=== PATIENT | female | born 1965 ===

== ENCOUNTER 2020-05-15 08:03 | Outpatient (REF) | payer MEDICAID, SELFPAY ==
[2020-05-15 08:40] LABS: Mean Corpuscular Volume 72.4 fL (80-98)
[2020-05-15 08:42] LABS: Hematocrit 25.2 % (37-47); Mean Corpuscular HGB Conc 25.8 g/dl (31.0-35.0); Mean Corpuscular Hemoglobin 18.7 pg (27.0-33.0); Platelet Count 101 X10*3/uL (160-400); Red Blood Count 3.48 X10*6/uL (4.20-5.50); Red Cell Distribution Width 18.2 % (11.0-16.0); White Blood Count 3.5 X10*3/uL (4.8-10.8)
[2020-05-15 09:08] LABS: PLT ABN DIST 1
[2020-05-15 09:27] LABS: Hemoglobin 6.5 g/dl (12.0-16.0)
== END 2020-05-15 08:04 | disposition home or self-care (01) ==
LOC: HO.MDS 08:03
PROVIDERS: Visit Provider Internal Medicine
DX: D50.9 Iron deficiency anemia, unspecified (principal)
CPT/HCPCS: 36415; 85027; 96365; 96366; J1200; J1750; Q0163

== ENCOUNTER 2020-05-22 07:56 | Outpatient (REF) | payer MEDICAID, SELFPAY | END 2020-05-22 07:57 | disposition home or self-care (01) | LOC: HO.LAB 07:56 | PROVIDERS: PCP Nurse Practitioner Family; Visit Provider Internal Medicine | DX: Z20.828 Contact with and (suspected) exposure to other viral communicable diseases (principal) | CPT/HCPCS: U0003 ==

== ENCOUNTER 2020-07-02 10:46 | Emergency (ER) | payer MEDICAID, SELFPAY ==
[2020-07-02 11:25] VITALS: BP 137/68; PULSE 80; RESP 18; TEMP 36.6; O2SAT 98; BMI 41.0
--- NOTE | 2020-07-02 12:04 | ED_ITS ---
HPI - Female Genitourinary General Chief complaint: Vaginal Bleeding Stated complaint: belly pain Time Seen by Provider: 07/02/20 11:10 Source: patient Mode of arrival: ambulatory Limitations: no limitations History of Present Illness HPI Narrative: 55yoF c PMHx of panocytopenia, iron deficiency anemia secondary to menorrhagia last H&H on 05/15/2020 was 6.5/25.2, hepatitis-C genotype type 2, cirrhosis, splenomegaly, DM Type II, HTN, hypothyroidism, GERD and constipation c a PSHx of tubal ligation and a normal colonoscopy presenting to the ED with complaints of 3 days of vaginal bleeding with clots where she saturated her entire bed with bright red blood with associated generalized weakness, fatigue and dizziness. Patient denies any fevers, nausea/vomiting, chest pain or shortness of breath or abdominal pain or any other symptoms complaints or concerns at this time. Related Data Home Medications Medication Instructions Recorded Confirmed cyclobenzaprine [Flexeril] 10 mg PO BEDTIME PRN 05/12/20 05/12/20 lactulose g PO 05/12/20 levothyroxine 100 mcg PO DAILY 05/12/20 05/12/20 loratadine 10 mg PO DAILY 05/12/20 05/12/20 metformin 500 mg PO DAILY 05/12/20 05/12/20 omeprazole 20 mg PO DAILY 05/12/20 05/12/20 sertraline 50 mg PO DAILY 05/12/20 05/12/20 tramadol 50 mg PO BID PRN 05/12/20 05/12/20 trazodone 50 mg PO BEDTIME PRN 05/12/20 05/12/20 Previous Rx's Medication Instructions Recorded gabapentin 300 mg capsule 300 mg PO TID #90 cap 05/17/20 medroxyprogesterone [Provera] 10 mg PO DAILY #7 tab 07/02/20 Allergies Allergy/AdvReac Type Severity Reaction Status Date / Time SEASONAL ALLERGIES Allergy Mild SNEEZING Uncoded 04/06/20 15:40 Review of Systems Review of Systems: Constitutional : No Fever, No Chills ENT/Mouth : No sore throat, No Rhinorrhea Eyes: No Eye Pain, No Redness Cardiovascular : No Chest Pain, No SOB Respiratory : No Cough, No Sputum, No Wheezing Gastrointestinal : No Nausea, No Vomiting, No Diarrhea, positive abdominal pain, Genitourinary : + irregular bleeding, No Dysuria, No Urinary Frequency, No pelvic pain, No vaginal discharge Musculoskeletal : No Myalgias Skin : No rash Neuro : + Gen Weakness, + Fatigue, + Dizziness, No Headache Psych : No Anxiety/Panic, No Depression Heme/Lymph: No bruising, No Lymphadenopathy Endocrine : No Polyuria, No Polydipsia Yes all other systems are reviewed and are negative [facility] Past Medical History Attestation statement: The following information was validated with the patient. Medical History Constipation GERD (gastroesophageal reflux disease) Hepatitis C HTN (hypertension) Hypothyroidism Iron deficiency anemia Menorrhagia Normal colonoscopy Obesity Rhinitis Splenomegaly Type 2 diabetes mellitus Surgical History Hx of tubal ligation Social History Social History (Reviewed 07/02/20 @ 12: by RISSA Thomas) Smoking Status: Current some day smoker Use of substances other than those prescribed or required for medical reasons: No Advance Directives: No Advance Directives Information Provided: No Physical Exam Vital Signs: Vital Signs: Last Vital Signs Temp 97.9 F 07/02/20 11:25 Pulse 78 07/02/20 14:55 Resp 16 07/02/20 14:55 BP 148/78 H 07/02/20 14:55 Pulse Ox 98 07/02/20 14:55 Body Mass Index 41.0 vital signs have been reviewed as normal and appeared to be correct. Blood pressure normal. Heart rate normal. Respiration rate normal. Temperature normal. Oxygen saturation normal. Appearance: Alert. Oriented X3. No acute distress. Head: Normal external exam. Normocephalic. Atraumatic. Eyes: PERRLA. EOMI. Conjunctiva and sclera normal. Eyelids normal. ENT: Pharynx normal. Uvula midline. Moist mucous membranes. Neck: Normal inspection. Neck supple. FROM. No adenopathy. No meningeal signs. CVS: Normal heart rate and rhythm. Heart sound normal. No murmurs noted. Pulses normal throughout. Respiratory: No respiratory distress. Painless inspiration. Breath sounds normal. No wheezes/rales/rhonchi noted. Chest nontender. No accessory muscle usage noted or decreased air movement noted. Abdomen: Soft and nontender. Bowel sounds normal in all 4 quadrants. No distention noted. No organomegaly noted. No visible injury noted. : Supervised by DONNY Shea- Normal external appearance of urethra. No lesions/lacerations or purulent discharge or tenderness noted. Speculum exam normal appearance/palpation of vagina. Pt noted to have bright red active vaginal bleeding no clots noted. No hemorrhaging noted at this time. Cervical os appears closed. Otherwise no vaginal erythema. No foreign bodies noted. No vaginal laceration/lesions noted. No tissue present in vagina. No vaginal mass noted. No vaginal swelling noted. No vaginal tenderness noted. Normal appearance of cervix. Normal palpation of cervix. Cervical os is closed. No abnormal cervical discharge noted. No cervical lesion/mass. No Bartholin cyst noted. No cervical motion tenderness noted. Negative chandelier sign. Normal bimanual exam. Uterine size normal. Bladder normal to palpation. Uterine consistency normal. Normal cervical palpation. Uterine mobility normal. Uterine shape normal. Normal adnexa. Normal rectovaginal exam. Back: No CVA tenderness. Full range of motion noted. Skin: Skin warm and dry. Normal skin color. Normal skin turgor. No rashes/lesions/lacerations noted. Extremities: Extremities exhibit normal range of motion. Extremities nontender. Neuro: Oriented X 3. No motor deficit. No sensory deficit. Reflexes normal. Course Course Course Narrative: 55yoF c PMHx of panocytopenia, iron deficiency anemia secondary to menorrhagia last H&H on 05/15/2020 was 6.5/25.2, hepatitis-C genotype type 2, cirrhosis, splenomegaly, DM Type II, HTN, hypothyroidism, GERD and constipation c a PSHx of tubal ligation and a normal colonoscopy presenting to the ED with complaints of 3 days of vaginal bleeding with clots where she saturated her entire bed with bright red blood with associated generalized weakness, fatigue and dizziness. - On exam patient is not in any acute distress vital signs are stable patient is not tachycardic and hypotensive at this time. although is having active bleeding not hemorrhaging no clots noted. Cervical os is closed. No purulent discharge noted on speculum exam. - Plan: Labs, Blood type and screen, UA, UHCG. Consult c OBGYN Dr. Rodríguez who will come and evaluate the patient and she instructed me to give the patient 1000 mg of IV Tranexamic acid. Patient also received 1 L of IV fluids. Will re-evaluate. Reevaluation(s) Reevaluation #1: - patient's repeat a H&H actually improved now at 10.6/33.3 therefore not requiring a blood transfusion at this time. All other labs are within normal limits. UA within normal limits no evidence of UTI. CG ne gative for . COVID negative. Transvaginal/pelvic ultrasound revealed multiple fibroids otherwise normal appearance of the bilateral ovaries. - patient was evaluated by OBGYN Dr. Rodríguez and obtain a endometrial biopsy which she will send the samples that she was able to obtain. She reports that when she did the vaginal exam the patient's bleeding had already resolved after the 1000 mg of IV Tranexamic acid. She reported that she will be sending the patient home with oral contraceptives. Therefore at this time will DC home with instructions return if any new or worsening symptoms to follow-up with OBGYN. Patient understands agrees with this plan. Time: 15:07 [facility] - Female Genitourinary Medical Records Attestation: I reviewed the patient's medical records. Lab Data Attestation: I reviewed the patient's lab results. Result diagrams: 07/02/20 12:07/02/20 12: Labs: Lab Results 07/02/20 07/02/20 07/02/20 Range/Units 12:01 12:01 12:01 WBC 6.6 (4.8-10.8) X10*3/uL RBC 3.87 L (4.20-5.50) X10*6/uL Hgb 10.6 L D (12.0-16.0) g/dl Hct 33.3 L D (37-47) % MCV 86.0 (80-98) fL MCH 27.4 (27.0-33.0) pg MCHC 31.8 (31.0-35.0) g/dl RDW 18.1 H (11.0-16.0) % Plt Count 167 D (160-400) X10*3/uL MPV 11.4 (9.4-12.3) fL Immature Gran % (Auto) 0.3 (0.0-0.4) % Neut % (Auto) 74.3 H (45-73) % Lymph % (Auto) 16.3 L (20-40) % Sharkey % (Auto) 6.5 (2-11) % Eos % (Auto) 2.3 (0-4) % Baso % (Auto) 0.3 (0-2) % Lymph # (Auto) 1.1 L (1.2-4.9) X10*3/uL Sharkey # (Auto) 0.4 (0.1-1.2) X10*3/uL Eos # (Auto) 0.2 (0.0-0.4) X10*3/uL Baso # (Auto) 0.0 (0.0-0.2) X10*3/uL Abs Immat Gran (auto) 0.02 (0.00-0.03) X10*3/uL Absolute Neuts (auto) 4.9 (2.0-8.3) X10*3/uL Absolute Nucleated RBC 0.000 (0.0-0.012) X10*3/uL Nucleated RBC % (auto) 0.0 (0.0-0.2) /100WBC PT 12.7 (10.8-13.0) SEC INR 1.1 (0.9-1.1) APTT 32.2 (24.1-38.0) SEC Sodium 137 (135-145) mmol/L Potassium 4.0 (3.3-5.1) mmol/l Chloride 101 (96-108) mmol/L Carbon Dioxide 25 (22-29) mmol/L Anion Gap 15 (12-20) BUN 15 (9-16) mg/dL Creatinine 0.86 (0.5-1.4) mg/dL Estim Creat Clear Calc 100.9 Estimated GFR > 60 Random Glucose 95 (60-115) mg/dL Calcium 8.6 (8.4-10.2) mg/dL Magnesium 1.7 (1.6-2.6) mg/dL Total Bilirubin 0.3 (0.0-1.0) mg/dL Direct Bilirubin < 0.2 (0.0-0.5) mg/dL AST 21 (5-31) U/L ALT 13 (0-31) U/L Alkaline Phosphatase 66 (39-117) U/L Total Protein 7.6 (6.5-8.0) g/dL Albumin 4.3 (3.5-5.0) g/dL Urine Color Urine Appearance Urine pH (5.0-8.0) Ur Specific [place] (1.005-1.025) Urine Protein (NEG-TRACE) MG/DL Urine Glucose (UA) (NEG) MG/DL Urine Ketones (NEG) MG/DL Urine Blood (NEG) Urine Nitrite (NEG) Ur Leukocyte Esterase (NEG) Urine RBC (0) /HPF Urine WBC (0-4) /HPF Ur Squamous Epith Cells /LPF Urine Bacteria /LPF Urine Test (NEGATIVE) COVID-19 ([facility]) (Negative) COVID-19 Clin Com Blood Type Antibody Screen 07/02/20 07/02/20 07/02/20 Range/Units 12:01 12:15 12:28 WBC (4.8-10.8) X10*3/uL RBC (4.20-5.50) X10*6/uL Hgb (12.0-16.0) g/dl Hct (37-47) % MCV (80-98) fL MCH (27.0-33.0) pg MCHC (31.0-35.0) g/dl RDW (11.0-16.0) % Plt Count (160-400) X10*3/uL MPV (9.4-12.3) fL Immature Gran % (Auto) (0.0-0.4) % Neut % (Auto) (45-73) % Lymph % (Auto) (20-40) % Sharkey % (Auto) (2-11) % Eos % (Auto) (0-4) % Baso % (Auto) (0-2) % Lymph # (Auto) (1.2-4.9) X10*3/uL Sharkey # (Auto) (0.1-1.2) X10*3/uL Eos # (Auto) (0.0-0.4) X10*3/uL Baso # (Auto) (0.0-0.2) X10*3/uL Abs Immat Gran (auto) (0.00-0.03) X10*3/uL Absolute Neuts (auto) (2.0-8.3) X10*3/uL Absolute Nucleated RBC (0.0-0.012) X10*3/uL Nucleated RBC % (auto) (0.0-0.2) /100WBC PT (10.8-13.0) SEC INR (0.9-1.1) APTT (24.1-38.0) SEC Sodium (135-145) mmol/L Potassium (3.3-5.1) mmol/l Chloride (96-108) mmol/L Carbon Dioxide (22-29) mmol/L Anion Gap (12-20) BUN (9-16) mg/dL Creatinine (0.5-1.4) mg/dL Estim Creat Clear Calc Estimated GFR Random Glucose (60-115) mg/dL Calcium (8.4-10.2) mg/dL Magnesium (1.6-2.6) mg/dL Total Bilirubin (0.0-1.0) mg/dL Direct Bilirubin (0.0-0.5) mg/dL AST (5-31) U/L ALT (0-31) U/L Alkaline Phosphatase (39-117) U/L Total Protein (6.5-8.0) g/dL Albumin (3.5-5.0) g/dL Urine Color PINK Urine Appearance CLOUDY Urine pH 6.0 (5.0-8.0) Ur Specific [place] 1.010 (1.005-1.025) Urine Protein 1+ H (NEG-TRACE) MG/DL Urine Glucose (UA) NEG (NEG) MG/DL Urine Ketones NEG (NEG) MG/DL Urine Blood 3+ H (NEG) Urine Nitrite NEG (NEG) Ur Leukocyte Esterase NEG (NEG) Urine RBC TNTC H (0) /HPF Urine WBC 0 (0-4) /HPF Ur Squamous Epith Cells NONE /LPF Urine Bacteria NONE /LPF Urine Test NEGATIVE (NEGATIVE) COVID-19 ([facility]) Negative (Negative) COVID-19 Clin Com See Note Blood Type O Positive Antibody Screen NEGATIVE Imaging Data Ovarian/pelvic/transvaginal ultrasound: Attestation: I personally reviewed and interpreted this imaging study as follows: Radiologist's impression: IMPRESSION: Multiple fibroids as above. The endometrium is obscured by the presence of fibroids. Normal appearance of the bilateral ovaries. Critical Care Time Critical Care Time Critical Care Time: Yes Total Critical Care Time: 60 Attestation: I personally attest to this time spent taking care of the patient Discharge Plan Discharge Clinical Impression: Menometrorrhagia, Anemia, Fibroids Patient Disposition: Home, Self-Care Instructions: Menorrhagia (ED) Prescriptions: New medroxyprogesterone [Provera] 10 mg tablet 10 mg PO DAILY Qty: 7 RF: 0 No Action gabapentin 300 mg capsule 300 mg PO TID Qty: 90 RF: 5 metformin 500 mg Tablet 500 mg PO DAILY RF: 0 trazodone 50 mg Tablet 50 mg PO BEDTIME PRN (Reason: Insomnia) RF: 0 levothyroxine 100 mcg Tablet 100 mcg PO DAILY RF: 0 sertraline 50 mg Tablet 50 mg PO DAILY RF: 0 loratadine 10 mg Tablet 10 mg PO DAILY RF: 0 omeprazole 20 mg Tablet,Delayed Release (Dr/Ec) 20 mg PO DAILY RF: 0 cyclobenzaprine [Flexeril] 10 mg Tablet 10 mg PO BEDTIME PRN (Reason: Pain) RF: 0 lactulose 10 gram/15 mL Syrup PO RF: 0 tramadol 50 mg Tablet 50 mg PO BID PRN (Reason: Pain) RF: 0 Referrals: Shanell Heredia NP [Primary Care Provider] - 2 days Marzena Rodríguez MD [Physician] - 2 days Print Language: Hebrew
[2020-07-02 12:09] LABS: Basophils Percent Auto 0.3 % (0-2); Eosinophils Absolute Auto 0.2 X10*3/uL (0.0-0.4); Eosinophils Percent Auto 2.3 % (0-4); Hematocrit 33.3 % (37-47); Hemoglobin 10.6 g/dl (12.0-16.0); Imm Gran Abs Auto 0.02 X10*3/uL (0.00-0.03); Imm Gran Pct Auto 0.3 % (0.0-0.4); Lymphocytes Absolute Auto 1.1 X10*3/uL (1.2-4.9); Lymphocytes Percent Auto 16.3 % (20-40); MANUAL DIFF FLAG NO; Mean Corpuscular HGB Conc 31.8 g/dl (31.0-35.0); Mean Corpuscular Hemoglobin 27.4 pg (27.0-33.0); Mean Platelet Volume 11.4 fL (9.4-12.3); Monocytes Absolute Auto 0.4 X10*3/uL (0.1-1.2); Monocytes Percent Auto 6.5 % (2-11); Neutrophils Absolute Auto 4.9 X10*3/uL (2.0-8.3); Neutrophils Percent Auto 74.3 % (45-73); Platelet Count 167 X10*3/uL (160-400); Red Blood Count 3.87 X10*6/uL (4.20-5.50); Red Cell Distribution Width 18.1 % (11.0-16.0); White Blood Count 6.6 X10*3/uL (4.8-10.8)
[2020-07-02 12:15] LABS: Glucose Urine UA NEG (NEG); INTERNATIONAL NORM RATIO 1.1 (0.9-1.1); Leukocyte Esterase Urine NEG (NEG); Nitrite Urine NEG (NEG); Prothrombin Time 12.7 SEC (10.8-13.0); Urine Blood 3+ (NEG); Urine Ketones NEG (NEG); Urine Protein 1+ MG/DL (NEG-TRACE)
[2020-07-02 12:16] LABS: Appearance Urine CLOUDY; Color Urine PINK
[2020-07-02 12:17] LABS: UPreg QC Valid YES; Urine Pregnancy NEGATIVE (NEGATIVE)
[2020-07-02 12:18] LABS: Partial Thromboplastin Time 32.2 SEC (24.1-38.0)
[2020-07-02] MEDS: Tranexamic Acid 1,000 MG in 0.9 % Sodium Chloride 50 ML 360 MG IV (12:18)
[2020-07-02 12:27] LABS: RBC Urine TNTC /HPF (0); WBC Urine 0 /HPF (0-4)
[2020-07-02 13:03] LABS: Alanine Aminotransferase 13 U/L (0-31); Albumin Level 4.3 g/dL (3.5-5.0); Alkaline Phosphatase 66 U/L (39-117); Anion Gap 15 (12-20); Aspartate Amino Transferase 21 U/L (5-31); Bilirubin Direct < 0.2 mg/dL (0.0-0.5); Bilirubin Total 0.3 mg/dL (0.0-1.0); Blood Urea Nitrogen 15 mg/dL (9-16); Calcium 8.6 mg/dL (8.4-10.2); Carbon Dioxide 25 mmol/L (22-29); Chloride 101 mmol/L (96-108); Creatinine Clr Calc Pharmacy 100.9; Estimated Glomerular Filt Rate > 60; Glucose Random 95 mg/dL (60-115); Magnesium 1.7 mg/dL (1.6-2.6); Sodium 137 mmol/L (135-145); Total Protein 7.6 g/dL (6.5-8.0)
[2020-07-02 13:04] LABS: COVID-19 Test Negative (Negative)
--- NOTE | 2020-07-02 13:04 | US_ITS ---
EXAMINATION: ULTRASOUND PELVIC, COMPLETE CLINICAL INFORMATION: Vaginal bleeding COMPARISON: None. TECHNIQUE: Transabdominal and transvaginal imaging was performed. Transvaginal imaging was performed for further evaluation of the endometrium and adnexa. FINDINGS: The uterus is enlarged measuring 12.3 x 10.5 x 9.5 cm. There are at least 4 fibroids. The largest is in the anterior upper uterus and measures 6.6 x 7.4 x 6.8 cm. There is a fibroid in the posterior upper uterus that measures up to 4.7 cm, a 4cm fibroid in the mid posterior uterus and a 4.6 cm fibroid in the lower posterior uterus. The endometrium is obscured by the fibroids. There are nabothian cysts within the cervix. Both ovaries are of normal size and echogenicity. The right ovary measures 2.2 x 2 x 1.9 cm for a volume of 4.4 mL. The left ovary measures 2.3 x 3.1 x 3.1 cm for a volume of 11.6 mL. There is no pelvic free fluid. US/US pelvic complete IMPRESSION: Multiple fibroids as above. The endometrium is obscured by the presence of fibroids. Normal appearance of the bilateral ovaries.
--- NOTE | 2020-07-02 13:04 | US_ITS ---
EXAMINATION: ULTRASOUND PELVIC, COMPLETE CLINICAL INFORMATION: Vaginal bleeding COMPARISON: None. TECHNIQUE: Transabdominal and transvaginal imaging was performed. Transvaginal imaging was performed for further evaluation of the endometrium and adnexa. FINDINGS: The uterus is enlarged measuring 12.3 x 10.5 x 9.5 cm. There are at least 4 fibroids. The largest is in the anterior upper uterus and measures 6.6 x 7.4 x 6.8 cm. There is a fibroid in the posterior upper uterus that measures up to 4.7 cm, a 4cm fibroid in the mid posterior uterus and a 4.6 cm fibroid in the lower posterior uterus. The endometrium is obscured by the fibroids. There are nabothian cysts within the cervix. Both ovaries are of normal size and echogenicity. The right ovary measures 2.2 x 2 x 1.9 cm for a volume of 4.4 mL. The left ovary measures 2.3 x 3.1 x 3.1 cm for a volume of 11.6 mL. There is no pelvic free fluid. US/US transvaginal IMPRESSION: Multiple fibroids as above. The endometrium is obscured by the presence of fibroids. Normal appearance of the bilateral ovaries.
--- NOTE | 2020-07-02 14:40 | PC.NURSE ---
this rn at bedside with pt/per diem interpreter/dr. damon. dr. damon perfomed a endometerial biopsy which pt carlos well.
[2020-07-02 14:55] VITALS: BP 148/78; PULSE 78; RESP 16; O2SAT 98
--- NOTE | 2020-07-02 15:06 | P.CONOB_ITS ---
LETTER OF CREDIT DOCUMENT EXAMINER - CN: HPI Data of Consult Consult date: 07/02/20 Primary Care Provider: Shanell Heredia NP Consult Narrative Narrative: Camila Dumont is a 55 year old female who presents with three days of heavy vaginal bleeding. Menses are regular, monthly, and typically last 5 days with two days of heavy bleeding which then gets senior director marketing. She typically changes her pads ( Pampers ) 4-5 times daily during the first two days. This time, she is changing her pads 9x/day. Bleeding is senior director marketing today than when it first started. She reports it has been much heavier than normal, flowing out when she is in the shower and coming heavier when she coughs or sneezes. She sometimes feels dizzy; she reports this is normal for her as she has a history of anemia and was transfused blood a few months ago because her hemoglobin dropped to 5. She is followed by heme/onc for chronic pancytopenia. She denies chest pain or SOB. 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 - Review of Systems Review of Systems ROS Unobtainable: All systems reviewed & are unremarkable except as noted in HPI and below OB PMFSH Past Medical History Medical History Abnormal uterine bleeding Constipation GERD (gastroesophageal reflux disease) Hepatitis C HTN (hypertension) Hypothyroidism Iron deficiency anemia Menorrhagia Normal colonoscopy Obesity Rhinitis Splenomegaly Type 2 diabetes mellitus Surgical History Surgical History Hx of tubal ligation Social History Social History Smoking Status: Current some day smoker Use of substances other than those prescribed or required for medical reasons: No Advance Directives: No Advance Directives Information Provided: No Meds Allergies Allergy/AdvReac Type Severity Reaction Status Date / Time SEASONAL ALLERGIES Allergy Mild SNEEZING Uncoded 04/06/20 15:40 Home Medications Medication Instructions Recorded Confirmed Type cyclobenzaprine [Flexeril] 10 mg PO BEDTIME PRN 05/12/20 05/12/20 History lactulose g PO 05/12/20 History levothyroxine 100 mcg PO DAILY 05/12/20 05/12/20 History loratadine 10 mg PO DAILY 05/12/20 05/12/20 History metformin 500 mg PO DAILY 05/12/20 05/12/20 History omeprazole 20 mg PO DAILY 05/12/20 05/12/20 History sertraline 50 mg PO DAILY 05/12/20 05/12/20 History tramadol 50 mg PO BID PRN 05/12/20 05/12/20 History trazodone 50 mg PO BEDTIME PRN 05/12/20 05/12/20 History LETTER OF CREDIT DOCUMENT EXAMINER Physical Exam Vitals Vital signs: Temp Pulse Resp BP Pulse Ox 97.9 F 78 16 148/78 H 98 07/02/20 11:25 07/02/20 14:55 07/02/20 14:55 07/02/20 14:55 07/02/20 14:55 Body Mass Index 41.0 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6 Liver Function 07/02/20 Range/Units 12:01 Total Bilirubin 0.3 (0.0-1.0) mg/dL Direct Bilirubin < 0.2 (0.0-0.5) mg/dL AST 21 (5-31) U/L ALT 13 (0-31) U/L Alkaline Phosphatase 66 (39-117) U/L Albumin 4.3 (3.5-5.0) g/dL Urine 07/02/20 Range/Units 12:01 Urine Color PINK Urine Appearance CLOUDY Urine pH 6.0 (5.0-8.0) Ur Specific [place] 1.010 (1.005-1.025) Urine Protein 1+ H (NEG-TRACE) MG/DL Urine Glucose (UA) NEG (NEG) MG/DL Urine Test NEGATIVE (NEGATIVE) Antibody Screen Antibody Screen NEGATIVE 07/02/20 12:15 Assessment and Plan (1) Abnormal uterine bleeding: Status: Acute Offered endometrial biopsy in the ER today vs in the office when she follows up. She consented to EMB today. Will follow up in the office in about one week to review the results and likely plan hysteroscopy D&C with possible endometrial ablation. Bleeding was minimal at the time of exam after one IV dose of TXA in the ER. Will D/C home with one week of Provera 10mg PO QD to ensure continued light bleeding given her history of pancytopenia. LETTER OF CREDIT DOCUMENT EXAMINER Procedures Abscess I/D Comments: Risks and benefits of the procedure were reviewed, including risk of pain, bleeding, infection, and uterine perforation, and consent was signed. All questions were answered. A time out was performed to confirm correct patient and correct procedure. The patient was placed in the dorsal lithotomy position with her legs supported in stirrups. A bivalve speculum was placed in the vagina and the cervix visualized. Topical anesthetic spray was sprayed on the cervix and the anterior lip was grasped with the tenaculum. The EMB pipelle was []then passed through the cervical os. The uterus sounded to 5cm. The plunger was retracted and the pipelle rotated while slowly removed from the uterus. The contents were transferred to the specimen container. The tenaculum was removed from the anterior lip of the cervix and good hemostasis was noted. The speculum was ekta cailin from the vagina. The patient tolerated the procedure well.
[2020-07-02 15:15] VITALS: BP 128/74; PULSE 79; RESP 20; TEMP 36.6; O2SAT 99
== END 2020-07-02 15:46 | disposition home or self-care (01) ==
PROVIDERS: Physician Assistant Medical; Emergency Provider Emergency Medicine; PCP Nurse Practitioner Family
DX: N92.1 Excessive and frequent menstruation with irregular cycle (principal); D64.9 Anemia, unspecified; D25.9 Leiomyoma of uterus, unspecified; F17.200 Nicotine dependence, unspecified, uncomplicated; Z20.828 Contact with and (suspected) exposure to other viral communicable diseases; Z71.6 Tobacco abuse counseling; Z79.899 Other long term (current) drug therapy
CPT/HCPCS: 36415; 76830; 76856; 80048; 80076; 81001; 81025; 83735; 85025; 85610; 85730; 86850; 86900; 86901; 87635; 88305; 96374; 96375; 99284; 99291

== ENCOUNTER → 2020-07-10 11:10 | Outpatient (BNVA) | payer MEDICAID, SELFPAY | PROVIDERS: PCP Nurse Practitioner Family; Visit Provider Obstetrics & Gynecology | DX: Z76.89 Persons encountering health services in other specified circumstances (principal) ==

== ENCOUNTER 2020-07-19 07:44 | Outpatient (REF) | payer MEDICAID, SELFPAY | END 2020-07-19 07:45 | disposition home or self-care (01) | LOC: HO.MDS 07:44 | PROVIDERS: PCP Nurse Practitioner Family; Visit Provider Internal Medicine | DX: D50.9 Iron deficiency anemia, unspecified (principal) | CPT/HCPCS: 96365; 96366; J1200; J1750; Q0163 ==

== ENCOUNTER → 2020-07-26 14:44 | Outpatient (BNVA) | payer MEDICAID, SELFPAY | PROVIDERS: PCP Nurse Practitioner Family; Visit Provider Student in an Organized Health Care Education/Training Program | DX: M17.11 Unilateral primary osteoarthritis, right knee (principal) | CPT/HCPCS: 20610; 99211 ==

== ENCOUNTER → 2020-08-11 09:49 | Outpatient (BNVA) | payer MEDICAID, SELFPAY | PROVIDERS: PCP Nurse Practitioner Family; Referring Provider Nurse Practitioner Family; Visit Provider Nurse Practitioner ==

== ENCOUNTER 2020-09-06 10:18 | Emergency (ER) | payer MEDICAID, SELFPAY | END 2020-09-06 14:23 | disposition left against medical advice (07) | PROVIDERS: Emergency Provider Emergency Medicine; PCP Nurse Practitioner Family | DX: N93.9 Abnormal uterine and vaginal bleeding, unspecified (principal) ==

== ENCOUNTER → 2020-09-08 11:25 | Outpatient (BNVA) | payer MEDICAID, SELFPAY | PROVIDERS: PCP Nurse Practitioner Family; Visit Provider Obstetrics & Gynecology ==

== ENCOUNTER → 2020-10-24 08:32 | Outpatient (BNVA) | payer MEDICAID, SELFPAY | PROVIDERS: PCP Nurse Practitioner Family; Visit Provider Obstetrics & Gynecology | DX: N93.9 Abnormal uterine and vaginal bleeding, unspecified (principal) | CPT/HCPCS: 99212 ==

== ENCOUNTER → 2020-11-22 07:50 | Outpatient (BNVA) | payer MEDICAID, SELFPAY | PROVIDERS: PCP Nurse Practitioner Family; Visit Provider Student in an Organized Health Care Education/Training Program | DX: M17.11 Unilateral primary osteoarthritis, right knee (principal) | CPT/HCPCS: 20610; 99212 ==

== ENCOUNTER 2020-12-26 08:27 | Outpatient (REF) | payer MEDICAID, SELFPAY ==
--- NOTE | ~2020-12-26 | MM_ITS ---
EXAMINATION: MM SCREENING DIGITAL BREAST TOMOSYNTHESIS, BILATERAL CLINICAL INFORMATION: Screening. Asymptomatic. The lifetime risk of breast cancer based on the Tyrer-Cuzick Model is 8%. COMPARISON: Mammography: 09/23/2018, 09/15/2018, 09/09/2017 TECHNIQUE: Digital breast tomosynthesis is performed in both the craniocaudal and mediolateral oblique views along with computer-aided detection (CAD). Synthesized 2D images are generated from the tomosynthesis. FINDINGS: There are scattered areas of fibroglandular density (ACR BI-RADS breast composition Category b). There are no significant masses, abnormal calcifications, or other abnormalities. There is a fine fibronodular parenchymal pattern is similar to prior exams. No developing density. The axilla and skin contours are unremarkable. MM/MM tomosynthesis screening BI IMPRESSION: No mammographic evidence of malignancy. ASSESSMENT: BI-RADS 1: Negative RECOMMENDATION: Routine annual mammography screening. This patient's information was entered into a reminder system with a target due date for their next mammogram.
== END 2020-12-26 08:28 | disposition home or self-care (01) ==
LOC: HO.MAMMO 08:27
PROVIDERS: PCP Nurse Practitioner Family; Visit Provider Nurse Practitioner Family
DX: N93.9 Abnormal uterine and vaginal bleeding, unspecified (principal); Z12.31 Encounter for screening mammogram for malignant neoplasm of breast
CPT/HCPCS: 77063; 77067; 99212

== ENCOUNTER → 2021-02-12 10:03 | Outpatient (BNVA) | payer MEDICAID, SELFPAY | PROVIDERS: PCP Nurse Practitioner Family; Visit Provider Nurse Practitioner ==

== ENCOUNTER → 2021-04-16 08:55 | Outpatient (BNVA) | payer MEDICAID, SELFPAY | PROVIDERS: Visit Provider Nurse Practitioner ==

== ENCOUNTER → 2021-05-29 12:01 | Outpatient (BNVA) | payer MEDICAID, SELFPAY | PROVIDERS: PCP Nurse Practitioner Family; Visit Provider Nurse Practitioner ==

== ENCOUNTER 2021-05-30 09:51 | Outpatient (REF) | payer MEDICAID, SELFPAY ==
[2021-05-30 16:38] LABS: CT PCR NOT DETECTED (Not Detect.); NG PCR NOT DETECTED (Not Detect.)
[2021-05-31 10:55] LABS: BV Int Neg Control Negative (Negative); BV Int Pos Control Positive (Positive)
[2021-06-05 15:01] LABS: HPV mRNA E6/E7 rflx Not Detected (Not Detected)
== END 2021-05-30 09:52 | disposition home or self-care (01) ==
LOC: HO.LAB 09:51
PROVIDERS: PCP Nurse Practitioner Family; Visit Provider Advanced Practice Midwife
DX: Z01.419 Encounter for gynecological examination (general) (routine) without abnormal findings (principal); Z11.3 Encounter for screening for infections with a predominantly sexual mode of transmission; Z11.51 Encounter for screening for human papillomavirus (HPV); N92.0 Excessive and frequent menstruation with regular cycle; N88.9 Noninflammatory disorder of cervix uteri, unspecified; D25.9 Leiomyoma of uterus, unspecified; Z78.0 Asymptomatic menopausal state; Z20.2 Contact with and (suspected) exposure to infections with a predominantly sexual mode of transmission
CPT/HCPCS: 87480; 87491; 87510; 87591; 87624; 87660; 88142

== ENCOUNTER 2021-06-21 10:50 | Outpatient (REF) | payer MEDICAID, SELFPAY ==
--- NOTE | ~2021-06-21 | US_ITS ---
EXAMINATION: US PELVIS CLINICAL INFORMATION: Leiomyoma of the uterus. COMPARISON: Ultrasound 07/02/2020 TECHNIQUE: Ultrasound of the pelvis is performed using transabdominal transducers along with Doppler. Transvaginal imaging was refused by the patient. FINDINGS: Uterus: The uterus is anteverted, retroflexed and measures 15.7 cm in length, 8.0 cm in AP, and 12.0 cm in transverse dimension. The double wall endometrial thickness is 2.3 cm. The uterus is is heterogeneous and enlarged with multiple hypoechoic lesions. 1. Lesion in the endometrial canal likely submucosal and pedunculated measuring 1.6 x 1.6 x 1.6 cm. 2. Lesion described previously measuring 8.5 cm is not seen at this time. 3. Largest lesion in the left lower body of the uterus measures 6.6 x 7.4 x 6.8 cm. Previously it measured 4.6 x 3.7 x 3.8 cm. 4. Lesion in the right lower uterine body measures 4.6 x 3.7 x 3.8 cm. Previously it measured 4.0 x 3.6 x 4.0 cm. 5. Lesion in the right upper body of the uterus measures 5.1 x 5.3 x 6.2 cm. Previously it measured 4.7 x 3.7 x 3.5 cm. 6. Lesion in the mid right body of the uterus measures 2.1 x 2.2 x 2.0 cm. Previously it was not seen. 7. Lesion in the left lower cervix measures 4.5 x 4.1 x 4.0 cm. Previously it measured 4.6 x 2.8 x 3.8 cm. There are small nabothian cysts in the cervix. Adnexa: Right ovary is not visualized. Previously right ovary measured 2.2 x 2.0 x 1.9 cm. Left ovary measures 4.4 x 2.5 x 4.5 cm and volume 25.9 mL. There is an anechoic cyst measuring 2.3 x 2.1 x 5.5 cm. Previously the left ovary measured 2.3 x 3.1 x 3.1 cm. US/US pelvic complete IMPRESSION: Heterogeneous enlarged uterus with multiple fibroids, as described above. Small nabothian cysts in the cervix. Small anechoic cyst in the left ovary.
== END 2021-06-21 10:51 | disposition home or self-care (01) ==
LOC: HO.US 10:50
PROVIDERS: PCP Nurse Practitioner Family; Visit Provider Advanced Practice Midwife
DX: D25.9 Leiomyoma of uterus, unspecified (principal)
CPT/HCPCS: 76856

== ENCOUNTER → 2021-07-05 11:39 | Outpatient (BNVA) | payer MEDICAID, SELFPAY | PROVIDERS: PCP Nurse Practitioner Family; Visit Provider Advanced Practice Midwife ==

== ENCOUNTER 2021-08-29 07:49 | Outpatient (REF) | payer MEDICAID, SELFPAY ==
--- NOTE | ~2021-08-29 | XR_ITS ---
EXAMINATION: XR LUMBOSACRAL SPINE CLINICAL INFORMATION: Low back pain COMPARISON: Previous x-ray November 2016 TECHNIQUE: Three views of the lumbosacral spine. FINDINGS: There is curvature of the lumbar spine to the right. There is mild 3 mm anterior subluxation of L4 with respect L5. Bone alignment is otherwise normal. No fracture or dislocation is seen. There is degenerative disc disease at L5-S1. There is lower lumbar spine facet arthritis. XR/XR lumbar spine 2-3V IMPRESSION: Degenerative changes.
[2021-08-29 10:27] LABS: Alanine Aminotransferase 13 U/L (0-31); Albumin Level 4.2 g/dL (3.5-5.0); Alkaline Phosphatase 61 U/L (39-117); Anion Gap 11 (12-20); Aspartate Amino Transferase 18 U/L (5-31); Bilirubin Total 0.7 mg/dL (0.0-1.0); Blood Urea Nitrogen 14 mg/dL (9-16); Calcium 9.2 mg/dL (8.4-10.2); Carbon Dioxide 30 mmol/L (22-29); Chloride 103 mmol/L (96-108); Estimated Glomerular Filt Rate > 60; Glucose Random 98 mg/dL (60-115); Sodium 140 mmol/L (135-145); Total Protein 7.4 g/dL (6.5-8.0)
== END 2021-08-29 07:50 | disposition home or self-care (01) ==
LOC: HO.LAB 07:49
PROVIDERS: PCP Nurse Practitioner Family; Visit Provider Nurse Practitioner Family
DX: M17.11 Unilateral primary osteoarthritis, right knee (principal); M17.12 Unilateral primary osteoarthritis, left knee; M54.50 Low back pain, unspecified; F17.210 Nicotine dependence, cigarettes, uncomplicated; Z79.899 Other long term (current) drug therapy
CPT/HCPCS: 36415; 72100; 80053; 99212

== ENCOUNTER 2021-08-30 08:50 | Outpatient (REF) | payer MEDICAID, SELFPAY ==
--- NOTE | ~2021-08-30 | US_ITS ---
EXAMINATION: US ABDOMEN COMPLETE CLINICAL INFORMATION: Unspecified cirrhosis of liver. COMPARISON: Ultrasound abdomen complete 05/29/2017 and 07/31/2016. TECHNIQUE: Real-time imaging of the abdominal viscera. FINDINGS: PANCREAS: The pancreas is slightly heterogeneous but normal size. A small lymph node is seen adjacent to the pancreatic measuring 2.5 x 0.8 x 2.2 cm. ABDOMINAL AORTA: The proximal, mid, and distal segments are normal in caliber. INFERIOR VENA CAVA: Visualized portions are normal. LIVER: The liver is enlarged measuring 19.1 cm in length. The liver contour is normal. There is increased liver echogenicity. No focal hepatic lesion. There is no intrahepatic biliary duct dilatation seen. The portal the middle portal vein is prominent measuring 1.6 cm GALLBLADDER: The gallbladder is physiologically distended. Multiple mobile gallstones are present. No evidence of gallbladder wall thickening or pericholecystic fluid. COMMON BILE DUCT: Normal in caliber measuring 0.9 cm in diameter. RIGHT KIDNEY: No hydronephrosis or renal calculi. The kidney measures 12.1 cm in maximum dimension. There multiple anechoic cysts suspicious for polycystic kidney disease.. The largest cyst in upper pole measuring 7.0 x 5.8 x 6.1 cm. Findings LEFT KIDNEY: There are multiple anechoic cysts. The largest cyst midpole left kidney measures 5.5 x 3.8 x 4.0 cm. The appearance is suggestive of polycystic kidney disease. No hydronephrosis or renal calculi. The kidney measures 14.8 cm in maximum dimension. SPLEEN: 21.1 The spleen measures 21.1 cm in maximum dimension. FREE FLUID: None. US/US abdomen complete IMPRESSION: Bilateral multiple renal cyst suggestive of polycystic kidney disease. No echogenic stones or hydronephrosis. Mild hepatomegaly with hepatic steatosis. No focal lesion. Prominent middle portal vein
== END 2021-08-30 08:51 | disposition home or self-care (01) ==
LOC: HO.US 08:50
PROVIDERS: PCP Nurse Practitioner; Visit Provider Nurse Practitioner
DX: K74.60 Unspecified cirrhosis of liver (principal)
CPT/HCPCS: 76700

== ENCOUNTER 2021-11-06 05:10 | Emergency (ER) | payer MEDICAID, SELFPAY ==
--- NOTE | ~2021-11-06 | CT_ITS ---
EXAMINATION: CT ABDOMEN AND PELVIS WITHOUT CONTRAST CLINICAL INFORMATION: Lower abdominal pain COMPARISON: Previous abdominal ultrasound August 2021 and pelvic ultrasound June 2021 TECHNIQUE: Multidetector volumetric imaging was performed from the superior aspect of the liver through the pubic symphysis. Sagittal and coronal reformatted images were obtained on the technologist's workstation. This CT examination was performed using dose optimization techniques as appropriate, variously including the following: *Automated exposure control *Adjustment of mA and/or kV according to patient size (this includes techniques or standardized protocols for targeted exams where dose is matched to indication/reason for exam; i.e. extremities or head) *Use of iterative reconstruction technique DLP: 1169 mGy-cm FINDINGS: LUNG BASES: There is a small right pleural effusion. LIVER, GALLBLADDER, AND BILIARY TREE: The liver appears cirrhotic. No focal liver lesion is seen. The gallbladder is normal. PANCREAS: Unremarkable. SPLEEN: The spleen is enlarged and measures 15.7 cm in length. ADRENAL GLANDS: Unremarkable. KIDNEYS AND URETERS: The kidneys are slightly enlarged. The right kidney measures 13.2 and the left 13.5 cm in length. There are multiple bilateral renal cysts. Appearance is questionable for polycystic kidney disease. Largest cysts measure 7 cm in the upper pole of the right kidney and 4 cm in the upper pole of the left kidney. No renal stone, mass or hydronephrosis is seen. BLADDER: Not optimally distended. GASTROINTESTINAL TRACT: There is diverticulosis of the colon. No evidence of diverticulitis or colitis is seen. The small and large bowel are otherwise unremarkable. The appendix is unremarkable. ABDOMINAL WALL: No significant hernia is appreciated. LYMPH NODES: There is shotty bilateral inguinal lymphadenopathy. There is shotty retroperitoneal lymphadenopathy. No enlarged lymph nodes are seen. There is no ascites. VASCULAR: Unremarkable. PELVIC VISCERA: The uterus is enlarged and measures 15 x 11 x 13 cm in dimension. The uterus is lobulated in contour and has areas of low attenuation probably representing fibroids. There is central low attenuation in the uterus and it is uncertain whether this represents endometrial fluid or thickening or fibroid. There is also increased soft tissue in the left adnexa measuring 5 cm. It is uncertain whether this represents a subserosal or pedunculated uterine fibroid or could represent a left adnexal lesion. There is also abnormal contour to the cervix questionable for a fibroid. OSSEOUS STRUCTURES: There are degenerative changes of the spine and hip joints. There is mild curvature of the lumbar spine to the right. CT/CT abdomen pelvis wo con IMPRESSION: Diverticulosis of the colon. No evidence of colitis or diverticulitis. Normal-appearing appendix. Cirrhotic appearing liver and splenomegaly. Enlarged kidneys and multiple bilateral renal cysts. Polycystic kidney disease should be considered. Enlarged abnormal appearing uterus. Fleischner guidelines were followed.
[2021-11-06 05:25] VITALS: BP 125/59; PULSE 74; RESP 18; TEMP 36.6; O2SAT 98; BMI 38.8
[2021-11-06 05:34] LABS: Appearance Urine CLEAR; Color Urine YELLOW; Glucose Urine UA NEG (NEG); Leukocyte Esterase Urine NEG (NEG); Nitrite Urine NEG (NEG); PH 6.5 (5.0-8.0); Urine Blood NEG (NEG); Urine Ketones NEG (NEG); Urine Protein NEG (NEG-TRACE)
--- NOTE | 2021-11-06 07:05 | ED_ITS ---
HPI - Back Pain/Injury General Chief Complaint: Back Pain/Injury Stated Complaint: lower back pain Time Seen by Provider: 11/06/21 07:03 Source: patient and [employer] Mode of arrival: ambulatory Limitations: no limitations History of Present Illness HPI Narrative: Walked into the emergency department for evaluation of low back pain/abdominal pain. 56-year-old female only Maltese speaker came in for evaluation of lower abdominal pain and low back pain radiates sometimes to left lower extremities, pain has been constant for the past 2 days, described as severe 10/10, no nausea, vomiting, diarrhea, fever, or chills. Movement makes the pain worse, nothing relieves the pain. Patient is complaining of burning and frequent urination. No recent trauma. Patient has a chronic back pain but never had that back pain radiating down to her lower abdomen. Related Data Home Medications Medication Instructions Recorded Confirmed lactulose 10 gram/15 mL oral syrup 10 g PO DAILY 05/12/20 10/09/21 levothyroxine 100 mcg tablet 100 mcg PO DAILY 05/12/20 10/09/21 loratadine 10 mg tablet 10 mg PO DAILY 05/12/20 10/09/21 metformin 500 mg tablet 500 mg PO DAILY 05/12/20 10/09/21 sertraline 50 mg tablet 50 mg PO DAILY 05/12/20 10/09/21 trazodone 50 mg tablet 50 mg PO BEDTIME PRN 05/12/20 10/09/21 dulaglutide 0.75 mg/0.5 mL 0.75 mg SUBCUT QWEEK 04/11/21 10/09/21 subcutaneous pen injector (Trulicity) Previous Rx's Medication Instructions Recorded medroxyprogesterone 5 mg tablet 5 mg PO DAILY 90 Days #90 tab 07/10/20 linaclotide 145 mcg capsule 145 mcg PO QAM #30 cap 02/20/21 (Linzess) linaclotide 290 mcg capsule 290 mcg PO QAM 30 Days #30 cap 08/07/21 (Linzess) omeprazole 20 mg tablet,delayed 20 mg PO BID 30 Days #60 tab 08/07/21 release gabapentin 300 mg capsule 300 mg PO TID #90 cap 09/27/21 tramadol 50 mg tablet 50 mg PO Q6H PRN #120 tab 10/17/21 Allergies Allergy/AdvReac Type Severity Reaction Status Date / Time lisinopril Allergy Swelling Verified 08/29/21 08:03 SEASONAL ALLERGIES Allergy Mild SNEEZING Uncoded 08/29/21 08:03 Review of Systems Review of Systems: All other systems are reviewed and are negative Constitutional: Reports as per HPI and Reports no additional constitutional complaints Eyes: Reports as per HPI and Reports no additional eye complaints Reports system reviewed and no additional complaints, except as documented Cardiovascular: Reports as per HPI and Reports no additional cardiovascular complaints Respiratory: Reports as per HPI and Reports no additional respiratory complaints Gastrointestinal: Reports as per HPI and Reports no additional gastrointestinal complaints Genitourinary: Reports no additional female genitourinary complaints Musculoskeletal: Reports no additional musculoskeletal complaints Skin/Breast: Reports system reviewed and no additional complaints, except as docu Psychiatric: Reports no additional psychiatric complaints Endocrine: Reports no additional endocrine complaints Hematologic/Lymphatic: Reports no additional hematologic/lymphatic complaints Allergic/Immunologic: Reports no additional allergic/immunologic complaints Reports system reviewed and no additional complaints, except as documented and Reports Abnormal speech present FOR[facility]LY [facility] Past Medical History Medical History Abnormal uterine bleeding Constipation GERD (gastroesophageal reflux disease) Hepatitis C HTN (hypertension) Hypothyroidism Iron deficiency anemia Menorrhagia Normal colonoscopy Obesity Primary osteoarthritis of right knee Rhinitis Splenomegaly Type 2 diabetes mellitus Uterine fibroid Surgical History Hx of colonoscopy Hx of tubal ligation Family History Family History Mother Diabetes High blood pressure Father Alzheimer disease Social History Social History Alcohol intake: current Alcohol intake frequency: holidays/special occasions only Alcohol type: beer and wine Patient Tobacco Use Status: Current someday Tobacco user Cigarettes Per Day: 3 Advance Directives: No Advance Directives Information Provided: Yes Physical Exam Vital Signs: Vital Signs: Last Vital Signs Temp 97.8 F 11/06/21 05:25 Pulse 74 11/06/21 05:25 Resp 18 11/06/21 05:25 BP 125/59 L 11/06/21 05:25 Pulse Ox 98 11/06/21 05:25 BMI result Body Mass Index 38.8 Vital signs have been reviewed as appeared to be correct. Blood pressure normal. Heart rate normal. Respiration rate normal. Temperature normal. Oxygen saturation normal. Appearance: Alert. Oriented X3. No acute distress. Head: Normal external exam. Normocephalic. Atraumatic. No Caal signs noted. No raccoon eyes noted Eyes: PERRLA. EOMI. Conjunctiva and sclera normal. Eyelids normal. ENT: TM's Normal. Pharynx normal. Uvula midline. Moist mucous membranes. No trismus noted. No drooling noted. No muffled voice noted. Neck: Normal inspection. Neck supple. FROM. No adenopathy. Thyroid Normal. No meningeal signs. No neck mass noted. CVS: Normal heart rate and rhythm. Heart sound normal. No murmurs noted. Pulses normal throughout. Respiratory: No respiratory distress. Painless inspiration. Breath sounds normal. No wheezes/rales/rhonchi noted. Chest nontender. No accessory muscle usage noted or decreased air movement noted. Abdomen: Soft and nontender. Bowel sounds normal in all 4 quadrants. No distention noted. No organomegaly noted. No visible injury noted. Back: No CVA tenderness. Full range of motion noted. Skin: Skin warm and dry. Normal skin color. Normal skin turgor. No rashes/lesions/lacerations noted. Extremities: No lower extremity edema. Extremities exhibit normal range of motion. Extremities nontender. Neuro: Oriented X 3. Cranial nerve exam: II-XII are grossly intact No motor deficit. No sensory deficit. Reflexes normal. Course Course Course Narrative: Assessment and plan. 56 years old female came in for evaluation of lower abdominal pain and back pain for 2 days, urinary frequency and dysuria but UA is revealing no UTI, unrem arkable labs except for chronic thrombocytopenia. Patient now feels better claiming that she is ready to go, good appetite, no nausea or vomiting, will discharge and follow up with PCP. MDM - Back Pain/Injury Lab Data Attestation: I reviewed the patient's lab results. Result diagrams: 11/06/21 07:22 11/06/21 07:22 Labs: Lab Results 11/06/21 11/06/21 11/06/21 Range/Units 05:28 07:22 07:22 WBC 5.0 (4.8-10.8) X10*3/uL RBC 4.54 (4.20-5.50) X10*6/uL Hgb 12.9 (12.0-16.0) g/dl Hct 39.9 (37.0-47.0) % MCV 87.9 (80.0-98.0) fL MCH 28.4 (27.0-33.0) pg MCHC 32.3 (31.0-35.0) g/dl RDW 12.7 (11.0-16.0) % Plt Count 97 L (160-400) X10*3/uL MPV 12.7 H (9.4-12.3) fL Immature Gran % (Auto) 0.4 (0.0-0.4) % Neut % (Auto) 73.9 H (45-73) % Lymph % (Auto) 17.3 L (20-40) % [place] % (Auto) 6.2 (2-11) % Eos % (Auto) 1.8 (0-4) % Baso % (Auto) 0.4 (0-2) % Lymph # (Auto) 0.9 L (1.2-4.9) X10*3/uL [place] # (Auto) 0.3 (0.1-1.2) X10*3/uL Eos # (Auto) 0.1 (0.0-0.4) X10*3/uL Baso # (Auto) 0.0 (0.0-0.2) X10*3/uL Abs Immat Gran (auto) 0.02 (0.00-0.03) X10*3/uL Absolute Neuts (auto) 3.7 (2.0-8.3) x10*3/uL Absolute Nucleated RBC 0.000 (0.0-0.012) X10*3/uL Nucleated RBC % (auto) 0.0 (0.0-0.2) /100WBC Sodium 139 (135-145) mmol/L Potassium 4.2 (3.3-5.1) mmol/L Chloride 103 (96-108) mmol/L Carbon Dioxide 31 H (22-29) mmol/L Anion Gap 9 L (12-20) BUN 17 H (9-16) mg/dL Creatinine 0.83 (0.5-1.4) mg/dL Estim Creat Clear Calc 100.2 Estimated GFR > 60 Random Glucose 94 (60-115) mg/dL Calcium 9.5 (8.4-10.2) mg/dL Total Bilirubin 0.5 (0.0-1.0) mg/dL Direct Bilirubin 0.2 (0.0-0.5) mg/dL AST 21 (5-31) U/L ALT 17 (0-31) U/L Alkaline Phosphatase 68 (39-117) U/L Total Protein 7.4 (6.5-8.0) g/dL Albumin 4.1 (3.5-5.0) g/dL Lipase 30 (8-78) U/L Urine Color YELLOW Urine Appearance CLEAR Urine pH 6.5 (5.0-8.0) Ur Specific [place] 1.020 (1.005-1.025) Urine Protein NEG (NEG-TRACE) MG/DL Urine Glucose (UA) NEG (NEG) MG/DL Urine Ketones NEG (NEG) MG/DL Urine Blood NEG (NEG) Urine Nitrite NEG (NEG) Ur Leukocyte Esterase NEG (NEG) Imaging Data CT abdomen pelvis: Attestation: I personally reviewed and interpreted this imaging study as follows: Radiologist's impression: Diverticulosis of the colon. No evidence of colitis or diverticulitis. Normal-appearing appendix. Cirrhotic appearing liver and splenomegaly. Enlarged kidneys and multiple bilateral renal cysts. Polycystic kidney disease should be considered. Enlarged abnormal appearing uterus. Discharge Plan Discharge Clinical Impression: Low back pain, Abdominal pain Patient Disposition: Home, Self-Care Instructions: Abdominal Pain (ED) Prescriptions: No Action Linzess 145 mcg capsule 145 mcg PO QAM Qty: 30 6RF Hold Instructions: trying higher dose omeprazole 20 mg tablet,delayed release (DR/EC) 20 mg PO BID 30 Days Qty: 60 6RF Linzess 290 mcg capsule 290 mcg PO QAM 30 Days Qty: 30 6RF gabapentin 300 mg capsule 300 mg PO TID Qty: 90 2RF tramadol 50 mg tablet 50 mg PO Q6H PRN (Reason: Pain) Qty: 120 3RF metformin 500 mg Tablet 500 mg PO DAILY 0RF trazodone 50 mg Tablet 50 mg PO BEDTIME PRN (Reason: Insomnia) 0RF levothyroxine 100 mcg Tablet 100 mcg PO DAILY 0RF sertraline 50 mg Tablet 50 mg PO DAILY 0RF loratadine 10 mg Tablet 10 mg PO DAILY 0RF lactulose 10 gram/15 mL Syrup 10 g PO DAILY 0RF Trulicity 0.75 mg/0.5 mL Pen Injector 0.75 mg SUBCUT QWEEK 0RF medroxyprogesterone 5 mg tablet 5 mg PO DAILY 90 Days Qty: 90 3RF Referrals: [place],[facility] [Primary Care Provider] -
[2021-11-06 07:26] LABS: MANUAL DIFF FLAG NO
[2021-11-06] MEDS: Morphine Sulfate 2 MG/ML CARTRIDGE 1 MG IVPUSH (07:30)
[2021-11-06] MEDS: Ketorolac Tromethamine 30 MG/ML VIAL IVPUSH (07:30)
[2021-11-06] MEDS: 0.9 % Sodium Chloride 1,000 ML 999 ML IV (07:30)
[2021-11-06 07:38] LABS: Basophils Percent Auto 0.4 % (0-2); Eosinophils Absolute Auto 0.1 X10*3/uL (0.0-0.4); Eosinophils Percent Auto 1.8 % (0-4); Hematocrit 39.9 % (37.0-47.0); Hemoglobin 12.9 g/dl (12.0-16.0); Imm Gran Abs Auto 0.02 X10*3/uL (0.00-0.03); Imm Gran Pct Auto 0.4 % (0.0-0.4); Lymphocytes Absolute Auto 0.9 X10*3/uL (1.2-4.9); Lymphocytes Percent Auto 17.3 % (20-40); Mean Corpuscular HGB Conc 32.3 g/dl (31.0-35.0); Mean Corpuscular Hemoglobin 28.4 pg (27.0-33.0); Mean Corpuscular Volume 87.9 fL (80.0-98.0); Mean Platelet Volume 12.7 fL (9.4-12.3); Monocytes Absolute Auto 0.3 X10*3/uL (0.1-1.2); Monocytes Percent Auto 6.2 % (2-11); Neutrophils Absolute Auto 3.7 x10*3/uL (2.0-8.3); Neutrophils Percent Auto 73.9 % (45-73); Red Blood Count 4.54 X10*6/uL (4.20-5.50); Red Cell Distribution Width 12.7 % (11.0-16.0)
[2021-11-06 07:54] LABS: Alanine Aminotransferase 17 U/L (0-31); Albumin Level 4.1 g/dL (3.5-5.0); Alkaline Phosphatase 68 U/L (39-117); Anion Gap 9 (12-20); Aspartate Amino Transferase 21 U/L (5-31); Bilirubin Direct 0.2 mg/dL (0.0-0.5); Bilirubin Total 0.5 mg/dL (0.0-1.0); Blood Urea Nitrogen 17 mg/dL (9-16); Calcium 9.5 mg/dL (8.4-10.2); Carbon Dioxide 31 mmol/L (22-29); Chloride 103 mmol/L (96-108); Creatinine Clr Calc Pharmacy 100.2; Estimated Glomerular Filt Rate > 60; Glucose Random 94 mg/dL (60-115); Lipase 30 U/L (8-78); Potassium 4.2 mmol/L (3.3-5.1); Sodium 139 mmol/L (135-145); Total Protein 7.4 g/dL (6.5-8.0)
[2021-11-06 08:55] LABS: Platelet Count 97 X10*3/uL (160-400)
[2021-11-06 09:39] VITALS: BP 142/78; PULSE 64; RESP 18; TEMP 36.9; O2SAT 98
--- NOTE | 2021-11-06 09:49 | PC.NURSE ---
PT STATED SHE FELT BETTER AFTER FLUIDS AND MEDICATION. PLAN IS FOR DISCHARGE HOME. EDUCATED ON INCREASED PO FLUIDS
== END 2021-11-06 09:51 | disposition home or self-care (01) ==
PROVIDERS: Emergency Provider Emergency Medicine
DX: R10.30 Lower abdominal pain, unspecified (principal); M54.50 Low back pain, unspecified; R30.0 Dysuria; F17.210 Nicotine dependence, cigarettes, uncomplicated; Z71.6 Tobacco abuse counseling; Z79.899 Other long term (current) drug therapy
CPT/HCPCS: 36415; 74176; 80048; 80076; 81003; 83690; 85025; 96361; 96374; 96375; 99284; J1885; J2270

== ENCOUNTER 2021-11-30 19:23 | Emergency (ER) | payer MEDICAID, SELFPAY ==
--- NOTE | 2021-11-30 21:29 | PC.NURSE ---
Called for pt twice in waiting room no response. LWBS
== END 2021-11-30 21:45 | disposition left against medical advice (07) ==
LOC: HO.ED 21:38
PROVIDERS: Emergency Provider Emergency Medicine; PCP Nurse Practitioner
DX: N93.9 Abnormal uterine and vaginal bleeding, unspecified (principal)

== ENCOUNTER → 2021-12-03 12:50 | Outpatient (BNVA) | payer MEDICAID, SELFPAY | PROVIDERS: PCP Nurse Practitioner; Visit Provider Advanced Practice Midwife | DX: N93.9 Abnormal uterine and vaginal bleeding, unspecified (principal); D25.9 Leiomyoma of uterus, unspecified | CPT/HCPCS: 99212 ==

== ENCOUNTER 2022-01-01 13:34 | Emergency (ER) | payer MEDICAID, SELFPAY ==
[2022-01-01 14:09] VITALS: BP 129/59; PULSE 82; RESP 18; TEMP 36.9; O2SAT 99; BMI 39.1
[2022-01-01 14:26] LABS: MANUAL DIFF FLAG NO
[2022-01-01 14:34] LABS: Basophils Percent Auto 0.3 % (0-2); Eosinophils Absolute Auto 0.1 X10*3/uL (0.0-0.4); Eosinophils Percent Auto 2.2 % (0-4); Hematocrit 35.2 % (37.0-47.0); Hemoglobin 11.3 g/dl (12.0-16.0); Imm Gran Abs Auto 0.02 X10*3/uL (0.00-0.03); Imm Gran Pct Auto 0.3 % (0.0-0.4); Lymphocytes Absolute Auto 1.1 X10*3/uL (1.2-4.9); Lymphocytes Percent Auto 19.3 % (20-40); Mean Corpuscular HGB Conc 32.1 g/dl (31.0-35.0); Mean Corpuscular Hemoglobin 28.3 pg (27.0-33.0); Mean Platelet Volume 12.4 fL (9.4-12.3); Monocytes Absolute Auto 0.4 X10*3/uL (0.1-1.2); Monocytes Percent Auto 7.1 % (2-11); Neutrophils Absolute Auto 4.2 x10*3/uL (2.0-8.3); Neutrophils Percent Auto 70.8 % (45-73); Platelet Count 122 X10*3/uL (160-400); White Blood Count 5.9 X10*3/uL (4.8-10.8)
[2022-01-01 14:54] LABS: Anion Gap 11 (12-20); Blood Urea Nitrogen 18 mg/dL (9-16); Calcium 8.6 mg/dL (8.4-10.2); Carbon Dioxide 26 mmol/L (22-29); Chloride 106 mmol/L (96-108); Creatinine Clr Calc Pharmacy 97.2; Estimated Glomerular Filt Rate > 60; Glucose Random 100 mg/dL (60-115); Potassium 3.8 mmol/L (3.3-5.1); Sodium 139 mmol/L (135-145)
--- NOTE | 2022-01-01 16:46 | PC.NURSE ---
States she's using up to three pads in one hour at times. Has been on medication for vag bleeding from [facility] and was recently increased d/t increased bleeding. Was sent by [facility] for vag bleeding. Hasn't had to change pad in last 3 hrs.
--- NOTE | 2022-01-01 17:10 | PC.NURSE ---
pt slatted for [facility] after rechecking patient and speaking with provider in [facility].
== END 2022-01-01 19:40 | disposition left against medical advice (07) ==
LOC: HO.ED 19:37
PROVIDERS: Emergency Provider Emergency Medicine; PCP Nurse Practitioner
DX: N93.9 Abnormal uterine and vaginal bleeding, unspecified (principal); I10 Essential (primary) hypertension; E11.9 Type 2 diabetes mellitus without complications; Z98.51 Tubal ligation status
CPT/HCPCS: 36415; 80048; 85025; 99281; 99283

== ENCOUNTER 2022-01-08 07:56 | Outpatient (REF) | payer MEDICAID, SELFPAY ==
--- NOTE | ~2022-01-08 | MM_ITS ---
EXAMINATION: MM SCREENING DIGITAL BREAST TOMOSYNTHESIS, BILATERAL CLINICAL INFORMATION: Screening. Asymptomatic. The lifetime risk of breast cancer based on the Tyrer-Cuzick Model is 6%. COMPARISON: Mammography: 12/26/2020, 09/23/2018, 09/15/2018 TECHNIQUE: Digital breast tomosynthesis is performed in both the craniocaudal and mediolateral oblique views along with computer-aided detection (CAD). Synthesized 2D images are generated from the tomosynthesis. FINDINGS: There are scattered areas of fibroglandular density (ACR BI-RADS breast composition Category b). Fine fibronodular parenchymal pattern is similar to prior studies. No significant mass, abnormal calcifications, developing density or architectural abnormality. No abnormal calcifications. Skin contours are smooth. MM/MM tomosynthesis screening BI IMPRESSION: No mammographic evidence of malignancy. ASSESSMENT: BI-RADS 2: Benign RECOMMENDATION: Routine annual mammography screening. This patient's information was entered into a reminder system with a target due date for their next mammogram.
== END 2022-01-08 07:57 | disposition home or self-care (01) ==
LOC: HO.MAMMO 07:56
PROVIDERS: Visit Provider Nurse Practitioner
DX: Z12.31 Encounter for screening mammogram for malignant neoplasm of breast (principal)
CPT/HCPCS: 77063; 77067

== ENCOUNTER 2022-03-05 07:36 | Outpatient (REF) | payer MEDICAID, SELFPAY ==
--- NOTE | ~2022-03-05 | XR_ITS ---
EXAMINATION: XR KNEE, BILATERAL CLINICAL INFORMATION: Pain in knee. COMPARISON: Bilateral knee 10/08/2019. TECHNIQUE: 3 views each knee weightbearing. FINDINGS: Left Knee: There is mild loss of medial and patellofemoral compartment joint space with superior and anterosuperior patellar enthesophyte. There is superior subluxation of the patella. No joint effusion or loose body seen. The soft tissues are normal. Right Knee: There is moderate loss of medial and mild loss of patellofemoral compartment joint space with mild superior patellar subluxation. There are anterosuperior and posterosuperior patellar enthesophytes. No abnormal joint effusion seen. XR/XR knee RT 3V IMPRESSION: Mild superior patellar subluxation with superior patellar enthesophyte. No joint effusion, acute fracture or loose bodies. Severe loss of medial compartment joint space right knee. Mild loss of bilateral patellofemoral and medial compartments left knee.
--- NOTE | ~2022-03-05 | XR_ITS ---
EXAMINATION: XR KNEE, BILATERAL CLINICAL INFORMATION: Pain in knee. COMPARISON: Bilateral knee 10/08/2019. TECHNIQUE: 3 views each knee weightbearing. FINDINGS: Left Knee: There is mild loss of medial and patellofemoral compartment joint space with superior and anterosuperior patellar enthesophyte. There is superior subluxation of the patella. No joint effusion or loose body seen. The soft tissues are normal. Right Knee: There is moderate loss of medial and mild loss of patellofemoral compartment joint space with mild superior patellar subluxation. There are anterosuperior and posterosuperior patellar enthesophytes. No abnormal joint effusion seen. XR/XR knee LT 3V IMPRESSION: Mild superior patellar subluxation with superior patellar enthesophyte. No joint effusion, acute fracture or loose bodies. Severe loss of medial compartment joint space right knee. Mild loss of bilateral patellofemoral and medial compartments left knee.
== END 2022-03-05 07:37 | disposition home or self-care (01) ==
LOC: HO.XRAY 07:36
PROVIDERS: PCP Nurse Practitioner; Visit Provider Nurse Practitioner Family
DX: M17.11 Unilateral primary osteoarthritis, right knee (principal); M25.562 Pain in left knee; M54.50 Low back pain, unspecified
CPT/HCPCS: 73562; 99212

== ENCOUNTER 2022-03-20 09:14 | Outpatient (REF) | payer MEDICAID, SELFPAY ==
[2022-03-21 06:26] LABS: CT PCR NOT DETECTED (Not Detect.); NG PCR NOT DETECTED (Not Detect.)
[2022-03-21 09:20] LABS: BV Int Neg Control Negative (Negative); BV Int Pos Control Positive (Positive)
== END 2022-03-20 09:15 | disposition home or self-care (01) ==
LOC: HO.LAB 09:14
PROVIDERS: PCP Nurse Practitioner; Visit Provider Advanced Practice Midwife
DX: Z32.02 Encounter for pregnancy test, result negative (principal); N93.9 Abnormal uterine and vaginal bleeding, unspecified; N92.0 Excessive and frequent menstruation with regular cycle; D25.9 Leiomyoma of uterus, unspecified
CPT/HCPCS: 58100; 81025; 87480; 87491; 87510; 87591; 87660; 88305

== ENCOUNTER → 2022-04-23 11:18 | Outpatient (BNVA) | payer MEDICAID, SELFPAY | PROVIDERS: PCP Nurse Practitioner; Visit Provider Nurse Practitioner | DX: K21.9 Gastro-esophageal reflux disease without esophagitis (principal); K59.00 Constipation, unspecified; Z79.899 Other long term (current) drug therapy | CPT/HCPCS: 99212 ==

== ENCOUNTER → 2022-05-21 10:04 | Outpatient (BNVA) | payer MEDICAID, SELFPAY | PROVIDERS: PCP Nurse Practitioner; Visit Provider Obstetrics & Gynecology | DX: D25.9 Leiomyoma of uterus, unspecified (principal); N91.2 Amenorrhea, unspecified | CPT/HCPCS: 99212 ==

== ENCOUNTER 2022-05-29 12:12 | Outpatient (REF) | payer MEDICAID, SELFPAY ==
[2022-05-29 12:37] LABS: Hemoglobin 12.6 g/dl (12.0-16.0); Mean Corpuscular HGB Conc 32.3 g/dl (31.0-35.0); Mean Corpuscular Hemoglobin 27.5 pg (27.0-33.0); Mean Corpuscular Volume 85.2 fL (80.0-98.0); Mean Platelet Volume 11.9 fL (9.4-12.3); Platelet Count 142 X10*3/uL (160-400); Red Blood Count 4.58 X10*6/uL (4.20-5.50); Red Cell Distribution Width 13.2 % (11.0-16.0); White Blood Count 5.8 X10*3/uL (4.8-10.8)
[2022-05-29 13:32] LABS: HCG Quantitative < 2 mIU/mL; TSH reflex Free T4 2.48 uIU/mL (0.32-4.0)
[2022-05-31 06:26] LABS: Follicle Stimulating Hormone 11.6 mIU/mL; Lutenizing Hormone 6.7 mIU/mL
== END 2022-05-29 12:13 | disposition home or self-care (01) ==
LOC: HO.LAB 12:12
PROVIDERS: PCP Nurse Practitioner; Visit Provider Obstetrics & Gynecology
DX: N93.9 Abnormal uterine and vaginal bleeding, unspecified (principal)
CPT/HCPCS: 36415; 83001; 83002; 84443; 84702; 85027

== ENCOUNTER 2022-06-04 04:11 | Emergency (ER) | payer MEDICAID, SELFPAY ==
[2022-06-04 04:20] VITALS: BP 129/69; PULSE 70; RESP 19; TEMP 37.1; O2SAT 97; BMI 39.1
[2022-06-04 04:33] VITALS: BP 128/66; PULSE 97; RESP 18; TEMP 36.9; O2SAT 93
[2022-06-04 04:59] LABS: MANUAL DIFF FLAG NO
[2022-06-04 05:00] LABS: Basophils Percent Auto 0.6 % (0-2); Eosinophils Absolute Auto 0.1 X10*3/uL (0.0-0.4); Eosinophils Percent Auto 2.4 % (0-4); Hematocrit 37.1 % (37.0-47.0); Hemoglobin 12.2 g/dl (12.0-16.0); Imm Gran Abs Auto 0.02 X10*3/uL (0.00-0.03); Imm Gran Pct Auto 0.4 % (0.0-0.4); Lymphocytes Absolute Auto 1.2 X10*3/uL (1.2-4.9); Lymphocytes Percent Auto 21.6 % (20-40); Mean Corpuscular HGB Conc 32.9 g/dl (31.0-35.0); Mean Corpuscular Hemoglobin 28.2 pg (27.0-33.0); Mean Corpuscular Volume 85.9 fL (80.0-98.0); Mean Platelet Volume 12.7 fL (9.4-12.3); Monocytes Absolute Auto 0.3 X10*3/uL (0.1-1.2); Monocytes Percent Auto 6.4 % (2-11); Neutrophils Absolute Auto 3.7 x10*3/uL (2.0-8.3); Neutrophils Percent Auto 68.6 % (45-73); Platelet Count 135 X10*3/uL (160-400); Red Blood Count 4.32 X10*6/uL (4.20-5.50); Red Cell Distribution Width 13.2 % (11.0-16.0); White Blood Count 5.3 X10*3/uL (4.8-10.8)
[2022-06-04 05:26] LABS: Appearance Urine Clear; Color Urine Yellow; Glucose Urine UA Negative (Negative); Leukocyte Esterase Urine Negative (Negative); Nitrite Urine Negative (Negative); Urine Blood Negative (Negative); Urine Ketones Negative (Negative); Urine Protein Negative (Neg-Trace)
[2022-06-04 05:52] LABS: Anion Gap 12 (12-20); Blood Urea Nitrogen 13 mg/dL (9-16); Calcium 8.7 mg/dL (8.4-10.2); Carbon Dioxide 26 mmol/L (22-29); Chloride 106 mmol/L (96-108); Creatinine Clr Calc Pharmacy 92.7; Estimated Glomerular Filt Rate > 60; Glucose Random 98 mg/dL (60-115); Potassium 4.5 mmol/L (3.3-5.1); Sodium 139 mmol/L (135-145)
[2022-06-04 06:37] VITALS: BP 128/73; PULSE 69; RESP 18; TEMP 36.1; O2SAT 96
--- NOTE | 2022-06-04 07:35 | ED.GENADULT ---
HPI - General Adult General Chief complaint: Back Pain/Injury Stated complaint: back pain Time Seen by Provider: 06/04/22 06:31 History of Present Illness HPI narrative: Patient is a 57-year-old female presents today with having right flank pain radiating down to the right lower quadrant. The pain is sharp in nature. Comes and go ongoing for the last 3 days. Patient denies any change in bowel movement. No change in urination. No back pain. No diaphoresis. No nausea no vomiting. The pain is sharp in nature. Did not notice any blood in the urine. Patient from home. No history of similar symptoms in the past. Related Data Home Medications Medication Instructions Recorded Confirmed levothyroxine 100 mcg tablet 100 mcg PO DAILY 05/12/20 03/20/22 loratadine 10 mg tablet 10 mg PO DAILY 05/12/20 03/20/22 metformin 500 mg tablet 500 mg PO DAILY 05/12/20 03/20/22 sertraline 50 mg tablet 50 mg PO DAILY 05/12/20 03/20/22 trazodone 50 mg tablet 50 mg PO BEDTIME PRN Insomnia 05/12/20 03/20/22 dulaglutide 0.75 mg/0.5 mL 0.75 mg subcut QWEEK 04/11/21 03/20/22 subcutaneous pen injector (Trulicity) buspirone 10 mg tablet 10 mg PO TID 12/03/21 03/20/22 gabapentin 600 mg tablet 600 mg PO TID 12/03/21 03/20/22 hydrochlorothiazide 25 mg tablet 25 mg PO QAM 12/03/21 03/20/22 rosuvastatin 10 mg tablet 10 mg PO BEDTIME 12/03/21 03/20/22 irbesartan 75 mg tablet 75 mg PO QAM 04/23/22 lancets 33 gauge (TRUEplus Lancets) #100 ea 04/23/22 nicotine (polacrilex) 2 mg gum 2 mg PO Q2H PRN 04/23/22 simethicone 125 mg chewable tablet 125 mg PO QID PRN gas 04/23/22 Previous Rx's Medication Instructions Recorded medroxyprogesterone 10 mg tablet 10 mg PO DAILY #90 tabs 12/03/21 (Provera) tramadol 50 mg tablet 50 mg PO Q6H PRN Pain #120 tabs 02/14/22 linaclotide 290 mcg capsule 290 mcg PO QAM #30 caps 04/23/22 (Linzess) omeprazole 20 mg tablet,delayed 20 mg PO BID 30 days #60 tabs 04/23/22 release Allergies Allergy/AdvReac Type Severity Reaction Status Date / Time lisinopril Allergy Swelling Verified 05/21/22 10:22 SEASONAL ALLERGIES Allergy Mild SNEEZING Uncoded 04/18/22 11:12 Review of Systems Review of Systems: Positive right flank pain Yes all other systems are reviewed and are negative [facility] Past Medical History Attestation statement: The following information was validated with the patient. Medical History Abnormal uterine bleeding Constipation GERD (gastroesophageal reflux disease) Hepatitis C HTN (hypertension) Hypothyroidism Iron deficiency anemia Menorrhagia Normal colonoscopy Obesity Primary osteoarthritis of right knee Rhinitis Splenomegaly Type 2 diabetes mellitus Uterine fibroid Surgical History Hx of colonoscopy Hx of tubal ligation Family History Family History Mother Diabetes High blood pressure Father Alzheimer disease Social History Social History Household Members: Spouse Housing: House Alcohol intake: never Patient Tobacco Use Status: Current someday Tobacco user Cigarettes Per Day: 3 Smoked in Last 30 Days: Yes Use of substances other than those prescribed or required for medical reasons: No Advance Directives: No Advance Directives Information Provided: Yes service: No Current occupational status: disabled Sexual orientation: Straight/Heterosexual Gender identity: Female Physical Exam ED Vital Signs: Vital Signs - 24 hr 06/04/22 04:20 06/04/22 04:33 06/04/22 06:37 Temperature 98.7 F 98.5 F 97.0 F Pulse Rate 70 97 69 Respiratory Rate 19 18 18 Blood Pressure 129/69 128/66 128/73 Pulse Oximetry 97 93 96 Oxygen Delivery Method Room Air Room Air Room Air BMI result Body Mass Index 39.1 Appearance: Alert. Oriented X3. No acute distress. Eyes: Pupils equal, round and reactive to light. ENT: Pharynx normal. Neck: Normal inspection. Neck supple. No lymph nodes noted. No crepitus CVS: Normal heart rate and rhythm. Pulses normal. Normal S1 and S2 Respiratory: No respiratory distress. Breath sounds normal. No Wheezing. No rales Abdomen: Soft and nontender. No rigidity. No distention. good BS x4 Skin: Skin warm and dry. Normal skin color. Normal skin turgor. Extremities: No lower extremity edema. Neurovascular intact to all extremities. No Lacerations. No Rash Neuro: Oriented X 3. No motor deficit. No sensory deficit. Moving all extermities. No slurred speech Medical Decision Making MDM Narrative Medical decision making narrative: Patient well-appearing not acute distress. Positive blood in the urine. No gross signs of infection. White count is normal. Creatinine is normal. Pain goes from the back radiating to the front question kidney stone. Will get a CT scan of the abdomen pelvis. Currently in stable condition. Will give a dose of Toradol for pain as patient has normal kidney functions. IV fluids. Labs CT was ordered. Patient eloped from the emergency department. Lab Data Result diagrams: 06/04/22 04:53 06/04/22 05:15 Labs: Lab Results 06/04/22 06/04/22 06/04/22 Range/Units 04:53 05:14 05:15 WBC 5.3 (4.8-10.8) X10*3/uL RBC 4.32 (4.20-5.50) X10*6/uL Hgb 12.2 (12.0-16.0) g/dl Hct 37.1 (37.0-47.0) % MCV 85.9 (80.0-98.0) fL MCH 28.2 (27.0-33.0) pg MCHC 32.9 (31.0-35.0) g/dl RDW 13.2 (11.0-16.0) % Plt Count 135 L (160-400) X10*3/uL MPV 12.7 H (9.4-12.3) fL Immature Gran % (Auto) 0.4 (0.0-0.4) % Neut % (Auto) 68.6 (45-73) % Lymph % (Auto) 21.6 (20-40) % [place] % (Auto) 6.4 (2-11) % Eos % (Auto) 2.4 (0-4) % Baso % (Auto) 0.6 (0-2) % Lymph # (Auto) 1.2 (1.2-4.9) X10*3/uL [place] # (Auto) 0.3 (0.1-1.2) X10*3/uL Eos # (Auto) 0.1 (0.0-0.4) X10*3/uL Baso # (Auto) 0.0 (0.0-0.2) X10*3/uL Abs Immat Gran (auto) 0.02 (0.00-0.03) X10*3/uL Absolute Neuts (auto) 3.7 (2.0-8.3) x10*3/uL Absolute Nucleated RBC 0.000 (0.0-0.012) X10*3/uL Nucleated RBC % (auto) 0.0 (0.0-0.2) /100WBC Sodium 139 (135-145) mmol/L Potassium 4.5 (3.3-5.1) mmol/L Chloride 106 (96-108) mmol/L Carbon Dioxide 26 (22-29) mmol/L Anion Gap 12 (12-20) BUN 13 (9-16) mg/dL Creatinine 0.89 (0.5-1.4) mg/dL Estim Creat Clear Calc 92.7 Estimated GFR > 60 Random Glucose 98 (60-115) mg/dL Calcium 8.7 (8.4-10.2) mg/dL Urine Color Yellow Urine Appearance Clear Urine pH 6.0 (5.0-9.0) Ur Specific [place] 1.020 (1.005-1.025) Urine Protein Negative (Neg-Trace) mg/dL Urine Glucose (UA) Negative (Negative) mg/dL Urine Ketones Negative (Negative) mg/dL Urine Blood Negative (Negative) Urine Nitrite Negative (Negative) Ur Leukocyte Esterase Negative (Negative) Discharge Plan Discharge Clinical Impression: Abdominal pain Patient Disposition: Elopement Prescriptions: No Action tramadol 50 mg tablet 50 mg PO Q6H PRN (Reason: Pain) Qty: 120 3RF metformin 500 mg Tablet 500 mg PO DAILY trazodone 50 mg Tablet 50 mg PO BEDTIME PRN (Reason: Insomnia) levothyroxine 100 mcg Tablet 100 mcg PO DAILY sertraline 50 mg Tablet 50 mg PO DAILY loratadine 10 mg Tablet 10 mg PO DAILY Trulicmelany 0.75 mg/0.5 mL Pen Injector 0.75 mg SUBCUT QWEEK rosuvastatin 10 mg tablet 10 mg PO BEDTIME hydrochlorothiazide 25 mg tablet 25 mg PO QAM buspirone 10 mg tablet 10 mg PO TID gabapentin 600 mg tablet 600 mg PO TID medroxyprogesterone [Provera] 10 mg tablet 10 mg PO DAILY Qty: 90 3RF (DME) lancets [TRUEplus Lancets] 33 gauge misc See Rx Instructions .ROUTE DAILY Qty: 100 Rx Instructions: As directed irbesartan 75 mg tablet 75 mg PO QAM nicotine (polacrilex) 2 mg gum 2 mg PO Q2H PRN simethicone 125 mg tablet,chewable 125 mg PO QID PRN (Reason: gas) Linzess 290 mcg capsule 290 mcg PO QAM Qty: 30 6RF omeprazole 20 mg tablet,delayed release (DR/EC) 20 mg PO BID 30 Days Qty: 60 6RF Interventions: ED Discharge Assessment Last Done: 06/04/22 08:39 Discharge Date/Time: 06/04/22 08:43
== END 2022-06-04 08:43 | disposition left against medical advice (07) ==
PROVIDERS: Emergency Provider Emergency Medicine Emergency Medical Services
DX: M54.50 Low back pain, unspecified (principal); R10.9 Unspecified abdominal pain; Z79.899 Other long term (current) drug therapy
CPT/HCPCS: 36415; 80048; 81003; 85025; 99283; 99284

== ENCOUNTER 2022-06-25 10:35 | Outpatient (REF) | payer MEDICAID, SELFPAY ==
--- NOTE | ~2022-06-25 | US_ITS ---
EXAMINATION: US PELVIS CLINICAL INFORMATION: Leiomyoma of uterus COMPARISON: None TECHNIQUE: Ultrasound of the pelvis is performed with transabdominal transducers along with Doppler. Transvaginal imaging is not performed as patient refused. FINDINGS: UTERUS: The uterus is anteverted, anteflexed and measures 21.2 cm in length, 9.7 cm in AP and 14.4 cm in transverse dimension. The double wall endometrium is not visualized.. The uterus is smooth in contour and has normal myometrial echogenicity. There are multiple uterine fibroids. 1. A 2.1 x 1.8 x 1.8 cm lesion suboptimally visualized. Previously it measured 1.6 x 1.6 x 1.6 cm and was pedunculated and submucosal. 2. Lesion seen previously measuring 4.5 x 4.2 x 6.2 cm is not seen at the present time. 3. A moderate size isoechoic lesion in the mid left uterus measures 8.7 x 8.4 x 7.9 cm. Previously measured 8.5 x 7.7 x 7.9 cm. 4. Small lesion in the right lower uterus measures 4.1 x 3.5 x 3.5 cm previously measured 4.6 x 3.7 x 3.8 cm. 5. Lesion in the right body of uterus measures 5.4 x 4.8 x 5.8 cm previously measured 5.1 x 5.3 x 6.2 cm 6. Lesion in the right body of uterus measures 4.2 x 3.1 x 3.3 cm. Previously measured 2.1 x 2.2 x 2.0 cm. 7. Lesion in the lower uterus/cervix measures 4.3 x 4.1 x 4.4 cm. Previously measured 4.5 x 4.1 x 4.0 seen. ADNEXA: The right ovary is not visualized. The left ovary measures 3.0 x 2.5 x 2.9 cm and volume 11.4 mL. Previously it measured 4.4 x 2.5 x 4.5 cm. US/US pelvic complete IMPRESSION: 1. Multiple uterine fibroids as described above. 2. The right ovary is not seen. 3. The left ovary is unremarkable.
== END 2022-06-25 10:36 | disposition home or self-care (01) ==
LOC: HO.US 10:35
PROVIDERS: Visit Provider Obstetrics & Gynecology
DX: D25.9 Leiomyoma of uterus, unspecified (principal)
CPT/HCPCS: 76856

== ENCOUNTER → 2022-07-09 09:27 | Outpatient (BNVA) | payer MEDICAID, SELFPAY | PROVIDERS: Visit Provider Obstetrics & Gynecology | DX: D25.9 Leiomyoma of uterus, unspecified (principal); N93.9 Abnormal uterine and vaginal bleeding, unspecified | CPT/HCPCS: 99212 ==

== ENCOUNTER 2022-07-19 09:13 | Outpatient (REF) | payer MEDICAID, SELFPAY ==
[2022-07-21 08:13] LABS: Follicle Stimulating Hormone 26.9 mIU/mL
== END 2022-07-19 09:14 | disposition home or self-care (01) ==
LOC: HO.LAB 09:13
PROVIDERS: Visit Provider Obstetrics & Gynecology
DX: N93.9 Abnormal uterine and vaginal bleeding, unspecified (principal)
CPT/HCPCS: 36415; 83001; 83002

== ENCOUNTER 2022-08-08 08:26 | Outpatient (REF) | payer MEDICAID, SELFPAY ==
--- NOTE | ~2022-08-08 | US_ITS ---
EXAMINATION: US ABDOMEN COMPLETE CLINICAL INFORMATION: Unspecified cirrhosis of liver. COMPARISON: CT abdomen and pelvis without contrast 11/06/2021. Ultrasound abdomen complete 08/30/2021 and 05/29/2017. TECHNIQUE: Real-time imaging of the abdominal viscera. FINDINGS: PANCREAS: Limited. The visualized pancreatic head and body are normal in appearance. The remainder of the pancreas is obscured from visualization by the overlying bowel gas. ABDOMINAL AORTA: The proximal and mid segments are normal in caliber. The distal segment is largely obscured by overlapping bowel gas. INFERIOR VENA CAVA: Visualized portions are normal. LIVER: There is hepatomegaly, with a longitudinal span of 21.0 cm. The hepatic contour is lobulated. There is diffuse increased liver parenchymal echogenicity. No focal hepatic lesion. There is no intrahepatic biliary duct dilatation seen. GALLBLADDER: Multiple shadowing, mobile gallstones are present. No evidence of gallbladder wall thickening or pericholecystic fluid. COMMON BILE DUCT: Top normal in caliber, measuring 0.8 cm in diameter. RIGHT KIDNEY: Multiple simple cysts are seen, the largest at the upper pole, measuring 7.6 cm in maximal diameter. No hydronephrosis or renal calculi. The kidney measures 15.9 cm in maximum dimension. LEFT KIDNEY: Multiple cysts are seen, the largest at the interpolar aspect. Measuring 6.0 x 4.506 20 cm, with a fine septation. This shows no mural nodularity or associated color Doppler flow. At the lower pole, a 5 mm nonobstructing calculus is seen, with twinkle artifact. No hydronephrosis. The kidney measures 15.0 cm in maximum dimension. SPLEEN: No focal finding. The spleen measures 20.1 cm in maximum dimension. FREE FLUID: None. US/US abdomen complete IMPRESSION: 1. There is increase in hepatic echotexture and surface nodularity, consistent with the provided history of cirrhosis. 2. There is hepatosplenomegaly. 3. Findings are again consistent with polycystic kidney disease. A dominant, 6.8 cm in maximal diameter mildly complex cyst at the interpolar left kidney shows a mildly complex appearance, with fine septation.
== END 2022-08-08 08:27 | disposition home or self-care (01) ==
LOC: HO.US 08:26
PROVIDERS: Visit Provider General Practice
DX: K74.60 Unspecified cirrhosis of liver (principal)
CPT/HCPCS: 76700

== ENCOUNTER 2022-08-13 09:49 | Outpatient (REF) | payer MEDICAID, SELFPAY | END 2022-08-13 09:50 | disposition home or self-care (01) | LOC: HO.LNP 09:49 | PROVIDERS: Visit Provider Obstetrics & Gynecology | DX: N93.9 Abnormal uterine and vaginal bleeding, unspecified (principal) | CPT/HCPCS: 58100; 88305 ==

== ENCOUNTER → 2022-09-05 07:28 | Outpatient (BNVA) | payer MEDICAID, SELFPAY | PROVIDERS: PCP Internal Medicine; Visit Provider Nurse Practitioner Family | DX: N93.9 Abnormal uterine and vaginal bleeding, unspecified (principal); D25.9 Leiomyoma of uterus, unspecified; M17.0 Bilateral primary osteoarthritis of knee; M54.50 Low back pain, unspecified; Z79.891 Long term (current) use of opiate analgesic | CPT/HCPCS: 99212 ==

== ENCOUNTER 2022-09-13 07:58 | Outpatient (REF) | payer MEDICAID, SELFPAY ==
[2022-09-13 08:36] LABS: Appearance Urine Clear; Color Urine Yellow; Glucose Urine UA Negative (Negative); Leukocyte Esterase Urine Negative (Negative); Nitrite Urine Negative (Negative); Specific Gravity - Urine 1.025 (1.005-1.025); Urine Blood Negative (Negative); Urine Ketones Negative (Negative); Urine Protein Negative (Neg-Trace)
[2022-09-13 08:41] LABS: Bacteria Urine None Seen (None Seen); Hyaline Casts Urine 0-2 /LPF (0-2); RBC Urine 0-2 /HPF (0-2); WBC Urine 0-5 /HPF (0-5)
[2022-09-13 09:04] LABS: Anion Gap 12 (12-20); Blood Urea Nitrogen 17 mg/dL (9-16); Calcium 9.1 mg/dL (8.4-10.2); Carbon Dioxide 27 mmol/L (22-29); Chloride 104 mmol/L (96-108); Estimated Glomerular Filt Rate > 60; Potassium 4.4 mmol/L (3.3-5.1); Sodium 139 mmol/L (135-145)
[2022-09-13 09:04] LABS: Creatinine Urine 183.82 mg/dL; Microalbum/Creatinine Ratio Ur 9.7 ug/mg cr; Protein/Creatinine Ratio, Ur 0.07 (<0.2); Total Protein Urine Random 12 mg/dL (<12)
== END 2022-09-13 07:59 | disposition home or self-care (01) ==
LOC: HO.LAB 07:58
PROVIDERS: Visit Provider Internal Medicine Nephrology
DX: Q61.9 Cystic kidney disease, unspecified (principal)
CPT/HCPCS: 36415; 80051; 81001; 82043; 82310; 82565; 84156; 84520

== ENCOUNTER 2022-09-19 01:02 | Emergency (ER) | payer MEDICAID, SELFPAY ==
[2022-09-19 01:17] VITALS: BP 132/69; PULSE 96; RESP 18; TEMP 36; O2SAT 99; BMI 40.3
[2022-09-19 02:42] VITALS: BP 95/49; PULSE 74; RESP 16; TEMP 36.6; O2SAT 100
--- NOTE | 2022-09-19 02:43 | MHC.EDTECH ---
PT WAS CALL BACK TO TRIAGE TO GET VITALS SIGN AND DRAW LABS .
[2022-09-19 02:44] LABS: MANUAL DIFF FLAG NO
[2022-09-19 02:45] LABS: Basophils Percent Auto 0.5 % (0-2); Eosinophils Absolute Auto 0.2 X10*3/uL (0.0-0.4); Hematocrit 36.3 % (37.0-47.0); Hemoglobin 11.8 g/dl (12.0-16.0); Imm Gran Abs Auto 0.04 X10*3/uL (0.00-0.03); Imm Gran Pct Auto 0.5 % (0.0-0.4); Lymphocytes Absolute Auto 1.9 X10*3/uL (1.2-4.9); Lymphocytes Percent Auto 20.9 % (20-40); Mean Corpuscular HGB Conc 32.5 g/dl (31.0-35.0); Mean Corpuscular Hemoglobin 27.8 pg (27.0-33.0); Mean Corpuscular Volume 85.6 fL (80.0-98.0); Mean Platelet Volume 11.2 fL (9.4-12.3); Monocytes Absolute Auto 0.7 X10*3/uL (0.1-1.2); Monocytes Percent Auto 7.3 % (2-11); Neutrophils Absolute Auto 6.1 x10*3/uL (2.0-8.3); Neutrophils Percent Auto 68.8 % (45-73); Platelet Count 168 X10*3/uL (160-400); Red Blood Count 4.24 X10*6/uL (4.20-5.50); Red Cell Distribution Width 13.2 % (11.0-16.0); White Blood Count 8.9 X10*3/uL (4.8-10.8)
--- NOTE | 2022-09-19 02:46 | MHC.EDTECH ---
PATIENT SAID SHE IS UNABLE TO VOID AT THIS TIME .
[2022-09-19 03:07] LABS: Alanine Aminotransferase 11 U/L (0-31); Albumin Level 4.2 g/dL (3.5-5.0); Alkaline Phosphatase 66 U/L (39-117); Anion Gap 17 (12-20); Aspartate Amino Transferase 17 U/L (5-31); Bilirubin Total 0.4 mg/dL (0.0-1.0); Blood Urea Nitrogen 20 mg/dL (9-16); Calcium 8.9 mg/dL (8.4-10.2); Carbon Dioxide 23 mmol/L (22-29); Chloride 104 mmol/L (96-108); Creatinine Clr Calc Pharmacy 85.4; Estimated Glomerular Filt Rate > 60; Glucose Random 157 mg/dL (60-115); Potassium 3.9 mmol/L (3.3-5.1); Sodium 140 mmol/L (135-145); Total Protein 7.4 g/dL (6.5-8.0)
== END 2022-09-19 06:58 | disposition left against medical advice (07) ==
PROVIDERS: Emergency Provider Emergency Medicine
DX: N93.9 Abnormal uterine and vaginal bleeding, unspecified (principal); Z79.899 Other long term (current) drug therapy
CPT/HCPCS: 36415; 80053; 85025; 99212; 99282; 99283

== ENCOUNTER 2022-09-19 12:32 | Outpatient (REF) | payer MEDICAID, SELFPAY ==
[2022-09-19 12:53] LABS: Hematocrit 32.2 % (37.0-47.0); Hemoglobin 10.6 g/dl (12.0-16.0); Mean Corpuscular HGB Conc 32.9 g/dl (31.0-35.0); Mean Corpuscular Hemoglobin 28.7 pg (27.0-33.0); Mean Corpuscular Volume 87.3 fL (80.0-98.0); Mean Platelet Volume 12.3 fL (9.4-12.3); Platelet Count 149 X10*3/uL (160-400); Red Blood Count 3.69 X10*6/uL (4.20-5.50); Red Cell Distribution Width 13.2 % (11.0-16.0); White Blood Count 7.8 X10*3/uL (4.8-10.8)
[2022-09-19 14:21] LABS: HCG Quantitative < 2 mIU/mL; TSH reflex Free T4 1.85 uIU/mL (0.32-4.0)
== END 2022-09-19 12:33 | disposition home or self-care (01) ==
LOC: HO.LAB 12:32
PROVIDERS: Visit Provider Obstetrics & Gynecology
DX: N93.9 Abnormal uterine and vaginal bleeding, unspecified (principal)
CPT/HCPCS: 36415; 84443; 84702; 85027

== ENCOUNTER → 2022-10-22 09:17 | Outpatient (BNVA) | payer MEDICAID, SELFPAY | PROVIDERS: PCP General Practice; Visit Provider Nurse Practitioner | DX: K59.00 Constipation, unspecified (principal); K21.9 Gastro-esophageal reflux disease without esophagitis | CPT/HCPCS: 99212 ==

== ENCOUNTER 2022-10-31 07:54 | Outpatient (REF) | payer MEDICAID, SELFPAY ==
[2022-10-31 10:50] LABS: Amphetamine Screen Urine Not Detected (Not Detect); Barbiturates, Urine Not Detected (Not Detect); Benzodiazepines Screen Urine Not Detected (Not Detect); Cannabinoid Screen Urine Not Detected (Not Detect); Cocaine Screen Urine Not Detected (Not Detect); Fentanyl, urine Not Detected (Not Detect); Opiate Screen Urine Not Detected (Not Detect); Phencyclidine Screen Urine Not Detected (Not Detect)
== END 2022-10-31 07:55 | disposition home or self-care (01) ==
LOC: HO.LAB 07:54
PROVIDERS: Visit Provider Nurse Practitioner Family
DX: Z51.81 Encounter for therapeutic drug level monitoring (principal); Z79.891 Long term (current) use of opiate analgesic
CPT/HCPCS: 80307; 80373

== ENCOUNTER → 2023-01-07 10:48 | Outpatient (BNVA) | payer MEDICAID, SELFPAY | PROVIDERS: PCP General Practice; Visit Provider Nurse Practitioner | DX: K59.00 Constipation, unspecified (principal); K21.9 Gastro-esophageal reflux disease without esophagitis | CPT/HCPCS: 99212 ==

== ENCOUNTER 2023-01-14 07:50 | Outpatient (REF) | payer MEDICAID, SELFPAY ==
--- NOTE | ~2023-01-14 | MM_ITS ---
EXAMINATION: MM SCREENING DIGITAL BREAST TOMOSYNTHESIS, BILATERAL CLINICAL INFORMATION: Screening. Asymptomatic. The lifetime risk of breast cancer based on the Tyrer-Cuzick Model is 6%. COMPARISON: Mammography: 01/08/2022, 12/26/2020, 09/23/2018, 09/15/2018 TECHNIQUE: Digital breast tomosynthesis is performed in both the craniocaudal and mediolateral oblique views along with computer-aided detection (CAD). Synthesized 2D images are generated from the tomosynthesis. Additional right MLO view is provided. FINDINGS: There are scattered areas of fibroglandular density (ACR BI-RADS breast composition Category b). Parenchymal pattern is similar to prior studies and there is no developing density or architectural abnormality. There are no significant masses, abnormal calcifications, or other abnormalities. The axilla and skin contours are unremarkable. No significant changes. MM/MM tomosynthesis screening BI IMPRESSION: No mammographic evidence of malignancy. ASSESSMENT: BI-RADS 2: Benign RECOMMENDATION: Routine annual mammography screening. This patient's information was entered into a reminder system with a target due date for their next mammogram.
== END 2023-01-14 07:51 | disposition home or self-care (01) ==
LOC: HO.MAMMO 07:50
PROVIDERS: Visit Provider Nurse Practitioner
DX: Z12.31 Encounter for screening mammogram for malignant neoplasm of breast (principal)
CPT/HCPCS: 77063; 77067

== ENCOUNTER 2023-05-21 07:46 | Outpatient (AMB) | payer MEDICAID, SELFPAY ==
[2023-05-21 07:59] VITALS: BP 160/60; PULSE 83; TEMP 36.2; O2SAT 98; BMI 42.0
--- NOTE | 2023-05-21 07:59 | A.OFFVIS_ITS ---
Intake Vital Signs 05/21/23 07:59 Height 5 ft 6 in Weight 260 lb 5.855 oz BMI 42.0 BP 160/60 H Blood Pressure Location Rt brachial Position Sitting Pulse 83 Pulse Source Pulse Oximeter Temp 97.1 F Temp Source Skin Pulse Oximetry (%) 98 Oxygen Delivery Method Room Air Intake Visit Reasons: osteoarthritis Intake Note: Pt last seen 09/05/22, presents today for OA follow up. She was referred to ortho, no showed April 2022. Taking tramadol Would like to discuss treatment. Motorized [employer] Commanding Officer Required: Yes Motorized [employer] Commanding Officer Language: Designer/Writer Name: Burak [id number] Information Interpreted: clinical only Accompanied by: Self / Same As Patient Allergies lisinopril Allergy (Verified 10/22/22 09:31) Swelling SEASONAL ALLERGIES Allergy (Mild, Uncoded 09/19/22 13:03) SNEEZING Medication List - Last Reconciled 05/21/23 by Nathan Mcclain MD ammonium lactate 12% appl topical BID buspirone 10 mg PO TID dulaglutide (Trulicity) mg subcut QWEEK ferrous gluconate 324 mg PO QAM gabapentin 600 mg PO TID hydrochlorothiazide 25 mg PO QAM irbesartan 75 mg PO QAM lancets (TRUEplus Lancets) As directed levothyroxine 100 mcg PO DAILY linaclotide (Linzess) 290 mcg PO QAM linaclotide (Linzess) 145 mcg PO QAM loratadine 10 mg PO DAILY meclizine 25 mg PO TID PRN nicotine (polacrilex) 2 mg PO Q2H PRN omeprazole 20 mg PO BID 30 days rosuvastatin 10 mg PO BEDTIME sennosides (senna) 17.2 mg PO BEDTIME PRN sertraline 50 mg PO DAILY simethicone 125 mg PO QID PRN tramadol 50 mg PO Q6H PRN HPI HPI Comments History of Present Illness Details 58-year-old female with bilateral knee o steoarthritis returns for follow-up. She was last seen by Trang Neri 08/2022. Continues to take tramadol 100 mg Twice daily. Iveth use to have bilateral knee pain. She was referred to Orthopedics but no showed. [facility] Medical History Uterine fibroid Primary osteoarthritis of right knee Abnormal uterine bleeding Normal colonoscopy Splenomegaly Constipation Menorrhagia Iron deficiency anemia Rhinitis Obesity Hypothyroidism Type 2 diabetes mellitus HTN (hypertension) GERD (gastroesophageal reflux disease) Hepatitis C Surgical History Hx of colonoscopy Hx of tubal ligation Family History Mother Diabetes High blood pressure Father Alzheimer disease Social History Household Members: Spouse Housing: House Alcohol intake: never Patient Tobacco Use Status: Current someday Tobacco user Cigarettes Per Day: 3 service: No Current occupational status: disabled Sexual orientation: Straight/Heterosexual Gender identity: Female Female Reproductive History Menstrual Age of Menarche: 11 Review of Systems Musc Reports arthralgias Physical Exam Vital Signs: Last Vital Signs Temp 97.1 F 05/21/23 07:59 Pulse 83 05/21/23 07:59 BP 160/60 H 05/21/23 07:59 Pulse Ox 98 05/21/23 07:59 Oxygen Delivery Method Room Air 05/21/23 07:59 BMI result Body Mass Index 42.0 Const General: cooperative, healthy appearing and comfortable Nutritional Appearance: obese morbidly obese Orientation/consciousness: patient oriented x3 Limitations: no limitations HEENT Head: Yes normocephalic and Yes atraumatic Resp Effort & Inspection: normal respiratory effort and able to speak in complete sentences Neuro General: patient oriented x3 Extrem Other: Bilateral medial knee joint tenderness Bilateral knee pain with flexion Results Reviewed Results Reviewed: Laboratory Tests 11/06/21 05/29/22 06/04/22 07:22 12:30 04:53 03/05/2022 EXAMINATION: XR KNEE, BILATERAL CLINICAL INFORMATION: Pain in knee.? COMPARISON: Bilateral knee 10/08/2019.? TECHNIQUE: 3 views each knee weightbearing. FINDINGS: Left Knee: There is mild loss of medial and patellofemoral compartment joint space with superior and anterosuperior patellar enthesophyte. There is superior subluxation of the patella. No joint effusion or loose body seen. The soft tissues are normal. Right Knee: There is moderate loss of medial and mild loss of patellofemoral compartment joint space with mild superior patellar subluxation. There are anterosuperior and posterosuperior patellar enthesophytes. No abnormal joint effusion seen. XR/XR knee RT 3V IMPRESSION: Mild superior patellar subluxation with superior patellar enthesophyte. No joint effusion, acute fracture or loose bodies. ? Severe loss of medial compartment joint space right knee. Mild loss of bilateral patellofemoral and medial compartments left knee. 08/29/2021 EXAMINATION: XR LUMBOSACRAL SPINE CLINICAL INFORMATION: Low back pain COMPARISON: Previous x-ray November 2016 TECHNIQUE: Three views of the lumbosacral spine. FINDINGS: There is curvature of the lumbar spine to the right. There is mild 3 mm anterior subluxation of L4 with respect L5. Bone alignment is otherwise normal. No fracture or dislocation is seen. There is degenerative disc disease at L5-S1. There is lower lumbar spine facet arthritis. XR/XR lumbar spine 2-3V IMPRESSION: Degenerative changes. Assessment & Plan Assessment & Plan (1) Primary osteoarthritis of left knee: Code(s): M17.12 - Unilateral primary osteoarthritis, left knee (2) Primary osteoarthritis of right knee: Code(s): M17.11 - Unilateral primary osteoarthritis, right knee Plan: 58-year-old female with bilateral knee osteoarthritis returns for follow-up. Continues to complain of bilateral knee pain. She has severe bilateral knee ost eoarthritis. She manages her pain with tramadol 100 mg Twice daily. Will refill her tramadol. Referred to Orthopedics Plan I spent 16 minutes reviewing patient's chart, evaluating patient, , counseling patient and documenting in the chart Orders: Referrals Orthopedics Referral M17.11 - Unilateral primary osteoarthritis, right knee, M17.12 - Unilateral primary osteoarthritis, left knee Coding Level of Care Code Est Pt Level 3 (36911) Diagnoses Primary osteoarthritis of left knee M17.12 Primary osteoarthritis of right knee M17.11
== END 2023-05-21 08:25 | disposition home or self-care (01) ==
PROVIDERS: PCP General Practice; Visit Provider Student in an Organized Health Care Education/Training Program
DX: M17.0 Bilateral primary osteoarthritis of knee (principal)
CPT/HCPCS: 99213

== ENCOUNTER → 2023-05-21 07:46 | Outpatient (BNVA) | payer MEDICAID, SELFPAY | PROVIDERS: PCP General Practice; Visit Provider Student in an Organized Health Care Education/Training Program | DX: M17.0 Bilateral primary osteoarthritis of knee (principal); Z79.891 Long term (current) use of opiate analgesic | CPT/HCPCS: 99212 ==

== ENCOUNTER 2023-06-20 09:03 | Outpatient (AMB) | payer MEDICAID, SELFPAY ==
--- NOTE | 2023-06-20 09:15 | MHC.OFFVIS ---
Intake Intake Visit Reasons: N/P- B/L knee OA Intake Note: Camila is a 58 year old female who presents today as a new patient for a evaluation of her bilateral knee pain. Patient reports ongoing pain for many years. Hx of Injections with 5 - 6 months of relief. She states that she has tried and failed 3 + months of taking Tramadol, Ibuprofen, and Tylenol. In addition she has tried and failed PT and the use of knee brace for 3 + months. Patient states that her right knee is the worse than the left. Allergies lisinopril Allergy (Verified 06/20/23 09:16) Swelling SEASONAL ALLERGIES Allergy (Mild, Uncoded 09/19/22 13:03) SNEEZING HPI N/P- B/L knee OA HPI Details Camila is a 58 year old female who presents today as a new patient for a evaluation of her bilateral knee pain. Patient reports ongoing pain for many years. Hx of Injections with 5 - 6 months of relief. She states that she has tried and failed 3 + months of taking Tramadol, Ibuprofen, and Tylenol. In addition she has tried and failed PT and the use of knee brace for 3 + months. Patient states that her right knee is the worse than the left. [facility] Medical History Uterine fibroid Primary osteoarthritis of right knee Abnormal uterine bleeding Normal colonoscopy Splenomegaly Constipation Menorrhagia Iron deficiency anemia Rhinitis Obesity Hypothyroidism Type 2 diabetes mellitus HTN (hypertension) GERD (gastroesophageal reflux disease) Hepatitis C Surgical History Hx of colonoscopy Hx of tubal ligation Family History Mother Diabetes High blood pressure Father Alzheimer disease Social History Household Members: Spouse Housing: House Alcohol intake: never Patient Tobacco Use Status: Current someday Tobacco user Cigarettes Per Day: 3 service: No Current occupational status: disabled Sexual orientation: Straight/Heterosexual Gender identity: Female Female Reproductive History Menstrual Age of Menarche: 11 Physical Exam Const General: cooperative, healthy appearing and no acute distress Resp Effort & Inspection: normal respiratory effort and able to speak in complete sentences Cardio Rate: regular rate Peripheral pulses: Peripheral pulses 2+ throughout GI Palpation (GI): Soft to palpation Skin Lesions: no lesions Rashes: no rashes Extrem Other: Bilateral knees are normal to inspection. No ecchymossis, erythema, or joint effusion. ROM 0-110. Tenderness to palpation of the medial and lateral jointlines bilaterally. NVI. Office Procedures Joint Injection/Drain Joint Injection/Drain Primary Site: right knee Secondary Site: left knee Prep: site was prepped using aseptic technique, ethochloride spray was applied and injection warnings given Injected: 40 mg of, DepoMedrol, with 8 mL of (2% plain lido ) and in the joint Approach Used: anterolateral Procedure: The patient tolerated the procedure well and but had some pain with the injection Coding 07204 - Large joint Procedure code (CPT) selection complete Assessment & Plan Assessment & Plan (1) Osteoarthritis of knees, bilateral: Code(s): M17.0 - Bilateral primary osteoarthritis of knee Plan: Camila is a 58 year old female who presents today as a new patient for a evaluation of her bilateral knee pain. Patient reports ongoing pain for many years. Hx of Injections with 5 - 6 months of relief. She states that she has tried and failed 3 + months of taking Tramadol, Ibuprofen, and Tylenol. In addition she has tried and failed PT and the use of knee brace for 3 + months. Patient states that her right knee is the worse than the left. X-rays obtained in the office today were reviewed by me, Gem Martini PA-C, and reveal bilateral knee osteoarthritis. In the past the patient has had cortisone injections with good relief. She would like to repeat injections today. She is a diabetic, therefore, I informed the patient to monitor sugar levels as they may rise. If they rise drastically from baseline she should contact her PCP for management. I also discussed that she may exoerience some facial flushing. She understands and after obtaining consent I injection both knees while in the office today. The patient tolerated the procedure very well. She will f/u prn, sooner if needed. Orders: Orders XR knee RT 2V Today M25.569 - Pain in unspecified knee XR knee LT 2V Today M25.569 - Pain in unspecified knee XR knee standing BI Today M25.569 - Pain in unspecified knee Coding Level of Care Code New Pt Level 4 (31010) Diagnoses Osteoarthritis of knees, bilateral M17.0 CPT Codes Coding - 01844 Large joint: 62007 - Large joint ([id number])
== END 2023-06-20 09:42 | disposition home or self-care (01) ==
PROVIDERS: PCP General Practice; Visit Provider Physician Assistant
DX: M17.0 Bilateral primary osteoarthritis of knee (principal)
CPT/HCPCS: 20610; 99204

== ENCOUNTER 2023-06-20 12:33 | Outpatient (REF) | payer MEDICAID, SELFPAY ==
--- NOTE | ~2023-06-20 | XR_ITS ---
EXAMINATION: XR KNEE, RIGHT XR KNEE, LEFT XR KNEE AP STANDING CLINICAL INFORMATION: Pain. COMPARISON: Radiographs dated 03/05/2022. TECHNIQUE: Lateral and axial views of the right knee are submitted. Lateral and axial views of the left knee are submitted. AP bilateral standing view of the knees is submitted. FINDINGS: RIGHT KNEE: Bony mineralization is normal. There is marked asymmetric narrowing of the medial joint space compartment. The lateral joint space compartment is well-maintained. There is a mild varus configuration. There is mild to moderate narrowing of the patellofemoral compartment, with medial articular surface irregularity. There is mild tricompartment peripheral osteophyte formation. No fracture, dislocation or significant joint effusion is seen. There is no foreign body. LEFT KNEE: Bony mineralization is normal. There is mild asymmetric narrowing of the medial joint space compartment. The lateral joint space compartment is well-maintained. There is mild narrowing of the patellofemoral compartment. There is mild tricompartment peripheral osteophyte formation. No fracture, dislocation or significant joint effusion is seen. There is no foreign body. XR/XR knee standing BI IMPRESSION: 1. There is tricompartment osteoarthritic change of the right knee, most pronounced of the medial joint space compartment, where it is marked. There is a secondary mild varus configuration. 2. There is tricompartment osteoarthritic change of the left knee, most pronounced in the medial and patellofemoral compartments, where it is mild. 3. No fracture, dislocation or significant joint effusion is seen bilaterally.
--- NOTE | ~2023-06-20 | XR_ITS ---
EXAMINATION: XR KNEE, RIGHT XR KNEE, LEFT XR KNEE AP STANDING CLINICAL INFORMATION: Pain. COMPARISON: Radiographs dated 03/05/2022. TECHNIQUE: Lateral and axial views of the right knee are submitted. Lateral and axial views of the left knee are submitted. AP bilateral standing view of the knees is submitted. FINDINGS: RIGHT KNEE: Bony mineralization is normal. There is marked asymmetric narrowing of the medial joint space compartment. The lateral joint space compartment is well-maintained. There is a mild varus configuration. There is mild to moderate narrowing of the patellofemoral compartment, with medial articular surface irregularity. There is mild tricompartment peripheral osteophyte formation. No fracture, dislocation or significant joint effusion is seen. There is no foreign body. LEFT KNEE: Bony mineralization is normal. There is mild asymmetric narrowing of the medial joint space compartment. The lateral joint space compartment is well-maintained. There is mild narrowing of the patellofemoral compartment. There is mild tricompartment peripheral osteophyte formation. No fracture, dislocation or significant joint effusion is seen. There is no foreign body. XR/XR knee LT 2V IMPRESSION: 1. There is tricompartment osteoarthritic change of the right knee, most pronounced of the medial joint space compartment, where it is marked. There is a secondary mild varus configuration. 2. There is tricompartment osteoarthritic change of the left knee, most pronounced in the medial and patellofemoral compartments, where it is mild. 3. No fracture, dislocation or significant joint effusion is seen bilaterally.
--- NOTE | ~2023-06-20 | XR_ITS ---
EXAMINATION: XR KNEE, RIGHT XR KNEE, LEFT XR KNEE AP STANDING CLINICAL INFORMATION: Pain. COMPARISON: Radiographs dated 03/05/2022. TECHNIQUE: Lateral and axial views of the right knee are submitted. Lateral and axial views of the left knee are submitted. AP bilateral standing view of the knees is submitted. FINDINGS: RIGHT KNEE: Bony mineralization is normal. There is marked asymmetric narrowing of the medial joint space compartment. The lateral joint space compartment is well-maintained. There is a mild varus configuration. There is mild to moderate narrowing of the patellofemoral compartment, with medial articular surface irregularity. There is mild tricompartment peripheral osteophyte formation. No fracture, dislocation or significant joint effusion is seen. There is no foreign body. LEFT KNEE: Bony mineralization is normal. There is mild asymmetric narrowing of the medial joint space compartment. The lateral joint space compartment is well-maintained. There is mild narrowing of the patellofemoral compartment. There is mild tricompartment peripheral osteophyte formation. No fracture, dislocation or significant joint effusion is seen. There is no foreign body. XR/XR knee RT 2V IMPRESSION: 1. There is tricompartment osteoarthritic change of the right knee, most pronounced of the medial joint space compartment, where it is marked. There is a secondary mild varus configuration. 2. There is tricompartment osteoarthritic change of the left knee, most pronounced in the medial and patellofemoral compartments, where it is mild. 3. No fracture, dislocation or significant joint effusion is seen bilaterally.
== END 2023-06-20 12:34 | disposition home or self-care (01) ==
LOC: HO.HOSX 12:33
PROVIDERS: Visit Provider Physician Assistant
DX: M17.0 Bilateral primary osteoarthritis of knee (principal)
CPT/HCPCS: 20610; 73560; 73565; 99212; J1020

== ENCOUNTER 2023-07-02 07:51 | Outpatient (AMB) | payer MEDICAID, SELFPAY ==
--- NOTE | 2023-07-02 07:52 | MHC.OFFVIS ---
Intake Vital Signs 07/02/23 07:56 Height 5 ft 6 in Weight 260 lb 2.327 oz BMI 42.0 BP 126/70 Intake Visit Reasons: MANAGER CASINO annual exam Plant Pathology Teacher Required: Yes Plant Pathology Teacher Language: Health Analytics Consultant Name: Samantha JEAN Information Interpreted: non-clinical & clinical Software Quality Assurance Engineer: Software Quality Assurance Engineer Present (Samantha JEAN) Accompanied by: Self / Same As Patient Allergies lisinopril Allergy (Verified 07/02/23 07:57) Swelling SEASONAL ALLERGIES Allergy (Mild, Uncoded 07/02/23 07:57) SNEEZING Post menopausal: Yes HPI HPI Comments History of Present Illness Details Presenting for annual exam. The patient had EMB which showed proliferative endometrium an ultrasound with multiple myomas growing, then was referred to [facility], and has been on Provera 10 mg p.o. q.d. and has an appointment to be seen in the coming 2 weeks for possible preop visit for hysterectomy Last Pap/HPV was negative in 06/10 Last Mammogram was BI-RADS 2 in 01/10 Last Colonoscopy was in 10/04, the recommendation was to repeat in 10 years [facility] Medical History Uterine fibroid Primary osteoarthritis of right knee Abnormal uterine bleeding Normal colonoscopy Splenomegaly Constipation Menorrhagia Iron deficiency anemia Rhinitis Obesity Hypothyroidism Type 2 diabetes mellitus HTN (hypertension) GERD (gastroesophageal reflux disease) Hepatitis C Surgical History Hx of colonoscopy Hx of tubal ligation Family History Mother Diabetes High blood pressure Father Alzheimer disease Social History Household Members: Spouse Housing: House Alcohol intake: never Patient Tobacco Use Status: Current someday Tobacco user Cigarettes Per Day: 3 service: No Current occupational status: disabled Sexual orientation: Straight/Heterosexual Gender identity: Female Female Reproductive History Menstrual Age of Menarche: 11 Review of Systems Const All systems reviewed & are unremarkable except as noted in HPI and below Card Reports as per HPI Resp Reports as per HPI GI Reports as per HPI and Reports no additional complaints Reports as per HPI Physical Exam Const General: cooperative, healthy appearing and comfortable Chest Chest palpation & inspection: normal inspection of the chest and normal palpation of entire chest wall Breast/axilla inspection: normal inspection of the breasts and normal inspection of the axillae Breast/axilla palpation: normal palpation of the breasts, normal palpation of the axillae and no axillary lymphadenopathy Resp Effort & Inspection: normal respiratory effort Auscultation: clear to auscultation bilaterally Percussion: percussion normal Cardio Palpation: normal PMI Rate: regular rate Rhythm: regular rhythm Heart sounds: no murmurs and no rubs Peripheral pulses: Peripheral pulses 2+ throughout GI Inspection: Yes normal to inspection Palpation (GI): Soft to palpation, nontender, no guarding, not rigid and No hepatosplenomegaly present Percussion: Yes normal to percussion Auscultation: normal bowel sounds Rectal Exam - Female: deferred General: Yes bladder normal to palpation External Female Exam: No lesion Speculum Exam - Vagina: normal appearance of the vagina, normal palpation, normal vaginal discharge and not erythematous Speculum Exam - Cervix: normal appearance of the cervix and normal palpation Bimanual exam- vagina & uterus: normal bimanual exam, normal palpation, uterine size normal, bladder normal to palpation, consistency normal and normal palpation Bimanual Exam- Adnexa, other: normal adnexae, no masses and no tenderness Assessment & Plan Assessment & Plan (1) Well woman exam: Code(s): Z01.419 - Encounter for gynecological examination (general) (routine) without abnormal findings Plan: Co testing not indicated this year. Counseled the patient about the recommended dietary allowance of 1200 mg of Calcium & 600 IU of vitamin D. Instructions given the patient to schedule her next screening Mammogram in 01/11. Instructions given to patient to call in case being persist or she is not able to have a follow-up appointment at [facility] [facility] procedures EMB and ultrasound and further management . The patient was instructed to perform monthly self-breast exams and schedule annual exam in a year. All questions answered and the patient verbalized understanding. Coding Level of Care Code Est Pt Prev Care 40-64y(35645) Diagnoses Well woman exam Z01.419
[2023-07-02 07:56] VITALS: BP 126/70; BMI 42.0
== END 2023-07-02 08:08 | disposition home or self-care (01) ==
LOC: HO.HWS 07:51
PROVIDERS: PCP General Practice; Visit Provider Obstetrics & Gynecology
DX: Z01.419 Encounter for gynecological examination (general) (routine) without abnormal findings (principal)
CPT/HCPCS: 99396

== ENCOUNTER → 2023-07-02 07:51 | Outpatient (BNVA) | payer MEDICAID, SELFPAY | PROVIDERS: PCP General Practice; Visit Provider Obstetrics & Gynecology | DX: Z01.419 Encounter for gynecological examination (general) (routine) without abnormal findings (principal) | CPT/HCPCS: 99396 ==

== ENCOUNTER 2023-07-24 08:26 | Outpatient (AMB) | payer MEDICAID, SELFPAY ==
--- NOTE | 2023-07-24 08:28 | MHC.OFFVIS ---
Intake Vital Signs 07/24/23 08:45 Height 5 ft 6 in Weight 259 lb 4.218 oz BMI 41.8 BP 140/77 H Blood Pressure Location Rt brachial Position Sitting Intake Visit Reasons: Follow up constipation Intake Note: Patient presents to in office 6 months follow up of GERD and CIC. CC: Patient reports she has gets bloated after meals. Patient states she is able to have BMs with Senna and Linzess PRN. Denies any new GI symptoms today. Sales Contract Administrator Required: Yes Accompanied by: Self / Same As Patient Allergies lisinopril Allergy (Verified 07/24/23 08:47) Swelling SEASONAL ALLERGIES Allergy (Mild, Uncoded 07/02/23 07:57) SNEEZING HPI Follow up constipation HPI Details Assessment & Plan (1) Constipation: Code(s): K59.00 - Constipation, unspecified Plan: Kazakh #Soham Fan The adjustment of the LInzess dose to 145mcg with the senna has resolved her CIC problems. She continues on her omeprazole and this is controlling her GERD well especially with better bowel motility. At this point she is quite satisfied with her GI regimen and has no other complaints. Return office visit in 4 months. (2) GERD (gastroesophageal reflux disease): Code(s): K21.9 - Gastro-esophageal reflux disease without esophagitis TODAY'S VISIT Kazakh #Altaf. She continues to do very well. The adjustment of the LInzess dose to 145mcg with the senna has resolved her CIC problems. She continues on her omeprazole and this is controlling her GERD well especially with better bowel motility. At this point she is quite satisfied with her GI regimen and has no other complaints. Return office visit in 6 months [facility] Medical History Uterine fibroid Primary osteoarthritis of right knee Abnormal uterine bleeding Normal colonoscopy Splenomegaly Constipation Menorrhagia Iron deficiency anemia Rhinitis Obesity Hypothyroidism Type 2 diabetes mellitus HTN (hypertension) GERD (gastroesophageal reflux disease) Hepatitis C Surgical History Hx of colonoscopy Hx of tubal ligation Family History Mother Diabetes High blood pressure Father Alzheimer disease Social History Household Members: Spouse Housing: House Alcohol intake: never Patient Tobacco Use Status: Current someday Tobacco user Cigarettes Per Day: 3 service: No Current occupational status: disabled Sexual orientation: Straight/Heterosexual Gender identity: Female Female Reproductive History Menstrual Age of Menarche: 11 Review of Systems Const Denies fatigue, Denies fever(s), Denies night sweats, Denies poor appetite and Denies weight loss ENT Reports Normal hearing present, Denies dental pain, Denies dysphagia, Denies hearing loss, Denies mouth pain, Denies odynophagia, Denies throat swelling, Denies tongue swelling and Reports other (Dentition adequate) Card Reports no additional complaints Resp Reports no additional complaints GI Denies abdominal pain, Denies melena, Denies bloating, Denies hematochezia, Reports constipation, Denies GI cramping, Denies dysphagia, Denies excessive flatus, Denies early satiety, Reports heartburn, Denies diarrhea, Denies nausea, Denies odynophagia, Denies vomiting and Denies hematemesis Skin/Breast Denies pruritus, Denies lesions, Denies rash and Denies jaundice Neuro Reports Normal hearing present and Denies Abnormal speech present Endo Denies fatigue Aller/Immun Denies throat swelling and Denies tongue swelling Physical Exam Vital Signs: Last Vital Signs BP 140/77 H 07/24/23 08:45 BMI result Body Mass Index 41.8 Const General: cooperative, no acute distress, well developed and well groomed Nutritional Appearance: well nourished and obese Orientation/consciousness: oriented to person, oriented to place and oriented to time Limitations: language barrier HEENT Head: Yes normocephalic and Yes atraumatic Eyes General: appearance normal, both eyes and all related structures Pupils: Equal, round and reactive pupils present Neck Neck: Yes normal visual inspection and Yes no lymphadenopathy Thyroid: Thyroid normal Resp Effort & Inspection: normal respiratory effort and able to speak in complete sentences Auscultation: clear to auscultation bilaterally Cardio Rate: regular rate Rhythm: regular rhythm Heart sounds: Normal, physiologic split S2 sound present Peripheral pulses: radial pulses present and posterior tibial pulses present GI Inspection: No distended, Yes Abdominal panniculus present and Yes obesity Palpation (GI): Soft to palpation, nontender, no guarding, not rigid and No hepatosplenomegaly present Percussion: Yes normal to percussion Auscultation: normal bowel sounds Rectal Exam - Female: deferred Skin General skin exam: no rashes or lesions noted, turgor normal, skin not dry, no jaundice, No spider nevi and no striae Rashes: no rashes Nails: normal Neuro General: oriented to person, oriented to place and oriented to time Cranial nerves: Yes Equal, round and reactive pupils present and Yes Normal hearing present Speech: No Abnormal speech present Extrem General: Yes normal to inspection, No clubbing, No cyanosis and No edema Psych Appearance: grossly normal and well kempt Mental Status: mental status grossly normal Speech and movement: Normal speech and movement present Affect: normal affect Attitude: cooperative Thought process: Normal thought process present and not confabulating Thought content: Normal thought content present Insight: Fair insight present (Psych) and Limited insight present (Psych) Judgement: Fair judgement present (Psych) and Limited judgement present (Psych) Assessment & Plan Assessment & Plan (1) Constipation: Code(s): K59.00 - Constipation, unspecified (2) GERD (gastroesophageal reflux disease): Code(s): K21.9 - Gastro-esophageal reflux disease without esophagitis Plan Kazakh #Rose and Terry. She continues to do very well. The adjustment of the LInzess dose to 145mcg with the senna has resolved her CIC problems. She continues on her omeprazole and this is controlling her GERD well especially with better bowel motility. At this point she is quite satisfied with her GI regimen and has no other complaints. Return office visit in 6 months Medications: New simethicone 125 mg PO QID PRN 90 tabs 6RF gas sennosides (senna) 25.8 mg (3 x 8.6 mg) PO BEDTIME 90 tabs 6RF constipation Refilled linaclotide (Linzess) 145 mcg PO QAM 30 caps 6RF K59.00 - Constipation, unspecified omeprazole 20 mg PO BID 30 days 60 tabs 6RF K21.9 - Gastro-esophageal reflux disease without esophagitis Discontinued linaclotide (Linzess) Discontinued Reason: Doctor's Order 290 mcg PO QAM 30 caps 6RF K59.00 - Constipation, unspecified Coding Level of Care Code Est Pt Level 3 (93914) Diagnoses Constipation K59.00 GERD (gastroesophageal reflux disease) K21.9
[2023-07-24 08:45] VITALS: BP 140/77; BMI 41.8
== END 2023-07-24 09:08 | disposition home or self-care (01) ==
PROVIDERS: PCP General Practice; Visit Provider Nurse Practitioner
DX: K59.00 Constipation, unspecified (principal); K21.9 Gastro-esophageal reflux disease without esophagitis
CPT/HCPCS: 99213

== ENCOUNTER → 2023-07-24 08:26 | Outpatient (BNVA) | payer MEDICAID, SELFPAY | PROVIDERS: PCP General Practice; Visit Provider Nurse Practitioner | DX: K59.00 Constipation, unspecified (principal); K21.9 Gastro-esophageal reflux disease without esophagitis | CPT/HCPCS: 99212 ==

== ENCOUNTER 2024-01-08 07:46 | Outpatient (AMB) | payer MEDICAID, SELFPAY ==
[2024-01-08 07:47] VITALS: BP 140/76; PULSE 56; BMI 42.3
--- NOTE | 2024-01-08 07:47 | MHC.OFFVIS ---
Vital Signs 01/08/24 07:47 Height 5 ft 6 in Weight 262 lb 2.074 oz BMI 42.3 BP 140/76 H Blood Pressure Location Rt brachial Position Sitting Pulse 56 Pulse Source Pulse Oximeter Intake Visit Reasons: OA/CM Intake Note: Patient last seen 05/21/23 presents today for follow up. Hydraulic Jack Operator Required: Yes Hydraulic Jack Operator Language: Manager Baby Name: Ricardo # [id number] Information Interpreted: non-clinical & clinical Allergies lisinopril Allergy (Verified 01/08/24 07:51) Swelling SEASONAL ALLERGIES Allergy (Mild, Uncoded 01/08/24 07:51) SNEEZING Medication List - Last Reconciled 01/08/24 by Nathan Mcclain MD ammonium lactate 12% appl topical BID buspirone 10 mg PO TID dulaglutide (Trulicity) mg subcut QWEEK ferrous gluconate 324 mg PO QAM gabapentin 600 mg PO TID hydrochlorothiazide 25 mg PO QAM irbesartan 75 mg PO QAM lancets (TRUEplus Lancets) As directed levothyroxine 100 mcg PO DAILY linaclotide (Linzess) 145 mcg PO QAM loratadine 10 mg PO DAILY meclizine 25 mg PO TID PRN medroxyprogesterone 10 mg PO DAILY nicotine (polacrilex) 2 mg PO Q2H PRN omeprazole 20 mg PO BID 30 days rosuvastatin 10 mg PO BEDTIME sennosides (senna) 25.8 mg (3 x 8.6 mg) PO BEDTIME sertraline 50 mg PO DAILY simethicone 125 mg PO QID PRN tramadol 50 mg PO Q8H PRN trazodone 100 mg PO BEDTIME HPI Comments Details: 58-year-old female with bilateral knee osteoarthritis returns for follow-up. Continues to have bilateral knee pain worse on the right. She takes tramadol 2 to 3 times a day. [facility] Medical History Uterine fibroid Primary osteoarthritis of right knee Abnormal uterine bleeding Normal colonoscopy Splenomegaly Constipation Menorrhagia Iron deficiency anemia Rhinitis Obesity Hypothyroidism Type 2 diabetes mellitus HTN (hypertension) GERD (gastroesophageal reflux disease) Hepatitis C Surgical History Hx of colonoscopy Hx of tubal ligation Family History Mother Diabetes High blood pressure Father Alzheimer disease Social History Household Members: Spouse Housing: House Alcohol intake: never Patient Tobacco Use Status: Current someday Tobacco user Cigarettes Per Day: 3 service: No Current occupational status: disabled Sexual orientation: Straight/Heterosexual Gender identity: Female Female Reproductive History Menstrual Age of Menarche: 11 Review of Systems Musc Reports arthralgias Physical Exam Vital Signs: Last Vital Signs Pulse 56 01/08/24 07:47 BP 140/76 H 01/08/24 07:47 BMI result Body Mass Index 42.3 Const General: cooperative, healthy appearing and comfortable Nutritional Appearance: obese morbidly obese Orientation/consciousness: patient oriented x3 Limitations: no limitations HEENT Head: Yes normocephalic and Yes atraumatic Resp Effort & Inspection: normal respiratory effort and able to speak in complete sentences Neuro General: patient oriented x3 Extrem Other: Bilateral medial knee joint tenderness Bilateral knee pain with flexion Symptoms are overall much worse on the right Results Reviewed Results Reviewed: Laboratory Tests 11/06/21 05/29/22 06/04/22 07:22 12:30 04:53 Ordering Physician: Gem Martini PA-C Date of Service: 06/20/23 Procedure(s): XR knee standing BI Accession Number(s): [id number] cc: Gem Martini PA-C~ EXAMINATION: XR KNEE, RIGHT XR KNEE, LEFT XR KNEE AP STANDING CLINICAL INFORMATION: Pain. COMPARISON: Radiographs dated 03/05/2022. TECHNIQUE: Lateral and axial views of the right knee are submitted. Lateral and axial views of the left knee are submitted. AP bilateral standing view of the knees is submitted. FINDINGS: RIGHT KNEE: Bony mineralization is normal. There is marked asymmetric narrowing of the medial joint space compartment. The lateral joint space compartment is well-maintained. There is a mild varus configuration. There is mild to moderate narrowing of the patellofemoral compartment, with medial articular surface irregularity. There is mild tricompartment peripheral osteophyte formation. No fracture, dislocation or significant joint effusion is seen. There is no foreign body. LEFT KNEE: Bony mineralization is normal. There is mild asymmetric narrowing of the medial joint space compartment. The lateral joint space compartment is well-maintained. There is mild narrowing of the patellofemoral compartment. There is mild tricompartment peripheral osteophyte formation. No fracture, dislocation or significant joint effusion is seen. There is no foreign body. XR/XR knee standing BI IMPRESSION: 1. There is tricompartment osteoarthritic change of the right knee, most pronounced of the medial joint space compartment, where it is marked. There is a secondary mild varus configuration. 2. There is tricompartment osteoarthritic change of the left knee, most pronounced in the medial and patellofemoral compartments, where it is mild. 3. No fracture, dislocation or significant joint effusion is seen bilaterally. Assessment & Plan Assessment & Plan (1) Primary osteoarthritis of left knee: Code(s): M17.12 - Unilateral primary osteoarthritis, left knee Category: Medical (2) Primary osteoarthritis of right knee: Code(s): M17.11 - Unilateral primary osteoarthritis, right knee Category: Medical Plan: 58-year-old female with bilateral knee osteoarthritis returns for follow-up. Continues to be significantly symptomatic. Patient received multiple cortisone injections in her knees in the past. She stated that the injections have lost their efficacy, most recently she had bilateral knee cortisone injections by Orthopedics 06/2023 and they did not provide any help. Discussed gel injections. Patient would like to proceed. We will start prior authorization for right knee gel injections Patient states that she takes tramadol 2 to 3 times a day as needed for pain. Tramadol refilled Plan I spent 16 minutes reviewing patient's chart, evaluating patient, , counseling patient and documenting in the chart Coding Level of Care Code Est Pt Level 3 (29989) Diagnoses Primary osteoarthritis of left knee M17.12 Primary osteoarthritis of right knee M17.11
== END 2024-01-08 08:11 | disposition home or self-care (01) ==
PROVIDERS: PCP General Practice; Referring Provider General Practice; Visit Provider Student in an Organized Health Care Education/Training Program
DX: M17.0 Bilateral primary osteoarthritis of knee (principal)
CPT/HCPCS: 99213

== ENCOUNTER → 2024-01-08 07:46 | Outpatient (BNVA) | payer MEDICAID, SELFPAY | PROVIDERS: PCP General Practice; Visit Provider Student in an Organized Health Care Education/Training Program | DX: M17.0 Bilateral primary osteoarthritis of knee (principal) | CPT/HCPCS: 99212 ==

== ENCOUNTER 2024-02-25 10:25 | Outpatient (REF) | payer MEDICAID, SELFPAY ==
[2024-02-25 11:34] LABS: Basophils Percent Auto 0.5 % (0-2); Eosinophils Absolute Auto 0.1 X10*3/uL (0.0-0.4); Eosinophils Percent Auto 1.8 % (0-4); Hematocrit 37.3 % (37.0-47.0); Hemoglobin 12.4 g/dl (12.0-16.0); Imm Gran Abs Auto 0.02 X10*3/uL (0.00-0.03); Imm Gran Pct Auto 0.5 % (0.0-0.4); Lymphocytes Absolute Auto 0.8 X10*3/uL (1.2-4.9); Lymphocytes Percent Auto 18.8 % (20-40); MANUAL DIFF FLAG SCAN; Mean Corpuscular HGB Conc 33.2 g/dl (31.0-35.0); Mean Corpuscular Hemoglobin 28.8 pg (27.0-33.0); Mean Corpuscular Volume 86.5 fL (80.0-98.0); Monocytes Absolute Auto 0.2 X10*3/uL (0.1-1.2); Neutrophils Absolute Auto 3.2 x10*3/uL (2.0-8.3); Neutrophils Percent Auto 73.4 % (45-73); PLT CLUMP 1; Red Blood Count 4.31 X10*6/uL (4.20-5.50); Red Cell Distribution Width 12.1 % (11.0-16.0); SCAN SMEAR FLAG 1
[2024-02-25 11:51] LABS: Cholesterol 165 mg/dL (<200); HDL Cholesterol 30 mg/dL (>40); LDL Cholesterol Calculated 64 mg/dL (<100); Triglycerides 358 mg/dL (<150)
[2024-02-25 12:02] LABS: Mean Platelet Volume 13.2 fL (9.4-12.3); Platelet Count 93 X10*3/uL (160-400); White Blood Count 4.4 X10*3/uL (4.8-10.8)
[2024-02-25 12:03] LABS: SLIDE REVIEW VERIFIED
[2024-02-25 12:15] LABS: Creatinine Urine 138.37 mg/dL; Microalbum/Creatinine Ratio Ur 49.1 ug/mg cr (<30)
[2024-02-25 12:30] LABS: HIV AB/AG Nonreactive (Nonreactive); HIV Num 1 0.05 S/CO (0.00-0.99); ~HepC Num1 15.13 S/CO (0.00-0.79); ~Hepatitis C Antibody Reactive (Nonreactive)
[2024-02-27 17:13] LABS: HCV Log PCR <1.18 NOT DETECTED Log IU/mL (NOT DETECTED); HepC Viral Load <15 NOT DETECTED IU/mL (NOT DETECTED)
== END 2024-02-25 10:26 | disposition home or self-care (01) ==
LOC: HO.HHCL 10:25
PROVIDERS: Visit Provider General Practice
DX: D69.6 Thrombocytopenia, unspecified (principal); E11.9 Type 2 diabetes mellitus without complications; Z79.4 Long term (current) use of insulin
CPT/HCPCS: 36415; 80061; 82043; 82570; 85025; 86803; 87389; 87522

== ENCOUNTER 2024-03-09 10:51 | Outpatient (REF) | payer MEDICAID, SELFPAY ==
--- NOTE | ~2024-03-09 | MM_ITS ---
EXAMINATION: MM SCREENING DIGITAL BREAST TOMOSYNTHESIS, BILATERAL CLINICAL INFORMATION: Screening. Asymptomatic. COMPARISON: Mammography: This study is compared with prior exams dating back to 07 29. TECHNIQUE: Digital breast tomosynthesis is performed in both the craniocaudal and mediolateral oblique views along with computer-aided detection (CAD). Synthesized 2D images are generated from the tomosynthesis. FINDINGS: There are scattered areas of fibroglandular density (ACR BI-RADS breast composition Category b). There are no significant masses, abnormal calcifications, or other abnormalities. MM/MM tomosynthesis screening BI IMPRESSION: No mammographic evidence of malignancy. ASSESSMENT: BI-RADS BI-RADS 1 - Negative RECOMMENDATION: Routine annual mammography screening. 1 year F/U This examination should not preclude the clinical evaluation of a suspicious palpable abnormality. This patient's information was entered into a reminder system with a target due date for their next mammogram. Electronically signed by: Ramona Michel MD 04/07/2024 10:02 AM [facility]
== END 2024-03-09 10:52 | disposition home or self-care (01) ==
LOC: HO.MAMMO 10:51
PROVIDERS: PCP General Practice; Visit Provider General Practice
DX: Z12.31 Encounter for screening mammogram for malignant neoplasm of breast (principal)
CPT/HCPCS: 77063; 77067

== ENCOUNTER → 2024-03-09 11:15 | Outpatient (BNV) | payer MEDICAID, SELFPAY | PROVIDERS: PCP General Practice; Visit Provider Radiology Diagnostic Radiology | DX: Z12.31 Encounter for screening mammogram for malignant neoplasm of breast (principal) | CPT/HCPCS: 77063; 77067 ==

== ENCOUNTER 2024-04-09 09:19 | Outpatient (AMB) | payer MEDICAID, SELFPAY ==
[2024-04-09 09:25] VITALS: BP 136/66; PULSE 66; BMI 40.9
--- NOTE | 2024-04-09 09:25 | A.OFFVIS_ITS ---
Vital Signs 04/09/24 09:25 Height 5 ft 6 in Weight 253 lb 8.505 oz BMI 40.9 BP 136/66 Blood Pressure Location Lt brachial Position Sitting Pulse 66 Intake Visit Reasons: 6 months follow up Intake Note: Camila presents to in office follow up of GERD and constipation. CC: Patient reports doing well and denies having any new GI concerns today. Web Application Tester Required: Yes Accompanied by: Self / Same As Patient Allergies lisinopril Allergy (Verified 04/09/24 09:28) Swelling SEASONAL ALLERGIES Allergy (Mild, Uncoded 01/08/24 07:51) SNEEZING HPI HPI 6 months follow up: Details: Assessment & Plan (1) Constipation: Code(s): K59.00 - Constipation, unspecified (2) GERD (gastroesophageal reflux disease): Code(s): K21.9 - Gastro-esophageal reflux disease without esophagitis Plan Persian #Rose and Terry. She continues to do very well. The adjustment of the LInzess dose to 145mcg with the senna has resolved her CIC problems. She continues on her omeprazole and this is controlling her GERD well especially with better bowel motility. At this point she is quite satisfied with her GI regimen and has no other complaints. Return office visit in 6 months Medications: New simethicone 125 mg PO QID PRN 90 tabs 6RF gas sennosides (senna) 25.8 mg (3 x 8.6 mg) PO BEDTIME 90 tabs 6RF constipation Refilled linaclotide (Linzess) 145 mcg PO QAM 30 caps 6RF K59.00 - Constipation, unspecified omeprazole 20 mg PO BID 30 days 60 tabs 6RF K21.9 - Gastro-esophageal reflux disease without esophagitis Discontinued linaclotide (Linzess) Discontinued Reason: Doctor's Order 290 mcg PO QAM 30 caps 6RF K59.00 - Constipation, unspecified LABS;[facility] [place] 01/15/24 12:14 119 12/30/23 10:58 148 08/01/23 13:54 136 Laboratory Tests 09/19/22 02/25/24 02:40 10:30 WBC 4.4 L Hgb 12.4 Hct 37.3 Plt Count 93 L D Estimated GFR > 60 Total Bilirubin 0.4 AST 17 ALT 11 Alkaline Phosphatase 66 US RUQ [facility] [place] FINDINGS: Liver: Coarse hepatic echotexture. Scattered subcentimeter rounded hyperechoic foci in the left hepatic lobe. Nodular hepatic contour. Main portal vein patent with normal hepatopetal direction of flow. Gallbladder: Multiple mobile gallstones. Non-shadowing echogenic foci along the anterior fundal wall demonstrate comet tail artifact and twinkling artifact on color Doppler imaging. Normal wall thickness. No pericholecystic fluid. Negative Archuleta sign. Biliary Tree: No intrahepatic or extrahepatic bile duct dilation is identified. Common duct measures: 0.3 cm. Pancreas: No abnormality in the visualized portions of the pancreas. Right kidney: 16.0 cm in length. Normal parenchymal echotexture and thickness. No hydronephrosis, stone or solid mass. Multiple renal cysts, the largest with a thin septation in the upper pole measures 6.9 x 5.9 x 6.3 cm. Incidental note is made of splenomegaly. The spleen measures at least 21.6 cm and is visualized adjacent to the left hepatic lobe. The left kidney is partially visualized and contains multiple cysts, the largest measuring up to 5.5 cm in the upper pole. IMPRESSION: Cirrhotic morphology with scattered subcentimeter hyperechoic foci in the left hepatic lobe. The sonographic appearance is indeterminant and liver mass protocol MRI is recommended for further characterization. Splenomegaly. Cholelithiasis and fundal adenomyomatosis without sonographic evidence of acute cholecystitis. Bilateral renal cysts measuring up to 6.9 cm on the right and 5.5 cm on the left. TODAY'S VISIT Persian #Toby and Katelynn She is not doing well with the senna added to the Linzess 145mcg, and the simethicone is controlling her bloating. She asks be about a US she had at [facility], and I find it and it shows multiple mobile gallstones and an indeterminate left liver lobe lesion. She also has known hepatomegaly and splenomegaly r/t obesity and past Hep C, but transaminases in blood are WNL. She has known stable thrombocytopenia dating back to 2008. This has been evaluated by Hematology in the past. She has claustrophobia and declines MRI f/u. We will get CT. She has absolutely no pain or problem related to the gallstones so we reviewed alarm signs and symptoms that could necessitate a gallbladder attack and to try to avoid overly fatty or fried foods. She continues on o2o bid. She is satisfied with her GI regimen. ROV 3 mos. Consider repeating liver function tests at this visit. [facility] Medical History (Updated 04/09/24 @ 11:07 by TUNG [place]) Iron deficiency anemia Splenomegaly Normal colonoscopy Menorrhagia Hepatitis C Primary osteoarthritis of right knee Primary osteoarthritis of left knee Abnormal uterine bleeding Uterine fibroid Encounter to discuss test results Encounter for annual routine gynecological examination Encounter for medication monitoring Well woman exam Constipation Rhinitis Obesity Hypothyroidism Type 2 diabetes mellitus HTN (hypertension) GERD (gastroesophageal reflux disease) Surgical History (Updated 04/09/24 @ 11:07 by TUNG [place]) Hx of tubal ligation Hx of colonoscopy Family History Mother Diabetes High blood pressure Father Alzheimer disease Social History Household Members: Spouse Housing: House Alcohol intake: never Patient Tobacco Use Status: Current someday Tobacco user Cigarettes Per Day: 3 service: No Current occupational status: disabled Sexual orientation: Straight/Heterosexual Gender identity: Female Female Reproductive History Menstrual Age of Menarche: 11 Review of Systems Const Denies fatigue, Denies fever(s), Denies night sweats, Denies poor appetite and Denies weight loss ENT Reports Normal hearing present, Denies dental pain, Denies dysphagia, Denies hearing loss, Denies mouth pain, Denies odynophagia, Denies throat swelling, Denies tongue swelling and Reports other (Dentition adequate) Card Reports no additional complaints Resp Reports no additional complaints GI Details: Denies abdominal pain, Denies melena, Denies bloating, Denies hematochezia, Reports constipation, Denies GI cramping, Denies dysphagia, Denies excessive flatus, Denies early satiety, Reports heartburn, Denies diarrhea, Denies nausea, Denies odynophagia, Denies vomiting and Denies hematemesis Skin/Breast Denies pruritus, Denies lesions, Denies rash and Denies jaundice Neuro Reports Normal hearing present and Denies Abnormal speech present Endo Denies fatigue Aller/Immun Denies throat swelling and Denies tongue swelling Physical Exam Vital Signs: Last Vital Signs Pulse 66 04/09/24 09:25 BP 136/66 04/09/24 09:25 BMI result Body Mass Index 40.9 Const General: cooperative, no acute distress, well developed and well groomed Nutritional Appearance: well nourished and obese morbidly obese Orientation/consciousness: oriented to person, oriented to place and oriented to time Limitations: language barrier HEENT Head: Yes normocephalic and Yes atraumatic Eyes General: appearance normal, both eyes and all related structures Pupils: Equal, round and reactive pupils present Neck Neck: Yes normal visual inspection and Yes no lymphadenopathy Thyroid: Thyroid normal Resp Effort & Inspection: normal respiratory effort and able to speak in complete sentences Auscultation: clear to auscultation bilaterally Cardio Rate: regular rate Rhythm: regular rhythm Heart sounds: Normal, physiologic split S2 sound present Peripheral pulses: radial pulses present and posterior tibial pulses present GI Inspection: No distended, Yes Abdominal panniculus present and Yes obesity Palpation (GI): Soft to palpation, nontender, no guarding, not rigid and No hepatosplenomegaly present Percussion: Yes normal to percussion Auscultation: normal bowel sounds Rectal Exam - Female: deferred Skin General skin exam: no rashes or lesions noted, turgor normal, skin not dry, no jaundice, No spider nevi and no striae Rashes: no rashes Nails: normal Neuro General: oriented to person, oriented to place and oriented to time Cranial nerves: Yes Equal, round and reactive pupils present and Yes Normal hearing present Speech: No Abnormal speech present Extrem General: Yes normal to inspection, No clubbing, No cyanosis and No edema Psych Appearance: grossly normal and well kempt Mental Status: mental status grossly normal Speech and movement: Normal speech and movement present Affect: normal affect Attitude: cooperative Thought process: Normal thought process present and not confabulating Thought content: Normal thought content present Insight: Limited insight present (Psych) Judgement: Limited judgement present (Psych) Assessment & Plan Assessment & Plan (1) Liver lesion, left lobe: Comment: On US performed at [facility]; pt declines MRI r/t claustrophobia Code(s): K76.9 - Liver disease, unspecified Category: Medical (2) Constipation: Code(s): K59.00 - Constipation, unspecified Category: Medical (3) GERD (gastroesophageal reflux disease): Code(s): K21.9 - Gastro-esophageal reflux disease without esophagitis Category: Medical (4) Pancytopenia: Code(s): D61.818 - Other pancytopenia Category: Medical Plan Persian #Toby and Katelynn She is not doing well with the senna added to the Linzess 145mcg, and the simethicone is controlling her bloating. She asks be about a US she had at [facility], and I find it and it shows multiple mobile gallstones and an indeterminate left liver lobe lesion. She also has known hepatomegaly and splenomegaly r/t obesity and past Hep C, but transaminases in blood are WNL. She has known stable thrombocytopenia dating back to 2008. This has been evaluated by Hematology in the past. She has claustrophobia and declines MRI f/u. We will get CT. She has absolutely no pain or problem related to the gallstones so we reviewed alarm signs and symptoms that could necessitate a gallbladder attack and to try to avoid overly fatty or fried foods. She continues on o2o bid. She is satisfied with her GI regimen. ROV 3 mos. Consider repeating liver function tests at this visit. Orders: Orders CT abdomen w IV con Today K76.9 - Liver disease, unspecified Coding Level of Care Code Est Pt Level 4 (99655) Diagnoses Liver lesion, left lobe K76.9 Constipation K59.00 GERD (gastroesophageal reflux disease) K21.9 Pancytopenia D61.818 Time Spent (min) 35
== END 2024-04-09 10:34 | disposition home or self-care (01) ==
PROVIDERS: PCP General Practice; Visit Provider Nurse Practitioner
DX: K76.9 Liver disease, unspecified (principal); K59.00 Constipation, unspecified; K21.9 Gastro-esophageal reflux disease without esophagitis; D61.818 Other pancytopenia
CPT/HCPCS: 99214

== ENCOUNTER → 2024-04-09 09:19 | Outpatient (BNVA) | payer MEDICAID, SELFPAY | PROVIDERS: PCP General Practice; Visit Provider Nurse Practitioner | DX: K76.9 Liver disease, unspecified (principal); K21.9 Gastro-esophageal reflux disease without esophagitis; K59.00 Constipation, unspecified; D61.818 Other pancytopenia | CPT/HCPCS: 99212 ==

== ENCOUNTER 2024-07-08 07:33 | Outpatient (AMB) | payer MEDICAID, SELFPAY ==
--- NOTE | 2024-07-08 07:35 | A.OFFVIS_ITS ---
Vital Signs 07/08/24 07:39 Height 5 ft 6 in Weight 253 lb 4.978 oz BMI 40.9 BP 122/70 Blood Pressure Location Rt brachial Position Sitting Pulse 83 Pulse Source Pulse Oximeter Pulse Oximetry (%) 98 Oxygen Delivery Method Room Air Intake Visit Reasons: Knee OA Intake Note: Patient presents for knee OA. Allergies lisinopril Allergy (Verified 07/08/24 07:38) Swelling SEASONAL ALLERGIES Allergy (Mild, Uncoded 01/08/24 07:51) SNEEZING Medication List - Last Reconciled 07/08/24 by Nathan Mcclain MD ammonium lactate 12% appl topical BID buspirone 10 mg PO TID dulaglutide (Trulicity) mg subcut QWEEK ferrous gluconate 324 mg PO QAM gabapentin 600 mg PO TID hydrochlorothiazide 25 mg PO QAM irbesartan 75 mg PO QAM lancets (TRUEplus Lancets) As directed levothyroxine 100 mcg PO DAILY linaclotide (Linzess) 145 mcg PO QAM loratadine 10 mg PO DAILY meclizine 25 mg PO TID PRN nicotine (polacrilex) 2 mg PO Q2H PRN omeprazole 20 mg PO BID rosuvastatin 10 mg PO BEDTIME sennosides (senna) 25.8 mg (3 x 8.6 mg) PO BEDTIME sertraline 50 mg PO DAILY simethicone 125 mg PO QID PRN tramadol 50 mg PO QID PRN trazodone 100 mg PO BEDTIME HPI Comments Details: 59-year-old female with bilateral knee osteoarthritis returns for follow-up. Continues to have bilateral knee pain worse on the right. She takes tramadol 50 mg 3-4 times a day. [facility] Medical History Iron deficiency anemia Splenomegaly Normal colonoscopy Menorrhagia Hepatitis C Primary osteoarthritis of right knee Primary osteoarthritis of left knee Abnormal uterine bleeding Uterine fibroid Encounter to discuss test results Encounter for annual routine gynecological examination Encounter for medication monitoring Well woman exam Constipation Rhinitis Obesity Hypothyroidism Type 2 diabetes mellitus HTN (hypertension) GERD (gastroesophageal reflux disease) Surgical History Hx of tubal ligation Hx of colonoscopy Family History Mother Diabetes High blood pressure Father Alzheimer disease Social History Household Members: Spouse Housing: House Alcohol intake: never Patient Tobacco Use Status: Current someday Tobacco user Cigarettes Per Day: 3 service: No Current occupational status: disabled Sexual orientation: Straight/Heterosexual Gender identity: Female Female Reproductive History Menstrual Age of Menarche: 11 Review of Systems [facility] [place] arthralgias Physical Exam Vital Signs: Last Vital Signs Pulse 83 07/08/24 07:39 BP 122/70 07/08/24 07:39 Pulse Ox 98 07/08/24 07:39 Oxygen Delivery Method Room Air 07/08/24 07:39 BMI result Body Mass Index 40.9 Const General: cooperative, healthy appearing and comfortable Nutritional Appearance: obese morbidly obese Orientation/consciousness: patient oriented x3 Limitations: no limitations HEENT Head: Yes normocephalic and Yes atraumatic Resp Effort & Inspection: normal respiratory effort and able to speak in complete sentences Neuro General: patient oriented x3 Extrem Other: Antalgic gait due to right knee pain Bilateral medial knee joint tenderness Bilateral knee pain with flexion Symptoms are overall much worse on the right Assessment & Plan Assessment & Plan (1) Primary osteoarthritis of left knee: Code(s): M17.12 - Unilateral primary osteoarthritis, left knee Category: Medical (2) Primary osteoarthritis of right knee: Code(s): M17.11 - Unilateral primary osteoarthritis, right knee Category: Medical Plan: 58-year-old female with bilateral knee osteoarthritis returns for follow-up. Continues to be significantly symptomatic. Patient received multiple cortisone injections in her knees in the past. She stated that the injections have lost their efficacy, most recent bilateral knee cortisone injections by Orthopedics were done 06/2023 and they did not provide any help. Last visit we attempted to get a prior authorization for joint injection, unfortunately they were not approved Advised patient to make an appointment with Orthopedics. Use Voltaren gel 4 times a day. She takes tramadol 50 mg 3 to 4 times a day. It provides some relief. Tramadol refilled. Follow-up in 6 months Plan I spent 16 minutes reviewing patient's chart, evaluating patient, , counseling patient and documenting in the chart Coding Level of Care Code Est Pt Level 3 (29119) Diagnoses Primary osteoarthritis of left knee M17.12 Primary osteoarthritis of right knee M17.11
[2024-07-08 07:39] VITALS: BP 122/70; PULSE 83; O2SAT 98; BMI 40.9
== END 2024-07-08 07:57 | disposition home or self-care (01) ==
PROVIDERS: PCP General Practice; Visit Provider Student in an Organized Health Care Education/Training Program
DX: M17.0 Bilateral primary osteoarthritis of knee (principal)
CPT/HCPCS: 99213

== ENCOUNTER → 2024-07-08 07:33 | Outpatient (BNVA) | payer MEDICAID, SELFPAY | PROVIDERS: PCP General Practice; Visit Provider Student in an Organized Health Care Education/Training Program | DX: M17.0 Bilateral primary osteoarthritis of knee (principal) | CPT/HCPCS: 99212 ==

== ENCOUNTER 2024-07-09 10:02 | Outpatient (AMB) | payer MEDICAID, SELFPAY ==
[2024-07-09 10:07] VITALS: BP 131/68; PULSE 78; BMI 40.9
--- NOTE | 2024-07-09 10:07 | A.OFFVIS_ITS ---
Vital Signs 07/09/24 10:07 Height 5 ft 6 in Weight 253 lb 8.505 oz BMI 40.9 BP 131/68 Blood Pressure Location Rt brachial Position Sitting Pulse 78 Intake Visit Reasons: 3 month follow up Intake Note: Patient in office today in follow up of CIC. CC: Patient would like to get something to clean her colon completely. She reports doing well and denies having any new GI symptoms or concerns today. Manager Etl Required: Yes Accompanied by: Self / Same As Patient Allergies lisinopril Allergy (Verified 07/09/24 10:12) Swelling SEASONAL ALLERGIES Allergy (Mild, Uncoded 01/08/24 07:51) SNEEZING HPI HPI 3 month follow up: Details: Assessment & Plan (1) Liver lesion, left lobe: Comment: On US performed at [facility]; pt declines MRI r/t claustrophobia Code(s): K76.9 - Liver disease, unspecified Category: Medical (2) Constipation: Code(s): K59.00 - Constipation, unspecified Category: Medical (3) GERD (gastroesophageal reflux disease): Code(s): K21.9 - Gastro-esophageal reflux disease without esophagitis Category: Medical (4) Pancytopenia: Code(s): D61.818 - Other pancytopenia Category: Medical Plan [place] #Toby and Katelynn She is not doing well with the senna added to the Linzess 145mcg, and the simethicone is controlling her bloating. She asks be about a US she had at [facility] [place], and I find it and it shows multiple mobile gallstones and an indeterminate left liver lobe lesion. She also has known hepatomegaly and splenomegaly r/t obesity and past Hep C, but transaminases in blood are WNL. She has known stable thrombocytopenia dating back to 2008. This has been evaluated by Hematology in the past. She has claustrophobia and declines MRI f/u. We will get CT. She has absolutely no pain or problem related to the gallstones so we reviewed alarm signs and symptoms that could necessitate a gallbladder attack and to try to avoid overly fatty or fried foods. She continues on o2o bid. She is satisfied with her GI regimen. ROV 3 mos. Consider repeating liver function tests at this visit. Orders: Orders CT abdomen w IV con Today K76.9 - Liver disease, unspecified CT ABDOMEN NOT YET OBTAINED TODAY'S VISIT ][place] #Bharti Live She did not do the CT as she was fearful of claustrophobia, but I explain that this is not the closed tube. She agrees she will call and get this study scheduled so that we can monitor her liver. Linzess 145mcg, and the simethicone. she is moving her bowels well, but she says she wants a colonoscopy cleanse, like when you have a colonoscopy, she says she is having an odor along with bloating and gas, so a cleanse is not really a solution for htis. It also happens when she eats garlic. Educated I will give her a trial flagyl for SIBO. She was educated not to drink any alcohol with this so she says she will started after the holiday. She was educated to take a probiotic supplement as well. ROV 6 mos. PFSH Medical History Iron deficiency anemia Splenomegaly Normal colonoscopy Menorrhagia Hepatitis C Primary osteoarthritis of right knee Primary osteoarthritis of left knee Abnormal uterine bleeding Uterine fibroid Encounter to discuss test results Encounter for annual routine gynecological examination Encounter for medication monitoring Well woman exam Constipation Rhinitis Obesity Hypothyroidism Type 2 diabetes mellitus HTN (hypertension) GERD (gastroesophageal reflux disease) Surgical History Hx of tubal ligation Hx of colonoscopy Family History Mother Diabetes High blood pressure Father Alzheimer disease Social History Household Members: Spouse Housing: House Alcohol intake: never Patient Tobacco Use Status: Current someday Tobacco user Cigarettes Per Day: 3 service: No Current occupational status: disabled Sexual orientation: Straight/Heterosexual Gender identity: Female Female Reproductive History Menstrual Age of Menarche: 11 Review of Systems Const Denies fatigue, Denies fever(s), Denies night sweats, Denies poor appetite and Denies weight loss ENT Reports Normal hearing present, Denies dental pain, Denies dysphagia, Denies hearing loss, Denies mouth pain, Denies odynophagia, Denies throat swelling, Denies tongue swelling and Reports other (Dentition adequate) Card Reports no additional complaints Resp Reports no additional complaints GI Details: Denies abdominal pain, Denies melena, Denies bloating, Denies hematochezia, Reports constipation, Denies GI cramping, Denies dysphagia, Reports excessive flatus, Denies early satiety, Reports heartburn, Denies diarrhea, Denies nausea, Denies odynophagia, Denies vomiting and Denies hematemesis Musc Reports abnormal gait and Reports arthralgias Skin/Breast Denies pruritus, Denies lesions, Denies rash and Denies jaundice Neuro Reports Normal hearing present, Denies Abnormal speech present and Reports abnormal gait Endo Denies fatigue Aller/Immun Denies throat swelling and Denies tongue swelling Physical Exam Vital Signs: Last Vital Signs Pulse 78 07/09/24 10:07 BP 131/68 07/09/24 10:07 BMI result Body Mass Index 40.9 Const General: cooperative, no acute distress, well developed and well groomed Nutritional Appearance: well nourished and obese morbidly obese Orientation/consciousness: oriented to person, oriented to place and oriented to time Limitations: language barrier HEENT Head: Yes normocephalic and Yes atraumatic Eyes General: appearance normal, both eyes and all related structures Pupils: Equal, round and reactive pupils present Neck Neck: Yes normal visual inspection and Yes no lymphadenopathy Thyroid: Thyroid normal Resp Effort & Inspection: normal respiratory effort and able to speak in complete sentences Auscultation: clear to auscultation bilaterally Cardio Rate: regular rate Rhythm: regular rhythm Heart sounds: Normal, physiologic split S2 sound present Peripheral pulses: radial pulses present and posterior tibial pulses present GI Inspection: No distended, Yes Abdominal panniculus present and Yes obesity Palpation (GI): Soft to palpation, nontender, no guarding, not rigid and No hepatosplenomegaly present Percussion: Yes normal to percussion Auscultation: normal bowel sounds Rectal Exam - Female: deferred Skin General skin exam: no rashes or lesions noted, turgor normal, skin not dry, no jaundice, No spider nevi and no striae Rashes: no rashes Nails: normal Neuro General: oriented to person, oriented to place and oriented to time Cranial nerves: Yes Equal, round and reactive pupils present and Yes Normal hearing present Speech: No Abnormal speech present Extrem General: No normal gait and Yes Limp noted Psych Appearance: grossly normal and well kempt Mental Status: mental status grossly normal Speech and movement: Normal speech and movement present Affect: normal affect Attitude: cooperative Thought process: Normal thought process present and not confabulating Thought content: Normal thought content present Insight: Limited insight present (Psych) Judgement: Limited judgement present (Psych) Assessment & Plan Assessment & Plan (1) Small intestinal bacterial overgrowth (SIBO), hydrogen sulfide subtype: Code(s): K63.8212 - Small intestinal bacterial overgrowth, hydrogen sulfide-subtype Category: Medical (2) Liver lesion, left lobe: Comment: On US performed at [facility]; pt declines MRI r/t claustrophobia Code(s): K76.9 - Liver disease, unspecified Category: Medical (3) GERD (gastroesophageal reflux disease): Code(s): K21.9 - Gastro-esophageal reflux disease without esophagitis Category: Medical Plan ][place] #Bharti Live She did not do the CT as she was fearful of claustrophobia, but I explain that this is not the closed tube. She agrees she will call and get this study scheduled so that we can monitor her liver. Linzess 145mcg, and the simethicone. she is moving her bowels well, but she says she wants a colonoscopy cleanse, like when you have a colonoscopy, she says she is having an odor along with bloating and gas, so a cleanse is not really a solution for htis. It also happens when she eats garlic. Educated I will give her a trial flagyl for SIBO. She was educated not to drink any alcohol with this so she says she will started after the holiday. She was educated to take a probiotic supplement as well. ROV 6 mos. Medications: New metronidazole 500 mg PO TID 30 tabs 0RF 10 days K63.8212 - Small intestinal bacterial overgrowth, hydrogen sulfide-subtype Refilled omeprazole 20 mg PO BID 60 caps 6RF K21.9 - Gastro-esophageal reflux disease without esophagitis simethicone 125 mg PO QID PRN 90 tabs 6RF gas sennosides (senna) 25.8 mg (3 x 8.6 mg) PO BEDTIME 90 tabs 6RF for constipation linaclotide (Linzess) 145 mcg PO QAM 30 caps 6RF K59.00 - Constipation, unspecified Coding Level of Care Code Est Pt Level 3 (42152) Diagnoses Small intestinal bacterial overgrowth (SIBO), hydrogen sulfide subtype K63.8212 Liver lesion, left lobe K76.9 GERD (gastroesophageal reflux disease) K21.9
== END 2024-07-09 11:56 | disposition home or self-care (01) ==
PROVIDERS: PCP General Practice; Visit Provider Nurse Practitioner
DX: K63.82 Intestinal microbial overgrowth (principal); K76.9 Liver disease, unspecified; K21.9 Gastro-esophageal reflux disease without esophagitis
CPT/HCPCS: 99213

== ENCOUNTER → 2024-07-09 10:02 | Outpatient (BNVA) | payer MEDICAID, SELFPAY | PROVIDERS: PCP General Practice; Visit Provider Nurse Practitioner | DX: K63.82 Intestinal microbial overgrowth (principal); K76.9 Liver disease, unspecified; K21.9 Gastro-esophageal reflux disease without esophagitis | CPT/HCPCS: 99212 ==

== ENCOUNTER 2024-08-17 08:47 | Outpatient (REF) | payer MEDICAID, SELFPAY ==
--- OUTSIDE RECORDS SUMMARY | 2024-08-18 09:40 | XMS_ITS | Encounter Summary ---
Author Organization [facility] Address [address] [facility] 7t [place] [address] Care Team Providers Care Rn Behavioral Health Name Role Phone Thalia Claudio MD Primary Care Provider [phone] Encounter Details Date Type Department Care Team ([facility] Contact Info) Description 03/26/2023 Orders Only [facility] [address] [place] [address] [phone] ProviderCindy MD Social History Tobacco Use Types Packs/Day Years Used Date Smoking Tobacco: Every Day Cigarettes Passive Smoke Exposure: Current Smokeless Tobacco: Never Alcohol Use Standard Drinks/Week Comments Never 0 (1 standard drink = 0.6 oz pur e alcohol) Depression Answer Date Recorded Patient Health Questionnaire-2 Score 2 06/28/2022 Comments Unknown Sex and Gender Information Value Date Recorded Sex Assigned at Female 05/20/2022 10:16 AM EDT Legal Sex Female 10:16 AM EDT Gender Identity Female 05/20/2022 10:16 AM EDT Sexual Orientation Straight 05/20/2022 10 :16 AM EDT documented as of this encounter Plan of Treatment Upcoming Encounters Date Type Department Care Team (Late Contact Info) Description 08/20/2024 9:30 AM EST Office Visit [facility] [address] [place] [address] [phone] Thalia Claudio MD [address] [place] [address] [phone] documented as of this encounter Procedures Procedure Name Priority Date/Time Associated Diagnosis Comments SLIDE REVIEW Routine 02/25/2024 10:30 AM EDT HEPATITIS C VIRAL RNA, QUANTITATIVE, REAL-TIME PCR Routine 02/25/2024 10:30 AM EDT COLONOSCOPY Routine 09/24/2016 documented in this encounter Results * Hepatitis C Viral RNA, Quantitative, Real-Time PCR (02/25/2024 10:30 AM EDT) Hepatitis C Viral Load <15 NOT DETECTED NOT DETECTED IU/mL [facility] HCV Log PCR <1.18 NOT DETECTED NOT DETECTED Log IU/mL [facility] Comment:For additional infor mation, please refer tohttp://education.Curverider/faq/OMH39b3(This link is being provided for informational/educational purposes only.)THIS TEST WAS PERFORMED AT:[facility] [place] [id number] MONTIEL MD 02/25/2024 10:3 0 AM EDT 02/26/2024 9:19 AM EDT Thalia Claudio MD LAB BLOOD ORDERABLES Final Res ult Performing Organization Address [facility] Co de Phone Number [facility] [address] [place] [phone] * Slide Review (02/25/2024 10:30 AM EDT) Slide Review VERIFIED [facility] 02/25/2024 10:3 0 AM EDT 02/25/2024 11:10 AM EDT Thalia Claudio MD LAB BLOOD ORDERABLES Final Res ult Performing Organization Address [facility] Co de Phone Number [facility] [address] [place] [address] [phone] * Colonoscopy (09/24/2016) Cindy Black MD HEALTH MAINTENANCE Final Result documented in this encounter Visit Diagnoses Not on filedocumented in this encounter Care Teams Rn Behavioral Health Relationship Specialty Start Date End Date Thalia Claudio MD [address] [place] [address] PCP - General Family Medicine 03/13/22 documented as of this encounter
--- OUTSIDE RECORDS SUMMARY | 2024-08-18 09:40 | XMS_ITS | Encounter Summary ---
Author Organization [employer] Address 75 [facility] 7t [place] [address] Care Team Providers Care Rn Urology Name Role Phone Thalia Claudio MD Primary Care Provider [phone] Reason for Visit * Reason Comments Care Coordination SDOH Encounter Details Date Type Department Care Team (Latest Contact Info) Description 08/11/[address] [facility] [address] [place] [address] Thalia Claudio MD [address] [place] [address] Care Coordination (SDOH) Social History Tobacco Use Types Packs/Day Years Used Date Smoking Tobacco: Every Day Cigarettes Passive Smoke Exposure: Current Smokeless Tobacco: Never Alcohol Use Standard Drinks/Week Comments Never 0 (1 standard drink = 0.6 oz pur e alcohol) Housing Stability Answer Date Recorded What is your housing situation today? I have liborio fitch 09/29/[address] you li ve. Do you have problems with any of the following? None of the above 09/29/2023 Food Insecurity Answer Date Recorded Within the past 12 months, y ou worried that your food would run out before you got money to buy more: Often true 08/11/2024 Within the past 12 months,th e food you bought just didn't last and you didn't have enough money to get more: Often true Transportation Answer Date Recorded In the past 12 months, has l ack of transportation kept you from medical appts, meetings, work or from getting things needed for daily living? Yes, it has kept me from medical appointments or getting medications. 08/11/2024 Utilities Answer Date Recorded In the past 12 months, has t he electric, gas, oil or water company threatened to shut off services in your home? No 09/29/2023 Depression Answer Date Recorded Patient Health Questionnaire-2 Score 2 06/28/2022 Internet Access Answer Date Recorded Internet Access Q1 Yes 03/19/2024 Internet Access Q2 Not on file 03/19/2024 Comments Unknown Sex and Gender Information Value Date Recorded Sex Assigned at Female 05/20/2022 10:16 AM EDT Legal Sex Female 10:16 AM EDT Gender Identity Female 05/20/2022 10:16 AM EDT Sexual Orientation Straight 05/20/2022 10 :16 AM EDT documented as of this encounter Progress Notes * Kary Metzger - 08/11/2024 9:06 AM EST CHW Kary Metzger placed call to patient in regard to SDOH, patient stated she suffers from food insecurity, states FS not enough to last the month often runs out of food, states she has diabetes, and healthier food is much more expensive. Patient stated she does go to food pantries at times, but they don't offer healthier options. CHW will help patient with any food resources needed, will see if patient qualifies for Flex. documented in this encounter Plan of Treatment Upcoming Encounters Date Type Department Care Team (Late st Contact Info) Description 08/20/2024 9:30 AM EST Office Visit [facility] [address] [place] [address] Thalia Claudio MD [address] [place] [address] documented as of this encounter Visit Diagnoses Not on filedocumented in this encounter Care Teams Rn Urology Relationship Specialty Start Date End Date Thalia Claudio MD [address] [place] [address] PCP - General Family Medicine 03/13/22 documented as of this encounter
--- OUTSIDE RECORDS SUMMARY | 2024-08-18 09:40 | XMS_ITS | Encounter Summary ---
Author Organization [employer] Address 75 [facility] 7t [place] [address] Care Team Providers Care Engineer And Geologist Name Role Phone Thalia Claudio MD Primary Care Provider [phone] Reason for Visit * Reason Comments Pre-visit Planning SDOH screening posit bette and tobacco screening negative Encounter Details Date Type Department Care Team ([facility] st Contact Info) Description 08/10/2024 Patient Outreach [facility] MED[facility] [address] [place], [place] [phone] Thalia Claudio MD [address] [place], [place] [phone] Pre-visit Planning (SDOH screening positive and tobacco screening negative) Social History Tobacco Use Types Packs/Day Years [...] as of this encounter Progress Notes * Malaika Kary - 08/10/2024 12:46 PM EST CC Malaika placed successful outbound call to patient for pre-visit planning. Patient name and confirmed. Patient confirms appt date and time, and has transportation arrangements. Biggest concern for appointment at this time is none Appropriate screening completed in anticipation of appointment.Patient advised to bring to appointment a photo id and insurance card, SDOH positive. Patient looking for assistance with food insecurities Referral will be placed. documented in this encounter Plan of Treatment Upcoming Encounters Date Type Department Care Team (Late st Contact Info) Description 08/20/2024 9:30 AM EST Office Visit [facility] [address] [place] [address] Thalia Claudio MD [address] [place] [address] documented as of this encounter Visit Diagnoses Not on filedocumented in this encounter Care Teams Engineer And Geologist Relationship Specialty Start Date End Date Thalia Claudio MD [address] [place] [address] PCP - General Family Medicine 03/13/22 documented as of this encounter
--- OUTSIDE RECORDS SUMMARY | 2024-08-18 09:40 | XMS_ITS | Encounter Summary ---
Author Organization [employer] Address [address] [facility] [address] 7[address] [place] [address] Care Team Providers Care Printing Mechanist Name Role Phone Thalia Claudio MD Primary Care Provider [phone] Reason for Visit * Reason Onset Date Comments Med Refill 01/08/2024 Encounter Details Date Type Department Care Team ([facility] Contact Info) Description 01/08/2024 Telephone [facility] [address] [place] [address] Thalia Claudio MD [address] [place], [place] [phone] Med Refill Social History Tobacco Use Types Packs/Day Years [...] before you got money to buy more: Sometimes True 2023 Within the past 12 months,th e food you bought just didn't last and you didn't have enough money to get more: Sometimes True 09/29/2023 Transportation Answer Date Recorded In the past 12 months, has l ack of transportation kept you from medical appts, meetings, work or from getting things needed for daily living? No 09/29/2023 Utilities Answer Date Recorded In the past 12 months, has t he electric, gas, oil or water [employer] threatened to shut off services in your home? No 09/29/2023 Depression Answer Date Recorded Patient Health Questionnaire-2 Score 2 06/28/2022 Comments Unknown Sex and Gender Information Value Date Recorded Sex Assigned at Female 05/20/2022 10:16 AM EDT Legal Sex Female 10:16 AM EDT Gender Identity Female 05/20/2022 10:16 AM EDT Sexual Orientation Straight 05/20/2022 10 :16 AM EDT documented as of this encounter Miscellaneous Notes * Telephone Encounter - Silva Adhikari LPN - 01/08/2024 10:32 AM EDT Medication pended to PCP. * Telephone Encounter - Elizabeth Reyes - 01/08/2024 10:26 AM EDT TC from pt requesting medication refill. Medications needing refill : nicotine polacrilex (Nicorette) 2 MG gum To be sent to: [facility] documented in this encounter Plan of Treatment Upcoming Encounters Date Type Department Care Team (Late st Contact Info) Description 08/20/2024 9:30 AM EST Office Visit [facility] [address] [place] [address] Thalia Claudio MD [address] [place] [address] documented as of this encounter Visit Diagnoses Not on filedocumented in this encounter Care Teams Printing Mechanist Relationship Specialty Start Date End Date Thalia Claudio MD [address] [place] [address] PCP - General Family Medicine 03/13/22 documented as of this encounter
--- OUTSIDE RECORDS SUMMARY | 2024-08-18 09:40 | XMS_ITS | Clinical Summary ---
Author Organization [facility] Address [address] [place] [address], [place] [address] Care Team Providers Care Family And Marriage Counsellor Name Role Phone Natalie Bean Primary Care Provider Unav ailable Allergies Active Allergy Reactions Criticality Noted Date Comments Lisinopril Swelling 03/09/2018 Medications traZODone (DESYREL) 50 MG tablet Take 100 mg by mouth every night 2 Active sertraline (ZOLOFT) 50 MG tablet Take 50 mg by mouth 2 Active rosuvastatin (CRESTOR) 10 MG tablet Take 10 mg by mouth at bed time 2 Active omeprazole (PriLOSEC) [address] capsule TAKE 1 CAPSULE BY MOUTH TWICE DAILY IN THE MORNING AND IN THE EVENING 2 Active nicotine polacrilex (NICORETTE) 2 MG gum CHEW 1 PIECE OF GUM BY MOUTH EVERY 2 HOURS NEEDED AND DIRECTED 2 Active metFORMIN (GLUCOPHAGE) 500 MG tablet TAKE 1 TABLET BY MOUTH EVERYDAY AT NOON WITH LUNCH 2 Active medroxyPROGEST ERone (PROVERA) 10 MG tablet Take 10 mg by mouth 1 (one) time each day 2 Active loratadine (CLARITIN) 10 MG tablet Take 10 mg by mouth 2 Active Linzess 290 MCG capsule Take 1 capsule by mouth 2 Active levothyroxine (SYNTHROID, LEVOTHROID) 100 MCG tablet Take 100 mcg by mouth 2 Active irbesartan (AVAPRO) 75 MG tablet Take 75 mg by mouth 2 Active Trulicity 0.75 MG/0.5ML solution pen-injector INJECT ONE PEN (=0.75MG) SUBCUTANEOUSLY ONCE A WEEK DIRECTED 2 Active gabapentin (NEURONTIN) 600 MG tablet TAKE 1 TABLET BY MOUTH THREE TIMES DAILY IN THE MORNING, EVENING, AND BEDTIME 2 Active hydroCHLOROthi azide 25 MG tablet Take 25 mg by mouth 2 Active clotrimazole (LOTRIMIN) 1 % cream APPLY TO THE AFFECTED AREA(S) AND SURROUNDING AREA(S) OF SKIN TWICE DAILY IN THE MORNING AND IN THE EVENING 2 Active busPIRone (BUSPAR) 10 MG tablet TAKE 1 TABLET BY MOUTH THREE TIMES DAILY IN THE MORNING, EVENING, AND BEDTIME 2 Active ammonium lactate (AMLACTIN) 12 % cream APPLY TOPICALLY TO AFFECTED AREA(S) TWICE DAILY 2 Active Active Problems Problem Noted Date Diagnosed Date Chronic frontal sinusitis 06/28/2022 Overview (09/17/2022): Last Assessment & Plan: Nasal saline rinse 1-2 daily Type 2 diabetes mellitus without complication Hypothyroidism 03/18/2022 Obesity 03/18/2022 Thrombocytopenia 03/18/2022 Essential (primary) hypertension 03/18/2022 Gastroesophageal reflux disease 03/18/2022 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 Dyslipidemia with high densi ty lipoprotein below reference range and triglyceride above reference range due to type 2 diabetes mellitus 10/15/2017 Overview (09/17/2022): Last Assessment & Plan: Continue Metforming and Trulicity Gentle exercise encouraged Re-refer to [facility] vision care Cont statin F/u in 3 months Cirrhosis of liver 05/19/2017 Overview (09/17/2022): Last Assessment & Plan: Overdue for screening for HCC Weight loss advised for tx of NAFLD Depressive disorder 08/28/2015 Constipation 08/28/2015 Allergic rhinitis 08/28/2015 Immunizations Name Administration Dates Next Due Influenza LAIV (Nasal) 04/24/2012 Influenza, Quadrivalent, Preservative Free 09/15,05/19/2017 Moderna SARS-COV-2 06/28/2021,11/30/2020, 021 Pfizer SARS-COV-2 04/23/2022 Pneumococcal Polysaccharide 09/20/2011 Shingrix 11/08/2021,08/31/2021 Td 02/22/2022,02/06/2006,06/25/1995 Tdap 09/20/2011 Social History Tobacco Use Types Packs/Day Years Used Date Smoking Tobacco: Never Assessed Tobacco Cessation:Counseling Given: Not Answered Alcohol Use Standard Drinks/Week Comments Never 0 (1 standard drink = 0.6 oz pur e alcohol) Comments Unknown Sex and Gender Information Value Date Recorded Sex Assigned at Not on file Legal Sex Female 11:23 AM EDT Gender Identity Not on file Sexual Orientation Not on file Last Filed Vital Signs Vital Sign Reading Time Taken Comments Blood Pressure 145/65 09/17/2022 1:52 PM EST Pulse 74 09/17/2022 1:52 PM EST Temperature - - Respiratory Rate - - Oxygen Saturation 99% 09/17/2022 1:52 PM EST Inhaled Oxygen Concentration - - Weight 117 kg (258 lb 9.6 oz) 09/17/2022 1:52 PM EST Height - - Body Mass Index - - Plan of Treatment Health Maintenance Due Date Last Done Comments Breast Cancer Screening 1967 Hepatitis B Vaccine (1 of 3 - 19+ 3-dose series) 1986 Pneumococcal Vaccine: Pediat rics (0 to 5 Years) and At-Risk Patients (6 to 64 Years) (2 of 2 - PCV) 09/19/2012 09/20/2011 Colorectal Cancer Screening: Annual FOBT 2016 Colorectal Cancer Screening: Colonoscopy 2016 Colorectal Cancer Screening: Sigmoidoscopy 2016 Diabetes: Ophthalmology Exam 03/18/2022 Diabetes: Pedal Pulse Checked 03/18/2022 Diabetes: Sensory Foot Exam 03/18/2022 Diabetes: Visual Foot Exam 03/18/2022 Diabetes: Hemoglobin A1C 09/26/2022 06/28/2022 Influenza Vaccine (#1) 2024 9, 05/19/2017, 04/24/2012 [place] Care Teams Family And Marriage Counsellor Relationship Specialty Start Date End Date Natalie Bean PCP - General Family Medicine 11/22/21
--- OUTSIDE RECORDS SUMMARY | 2024-08-18 09:40 | XMS_ITS | Encounter Summary ---
Author Organization [facility] Address [address] [place] [address] 7t [place] [address] Care Team Providers Care Vertica Architect Name Role Phone Thalia Claudio MD Primary Care Provider [phone] Reason for Visit * Reason Comments Med Refill Encounter Details Date Type Department Care Team ([facility] Contact Info) Description 03/04/2023 Refill [facility] MEDICINE [address] [place] [address] [phone] Thalia Claudio MD [address] [place] [address] [phone] Social History Tobacco Use Types Packs/Day Years [...] Upcoming Encounters Date Type Department Care Team ([facility] Contact Info) Description 08/20/2024 9:30 AM EST Office Visit [facility] MEDICINE [address] [place] [address] [phone] Thalia Claudio MD [address] [place] [address] [phone] documented as of this encounter Visit Diagnoses Not on filedocumented in this encounter Care Teams Vertica Architect Relationship Specialty Start Date End Date Thalia Claudio MD [address] [place] [address] PCP - General Family Medicine 03/13/22 documented as of this encounter
--- OUTSIDE RECORDS SUMMARY | 2024-08-18 09:40 | XMS_ITS | Encounter Summary ---
Author Organization [facility] [facility] Address [address] [place] [address] 7t [place] [address] Care Team Providers Care Inspector General Name Role Phone Thalia Claudio MD Primary Care Provider [phone] Reason for Visit * Reason Comments Med Refill Encounter Details Date Type Department Care Team ([facility] Contact Info) Description 03/06/2023 Refill [facility] MEDICINE [address] [place] [address] [phone] Thalia Claudio MD [address] [place] [address] [phone] Social History Tobacco Use Types Packs/Day Years [...] Upcoming Encounters Date Type Department Care Team ([facility] Contact Info) Description 08/20/2024 9:30 AM EST Office Visit [facility] MEDICINE [address] [place] [address] [phone] Thalia Claudio MD [address] [place] [address] [phone] documented as of this encounter Visit Diagnoses Not on filedocumented in this encounter Care Teams Inspector General Relationship Specialty Start Date End Date Thalia Claudio MD [address] [place] [address] PCP - General Family Medicine 03/13/22 documented as of this encounter
--- OUTSIDE RECORDS SUMMARY | 2024-08-18 09:40 | XMS_ITS | Encounter Summary ---
Author Organization [employer] [facility] Address [address] [place] [address] 7t [place] [address] Care Team Providers Care Security Representative Name Role Phone Thalia Claudio MD Primary Care Provider [phone] Reason for Visit * Reason Comments Med Refill Encounter Details Date Type Department Care Team ([facility] Contact Info) Description 03/07/2023 Refill [facility] MED[facility]INE [address] [place] [address] [phone] Thalia Claudio MD [address] [place] [address] [phone] Social History Tobacco Use Types Packs/Day Years [...] Upcoming Encounters Date Type Department Care Team ([facility] Contact Info) Description 08/20/2024 9:30 AM EST Office Visit [facility] MED[facility]INE [address] [place] [address] [phone] Thalia Claudio MD [address] [place] [address] [phone] documented as of this encounter Visit Diagnoses Not on filedocumented in this encounter Care Teams Security Representative Relationship Specialty Start Date End Date Thalia Claudio MD [address] [place] [address] PCP - General Family Medicine 03/13/22 documented as of this encounter
--- OUTSIDE RECORDS SUMMARY | 2024-08-18 09:40 | XMS_ITS | Encounter Summary ---
Author Organization [employer] [facility] Address [address] [place] [address] 7t [place] [address] Care Team Providers Care Land Surveyor Manager Name Role Phone Thalia Claudio MD Primary Care Provider [phone] Reason for Visit * Reason Comments Med Refill Encounter Details Date Type Department Care Team ([facility] Contact Info) Description 03/06/2023 Refill [facility] MEDICINE [address] [place] [address] [phone] Thalia Claudio MD [address] [place] [address] [phone] Social History Tobacco Use Types Packs/Day Years [...] Upcoming Encounters Date Type Department Care Team ([facility] Contact Info) Description 08/20/2024 9:30 AM EST Office Visit [facility] MEDICINE [address] [place] [address] [phone] Thalia Claudio MD [address] [place] [address] [phone] documented as of this encounter Visit Diagnoses Not on filedocumented in this encounter Care Teams Land Surveyor Manager Relationship Specialty Start Date End Date Thalia Claudio MD [address] [place] [address] PCP - General Family Medicine 03/13/22 documented as of this encounter
--- OUTSIDE RECORDS SUMMARY | 2024-08-18 09:40 | XMS_ITS | Encounter Summary ---
Author Organization [employer] Address 75 [facility] 7t [place] [address] Care Team Providers Care Linoleum Layer Name Role Phone Thalia Claudio MD Primary Care Provider [phone] Reason for Visit * Reason Comments Care Coordination SDOH Encounter Details Date Type Department Care Team (Latest Contact Info) Description 08/16/2024 Patient Outreach [facility] MEDICINE [address] [place] [address] Thalia Claudio MD [address] [place] [address] Care Coordination (SDOH) Social History Tobacco Use [...] encounter Progress Notes * Kary Metzger - 08/16/2024 1:40 PM EST CHW Kary Metzger introduced the Flexible Services Program. Program details explained to the patient. Patient agreeable to participate in the program. Referral placed for flexible services program. CHW will follow up with patient with approval or denial status. documented in this encounter Plan of Treatment Upcoming Encounters Date Type Department Care Team (Late st Contact Info) Description 08/20/2024 9:30 AM EST Office Visit [facility] MEDICINE [address] [place] [phone] Thalia Claudio MD [address] [place] [phone] documented as of this encounter Visit Diagnoses Not on filedocumented in this encounter Care Teams Linoleum Layer Relationship Specialty Start Date End Date Thalia Claudio MD [address] [place] [phone] PCP - General Family Medicine 03/13/22 documented as of this encounter
--- OUTSIDE RECORDS SUMMARY | 2024-08-18 09:40 | XMS_ITS | Clinical Summary ---
Author Organization [employer] Address [address] [facility] [address] [place] [address] Care Team Providers Care Butadiene Compressor Operator Name Role Phone Thalia Claudio MD Primary Care Provider [phone] Allergies Active Allergy Reactions Criticality Noted Date Comments Lisinopril Angioedema,Swelling 03/09/2018 Medications ammonium lactate (Amlactin) 12 % cream Apply as directed to affected area twice a day Active naproxen (Naprosyn) 500 MG tablet Take 1 tablet by mouth in the morning and 1 tablet in the evening. take 1 tablet by oral route 2 times every day with food as needed for heel pain. Active oxybutynin XL (Ditropan-XL) 10 MG 24 hr tablet Take 1 tablet by mouth 1 (one) time each day. Active simethicone (Mylicon) 125 MG chewable tablet chew one tablet by mouth four times daily as needed for gas Active nicotine (Nicoderm, Step 2) 14 MG/24HR patch Place 1 patch on the skin at bed time. Active estradiol (Estrace) 0.1 MG/GM vaginal cream Insert 0.1 g into the vagina at bedtime. Active ibuprofen 400 MG tablet Take 1 tablet by mouth every 4 (four) hours. Active ketotifen (Alaway) 0.025 % ophthalmic solution Administer 1 drop into both eyes in the morning and at bedtime. Active TRUEplus Lancets 33G misc 1 each by Subdermal route in the morning, at noon, and at bedtime. Active meclizine (Antivert) 25 MG tablet Take 25 mg by mouth if needed in the morning, at noon, and at bedtime. Active traMADol (Ultram) 50 MG tablet Take 50 mg by mouth every 6 (six) hours if needed. Active senna (Senokot) 8.6 MG tablet TAKE 2 TABLETS BY MOUTH AT BEDTIME NEEDED FOR CONSTIPATION 180 tablet Active prednisoLONE acetate (Pred-Forte) 1 % ophthalmic suspension Administer 1 drop 2 times daily to both eyes AND in both ear canals x 14 days 10 mL Active sertraline (Zoloft) 50 MG tabletIndications:Depr essive disorder TAKE 1 TABLET BY MOUTH EVERY MORNING 90 tablet 3 Active rosuvastatin (Crestor) 10 MG tabletIndications:Dysl ipidemia with low high density lipoprotein (HDL) cholesterol with hypertriglyceridemia due to type 2 diabetes mellitus (CMS/HCC) (CMS/HCC) TAKE 1 TABLET BY MOUTH AT BEDTIME 90 tablet 3 Active levothyroxine (Synthroid, Levoxyl) 100 MCG tabletIndications:Hypo thyroidism, unspecified type TAKE 1 TABLET BY MOUTH EVERY MORNING 90 tablet 3 Active Linzess 145 MCG capsule Take 145 mcg by mouth in the morning. Active dulaglutide (Trulicity) 1.5 MG/0.5ML solution pen-injector Inject 1.5 mg under the skin 1 (one) time per week. 4 each Active ceramides (Cerave) lotion Apply 1 Application. topically if needed for dry skin. Apply to face twice a day 355 mL 1 Active glucose blood test strip Test blood sugar twice daily 100 each 2024 Active irbesartan (Avapro) 75 MG tablet TAKE 1 TABLET BY MOUTH EVERY MORNING 90 tablet 3 Active pantoprazole (ProtoNix) 40 MG EC tabletIndications:Greg roesophageal reflux disease without esophagitis TAKE 1 TABLET BY MOUTH EVERY MORNING 90 tablet 2 Active gabapentin (Neurontin) 600 MG tablet Take 600 mg by mouth Once per day. Active Polyethylene Glycol 3350 (PEG 3350) 17 GM/SCOOP powder TAKE 17 GM MIXED IN 8 OUNCES OF WATER ONCE DAILY NEEDED FOR CONSTIPATION Active phenazopyridine (Pyridium) 200 MG tablet TAKE 1 TABLET BY MOUTH THREE TIMES DAILY NEEDED DISCOMFORT FOR 7 DAYS Active oxyCODONE (Roxicodone) 5 MG immediate release tablet Take 5 mg by mouth every 6 (six) hours if needed. Active norethindrone (Aygestin) 5 MG tablet Take 5 mg by mouth. Active Enoxaparin Sodium 40 MG/0.4ML solution prefilled syringe INJECT 1 PEN (40 MG) SUBCUTANEOUSLY EVERY DAY Active Acetaminophen Extra Strength 500 MG tablet Take 2 tablets by mouth every 8 (eight) hours. Active clotrimazole (Lotrimin) 1 % cream APPLY TOPICALLY TO AFFECTED AREA(S) AND SURROUNDING AREA(S) OF SKIN EVERY TWELVE HOURS (IN THE MORNING AND IN THE EVENING) 45 g 3 024 Active traZODone (Desyrel) 50 MG tablet Take 1 tablet (50 mg) by mouth at bedtime. 90 tablet 3 Active hydrocortisone 2.5 % cream MIX WITH CERAVE AND APPLY A PEA SIZED AMOUNT TO SKIN TWICE DAILY FOR 1 WEEK 20 g 11 Active gabapentin (Neurontin) 600 MG tabletIndications:Low back pain at multiple sites TAKE 1 TABLET BY MOUTH THREE TIMES DAILY IN THE MORNING, EVENING, AND BEDTIME 90 tablet 3 024 Active loratadine (Claritin) 10 MG tablet TAKE 1 TABLET BY MOUTH EVERY MORNING 90 tablet 3 024 Active busPIRone (Buspar) 10 MG tabletIndications:Anxi ety TAKE 1 TABLET BY MOUTH THREE TIMES DAILY IN THE MORNING, EVENING, AND BEDTIME 90 tablet 3 024 Active hydroCHLOROthiazide (HYDRODiuril) 25 MG tabletIndications:Esse ntial (primary) hypertension TAKE 1 TABLET BY MOUTH EVERY MORNING 90 tablet 3 024 Active nicotine polacrilex (Nicorette) 2 MG gum CHEW 1 PIECE OF GUM EVERY 2 HOURS NEEDED DIRECTED 100 each 3 Active ferrous gluconate (Fergon) 324 (38 Fe) MG tablet TAKE 1 TABLET BY MOUTH EVERY MORNING WITH BREAKFAST 90 tablet Active diphenhydrAMINE (BENADryl) 25 MG tablet Take 1 tablet (25 mg) by mouth every 8 (eight) hours if needed for itching. 30 tablet Active guaiFENesin (Robitussin) 100 MG/5ML liquid Take 10 mL (200 mg) by mouth if needed in the morning, at noon, and at bedtime for cough for up to 10 days. 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 Iron deficiency anemia 12/23/2022 Assessment & Plan (10/07/2023 12:41 PM EDT): Continue daily iron supplement Plan for hysterectomy in summer 2023 Chronic frontal sinusitis 06/28/2022 Overview (12/23/2022): Last Assessment & Plan: Nasal saline rinse 1-2 daily Assessment & Plan (06/30/2022 7:11 AM EST): Nasal saline rinse 1-2 daily Low back pain at multiple sites 06/28/2022 Assessment & Plan (10/07/2023 12:41 PM EDT): Continue Tramadol and Tylenol Assessment & Plan (06/30/2022 7:12 AM EST): Continue Tramadol and Tylenol Hepatitis A immune 06/20/2022 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 Female stress incontinence 09/15/2018 Thrombocytopenia 06/16/2018 Dyslipidemia with low high d ensity lipoprotein (HDL) cholesterol with hypertriglyceridemia due to type 2 diabetes mellitus ([facility]/HCC) 10/15/2017 Assessment & Plan (06/30/2022 7:11 AM EST): Continue Metforming and Trulicity Gentle exercise encouraged Re-refer to [facility] vision care Cont statin F/u in 3 months Cirrhosis of liver 05/19/2017 Assessment & Plan (10/07/2023 12:40 PM EDT): Compensated, no ascites or encephalopahty HCC screenin08/2022 normal Esophageal varices screening: ? Weight loss advised for tx of NAFLD; increasing Trulicity to 1.5mg weekly No alcohol Avoid Tylenol Assessment & Plan (12/23/2022 1:38 PM EDT): Compensated, no ascites or encephalopahty HCC screenin08/2022 normal Esophageal varices screening: ? Weight loss advised for tx of NAFLD No alcohol Avoid Tylenol Assessment & Plan (06/30/2022 7:10 AM EST): Overdue for screening for HCC Weight loss advised for tx of NAFLD Hepatitis B antibody positive 05/19/2017 Allergic rhinitis 08/28/2015 Constipation 08/28/2015 Depressive disorder 08/28/2015 Essential (primary) hypertension 08/28/2015 Assessment & Plan (02/25/2024 10:26 AM EDT): Continue current meds Monitor BP daily Continue statin Assessment & Plan (10/07/2023 12:39 PM EDT): Continue current meds Monitor BP daily Continue statin Assessment & Plan (06/30/2022 7:10 AM EST): Continue current meds Monitor BP daily Continue statin Gastroesophageal reflux disease 08/28/2015 Assessment & Plan (06/30/2022 7:10 AM EST): Continue PPI Life style modification Hypothyroidism 08/28/2015 Obesity 08/28/2015 Smoker 08/28/2015 Assessment & Plan (10/07/2023 12:41 PM EDT): Trying to quit, continue gum nicotine replacement Assessment & Plan (12/23/2022 1:39 PM EDT): Continue to try and cut down Gum refilled Type 2 diabetes mellitus without complication Assessment & Plan (02/25/2024 10:27 AM EDT): Continue Trulicity to 1.5mg weekly Gentle exercise encouraged Re-refer to [facility] vision care Cont statin Check lipids today Podiatry referral for flat feet Assessment & Plan (10/07/2023 12:40 PM EDT): Omcrease Trulicity to 1.5mg weekly Gentle exercise encouraged Re-refer to [facility] vision care Cont statin Check lipids today F/u in 3 months Assessment & Plan (12/23/2022 1:39 PM EDT): Stop Metformin and increase Trulicity to 1.5mg weekly Gentle exercise encouraged Re-refer to [facility] vision care Cont statin Check lipids today F/u in 3 months Assessment & Plan (06/30/2022 7:13 AM EST): Continue Metforming and Trulicity Gentle exercise encouraged Re-refer to [facility] vision care Cont statin F/u in 3 months Encounters Date Type Department Care Team Description 08/16/2024 Patient Outreach [facility] [address] [place] [phone] Thalia Claudio MD Care Coordination (SDOH) 08/11/2024 Patient Outreach [facility] [address] [place] [address] [phone] Thalia Claudio MD Care Coordination (SDOH) 08/10/2024 Patient Outreach [facility] [address] [place] [address] [phone] Thalia Claudio MD Pre-visit Planning (SDOH screening positive and tobacco screening negative) 07/17/2024 10:00 AM EST Office Visit [facility] [address] [place] [address] [phone] Name, MD Ronnie COVID-19 (Primary Dx); Sore throat; Acute cough; Rash 07/17/2024 Travel 07/07/2024 Refill [facility] [address] [place] [address] [phone] Fawn Hall MD 07/02/2024 Patient Outreach [facility] [address] [place], [place] [phone] Thalia Claudio MD Pre-visit Planning ([facility] screening completed on 09/29/2023) 06/24/2024 Refill [facility] [address] [place], [place] [phone] Thalia Claudio MD 06/08/2024 Refill [facility] [address] [place], [place] [phone] Thalia Claudio MD Essential (primary) hypertension from Last 3 Months Immunizations Name Administration Dates Next Due Influenza injectable quadriv alent preservative free 09/15/2018,05/19/2017 Influenza, live, intranasal 04/24/2012 Moderna Covid-19 Vaccine 12+ 04/23/2022, 06/28/2021,11/30/2020,11/02 Pfizer Covid-19 Vaccine 12+ 07/22/2023, Pfizer Covid-19 Vaccine 12+ Bivalent 04/23/2022 Pneumococcal Conjugate PCV 20 10/07/2023 Pneumococcal Polysaccharide PPSV23 09/20/2011 TD (adult), 2 Lf tetanus tox oid, preservative free, adsorbed 02/22/2022,02/06/2006,06/25/1995 Tdap 09/20/2011 Zoster, Recombinant 11/08/2021,08/31/2021 Zoster, live 11/08/2021,08/31/2021 Social History Tobacco Use Types Packs/Day Years Used Date Smoking Tobacco: Every Day Cigarettes Passive Smoke Exposure: Current Smokeless Tobacco: Never Tobacco Cessation:Ready to Q uit: Not Asked; Counseling Given: Not Answered Alcohol Use Standard Drinks/Week [...] the past 12 months, has t he [employer], gas, oil or water [employer] threatened to shut off services in your [...] Orientation Straight 05/20/2022 10 :16 AM EDT Last Filed Vital Signs Vital Sign Reading Time Taken Comments Blood Pressure 140/82 07/17/2024 9:01 AM EST Pulse 88 07/17/2024 9:01 AM EST Temperature 37.4 ??C (99.3 ??F) 07/17/2024 9:01 AM ES T Respiratory Rate 20 07/17/2024 9:01 AM EST Oxygen Saturation 99% 07/17/2024 9:01 AM EST Inhaled Oxygen Concentration - - Weight 114 kg (252 lb 6.4 oz) 07/17/2024 9:01 AM EST Height 165.1 cm (5' 5 ) 07/17/2024 9:01 AM EST Body Mass Index 42 07/17/2024 9:01 AM EST Plan of Treatment Upcoming Encounters Date Type Department Care Team (Late st Contact Info) Description 08/20/2024 9:30 AM EST Office Visit [facility] [address] [place] [address] Thalia Claudio MD [address] [place] [phone] Health Maintenance Due Date Last Done Comments CT Colonography 1967 FIT DNA/Cologuard 1967 FIT 1967 FOBT 1967 Sigmoidoscopy 1967 Eye Exam 1977 Alcohol/Substance Use Screening 1979 Hepatitis B Vaccines (1 of 3 - 19+ 3-dose series) 1986 Pap Smear 1988 Depression Screening 06/28/2023 06/28/2022, 06/28/20 22 COVID-19 Vaccine ( season) 2024 07/22/2023, 04/23/2022, 04/23/2022, Additional history exists Influenza Vaccine (#1) 2024 9, 05/19/2017, 04/24/2012 Diabetes: Hemoglobin A1C 08/27/2024 024, 10/07/2023, 12/23/2022, Additional history exists Diabetes: Foot Exam 02/24/2025 02/25/2024, 06/28/2022, 06/28/2022, Additional history exists Diabetes: Urine Protein Screening 02/24/2025 02/25/2024, 12/23/2022, 09/13/2022, Additional history exists Lipid Panel 02/24/2025 02/25/2024, 06/11/2022, 08/01/2021 Tobacco Screening 02/24/2025 02/25/2024 SDOH Screening 08/11/2025 08/11/2024 Mammogram 03/09/2026 03/09/2024, 06/2 07/2021, 09/23/2018, Additional history exists Cervical Cancer Screening 05/30/2026 HPV/Cotest 05/30/2026 05/30/2021, 05/30/2021 DTaP/Tdap/Td Vaccines (3 - Td or Tdap) 02/23/2032 02/22/2022, 09/20/2011, 02/06/2006, Additional history exists Colonoscopy 09/24/2032 09/24/2016 Colorectal Cancer Screening 09/24/2032 RSV Patients and Patients Aged 60 years or older (1 - 1-dose 75+ series) 2042 Zoster Vaccines Completed 11/08/2021, 04/2 07/2021, 08/31/2021, Additional history exists Pneumococcal Vaccine: Pediatrics (0 to 5 Years) and At-Risk Patients (6 to 49) Years) Completed 10/07/2023, 09/20/2011 HIV Screening Completed 02/25/2024 Hepatitis C Screening Completed 02/25/2024 , 02/25/2024, 12/25/2021 HIB Vaccines Aged Out No longer eligi ble based on patient's age to complete this topic HPV Vaccines Aged Out No longer eligi ble based on patient's age to complete this topic Hepatitis A Vaccines Discontinued IPV Vaccines Aged Out No longer eligi ble based on patient's age to complete this topic Meningococcal Vaccine Aged Out No ami nikko eligible based on patient's age to complete this topic RSV under 20 months Aged Out No longe r eligible based on patient's age to complete this topic Rotavirus Vaccines Aged Out No longer eligible based on patient's age to complete this topic Procedures Procedure Name Priority Date/Time Associated Diagnosis Comments POCT RAPID STREP A Routine 07/17/2024 9: 20 AM EST Acute cough POCT RAPID COVID ANTIGEN Routine 07/17/2024 9:20 AM EST COVID-19 POCT INFLUENZA A (ID NOW RAPID MOLECULAR) Routine 07/17/2024 9:20 AM EST Acute cough POCT INFLUENZA B (ID NOW RAPID MOLECULAR) Routine 07/17/2024 9:20 AM EST Acute cough BI MAMMOGRAM SCREENING TOMOSYNTHESIS BILATERAL Routine 03/09/2024 11:15 AM EDT HEPATITIS C AB W/REFL TO HCV RNA, QN, PCR Routine 02/25/2024 10:30 AM EDT Type 2 diabetes mellitus without complication, with long-term current use of insulin (CMS/HCC) HIV 1/2 ANTIGEN/ANTIBODY, FOURTH GENERATION W/RFL Routine 02/25/2024 10:30 AM EDT Type 2 diabetes mellitus without complication, with long-term current use of insulin (CMS/HCC) ALBUMIN, RANDOM URINE W/CREATININE Routine 02/25/2024 10:30 AM EDT Type 2 diabetes mellitus without complication, with long-term current use of insulin (CMS/[facility]) LIPID PANEL, STANDARD Routine 02/25/2024 10:30 AM EDT Type 2 diabetes mellitus without complication, with long-term current use of insulin ([facility]) POCT GLYCOSYLATED HEMOGLOBIN (HGB A1C) Routine 02/25/2024 10:05 AM EDT Type 2 diabetes mellitus without complication, with long-term current use of insulin ([facility]) ZZZ HISTORICAL HPV E6/E7 RFLX MONI 16 Routine 05/30/2021 11:09 AM EST HM COLONOSCOPY Routine 09/24/2016 from Last 3 Months or Most Recently Relevant to Health Maintenance Results * POCT Rapid Influenza B SENIOR ID NOW (07/17/2024 9:20 AM EST) Influenza B Negative Negative, Indeterminate [facility] Swab 07/17/2024 9:2 0 AM EST us Ronnie Gibson MD POINT OF CARE TEST ENTER/EDIT OR DERABLES Final Result Performing Organization Address City/[facility]/ZIP Co de Phone Number [facility] [address] [place] [phone] * POCT Rapid Influenza A SENIOR ID NOW (07/17/2024 9:20 AM EST) Influenza A Negative Negative, Indeterminate [facility] Swab 07/17/2024 9:20 AM EST us Ronnie Gibson MD POINT OF CARE TEST ENTER/EDIT OR DERABLES Final Result Performing Organization Address [facility]/ZIP Co de Phone Number [facility] [address] [place] [address] [phone] * POCT Rapid Covid-19 BinaxNOW (07/17/2024 9:20 AM EST) Rapid COVID Ag Positive Swab 07/17/2024 9:20 AM EST us Ronnie Name POINT OF CARE TEST ENTER/EDIT OR DERABLES Final Result * POCT Rapid Strep A OSOM (07/17/2024 9:20 AM EST) Rapid Strep A Screen Negative Negative, None Detected Swab 07/17/2024 9:20 AM EST us Ronnie Name POINT OF CARE TEST ENTER/EDIT OR DERABLES Final Result * BI Mammogram Screening Tomosynthesis Bilateral (03/09/2024 11:15 AM EDT) Anatomical Region Laterality Modality Breast Bilateral Mammography 03/09/2024 11:1 5 AM EDT Narrative 04/07/2024 10:04 AM EDT ? [facility] ? [address] ?[place] [id number] ? Mammography Report ? Signed ? Patient: Tim,Camila ?MR#: [id number] ?? [id number] ? : 1965 ?Acct:[id number] ? Age/Sex: 58 / F ?ADM Date: 08/20/24 ? Loc: HO.MAMMO ? Attending Dr: Thalia Claudio MD ? Ordering Physician: Thalia Claudio ?Results: 1Negative ? Date of Service: 03/09/24 ?Follow Up: 1 Year From Orig ?? inal Mammogram ? Procedure(s): MM tomosynthesis screening BI ?? Accession Number(s): [id number] ? cc: Thalia Claudio ? EXAMINATION: ?? MM SCREENING DIGITAL BREAST TOMOSYNTHESIS, BILATERAL ? CLINICAL INFORMATION: ? Screening. Asymptomatic. ? COMPARISON: ?? Mammography: This study is compared with prior exams dating back to ??1 ?? 9. ? TECHNIQUE: ?? Digital breast tomosynthesis is performed in both the craniocaudal and ?? mediolateral oblique views along with computer-aided detection (CAD). ? Synthesized 2D images are generated from the tomosynthesis. ? FINDINGS: ?? There are scattered areas of fibroglandular density (ACR BI-RADS breast ?? composition Category b). ? There are no significant masses, abnormal calcifications, or other ?? abnormalities. ? MM/MM tomosynthesis screening BI ?? IMPRESSION: ?? No mammographic evidence of malignancy. ? ASSESSMENT: ? BI-RADS BI-RADS 1 - Negative ? RECOMMENDATION: ?? Routine annual mammography screening. ? 1 year F/U ? This examination should not preclude the clinical evaluation of a ?? suspicious palpable abnormality. ? This patient's information was entered into a reminder system with a ?? target due date for their next mammogram. ? Electronically signed by: ??Ramona Michel MD ??04/07/2024 10:02 AM EDT RP ? Dictated By: ?Ramona Michel MD ? Signed By: ?<Electronically signed by Ramona Michel MD in OV> ? 04/07/24 1002 ? DD/ 1115 ? TD/TT: 03/09/24 1115 ? Medical Planner: ? Procedure Note Kareem, [facility] - [facility] [address] [place], [place] [address] Mammography Report Signed Patient: Derrick Dumont#: [id number] : 1965Acct:[id number] Age/Sex: 58 / FADM Date: 03/09/24 Loc: MAMMO Attending Dr: Thalia Claudio MD Ordering Physician: Allison Claudioults: 1Negative Date of Service: 03/09/24Follow Up: 1 Year From Orig inal Mammogram Procedure(s): MM tomosynthesis screening BI Accession Number(s): [id number] cc: Thalia Claudio EXAMINATION: MM SCREENING DIGITAL BREAST TOMOSYNTHESIS, BILATERAL CLINICAL INFORMATION: Screening. Asymptomatic. COMPARISON: Mammography: This study is compared with prior exams dating back to 07 29. TECHNIQUE: Digital breast tomosynthesis is performed in both the craniocaudal and mediolateral oblique views along with computer-aided detection (CAD). Synthesized 2D images are generated from the tomosynthesis. FINDINGS: There are scattered areas of fibroglandular density (ACR BI-RADS breast composition Category b). There are no significant masses, abnormal calcifications, or other abnormalities. MM/MM tomosynthesis screening BI IMPRESSION: No mammographic evidence of malignancy. ASSESSMENT: BI-RADS BI-RADS 1 - Negative RECOMMENDATION: Routine annual mammography screening. 1 year F/U This examination should not preclude the clinical evaluation of a suspicious palpable abnormality. This patient's information was entered into a reminder system with a target due date for their next mammogram. Electronically signed by: Ramona Michel MD 04/07/2024 10:02 AM EDT Dictated By: Ramona Michel MD Signed By: <Electronically signed by Ramona Michle MD in OV> 04/07/24 1002 DD/ 1115 TD/TT: 03/09/24 1115 Medical Planner: Thalia Claudio MD IMG BI PROCEDURES Final Result * (ABNORMAL) Albumin, Random Urine W/Creatinine (02/25/2024 10:30 AM EDT) Creatinine, Urine 138.37 mg/dL [facility] Microalbumin Urine 68.0 mg/L H [facility] Microalbum Creatinine Ratio Ur 49.1(H) <30 ug/mg cr [facility] Comment:Albumin/Creatinine R atio Reference Ranges: Normal: < 30 ug/mg creatinine Microalbuminuria: 30 - 300 ug/mg creatinineClinical Albuminuria: > 300 ug/mg creatinine Urine (Urine, Random) 02/25/2024 10:30 AM EDT 02/25/2024 11:24 AM EDT Thalia Claudio MD LAB URINE ORDERABLES Final Res ult Performing Organization Address [facility] Co de Phone Number [facility] [address] [place] [phone] * (ABNORMAL) Hepatitis C Antibody with Reflex to HCV, RNA, Quantitative, Real- Time PCR (02/25/2024 10:30 AM EDT) Hepatitis C Antibody Reactive( A) Nonreactive [facility] Comment:Presumptive evidence of antibodies to HCV. Blood Venous blood specimen / Unknown 02/25/2024 10:30 AM EDT 02/25/2024 11:10 AM EDT Thalia Claudio MD LAB BLOOD ORDERABLES Final Res ult Performing Organization Address [facility] Co de Phone Number [facility] [address] [place] [phone] * HIV-1/2 Antigen and Antibodies, Fourth Generation, with Reflexes (02/25/2024 10:30 AM EDT) HIV AB/AG Nonreactive Nonreactive [facility] Comment:HIV-1 p24 Ag and/or HIV-1/HIV-2 Ab not detected.A test result that is nonreactive does not exclude thepossibility of exposure to or infection with HIV-1 and/orHIV-2. Nonreactive results in this assay for individualswith prior exposure to HIV-1 and/or HIV-2 may be due toantigen and antibody levels that are below the limit ofdetection of this assay.The [employer] HIV Ag/Ab Combo assay result andsupplemental assay results should be interpreted inconjunction with the patient's clinical presentation,history and other laboratory results. If the results areinconsistent with clinical evidence, additional testing issuggested to confirm the result. Blood Venous blood specimen / Unknown 02/25/2024 10:30 AM EDT 02/25/2024 11:10 AM EDT us Thalia Claudio MD LAB BLOOD ORDERABLES Final Res ult [facility] [address], [place] [phone] * (ABNORMAL) Lipid Panel, Standard (02/25/2024 10:30 AM EDT) Triglycerides 358(H) <150 mg/dL [facility] Comment:Desirable Triglyceri de: less than 150 mg/dLBorderline High Triglyceride 150-199 mg/dLHigh Triglyceride: 200-499 mg/dLVery High Triglyceride: greater than or equal to 5OO mg/dL Cholesterol 165 <200 mg/dL [facility] Comment:Desirable Cholestero l: less than 200 mg/dLBorderline High Cholesterol: 200-239 mg/dLHigh Cholesterol: greater than 239 mg/dL LDL Cholesterol Calculated 64 <100 mg/dL [facility] Comment:Desirable LDL: less than 100 mg/dLNear Optimal/Above Optimal LDL: 110- 129 mg/dLBorderline High LDL: 130-159 mg/dLHigh LDL: 160-189 mg/dLVery High LDL: greater than or equal to 190 mg/dL HDL Cholesterol 30(L) >40 mg/dL [facility] Comment:Desirable HDL: great er than 40 mg/dL Note: This HDL assay may give artificially low results in patients with liver disease. Blood Venous blood specimen / Unknown 02/25/2024 10:30 AM EDT 02/25/2024 11:10 AM EDT Result [facility] Thalia Claudio MD LAB BLOOD ORDERABLES Final Res ult [facility] [address] [place] [address] [phone] * (ABNORMAL) POCT glycosylated hemoglobin (Hgb A1c) (02/25/2024 10:05 AM EDT) Hemoglobin A1C 6.8(A) 4.0 - 6.0 % QC Media Lot # [id number] Lot# Expiration Date 82 Blood Capillary blood specimen / Unknown 02/25/2024 10:05 AM EDT Result [facility] Thalia Claudio MD POINT OF CARE TEST ENTER/EDIT ORDERABLES Final Result * HPV E6/E7 RFLX MONI 16 18/45 (05/30/2021 11:09 AM EST) HPV mRNA E6/E7 rflx Not Detected Not Detected [facility] Comment: Methodology: Medical Practice Assistant-Mediated Amplification This assay detects E6/E7 viral messenger RNA (mRNA) from 14 high-risk HPV types (16,18,31,33,35,39,45,51,52,56,58,59,66,68). The analytical performance characteristics of this assay have been determined by [employer]. The modifications have not been cleared or approved by the FDA. This assay has been validated pursuant to the CLIA regulations and is used for clinical purposes. For additional information, please refer to http://education.[employer]/faq/VSC930b8 (This link if provided for information/ educational purposes only.) THIS TEST WAS PERFORMED AT: [facility] [address] [place] [address] [address] [facility] [place], [place] ??[phone] JONNY MONTIEL MD 05/30/2021 11:0 9 AM EST [facility] HISTORICAL/NON ORDERABLE LABS Fi nal Result [facility] [address] * Hm Colonoscopy (09/24/2016) us Historical Provider HEALTH MAINTENANCE Final Result from Last 3 Months or Most Recently Relevant to Health Maintenance Insurance [employer] Care Teams Butadiene Compressor Operator Relationship Specialty Start Date End Date Thalia Claudio MD [address] [place] [address] PCP - General Family Medicine 03/13/22
--- OUTSIDE RECORDS SUMMARY | 2024-08-18 09:40 | XMS_ITS | Encounter Summary ---
Author Organization [facility] Address [address] [place] [address] [address] [place] [address] Care Team Providers Care Retail Sales Manager Name Role Phone Thalia Claudio MD Primary Care Provider [phone] Reason for Visit * Reason Comments Med Refill Encounter Details Date Type Department Care Team ([facility] Contact Info) Description 02/27/2023 Refill [facility] [address] [place] [address] [phone] Thalia Claudio MD [address] [place] [address] [phone] Social History Tobacco Use Types Packs/Day Years [...] Upcoming Encounters Date Type Department Care Team ([facility] Contact Info) Description 08/20/2024 9:30 AM EST Office Visit [facility] [address] [place] [address] [phone] Thalia Claudio MD [address] [place] [address] [phone] documented as of this encounter Visit Diagnoses Not on filedocumented in this encounter Care Teams Retail Sales Manager Relationship Specialty Start Date End Date Thalia Claudio MD [address] [place] [address] PCP - General Family Medicine 03/13/22 documented as of this encounter
--- OUTSIDE RECORDS SUMMARY | 2024-08-18 09:40 | XMS_ITS | Encounter Summary ---
Author Organization [employer] Address [address] [place] [address] Care Team Providers Care Grounds Keeper Name Role Phone Thalia Claudio MD Primary Care Provider [phone] Reason for Visit * Reason Onset Date Comments Appointment Request 08/25/2023 Encounter Details Date Type Department Care Team ([facility] Contact Info) Description 08/25/2023 Telephone [facility] [address] [place], [place] [phone] Thalia Claudio MD [address] [place], [place] [phone] Appointment Request Social History Tobacco Use Types Packs/Day Years [...] encounter Miscellaneous Notes * Telephone Encounter - Shayna Villeda - 08/25/2023 9:01 AM EST Tc from pt requesting a follow up appt, states they follow up with PCP every couple of months. Per last office visit 12/23/22 , PCP wanted a ( F/u in 3 months ). Professor Of Geography attempted to schedule for aug zero availability. Pt also has no recalls. Please contact at [phone] documented in this encounter Plan of Treatment Upcoming Encounters Date Type Department Care Team (Late st Contact Info) Description 08/20/2024 9:30 AM EST Office Visit [facility] [address] [place] [address] Thalia Claudio MD [address] [place] [address] documented as of this encounter Visit Diagnoses Not on filedocumented in this encounter Care Teams Grounds Keeper Relationship Specialty Start Date End Date Thalia Claudio MD [address] [place] [phone] PCP - General Family Medicine 03/13/22 documented as of this encounter
== END 2024-08-17 08:48 | disposition home or self-care (01) ==
LOC: HO.HOSX 08:47
PROVIDERS: Visit Provider Physician Assistant
DX: Z13.89 Encounter for screening for other disorder (principal)

== ENCOUNTER 2024-09-28 09:31 | Outpatient (AMB) | payer MEDICAID, SELFPAY ==
--- NOTE | 2024-09-28 09:40 | A.OFFVIS_ITS ---
Intake Visit Reasons: Inj- Right knee OA, last inj 06/20/23 Intake Note: Camila is a 59 year old female who presents today for a repeat injection for her right knee, last injection on both knees were on 06/20/23. Patient reports her last injections gave her relief and she would like to repeat. Allergies lisinopril Allergy (Verified 09/28/24 09:52) Swelling SEASONAL ALLERGIES Allergy (Mild, Uncoded 01/08/24 07:51) SNEEZING HPI HPI Inj- Right knee OA, last inj 06/20/23: Details: Ms. Dumont is a 59-year-old female who presents to the office today for ongoing right knee pain. Patient last received cortisone injections in bilateral knees on 06/20/2023. She reports that the injections gave her relief and would like to repeat injection in the right knee today. [facility] Medical History Iron deficiency anemia Splenomegaly Normal colonoscopy Menorrhagia Hepatitis C Primary osteoarthritis of right knee Primary osteoarthritis of left knee Abnormal uterine bleeding Uterine fibroid Encounter to discuss test results Encounter for annual routine gynecological examination Encounter for medication monitoring Well woman exam Constipation Rhinitis Obesity Hypothyroidism Type 2 diabetes mellitus HTN (hypertension) GERD (gastroesophageal reflux disease) Surgical History Hx of tubal ligation Hx of colonoscopy Family History Mother Diabetes High blood pressure Father Alzheimer disease Social History Household Members: Spouse Housing: House Alcohol intake: never Patient Tobacco Use Status: Current someday Tobacco user Cigarettes Per Day: 3 service: No Current occupational status: disabled Sexual orientation: Straight/Heterosexual Gender identity: Female Female Reproductive History Menstrual Age of Menarche: 11 Review of Systems Const All systems reviewed & are unremarkable except as noted in HPI and below Physical Exam Const General: cooperative, healthy appearing and no acute distress Resp Effort & Inspection: normal respiratory effort and able to speak in complete sentences Cardio Rate: regular rate Peripheral pulses: Peripheral pulses 2+ throughout Skin Lesions: no lesions Rashes: no rashes Extrem Other: Right knee normal to inspection. No ecchymossis, erythema, or joint effusion. ROM 0-110. Tenderness to palpation of the medial and lateral jointlines. NVI. Office Procedures AMB Joint Injection/Aspiration Joint Injection/Aspiration Primary Site: right knee Prep: site was prepped using aseptic technique, ethochloride spray was applied and injection warnings given Injected: 40 mg of, DepoMedrol, with 8 mL of (2% plain lidocaine) and in the joint Approach Used: anterolateral Procedure: The patient tolerated the procedure well, but had some pain with the injection and there was some relief with the local anesthesia Coding 15032 - Large joint Procedure code (CPT) selection complete Assessment & Plan Assessment & Plan (1) Osteoarthritis of right knee: Code(s): M17.11 - Unilateral primary osteoarthritis, right knee Category: Medical (2) Type 2 diabetes mellitus: Code(s): E11.9 - Type 2 diabetes mellitus without complications Category: Medical Plan Ms. Dumont is a 59-year-old female who presents to the office today for ongoing right knee pain. Patient last received cortisone injections in bilateral knees on 06/20/2023. She reports that the injections gave her relief and would like to repeat injection in the right knee today. Of note, the patient does have a past medical history significant for diabetes type 2. The patient was offered a cortisone injection in the right knee with 40 mg of DepoMedrol. The patient was explained the risks, benefits, and alternatives to receiving this injection. After receiving consent for the injection, the patient had the procedure done while in the office today. The patient tolerated the procedure well with no complications. Due to the patient?s history of diabetes, they were instructed to monitor their blood glucose level. The patient was informed that they could see a rise in their numbers and if the numbers became too high, they were instructed to call their PCP. The patient was also informed that they could have facial flushing as a side effect of the injection, but this will pass. Follow-up will be p.r.n., or sooner if needed Coding Level of Care Code Est Pt Level 4 (47564) Diagnoses Osteoarthritis of right knee M17.11 Type 2 diabetes mellitus E11.9 CPT Codes Coding - Large joint: 31751 - Large joint ([id number])
--- OUTSIDE RECORDS SUMMARY | 2024-09-28 10:45 | XMS_ITS | Clinical Summary ---
Author Organization [employer] Address [address] [facility] 7[address] [place] [address] Care Team Providers Care Program Director Cable Television Name Role Phone Thalia Claudio MD Primary Care Provider [phone] Allergies Active Allergy Reactions Criticality Noted Date Comments Lisinopril Angioedema,Swelling 03/09/2018 Medications simethicone (Mylicon) 125 MG chewable tablet chew one tablet by mouth four times daily as needed for gas 2021 Active TRUEplus Lancets 33G misc 1 each by Subdermal route in the morning, at noon, and at bedtime. 2021 Active traMADol (Ultram) 50 MG tablet Take 50 mg by mouth every 6 (six) hours if needed. 2021 Active senna (Senokot) 8.6 MG tablet TAKE 2 TABLETS BY MOUTH AT BEDTIME NEEDED FOR CONSTIPATION 180 tablet 2023 Active Linzess 145 MCG capsule Take 145 mcg by mouth in the morning. 2023 Active irbesartan (Avapro) 75 MG tablet TAKE 1 TABLET BY MOUTH EVERY MORNING 90 tablet 3 2023 Active pantoprazole (ProtoNix) 40 MG EC tabletIndications:Greg roesophageal reflux disease without esophagitis TAKE 1 TABLET BY MOUTH EVERY MORNING 90 tablet 2 2023 Active Acetaminophen Extra Strength 500 MG tablet Take 2 tablets by mouth every 8 (eight) hours. 2023 Active clotrimazole (Lotrimin) 1 % cream APPLY TOPICALLY TO AFFECTED AREA(S) AND SURROUNDING AREA(S) OF SKIN EVERY TWELVE HOURS (IN THE MORNING AND IN THE EVENING) 45 g 3 2023 Active traZODone (Desyrel) 50 MG tablet Take 1 tablet (50 mg) by mouth at bedtime. 90 tablet 3 2023 Active hydrocortisone 2.5 % cream MIX WITH CERAVE AND APPLY A PEA SIZED AMOUNT TO SKIN TWICE DAILY FOR 1 WEEK 20 g 11 2023 Active loratadine (Claritin) 10 MG tablet TAKE 1 TABLET BY MOUTH EVERY MORNING 90 tablet 3 2023 Active hydroCHLOROthiazide (HYDRODiuril) 25 MG tabletIndications:Esse ntial (primary) hypertension TAKE 1 TABLET BY MOUTH EVERY MORNING 90 tablet 3 2023 Active nicotine polacrilex (Nicorette) 2 MG gum CHEW 1 PIECE OF GUM EVERY 2 HOURS NEEDED DIRECTED 100 each 3 2023 Active ferrous gluconate (Fergon) 324 (38 Fe) MG tablet TAKE 1 TABLET BY MOUTH EVERY MORNING WITH BREAKFAST 90 tablet 2023 Active meclizine (Antivert) 25 MG tablet Take 1 tablet (25 mg) by mouth if needed in the morning, at noon, and at bedtime for dizziness. 30 tablet 3 2024 Active Ketotifen Fumarate 0.035 % solution Administer 1 drop into both eyes 2 times daily. 10 mL 3 2024 Active semaglutide (Ozempic) 2 MG/1.5ML solution pen-injector Inject 1 mg under the skin 1 (one) time per week. 2 each 12 2024 Active fluticasone (Flonase) 50 MCG/ACT nasal spray Administer 1-2 sprays into each nostril Once per day. Shake gently. Before first use, prime pump. After use, clean tip and replace cap. 16 g 2 08/20 Active omeprazole (PriLOSEC) [address] capsule Take 1 capsule by mouth 2 times daily. 2023 Active glucose blood test strip Test blood sugar twice daily 100 each 11 08/25 Active rosuvastatin (Crestor) 10 MG tabletIndications:Dysl ipidemia with low high density lipoprotein (HDL) cholesterol with hypertriglyceridemia due to type 2 diabetes mellitus (CMS/HCC) (CMS/HCC) TAKE 1 TABLET BY MOUTH AT BEDTIME 90 tablet 3 2024 Active levothyroxine (Synthroid, Levoxyl) 100 MCG tabletIndications:Hypo thyroidism, unspecified type TAKE 1 TABLET BY MOUTH EVERY MORNING 90 tablet 3 2024 Active sertraline (Zoloft) 50 MG tabletIndications:Depr essive disorder TAKE 1 TABLET BY MOUTH EVERY MORNING 90 tablet 3 2024 Active gabapentin (Neurontin) 600 MG tabletIndications:Low back pain at multiple sites TAKE 1 TABLET BY MOUTH THREE TIMES DAILY IN THE MORNING, EVENING, AND BEDTIME 90 tablet 3 2024 Active busPIRone (Buspar) 10 MG tabletIndications:Anxi ety TAKE 1 TABLET BY MOUTH THREE TIMES DAILY IN THE MORNING, EVENING, AND BEDTIME 90 tablet 3 2024 Active sertraline (Zoloft) 50 MG tabletIndications:Depr essive disorder TAKE 1 TABLET BY MOUTH EVERY MORNING 90 tablet 3 08/30 Discontinued rosuvastatin (Crestor) 10 MG tabletIndications:Dysl ipidemia with low high density lipoprotein (HDL) cholesterol with hypertriglyceridemia due to type 2 diabetes mellitus (CMS/HCC) (CMS/HCC) TAKE 1 TABLET BY MOUTH AT BEDTIME 90 tablet 3 08/30 Discontinued levothyroxine (Synthroid, Levoxyl) 100 MCG tabletIndications:Hypo thyroidism, unspecified type TAKE 1 TABLET BY MOUTH EVERY MORNING 90 tablet 3 08/30 Discontinued gabapentin (Neurontin) 600 MG tabletIndications:Low back pain at multiple sites TAKE 1 TABLET BY MOUTH THREE TIMES DAILY IN THE MORNING, EVENING, AND BEDTIME 90 tablet 3 09/03 Discontinued busPIRone (Buspar) 10 MG tabletIndications:Anxi ety TAKE 1 TABLET BY MOUTH THREE TIMES DAILY IN THE MORNING, EVENING, AND BEDTIME 90 tablet 3 09/03 Discontinued Active Problems Problem Noted Date Diagnosed Date Dyslipidemia 05/27/2024 Flat feet, bilateral 02/25/2024 Arthritis associated with [...] due to type 2 diabetes mellitus (CMS/HCC) 10/15/2017 Assessment & Plan (06/30/2022 7:11 AM EST): Continue Metforming and Trulicity Gentle exercise encouraged Re-refer to [facility] vision care Cont statin F/u in 3 [...] 1.5mg weekly Gentle exercise encouraged Re-refer to [facility] vision care Cont statin Check lipids today Podiatry referral for flat feet Assessment & Plan (10/07/2023 12:40 PM EDT): Omcrease Trulicity to 1.5mg weekly Gentle exercise encouraged Re-refer to [facility] vision care Cont statin Check lipids today F/u in 3 months Assessment & Plan (12/23/2022 1:39 PM EDT): Stop Metformin and increase Trulicity to 1.5mg weekly Gentle exercise encouraged Re-refer to [facility] vision care Cont statin Check lipids today F/u in 3 months Assessment & Plan (06/30/2022 7:13 AM EST): Continue Metforming and Trulicity Gentle exercise encouraged Re-refer to [facility] vision care Cont statin F/u in 3 months Encounters Date Type Department Care Team Description 09/27/2024 Patient Outreach [address] [address] Thalia Claudio MD Care Coordination (SDOH f/u) 09/09/2024 Patient Outreach [facility] MEDICINE [address] [place] [phone] Thalia Claudio MD Care Coordination (SDOH f/u) 09/03/2024 Refill [facility] MED & PEDS [address] [place] [address] Thalia Claudio MD Low back pain at multiple sites; Anxiety 08/30/2024 Refill [facility] MED & PEDS [address] [place] [address] Thalia Claudio MD Dyslipidemia with low high density lipoprotein (HDL) cholesterol with hypertriglyceridemia due to type 2 diabetes mellitus (CMS/HCC) (CMS/HCC); Hypothyroidism, unspecified type; Depressive disorder 08/25/2024 Refill [facility] MED & PEDS [address] [place] [address] Thalia Claudio MD Low back pain at multiple sites 08/24/2024 Patient Outreach [address] [address] Thalia Claudio MD Care Coordination (SDOH) 08/20/2024 9:30 AM EST Office Visit [address] [address] Thalia Claudio MD Type 2 diabetes mellitus without complication, with long-term current use of insulin (CMS/HCC) (Primary Dx); Dietary counseling; Exercise counseling; Class 3 severe obesity with serious comorbidity and body mass index (BMI) of 40.0 to 44.9 in adult, unspecified obesity type (CMS/HCC); Tobacco abuse counseling; Cirrhosis of liver without ascites, unspecified hepatic cirrhosis type (CMS/HCC); Dyslipidemia with low high density lipoprotein (HDL) cholesterol with hypertriglyceridemia due to type 2 diabetes mellitus (CMS/HCC) ([facility]/HCC); Essential (primary) hypertension; Gastroesophageal reflux disease without esophagitis; Multiple congenital cysts of kidney; Hypothyroidism, unspecified type; Other iron deficiency anemia; Non-seasonal allergic rhinitis, unspecified trigger; Smoker; Depressive disorder 08/20/2024 Travel 08/19/2024 Telephone [facility] [address] [place] [phone] Thaila Claudio MD chart prep 08/16/2024 Patient Outreach [address] [address] Thalia Claudio MD Care Coordination (SDOH) 08/11/2024 Patient Outreach [address] [address] Thalia Claudio MD Care Coordination (SDOH) 08/10/2024 Patient Outreach [address] [address] Thalia Claudio MD Pre-visit Planning (SDOH screening positive and tobacco screening negative) 07/17/2024 10:00 AM EST Office Visit [facility] [address] [place] [phone] Name, MD Ronnie COVID-19 (Primary Dx); Sore throat; Acute cough; Rash 07/17/2024 Travel 07/07/2024 Refill [facility] MED[facility]INE [address] [place] [phone] Fawn Hall MD 07/02/2024 Patient Outreach [address] [address] Thalia Claudio MD Pre-visit Planning (SDOH screening completed on 09/29/2023) from Last 3 Months Immunizations Name Administration Dates Next Due Influenza injectable quadriv alent preservative free 09/15/2018,05/19/2017 Influenza live intranasal trivalent 04/24/2012 Influenza, live, intranasal 04/24/2012 Moderna Covid-19 Vaccine [...] your housing situation today? I have liborio constantine 09/29/[address] you li [...] Sign Reading Time Taken Comments Blood Pressure 146/76 08/20/2024 9:16 AM EST Pulse 78 08/20/2024 9:16 AM EST Temperature 36.4 ??C (97.6 ??F) 08/20/2024 9:16 AM ES T Respiratory Rate 20 08/20/2024 9:16 AM EST Oxygen Saturation 99% 07/17/2024 9:01 AM EST Inhaled Oxygen Concentration - - Weight 116 kg (255 lb 9.6 oz) 08/20/2024 9:16 AM EST Height 167.6 cm (5' 6 ) 08/20/2024 9:16 AM EST Body Mass Index 41.25 08/20/2024 9:16 AM EST Plan of Treatment Upcoming Encounters Date Type Department Care Team (Late st Contact Info) Description 12/29/2024 9:00 AM EDT Office Visit [facility] OPTOMETRY [address] [place] [address] Odell, Melody, OD [address] [place] [address] Health Maintenance Due Date Last Done Comments CT Colonography 1967 FIT DNA/Cologuard 1967 FIT 1967 FOBT 1967 Sigmoidoscopy 1967 Eye Exam 1977 Hepatitis B Vaccines (1 of 3 - 19+ 3-dose series) 1986 Pap Smear 1988 Depression Screening 06/28/2023 06/28/2022, 06/28/20 22 COVID-19 Vaccine ( season) 2024 07/22/2023, 04/23/2022, 04/23/2022, Additional history exists Influenza Vaccine (#1) 2024 9, 05/19/2017, 04/24/2012, Additional history exists Diabetes: Hemoglobin A1C 02/17/2025 025, 02/25/2024, 10/07/2023, Additional history exists Diabetes: Foot Exam 02/24/2025 02/25/2024, 06/28/2022, 06/28/2022, Additional history exists Diabetes: Urine Protein Screening 02/24/2025 02/25/2024, 12/23/2022, 09/13/2022, Additional history exists Lipid Panel 02/24/2025 02/25/2024, 06/0 11/2022, 08/01/2021 SDOH Screening 08/11/2025 08/11/2024 Alcohol/Substance Use Screening 08/20/2025 08/20/2024 Tobacco Screening 08/25/2025 08/25/2024 Mammogram 03/09/2026 03/09/2024, 12/20, 09/23/2018, Additional history exists Cervical Cancer Screening 05/30/2026 HPV/Cotest 05/30/2026 05/30/2021, 05/30/2021 DTaP/Tdap/Td Vaccines (3 - Td or Tdap) 02/23/2032 02/22/2022, 09/20/2011, 02/06/2006, Additional history exists Colonoscopy 09/24/2032 09/24/2016 Colorectal Cancer Screening 09/24/2032 RSV Patients and Patients Aged 60 years or older (1 - 1-dose 75+ series) 2042 Zoster Vaccines Completed 11/08/2021, 10/20, 08/31/2021, Additional history exists Pneumococcal Vaccine: 50+ Years Completed 10/07/2023, 09/20/2011 HIV Screening Completed 02/25/2024 [...] Name Priority Date/Time Associated Diagnosis Comments POCT GLYCATED HEMOGLOBIN, TOTAL Routine 08/20/2024 9:17 AM EST Type 2 diabetes mellitus without complication, with long-term current use of insulin (CMS/HCC) POCT GLUCOSE Routine 08/20/2024 9:17 AM EST Type 2 diabetes mellitus without complication, with long-term current use of insulin (CMS/HCC) POCT RAPID STREP A Routine 07/17/2024 9: [...] with long-term current use of insulin (CMS/HCC) LIPID PANEL, STANDARD Routine 02/25/2024 10:30 AM EDT Type 2 diabetes mellitus without complication, with long-term current use of insulin (CMS/HCC) ZZZ HISTORICAL HPV E6/E7 RFLX MONI 16 18/45 Routine 05/30/2021 11:09 AM EST HM COLONOSCOPY Routine 09/24/2016 from Last 3 Months or Most Recently Relevant to Health Maintenance Results * POCT HGB A1C (08/20/2024 9:17 AM EST) [facility] Hemoglobin A1C 5.8 4.0 - 6.0 % QC Media Lot # [id number] Lot# Expiration Date Blood 08/20/2024 9:17 AM EST Thalia Claudio MD POINT OF CARE TEST ENTER/EDIT ORDERABLES Final Result * POCT Glucose (08/20/2024 9:17 AM EST) [facility] Glucose Blood, POC 106 60 - 200 mg/dL QC Media Lot # [id number] Lot# Expiration Date ,025 Blood Capillary blood specimen / Unknown 08/20/2024 9:17 AM EST Thalia Claudio MD POINT OF CARE TEST ENTER/EDIT ORDERABLES Final Result * POCT Rapid Influenza B SENIOR ID NOW (07/17/2024 9:20 AM EST) [facility] Influenza B Negative Negative, Indeterminate [facility] Swab 07/17/2024 9:2 0 AM EST Ronnie Gibson MD POINT OF CARE TEST ENTER/EDIT OR DERABLES Final Result [facility] [address] [place] [phone] * POCT Rapid Influenza A SENIOR ID NOW (07/17/2024 9:20 AM EST) [facility] Influenza A Negative Negative, Indeterminate [facility] Swab 07/17/2024 9:20 AM EST Ronnie Gibson MD POINT OF CARE TEST ENTER/EDIT OR DERABLES Final Result [facility] [address] [facility] [place] [address] [phone] * POCT Rapid Covid-19 BinaxNOW (07/17/2024 9:20 AM EST) Rapid COVID Ag Positive Swab 07/17/2024 9:20 AM EST us Ronnie Name POINT OF CARE TEST ENTER/EDIT OR DERABLES Final Result * POCT Rapid Strep A OSOM (07/17/2024 9:20 AM EST) Rapid Strep A Screen Negative Negative, None Detected Swab 07/17/2024 9:20 AM EST us Trujillo Name POINT OF CARE TEST ENTER/EDIT OR DERABLES Final Result * BI Mammogram Screening Tomosynthesis Bilateral (03/09/2024 11:15 AM EDT) Anatomical Region Laterality Modality Breast Bilateral Mammography 03/09/2024 11:1 5 AM EDT Narrative 04/07/2024 10:04 AM EDT ? [facility] [place] ? [address] ?[place] [address] ? Mammography Report ? Signed ? Patient: Tim,Camila ?MR#: [id number] ?? [id number] ? : 1965 ?Acct:[id number] ? Age/Sex: 58 / F ?ADM Date: 08/20/24 ? Loc: HO.MAMMO ? Attending Dr: Thalia Claudio MD ? Ordering Physician: Thalia Claudio ?Results: 1Negative ? Date of Service: 03/09/24 ?Follow Up: 1 Year From Orig ?? inal Mammogram ? Procedure(s): MM tomosynthesis screening BI ?? Accession Number(s): [id number] ? cc: Thalia Claudio ? EXAMINATION: ?? [...] DD/ 1115 ? TD/TT: 03/09/24 1115 ? Trauma Surgeon: ? Procedure Note Donotburketer, Image - 04/07/2024 [facility] [address] [place], [place] [address] Mammography Report Signed Patient: Miri DumontR#: [id number] : 1965Acct:[id number] Age/Sex: 58 / FADM Date: 03/09/24 Loc: HO.MAMMO Attending Dr: Thalia Claudio MD Ordering Physician: Allison Claudioults: 1Negative Date of Service: 03/09/24Follow Up: 1 Year From Orig inal Mammogram Procedure(s): MM tomosynthesis screening BI Accession Number(s): [id number] cc: Thalia Claudio EXAMINATION: MM SCREENING DIGITAL [...] MD Signed By: <Electronically signed by Ramona Michel MD in OV> 04/07/24 1002 DD/ 1115 TD/TT: 03/09/24 1115 Trauma Surgeon: Thalia Claudio MD IMG BI PROCEDURES Final Result * (ABNORMAL) Albumin, Random Urine W/Creatinine (02/25/2024 10:30 AM EDT) Creatinine, Urine 138.37 mg/dL [facility] Microalbumin Urine 68.0 mg/L [facility] Microalbum Creatinine Ratio Ur 49.1(H) <30 ug/mg cr [facility] Comment:Albumin/Creatinine R atio Reference Ranges: Normal: < 30 ug/mg creatinine Microalbuminuria: 30 - 300 ug/mg creatinineClinical Albuminuria: > 300 ug/mg creatinine Urine (Urine, Random) 02/25/2024 10:30 AM EDT 02/25/2024 11:24 AM EDT Thalia Claudio MD LAB URINE ORDERABLES Final Res ult Performing Organization Address [facility]/ZIP Co de Phone Number [facility] [address] [place] [phone] * (ABNORMAL) Hepatitis C Antibody with Reflex to HCV, RNA, Quantitative, Real- Time PCR (02/25/2024 10:30 AM EDT) Hepatitis C Antibody Reactive( A) Nonreactive [facility] Comment:Presumptive evidence of antibodies to HCV. Blood Venous blood specimen / Unknown 02/25/2024 10:30 AM EDT 02/25/2024 11:10 AM EDT Thalia Claudio MD LAB BLOOD ORDERABLES Final Res ult Performing Organization Address [facility]/ZIP Co de Phone Number [facility] [address] [place] [phone] * HIV-1/2 Antigen and Antibodies, Fourth Generation, with Reflexes (02/25/2024 10:30 AM EDT) HIV AB/AG Nonreactive Nonreactive [facility] Comment:HIV-1 p24 Ag and/or HIV-1/HIV-2 Ab not detected.A test result that is nonreactive does not exclude thepossibility of exposure to or infection with HIV-1 and/orHIV-2. Nonreactive results in this assay for individualswith prior exposure to HIV-1 and/or HIV-2 may be due toantigen and antibody levels that are below the limit ofdetection of this assay.The [employer] HIV Ag/Ab Combo assay result andsupplemental assay results should be interpreted inconjunction with the patient's clinical presentation,history and other laboratory results. If the results areinconsistent with clinical evidence, additional testing issuggested to confirm the result. Blood Venous blood specimen / Unknown 02/25/2024 10:30 AM EDT 02/25/2024 11:10 AM EDT us Thalia Claudio MD LAB BLOOD ORDERABLES Final Res ult [facility] [address] [place] [phone] * (ABNORMAL) Lipid Panel, Standard (02/25/2024 10:30 AM EDT) Triglycerides 358(H) <150 mg/dL [facility] Comment:Desirable Triglyceri de: less than 150 mg/dLBorderline High Triglyceride 150-199 mg/dLHigh Triglyceride: 200-499 mg/dLVery High Triglyceride: greater than or equal to 5OO mg/dL Cholesterol 165 <200 mg/dL [facility] Comment:Desirable Cholestero l: less than 200 mg/dLBorderline High Cholesterol: 200-239 mg/dLHigh Cholesterol: greater than 239 mg/dL LDL Cholesterol Calculated 64 <100 mg/dL [facility] Comment:Desirable LDL: less than 100 mg/dLNear Optimal/Above Optimal LDL: 110- 129 mg/dLBorderline High LDL: 130-159 mg/dLHigh LDL: 160-189 mg/dLVery High LDL: greater than or equal to 190 mg/dL HDL Cholesterol 30(L) >40 mg/dL [facility] Comment:Desirable HDL: great er than 40 mg/dL Note: This HDL assay may give artificially low results in patients with liver disease. Blood Venous blood specimen / Unknown 02/25/2024 10:30 AM EDT 02/25/2024 11:10 AM EDT Thalia Claudio MD LAB BLOOD ORDERABLES Final Res ult Performing Organization Address City/[facility]/ZIP Co de Phone Number [facility] [address] [place] [phone] [phone] * HPV E6/E7 RFLX MONI 16 18/45 (05/30/2021 11:09 AM EST) [facility] HPV mRNA E6/E7 rflx Not Detected Not Detected [facility] Comment: Methodology: Furniture Cr[employer]-Mediated Amplification This assay detects E6/E7 viral messenger RNA (mRNA) from 14 high-risk HPV types (16,18,31,33,35,39,45,51,52,56,58,59,66,68). The analytical performance characteristics of this assay have been determined by [employer]. The modifications have not been cleared or approved by the FDA. This assay has been validated pursuant to the CLIA regulations and is used for clinical purposes. For additional information, please refer to http://education.Mochila/faq/JYI201e4 (This link if provided for information/ educational purposes only.) THIS TEST WAS PERFORMED AT: [employer] [address] [place] [address] [address] [place], [place] [phone] JONNY MONTIEL MD 05/30/2021 11:0 9 AM EST us [facility] HISTORICAL/NON ORDERABLE LABS Fi nal Result Performing Organization Address City/[facility]/ZIP Co de Phone Number [facility] [address] [place] [address] * Hm Colonoscopy (09/24/2016) Historical Provider HEALTH MAINTENANCE Final Result from Last 3 Months or Most Recently Relevant to Health Maintenance Insurance [facility] C3 Care Teams Program Director Cable [employer] Relationship Specialty Start Date End Date Thalia Claudio MD [address] [place] [address] PCP - General Family Medicine 03/13/22
--- OUTSIDE RECORDS SUMMARY | 2024-09-28 10:45 | XMS_ITS | Encounter Summary ---
Author Organization [employer] Address [address] [facility] [address] [place] [address] Care Team Providers Care Cordage Sales Representative Name Role Phone Thalia Claudio MD Primary Care Provider [phone] Reason for Visit * Reason Comments Med Refill Encounter Details Date Type Department Care Team ([facility] st Contact Info) Description 08/30/2024 Refill [facility] MED & PEDS [address] [place], [place] [phone] Thalia Claudio MD [address] [place] [address] Dyslipidemia with low high density lipoprotein (HDL) cholesterol with hypertriglyceridemia due to type 2 diabetes mellitus (CMS/HCC) (CMS/HCC); Hypothyroidism, unspecified type; Depressive disorder Social History Tobacco Use Types Packs/Day Years [...] Description 12/29/2024 9:00 AM EDT Office Visit [facility] OPTOMETRY [address] [place] [address] Melody Bain, OD [address] [place] [address] documented as of this encounter Visit Diagnoses Diagnosis Dyslipidemia with low high density lipoprotein (HDL) cholesterol with hypertriglyceridemia due to type 2 diabetes mellitus (CMS/HCC) (CMS/HCC) Hypothyroidism, unspecified type Depressive disorder Depressive disorder, not elsewhere classified documented in this encounter Care Teams Cordage Sales Representative Relationship Specialty Start Date End Date Thalia Claudio MD [address] [place] [address] PCP - General Family Medicine 03/13/22 documented as of this encounter
--- OUTSIDE RECORDS SUMMARY | 2024-09-28 10:45 | XMS_ITS | Encounter Summary ---
Author Organization [facility] Address [address] [facility] [address] [place] [address] Care Team Providers Care City Bailiff Name Role Phone Thalia Claudio MD Primary Care Provider [phone] Reason for Visit * Reason Comments Med Refill Encounter Details Date Type Department Care Team (Late Contact Info) Description 03/06/2023 Refill [facility] MEDICINE [address] [place] [address] Thalia Claudio MD [address] [place] [address] Social History Tobacco Use Types Packs/Day Years [...] Upcoming Encounters Date Type Department Care Team ([facility] Contact Info) Description 12/29/2024 9:00 AM EDT Office Visit [facility] OPTOMETRY [address] [place] [address] Odell, Melody, OD [address] [place] [address] documented as of this encounter Visit Diagnoses Not on filedocumented in this encounter Care Teams City Bailiff Relationship Specialty Start Date End Date Thalia Claudio MD [address] [place] [address] PCP - General Family Medicine 03/13/22 documented as of this encounter
--- OUTSIDE RECORDS SUMMARY | 2024-09-28 10:45 | XMS_ITS | Encounter Summary ---
Author Organization [employer] Address [address] 7t [place] [address] Care Team Providers Care Size Stamper Name Role Phone Thalia Claudio MD Primary Care Provider [phone] Reason for Visit * Reason Comments Med Refill Encounter Details Date Type Department Care Team ([facility] st Contact Info) Description 08/25/2024 Refill [facility] CHC MED & PEDS [address] [place], [place] [phone] Thalia Claudio MD 230 [place] [address] Low back pain at multiple sites Social History Tobacco Use Types Packs/Day Years [...] Description 12/29/2024 9:00 AM EDT Office Visit [facility] OPTOMETRY [address] [place] [address] Odell, Melody, OD 230 [place] [address] documented as of this encounter Visit Diagnoses Diagnosis Low back pain at multiple sites documented in this encounter Care Teams Size Stamper Relationship Specialty Start Date End Date Thalia Claudio MD 230 [place], [place] [phone] PCP - General Family Medicine 03/13/22 documented as of this encounter
--- OUTSIDE RECORDS SUMMARY | 2024-09-28 10:45 | XMS_ITS | Encounter Summary ---
Author Organization [employer] [facility] Address [address] [facility] 7t [place] [address] Care Team Providers Care Forklift Driver Name Role Phone Thalia Claudio MD Primary Care Provider [phone] Reason for Visit * Reason Comments Med Refill Encounter Details Date Type Department Care Team (Late Contact Info) Description 03/07/2023 Refill [facility] MEDICINE [address] [place] [address] Thalia Claudio MD 230 [place] [address] Social History Tobacco Use Types Packs/Day Years [...] Upcoming Encounters Date Type Department Care Team ([facility] Contact Info) Description 12/29/2024 9:00 AM EDT Office Visit [facility] OPTOMETRY [address] [place] [address] Odell, Melody, OD 230 [place] [address] documented as of this encounter Visit Diagnoses Not on filedocumented in this encounter Care Teams Forklift Driver Relationship Specialty Start Date End Date Thalia Claudio MD 230 [place] [address] PCP - General Family Medicine 03/13/22 documented as of this encounter
--- OUTSIDE RECORDS SUMMARY | 2024-09-28 10:45 | XMS_ITS | Encounter Summary ---
Author Organization [employer] [facility] Address [address] [facility] 7t [place] [address] Care Team Providers Care Hydraulic Engineer Name Role Phone Thalia Claudio MD Primary Care Provider [phone] Reason for Visit * Reason Comments Med Refill Encounter Details Date Type Department Care Team (Late Contact Info) Description 03/06/2023 Refill [facility] MEDICINE [address] [place] [address] Thalia Claudio MD [address] [place] [address] Social History Tobacco Use Types Packs/Day Years [...] Upcoming Encounters Date Type Department Care Team ([facility] Contact Info) Description 12/29/2024 9:00 AM EDT Office Visit [facility] OPTOMETRY [address] [place] [address] Odell, Melody, OD 230 [place] [address] documented as of this encounter Visit Diagnoses Not on filedocumented in this encounter Care Teams Hydraulic Engineer Relationship Specialty Start Date End Date Thalia Claudio MD [address] [place] [address] PCP - General Family Medicine 03/13/22 documented as of this encounter
--- OUTSIDE RECORDS SUMMARY | 2024-09-28 10:45 | XMS_ITS | Encounter Summary ---
Author Organization [employer] Address [address] [facility] 7t [place] [address] Care Team Providers Care It Infrastructure Engineer Name Role Phone Thalia Claudio MD Primary Care Provider [phone] Reason for Visit * Reason Comments Care Coordination SDOH f/u Encounter Details Date Type Department Care Team (Latest Contact Info) Description 09/27/2024 Patient Outreach [facility] MEDICINE 230 [place] [address] Thalia Claudio MD 230 [place] [address] Care Coordination (SDOH f/u) Social History Tobacco Use Types Packs/Day Years [...] encounter Progress Notes * Kary Metzger - 09/27/2024 10:27 AM EDT CHW Kary Metzger placed outbound call to patient for follow up call on SDOH needs. No answer at this time. LVM introducing herself from [facility] CM Department. Requested call back. CHWreinforced direct contact information or for any additional questions or concernsand extended clinic hours on Mondays and Wednesdays, and Walk-In Urgent Care Located in [facility] of [facility]. Patient provided with after-hours line for [facility], , which offer night time triage service and option to transfer to cement contractor provider if needed. CHW will attempt another follow up call within 10 days. documented in this encounter Plan of Treatment Upcoming Encounters Date Type Department Care Team (Late st Contact Info) Description 12/29/2024 9:00 AM EDT Office Visit [facility] OPTOMETRY [address] [place] [address] Melody Bain, OD 230 [place], [place] [phone] documented as of this encounter Visit Diagnoses Not on filedocumented in this encounter Care Teams It Infrastructure Engineer Relationship Specialty Start Date End Date Thalia Claudio MD [address] [place], [place] [phone] PCP - General Family Medicine 03/13/22 documented as of this encounter
--- OUTSIDE RECORDS SUMMARY | 2024-09-28 10:45 | XMS_ITS | Encounter Summary ---
Author Organization [employer] Address [address] 7[address] [place] [address] Care Team Providers Care Pipe Fitter Fire Sprinkler Systems Name Role Phone Thalia Claudio MD Primary Care Provider [phone] Reason for Visit * Reason Comments Med Refill Encounter Details Date Type Department Care Team ([facility] st Contact Info) Description 09/03/2024 Refill [facility] CHC MED & PEDS [address] [place], [place] [phone] Thalia Claudio MD [address] [place] [address] Low back pain at multiple sites; Anxiety Social History Tobacco Use Types Packs/Day Years [...] Description 12/29/2024 9:00 AM EDT Office Visit [facility] OPTOMETRY [address] [place] [address] Odell, Melody, OD 230 [place] [address] documented as of this encounter Visit Diagnoses Diagnosis Low back pain at multiple sites Anxiety Anxiety state, unspecified documented in this encounter Care Teams Pipe Fitter Fire Sprinkler Systems Relationship Specialty Start Date End Date Thalia Claudio MD [address] [place] [address] PCP - General Family Medicine 03/13/22 documented as of this encounter
--- OUTSIDE RECORDS SUMMARY | 2024-09-28 10:45 | XMS_ITS | Encounter Summary ---
Author Organization [employer] [facility] Address [address] [facility] 7t [place] [address] Care Team Providers Care Circuit Breaker Mechanic Name Role Phone Thalia Claudio MD Primary Care Provider Reason for Visit * Reason Comments Med Refill Encounter Details Date Type Department Care Team (Late Contact Info) Description 03/04/2023 Refill [facility] MEDICINE [address] [place] [address] Thalia Claudio MD 230 [place] [address] Social History Tobacco Use Types Packs/Day Years [...] Upcoming Encounters Date Type Department Care Team ([facility] Contact Info) Description 12/29/2024 9:00 AM EDT Office Visit [facility] OPTOMETRY [address] [place] [address] Odell, Melody, OD [address] [place] [address] documented as of this encounter Visit Diagnoses Not on filedocumented in this encounter Care Teams Circuit Breaker Mechanic Relationship Specialty Start Date End Date Thalia Claudio MD 230 [place] [address] PCP - General Family Medicine 03/13/22 documented as of this encounter
--- OUTSIDE RECORDS SUMMARY | 2024-09-28 10:45 | XMS_ITS | Encounter Summary ---
Author Organization [employer] Address [address] 7[address] [place] [address] Care Team Providers Care Potato Chip Sorter Name Role Phone Thalia Claudio MD Primary Care Provider [phone] Reason for Visit * Reason Onset Date Comments Med Refill 01/08/2024 Encounter Details Date Type Department Care Team ([facility] Contact Info) Description 01/08/2024 Telephone [facility] MEDICINE 230 [place] [address] Thalia Claudio MD 230 [place], [place] [phone] Med Refill Social History Tobacco Use Types [...] 2 MG gum To be sent to: [facility] documented in this encounter Plan of Treatment Upcoming Encounters Date Type Department Care Team (Late st Contact Info) Description 12/29/2024 9:00 AM EDT Office Visit [facility] OPTOMETRY [address] [place] [address] Melody Bain, OD 230 [place] [address] documented as of this encounter Visit Diagnoses Not on filedocumented in this encounter Care Teams Potato Chip Sorter Relationship Specialty Start Date End Date Thalia Claudio MD [address] [place] [address] PCP - General Family Medicine 03/13/22 documented as of this encounter
--- OUTSIDE RECORDS SUMMARY | 2024-09-28 10:45 | XMS_ITS | Encounter Summary ---
Author Organization [employer] [facility] Address [address] [facility] 7t [place] [address] Care Team Providers Care Retail Visual Merchandiser Name Role Phone Thalia Claudio MD Primary Care Provider [phone] Encounter Details Date Type Department Care Team (Late Contact Info) Description 03/26/2023 Orders Only [facility] MEDICINE [address] [place], [place] [phone] ProviderCindy MD Social History Tobacco Use Types [...] Department Care Team (Late Contact Info) Description 12/29/2024 9:00 AM EDT Office Visit [facility] OPTOMETRY [address] [place], [place] [phone] Melody Bain, OD 230 [place], [place] [phone] documented as of this encounter Procedures Procedure Name Priority Date/Time Associated Diagnosis Comments SLIDE REVIEW Routine 02/25/2024 10:30 AM EDT HEPATITIS C VIRAL RNA, QUANTITATIVE, REAL-TIME PCR Routine 02/25/2024 10:30 AM EDT COLONOSCOPY Routine 09/24/2016 documented in this encounter Results * Hepatitis C Viral RNA, Quantitative, Real-Time PCR (02/25/2024 10:30 AM EDT) Hepatitis C Viral Load <15 NOT DETECTED NOT DETECTED IU/mL [facility] HCV Log PCR <1.18 NOT DETECTED NOT DETECTED Log IU/mL [facility] Comment:For additional infor mation, please refer tohttp://education.[employer]/faq/BWY15s1(This link is being provided for informational/educational purposes only.)THIS TEST WAS PERFORMED AT:[employer] [place] [id number] MONTIEL MD 02/25/2024 10:3 0 AM EDT 02/26/2024 9:19 AM EDT Thalia Claudio MD LAB BLOOD ORDERABLES Final Res ult Performing Organization Address [facility] Co de Phone Number [facility] [address] [place] [phone] * Slide Review (02/25/2024 10:30 AM EDT) Slide Review VERIFIED [facility] 02/25/2024 10:3 0 AM EDT 02/25/2024 11:10 AM EDT Thalia Claudio MD LAB BLOOD ORDERABLES Final Res ult Performing Organization Address [facility] Co de Phone Number [facility] [address] [place] [phone] * Hm Colonoscopy (09/24/2016) Cindy Black MD HEALTH MAINTENANCE Final Result documented in this encounter Visit Diagnoses Not on filedocumented in this encounter Care Teams Retail Visual Merchandiser Relationship Specialty Start Date End Date Thalia Claudio MD [address] [place] [address] PCP - General Family Medicine 03/13/22 documented as of this encounter
--- OUTSIDE RECORDS SUMMARY | 2024-09-28 10:45 | XMS_ITS | Encounter Summary ---
Author Organization [employer] Address [address] [facility] 7t [place] [address] Care Team Providers Care Production Control Manager Name Role Phone Thalia Claudio MD Primary Care Provider [phone] Reason for Visit * Reason Comments Care Coordination SDOH f/u Encounter Details Date Type Department Care Team (Latest Contact Info) Description 09/09/2024 Patient Outreach [facility] MEDICINE 230 [place] [address] Thalia Claudio MD 230 [place] [address] Care Coordination (SDOH f/u) Social History Tobacco [...] encounter Progress Notes * Kary Metzger - 09/09/2024 9:37 AM EST CHW Kary Metzger placed outbound call to patient to follow up on SDOH needs. Patient's name, and address confirmed. Patient states is doing well. Patient stated she received a call from [employer] and stated they would send her a debit card in 2 weeks which they will fill with money for healthy food options at the grocery store for 3-6 months. Patient is very grateful. No further questions or concerns. CHW reinforced direct contact information or CM for any additional questions or concerns and extended clinic hours on Mondays and Wednesdays, and Walk-In Urgent Care Located in [facility] of [facility]. Patient provided with after-hours line for [facility], , which offer nighttime triage service and option to transfer to position clerk provider ifneed. Patient verbalizes understanding, and able to repeat back to telegraphic typewriter mechanic. A follow up call will be placed within 10 days, patient agrees with plan. documented in this encounter Plan of Treatment Upcoming Encounters Date Type Department Care Team (Late st Contact Info) Description 12/29/2024 9:00 AM EDT Office Visit [facility] OPTOMETRY [address] [place], [place] [phone] Melody Bain, OD [address] [place] [address] documented as of this encounter Visit Diagnoses Not on filedocumented in this encounter Care Teams Production Control Manager Relationship Specialty Start Date End Date Thalia Claudio MD 230 [place] [address] PCP - General Family Medicine 03/13/22 documented as of this encounter
--- OUTSIDE RECORDS SUMMARY | 2024-09-28 10:45 | XMS_ITS | Encounter Summary ---
Author Organization [employer] [facility] Address [address] [facility] 7t [place] [address] Care Team Providers Care Glass Vial Bending Conveyor Feeder Name Role Phone Thalia Claudio MD Primary Care Provider [phone] Reason for Visit * Reason Comments Med Refill Encounter Details Date Type Department Care Team (Late Contact Info) Description 02/27/2023 Refill [facility] MEDICINE 230 [place] [address] Thalia Claudio MD 230 [place] [address] Social History Tobacco Use Types Packs/Day Years [...] Upcoming Encounters Date Type Department Care Team ([facility] Contact Info) Description 12/29/2024 9:00 AM EDT Office Visit [facility] OPTOMETRY [address] [place] [address] Odell, Melody, OD 230 [place] [address] documented as of this encounter Visit Diagnoses Not on filedocumented in this encounter Care Teams Glass Vial Bending Conveyor Feeder Relationship Specialty Start Date End Date Thalia Claudio MD 230 [place] [address] PCP - General Family Medicine 03/13/22 documented as of this encounter
--- OUTSIDE RECORDS SUMMARY | 2024-09-28 10:45 | XMS_ITS | Clinical Summary ---
Author Organization [facility] Address [address] [place] [address], [place] [address] Care Team Providers Care Forensic Photographer Name Role Phone Natalie Bean Primary Care Provider Allergies Active Allergy Reactions Criticality Noted Date [...] and Trulicity Gentle exercise encouraged Re-refer to [facility] vision care Cont statin F/u in [...] (#1) 2024 9, 05/19/2017, 04/24/2012 [place] Care Teams Forensic Photographer Relationship Specialty Start Date End Date Natalie Bean PCP - General Family Medicine 11/22/21
== END 2024-09-28 10:04 | disposition home or self-care (01) ==
LOC: HO.HOS 09:32
PROVIDERS: PCP General Practice; Visit Provider Physician Assistant
DX: M17.11 Unilateral primary osteoarthritis, right knee (principal); E11.9 Type 2 diabetes mellitus without complications
CPT/HCPCS: 20610; 99214

== ENCOUNTER 2024-09-28 12:14 | Outpatient (REF) | payer MEDICAID, SELFPAY ==
--- OUTSIDE RECORDS SUMMARY | 2024-09-29 14:17 | XMS_ITS | Encounter Summary ---
Author Organization [facility] [facility] Address [address] [facility] 7t [place] [address] Care Team Providers Care Critical Care Unit Nurse Name Role Phone Thalia Claudio MD Primary Care Provider Reason for Visit * Reason Comments Med Refill Encounter Details Date Type Department Care Team (Late Contact Info) Description 03/07/2023 Refill [facility] MEDICINE [address] [place] [address] Thalia Claudio MD [address] [place] [address] Social History Tobacco Use Types Packs/Day Years [...] Upcoming Encounters Date Type Department Care Team ([facility] Contact Info) Description 12/29/2024 9:00 AM EDT Office Visit [facility] OPTOMETRY [address] [place] [address] Odell, Melody, OD [address] [place] [address] documented as of this encounter Visit Diagnoses Not on filedocumented in this encounter Care Teams Critical Care Unit Nurse Relationship Specialty Start Date End Date Thalia Claudio MD 230 [place] [address] PCP - General Family Medicine 03/13/22 documented as of this encounter
--- OUTSIDE RECORDS SUMMARY | 2024-09-29 14:17 | XMS_ITS | Encounter Summary ---
Author Organization [employer] [facility] Address [address] [facility] 7t [place] [address] Care Team Providers Care Pattern Maker Name Role Phone Thalia Claudio MD Primary Care Provider [phone] Encounter Details Date Type Department Care Team (Late Contact Info) Description 03/26/2023 Orders Only [facility] MEDICINE 230 [place], [place] [phone] ProviderCindy MD Social History Tobacco Use Types [...] [facility] OPT[facility] [address] [place], [place] [phone] Melody Bain, OD 230 [place], [place] [phone] documented as of this encounter Procedures Procedure Name Priority Date/Time Associated Diagnosis Comments SLIDE REVIEW Routine 02/25/2024 10:30 AM EDT HEPATITIS C VIRAL RNA, QUANTITATIVE, REAL-TIME PCR Routine 02/25/2024 10:30 AM EDT COLONOSCOPY Routine 09/24/2016 documented in this encounter Results * Hepatitis C Viral RNA, Quantitative, Real-Time PCR (02/25/2024 10:30 AM EDT) Hepatitis C Viral Load <15 NOT DETECTED NOT DETECTED IU/mL [facility] HCV Log PCR <1.18 NOT DETECTED NOT DETECTED Log IU/mL [facility] Comment:For additional infor mation, please refer tohttp://education.[employer]/faq/MHY32r2(This link is being provided for informational/educational purposes only.)THIS TEST WAS PERFORMED AT:[employer] [place] [id number] MONTIEL MD 02/25/2024 10:3 0 AM EDT 02/26/2024 9:19 AM EDT Thalia Claudio MD LAB BLOOD ORDERABLES Final Res ult Performing Organization Address [facility] Co de Phone Number [facility] [address] [place] [phone] * Slide Review (02/25/2024 10:30 AM EDT) Slide Review VERIFIED [facility] 02/25/2024 10:3 0 AM EDT 02/25/2024 11:10 AM EDT Thalia Claudio MD LAB BLOOD ORDERABLES Final Res ult Performing Organization Address [facility] Co de Phone Number [facility] [address] [place] [phone] * Hm Colonoscopy (09/24/2016) Cindy Black MD HEALTH MAINTENANCE Final Result documented in this encounter Visit Diagnoses Not on filedocumented in this encounter Care Teams Pattern Maker Relationship Specialty Start Date End Date Thalia Claudio MD 230 [place] [address] PCP - General Family Medicine 03/13/22 documented as of this encounter
--- OUTSIDE RECORDS SUMMARY | 2024-09-29 14:17 | XMS_ITS | Clinical Summary ---
Author Organization [facility] Address [address] [place] [address], [place] [address] Care Team Providers Care Bilingual Sales Consultant Name Role Phone Natalie Bean Primary Care Provider [phone] Allergies Active Allergy Reactions Criticality Noted Date [...] and Trulicity Gentle exercise encouraged Re-refer to [facility] vision care Cont statin F/u in 3 [...] (#1) 2024 9, 05/19/2017, 04/24/2012 Insurance [place] Care Teams Bilingual Sales Consultant Relationship Specialty Start Date End Date Natalie Bean PCP - General Family Medicine 11/22/21
--- OUTSIDE RECORDS SUMMARY | 2024-09-29 14:17 | XMS_ITS | Encounter Summary ---
Author Organization [facility] Address [address] [facility] 7t [place] [address] Care Team Providers Care Computerized Mill Mill Recorder Name Role Phone Thalia Claudio MD Primary Care Provider [phone] Reason for Visit * Reason Comments Med Refill Encounter Details Date Type Department Care Team (Late Contact Info) Description 03/04/[address] [facility] MEDICINE [address] [place] [address] Thalia Claudio MD [address] [place] [address] Social History Tobacco Use Types Packs/Day Years [...] Upcoming Encounters Date Type Department Care Team ([facility] Contact Info) Description 12/29/2024 9:00 AM EDT Office Visit [facility] OPTOMETRY [address] [place] [address] Odell, Melody, OD 230 [place] [address] documented as of this encounter Visit Diagnoses Not on filedocumented in this encounter Care Teams Computerized Mill Mill Recorder Relationship Specialty Start Date End Date Thalia Claudio MD [address] [place] [address] PCP - General Family Medicine 03/13/22 documented as of this encounter
--- OUTSIDE RECORDS SUMMARY | 2024-09-29 14:17 | XMS_ITS | Encounter Summary ---
Author Organization [employer] [facility] Address [address] [facility] [address]t [place] [address] Care Team Providers Care Medical Device Name Role Phone Thalia Claudio MD Primary Care Provider [phone] Reason for Visit * Reason Comments Med Refill Encounter Details Date Type Department Care Team (Late Contact Info) Description 03/06/2023 Refill [facility] MEDICINE [address] [place] [address] Thalia Claudio MD [address] [place] [address] Social History Tobacco Use Types Packs/Day Years [...] Upcoming Encounters Date Type Department Care Team ([facility] Contact Info) Description 12/29/2024 9:00 AM EDT Office Visit [facility] OPTOMETRY [address] [place] [address] Odell, Melody, OD 230 [place] [address] documented as of this encounter Visit Diagnoses Not on filedocumented in this encounter Care Teams Medical Device Relationship Specialty Start Date End Date Thalia Claudio MD 230 [place] [address] PCP - General Family Medicine 03/13/22 documented as of this encounter
--- OUTSIDE RECORDS SUMMARY | 2024-09-29 14:17 | XMS_ITS | Encounter Summary ---
Author Organization [employer] Address [address] [facility] 7t [place] [address] Care Team Providers Care Research Attorney Name Role Phone Thalia Claudio MD Primary Care Provider [phone] Reason for Visit * Reason Comments Care Coordination SDOH f/u Encounter Details Date Type Department Care Team (Latest Contact Info) Description 09/27/2024 Patient Outreach [facility] MEDICINE [address] [place] [address] Thalia Claudio MD 230 [place] [address] Care Coordination (SDOH f/u) Social History Tobacco [...] at this time. LVM introducing herself from [facility] CM Department. Requested call back. CHWreinforced direct contact information or for any additional questions or concernsand extended clinic hours on Mondays and Wednesdays, and Walk-In Urgent Care Located in [facility] of [facility]. Patient provided with after-hours line for [facility], , which offer night time triage service and option to transfer to implementation specialist provider if needed. CHW will attempt another follow up call within 10 days. documented in this encounter Plan of Treatment Upcoming Encounters Date Type Department Care Team (Late st Contact Info) Description 12/29/2024 9:00 AM EDT Office Visit [facility] OPTOMETRY [address] [place] [address] Melody Bain, OD 230 [place], [place] [phone] documented as of this encounter Visit Diagnoses Not on filedocumented in this encounter Care Teams Research Attorney Relationship Specialty Start Date End Date Thalia Claudio MD [address] [place], [place] [phone] PCP - General Family Medicine 03/13/22 documented as of this encounter
--- OUTSIDE RECORDS SUMMARY | 2024-09-29 14:17 | XMS_ITS | Encounter Summary ---
Author Organization [employer] Address [address] [facility] [address] 7t [place] [address] Care Team Providers Care Beeswax Bleacher Name Role Phone Thalia Claudio MD Primary Care Provider [phone] Reason for Visit * Reason Onset Date Comments Med Refill 01/08/2024 Encounter Details Date Type Department Care Team ([facility] Contact Info) Description 01/08/2024 Telephone [facility] MEDICINE [address] [place] [address] Thalia Claudio MD 230 [place], [place] [phone] Med Refill Social History Tobacco Use Types [...] 2 MG gum To be sent to: [facility] documented in this encounter Plan of Treatment Upcoming Encounters Date Type Department Care Team (Late st Contact Info) Description 12/29/2024 9:00 AM EDT Office Visit [facility] OPTOMETRY [address] [place] [address] Melody Bain, OD 230 [place] [address] documented as of this encounter Visit Diagnoses Not on filedocumented in this encounter Care Teams Beeswax Bleacher Relationship Specialty Start Date End Date Thalia Claudio MD 230 [place] [address] PCP - General Family Medicine 03/13/22 documented as of this encounter
--- OUTSIDE RECORDS SUMMARY | 2024-09-29 14:17 | XMS_ITS | Encounter Summary ---
Author Organization [employer] [facility] Address [address] [facility] 7t [place] [address] Care Team Providers Care Painter And Paperhanger Apprentice Name Role Phone Thalia Claudio MD Primary Care Provider [phone] Reason for Visit * Reason Comments Med Refill Encounter Details Date Type Department Care Team (Late Contact Info) Description 03/06/2023 Refill [facility] MEDICINE [address] [place] [address] Thalia Claudio MD 230 [place] [address] Social History Tobacco Use Types Packs/Day Years [...] Upcoming Encounters Date Type Department Care Team ([facility] Contact Info) Description 12/29/2024 9:00 AM EDT Office Visit [facility] OPTOMETRY [address] [place] [address] Odell, Melody, OD 230 [place] [address] documented as of this encounter Visit Diagnoses Not on filedocumented in this encounter Care Teams Painter And Paperhanger Apprentice Relationship Specialty Start Date End Date Thalia Claudio MD 230 [place] [address] PCP - General Family Medicine 03/13/22 documented as of this encounter
--- OUTSIDE RECORDS SUMMARY | 2024-09-29 14:17 | XMS_ITS | Encounter Summary ---
Author Organization [email or web address] [facility] Address [address] [facility] 7t [place] [address] Care Team Providers Care Boilermaker Ship Name Role Phone Thalia Claudio MD Primary Care Provider [phone] Reason for Visit * Reason Comments Med Refill Encounter Details Date Type Department Care Team (Late Contact Info) Description 02/27/2023 Refill [facility] MEDICINE 230 [place] [address] Thalia Claudio MD 230 [place] [address] Social History Tobacco Use Types Packs/Day Years [...] ([facility] Contact Info) Description 12/29/2024 9:00 AM EDT Office Visit [facility] OPTOMETRY [address] [place] [address] Odell, Melody, OD 230 [place] [address] documented as of this encounter Visit Diagnoses Not on filedocumented in this encounter Care Teams Boilermaker Ship Relationship Specialty Start Date End Date Thalia Claudio MD [address] [place] [address] PCP - General Family Medicine 03/13/22 documented as of this encounter
--- OUTSIDE RECORDS SUMMARY | 2024-09-29 14:17 | XMS_ITS | Encounter Summary ---
Author Organization [email or web address] Address [address] [facility] [address] 7t [place] [address] Care Team Providers Care Bale Breaker Operator Name Role Phone Thalia Claudio MD Primary Care Provider [phone] Reason for Visit * Reason Comments Med Refill Encounter Details Date Type Department Care Team ([facility] st Contact Info) Description 08/25/2024 Refill [facility] CHC MED & PEDS [address] [place], [place] [phone] Thalia Claudio MD 230 [place] [address] Low back pain at multiple sites Social [...] 12/29/2024 9:00 AM EDT Office Visit [facility] OPTOMETRY [address] [place] [address] Odell, Melody, OD 230 [place] [address] documented as of this encounter Visit Diagnoses Diagnosis Low back pain at multiple sites documented in this encounter Care Teams Bale Breaker Operator Relationship Specialty Start Date End Date Thalia Claudio MD 230 [place], [place] [phone] PCP - General Family Medicine 03/13/22 documented as of this encounter
--- OUTSIDE RECORDS SUMMARY | 2024-09-29 14:17 | XMS_ITS | Encounter Summary ---
Author Organization [employer] Address [address] [facility] 7t [place] [address] Care Team Providers Care Coater Hand Name Role Phone Thalia Claudio MD Primary Care Provider [phone] Reason for Visit * Reason Comments Care Coordination SDOH f/u Encounter Details Date Type Department Care Team (Latest Contact Info) Description 09/09/2024 Patient Outreach [facility] MEDICINE [address] [place] [address] Thalia Claudio MD [address] [place] [address] Care Coordination (SDOH f/u) Social History Tobacco [...] Patient stated she received a call from [employer] and stated they would send her a [...] Wednesdays, and Walk-In Urgent Care Located in [facility] of [facility]. Patient provided with after-hours line for [facility], , which offer nighttime triage service and option to transfer to application software developer provider ifneed. Patient verbalizes understanding, and able to repeat back to freelance copywriter. A follow up call will be placed within 10 days, patient agrees with plan. documented in this encounter Plan of Treatment Upcoming Encounters Date Type Department Care Team (Late st Contact Info) Description 12/29/2024 9:00 AM EDT Office Visit [facility] OPTOMETRY [address] [place], [place] [phone] Melody Bain, OD [address] [place] [address] documented as of this encounter Visit Diagnoses Not on filedocumented in this encounter Care Teams Coater Hand Relationship Specialty Start Date End Date Thalia Claudio MD [address] [place] [address] PCP - General Family Medicine 03/13/22 documented as of this encounter
--- OUTSIDE RECORDS SUMMARY | 2024-09-29 14:17 | XMS_ITS | Clinical Summary ---
Author Organization [employer] Address [address] [facility] 7t [place] [address] Care Team Providers Care Open Developer Operator Name Role Phone Thalia Claudio MD Primary Care Provider [phone] Allergies Active Allergy Reactions Criticality Noted Date [...] by mouth in the morning. 2023 Active Acetaminophen Extra Strength 500 MG [...] AND BEDTIME 90 tablet 3 2024 Active irbesartan (Avapro) 75 MG tablet TAKE 1 TABLET BY MOUTH EVERY MORNING 90 tablet 3 2024 Active pantoprazole (ProtoNix) 40 MG EC tabletIndications:Greg roesophageal reflux disease without esophagitis TAKE 1 TABLET BY MOUTH EVERY MORNING 90 tablet 3 2024 Active irbesartan (Avapro) 75 MG tablet TAKE 1 TABLET BY MOUTH EVERY MORNING 90 tablet 3 09/29 Discontinued pantoprazole (ProtoNix) 40 MG EC tabletIndications:Greg roesophageal reflux disease without esophagitis TAKE 1 TABLET BY MOUTH EVERY MORNING 90 tablet 2 09/29 Discontinued gabapentin (Neurontin) 600 MG tabletIndications:Low back [...] and Trulicity Gentle exercise encouraged Re-refer to [facility] vision care Cont statin F/u in [...] 1.5mg weekly Gentle exercise encouraged Re-refer to [facility] vision care Cont statin Check lipids today Podiatry referral for flat feet Assessment & Plan (10/07/2023 12:40 PM EDT): Omcrease Trulicity to 1.5mg weekly Gentle exercise encouraged Re-refer to [facility] vision care Cont statin Check lipids today F/u in 3 months Assessment & Plan (12/23/2022 1:39 PM EDT): Stop Metformin and increase Trulicity to 1.5mg weekly Gentle exercise encouraged Re-refer to [facility] vision care Cont statin Check lipids today F/u in 3 months Assessment & Plan (06/30/2022 7:13 AM EST): Continue Metforming and Trulicity Gentle exercise encouraged Re-refer to [facility] vision care Cont statin F/u in 3 months Encounters Date Type Department Care Team Description 09/29/2024 Refill [facility] CHC MED & PEDS [address] [place] [address] Thalia Claudio MD Gastroesophageal reflux disease without esophagitis 09/27/2024 Patient Outreach [facility] MEDICINE [address] [place] [address] Thalia Claudio MD Care Coordination (SDOH f/u) 09/09/2024 Patient Outreach [address] [address] Thalia Claudio MD Care Coordination (SDOH f/u) 09/03/2024 Refill [facility] CHC MED & PEDS [address] [place] [address] Thalia Claudio MD Low back pain at multiple sites; Anxiety 08/30/2024 Refill [facility] MED & PEDS [address] [place] [address] Thalia Claudio MD Dyslipidemia with low high density lipoprotein (HDL) cholesterol with hypertriglyceridemia due to type 2 diabetes mellitus (CMS/HCC) (CMS/HCC); Hypothyroidism, unspecified type; Depressive disorder 08/25/2024 Refill [facility] MED & PEDS [address] [place] [address] Thalia Claudio MD Low back pain at multiple sites 08/24/2024 Patient Outreach [address] [address] Thalia Claudio MD Care Coordination ([facility]) 08/20/2024 9:30 AM EST Office Visit [address] [address] Thalia Claudio MD Type 2 diabetes mellitus [...] to type 2 diabetes mellitus (CMS/HCC) (CMS/HCC); Essential (primary) hypertension; Gastroesophageal reflux disease without esophagitis; Multiple congenital cysts of kidney; Hypothyroidism, unspecified type; Other iron deficiency anemia; Non-seasonal allergic rhinitis, unspecified trigger; Smoker; Depressive disorder 08/20/2024 Travel 08/19/2024 Telephone [facility] MEDICINE [address] [place] [address] Thalia Claudio MD chart prep 08/16/2024 Patient Outreach [address] [address] Thalia Claudio MD Care Coordination (SDOH) 08/11/2024 Patient Outreach [address] [address] Thalia Claudio MD Care Coordination (SDOH) 08/10/2024 Patient Outreach [address] [address] Thalia Claudio MD Pre-visit Planning (SDOH screening positive and tobacco screening negative) 07/17/2024 10:00 AM EST Office Visit [facility] WALK-IN CENTER [address] [place] [address] Ronnie Gibson MD COVID-19 (Primary Dx); Sore throat; Acute cough; Rash 07/17/2024 Travel 07/07/[address] [address] Fawn Hall MD 07/02/2024 Patient Outreach [address] [address] Thalia Claudio MD Pre-visit Planning (SDOH screening [...] 12/29/2024 9:00 AM EDT Office Visit [facility] OPTOMETRY [address] [place], [place] [phone] Odell, Melody, OD [address] [place] [address] Health Maintenance Due Date Last Done Comments [...] exists Lipid Panel 02/24/2025 02/25/2024, 06/11/2022, 08/01/2021 SDOH Screening 08/11/2025 08/11/2024 Alcohol/Substance Use [...] complication, with long-term current use of insulin ([facility]) POCT GLUCOSE Routine 08/20/2024 9:17 AM EST [...] POCT HGB A1C (08/20/2024 9:17 AM EST) Pathologist [facility] Hemoglobin A1C 5.8 4.0 - 6.0 % QC Media Lot # [id number] Lot# Expiration Date Blood 08/20/2024 9:17 AM EST Thalia Claudio MD POINT OF CARE TEST ENTER/EDIT ORDERABLES Final Result * POCT Glucose (08/20/2024 9:17 AM EST) Pathologist [facility] Glucose Blood, POC 106 60 - 200 mg/dL QC Media Lot # [id number] Lot# Expiration Date Blood Capillary blood specimen / Unknown 08/20/2024 9:17 AM EST Thalia Claudio MD POINT OF CARE TEST ENTER/EDIT ORDERABLES Final Result * POCT Rapid Influenza B SENIOR ID NOW (07/17/2024 9:20 AM EST) [facility] Influenza B Negative Negative, Indeterminate [facility] Swab 07/17/2024 9:20 AM EST Ronnie Gibson MD POINT OF CARE TEST ENTER/EDIT OR DERABLES Final Result [facility] [address] [place] [phone] * POCT Rapid Influenza A SENIOR ID NOW (07/17/2024 9:20 AM EST) [facility] Influenza A Negative Negative, Indeterminate [facility] Swab 07/17/2024 9:20 AM EST Ronnie Gibson MD POINT OF CARE TEST ENTER/EDIT OR DERABLES Final Result [facility] [address] [place] [phone] * POCT Rapid Covid-19 BinaxNOW (07/17/2024 [...] EDT Narrative 04/07/2024 10:04 AM EDT ? [facility] ? [address] ?[place] [address] ? Mammography Report ? Signed ? Patient: Tim,Camila ?MR#: [id number] ?? [id number] ? : 1965 ?Acct:[id number] ? Age/Sex: 58 / F ?ADM Date: 08/20/24 ? Loc: HO.MAMMO ? Attending Dr: Thalia Claudio MD ? Ordering Physician: Thalia Claudio ?Results: 1Negative ? Date of Service: 03/09/24 ?Follow Up: 1 Year From Orig ?? inal Mammogram ? Procedure(s): MM tomosynthesis screening BI ?? Accession Number(s): [id number] ? cc: Thalia Claudio ? EXAMINATION: ?? [...] DD/ 1115 ? TD/TT: 03/09/24 1115 ? Baseball Scout: ? Procedure Note Donotuseinterpreter, Image - [facility]07/[facility] [address] [place] [address] Mammography Report Signed Patient: Derrick Dumont#: [id number] : 1965Acct:[id number] Age/Sex: 58 / FADM Date: 03/09/24 Loc: DruMAMMLuis Armando Attending Dr: Thalia Claudio MD Ordering Physician: Allison Claudioults: 1Negative Date of Service: 03/09/24Follow Up: 1 Year From Orig inal Mammogram Procedure(s): MM tomosynthesis screening BI Accession Number(s): [id number] cc: Thalia Claudio EXAMINATION: MM SCREENING DIGITAL [...] 04/07/24 1002 DD/ 1115 TD/TT: 03/09/24 1115 Baseball Scout: Thalia Claudio MD IMG BI PROCEDURES Final Result * (ABNORMAL) Albumin, Random Urine W/Creatinine (02/25/2024 10:30 AM EDT) Creatinine, Urine 138.37 mg/dL [facility] Microalbumin Urine 68.0 mg/L [facility] Microalbum Creatinine Ratio Ur 49.1(H) <30 ug/mg cr [facility] Comment:Albumin/Creatinine R atio Reference Ranges: Normal: < 30 ug/mg creatinine Microalbuminuria: 30 - 300 ug/mg creatinineClinical Albuminuria: > 300 ug/mg creatinine Urine (Urine, Random) 02/25/2024 10:30 AM EDT 02/25/2024 11:24 AM EDT Thalia Claudio MD LAB URINE ORDERABLES Final Res ult Performing Organization Address [facility] Co de Phone Number [facility] [address] [place] [phone] * (ABNORMAL) Hepatitis C Antibody with Reflex to HCV, RNA, Quantitative, Real- Time PCR (02/25/2024 10:30 AM EDT) Hepatitis C Antibody Reactive( A) Nonreactive [facility] Comment:Presumptive evidence of antibodies to HCV. Blood Venous blood specimen / Unknown 02/25/2024 10:30 AM EDT 02/25/2024 11:10 AM EDT Thalia Claudio MD LAB BLOOD ORDERABLES Final Res ult Performing Organization Address [facility] Co de Phone Number [facility] [address] [place] [phone] * HIV-1/2 Antigen and Antibodies, Fourth Generation, with Reflexes (02/25/2024 10:30 AM EDT) HIV AB/AG Nonreactive Nonreactive [facility] Comment:HIV-1 p24 Ag and/or HIV-1/HIV-2 Ab not detected.A test result that is nonreactive does not exclude thepossibility of exposure to or infection with HIV-1 and/orHIV-2. Nonreactive results in this assay for individualswith prior exposure to HIV-1 and/or HIV-2 may be due toantigen and antibody levels that are below the limit ofdetection of this assay.The [employer] HIV Ag/Ab Combo assay result andsupplemental assay results should be interpreted inconjunction with the patient's clinical presentation,history and other laboratory results. If the results areinconsistent with clinical evidence, additional testing issuggested to confirm the result. Blood Venous blood specimen / Unknown 02/25/2024 10:30 AM EDT 02/25/2024 11:10 AM EDT us Thalia Claudio MD LAB BLOOD ORDERABLES Final Res ult [facility] [address] [place] [phone] * (ABNORMAL) Lipid Panel, Standard (02/25/2024 10:30 AM EDT) Triglycerides 358(H) <150 mg/dL [facility] Comment:Desirable Triglyceri de: less than 150 mg/dLBorderline High Triglyceride 150-199 mg/dLHigh Triglyceride: 200-499 mg/dLVery High Triglyceride: greater than or equal to 5OO mg/dL Cholesterol 165 <200 mg/dL [facility] Comment:Desirable Cholestero l: less than 200 mg/dLBorderline High Cholesterol: 200-239 mg/dLHigh Cholesterol: greater than 239 mg/dL LDL Cholesterol Calculated 64 <100 mg/dL [facility] Comment:Desirable LDL: less than 100 mg/dLNear Optimal/Above Optimal LDL: 110- 129 mg/dLBorderline High LDL: 130-159 mg/dLHigh LDL: 160-189 mg/dLVery High LDL: greater than or equal to 190 mg/dL HDL Cholesterol 30(L) >40 mg/dL [facility] Comment:Desirable HDL: great er than 40 mg/dL Note: This HDL assay may give artificially low results in patients with liver disease. Blood Venous blood specimen / Unknown 02/25/2024 10:30 AM EDT 02/25/2024 11:10 AM EDT Thalia Claudio MD LAB BLOOD ORDERABLES Final Res ult [facility] [address] [place] [phone] * HPV E6/E7 RFLX MONI 16 18/45 (05/30/2021 11:09 AM EST) HPV mRNA E6/E7 rflx Not Detected Not Detected [facility] Comment: Methodology: Lab[employer] Landscape-Mediated Amplification This assay detects E6/E7 viral messenger RNA (mRNA) from 14 high-risk HPV types (16,18,31,33,35,39,45,51,52,56,58,59,66,68). The analytical performance characteristics of this assay have been determined by [employer]. The modifications have not been cleared or approved by the FDA. This assay has been validated pursuant to the CLIA regulations and is used for clinical purposes. For additional information, please refer to http://education.Boos[employer]/faq/REI047p1 (This link if provided for information/ educational purposes only.) THIS TEST WAS PERFORMED AT: [facility] [address] [place] [address],[address] [place], [place] ??[phone] JONNY MONTIEL MD 05/30/2021 11:0 9 AM EST [facility] HISTORICAL/NON ORDERABLE LABS Fi nal Result Performing Organization Address City/[facility]/ZIP Co de Phone Number [facility] [address] * Hm Colonoscopy (09/24/2016) Historical Provider HEALTH MAINTENANCE Final Result from Last 3 Months or Most Recently Relevant to Health Maintenance Insurance [facility] C3 Care Teams Open Developer Operator Relationship Specialty Start Date End Date Thalia Claudio MD [address] [place] [address] PCP - General Family Medicine 03/13/22
--- OUTSIDE RECORDS SUMMARY | 2024-09-29 14:17 | XMS_ITS | Encounter Summary ---
Author Organization [employer] Address [address] [place] [address] Care Team Providers Care Wilderness Guide Name Role Phone Thalia Claudio MD Primary Care Provider [phone] Reason for Visit * Reason Comments Med Refill Encounter Details Date Type Department Care Team ([facility] st Contact Info) Description 08/30/2024 Refill [facility] CHC MED & PEDS [address] [place], [place] [phone] Thalia Claudio MD [address] [place] [address] Dyslipidemia with low high density lipoprotein (HDL) [...] Description 12/29/2024 9:00 AM EDT Office Visit [facility] OPTOMETRY [address] [place] [address] Melody Bain, OD [address] [place] [address] documented as of this encounter Visit Diagnoses Diagnosis Dyslipidemia with low high density lipoprotein (HDL) cholesterol with hypertriglyceridemia due to type 2 diabetes mellitus (CMS/HCC) (CMS/HCC) Hypothyroidism, unspecified type Depressive disorder Depressive disorder, not elsewhere classified documented in this encounter Care Teams Wilderness Guide Relationship Specialty Start Date End Date Thalia Claudio MD [address] [place] [address] PCP - General Family Medicine 03/13/22 documented as of this encounter
--- OUTSIDE RECORDS SUMMARY | 2024-09-29 14:17 | XMS_ITS | Encounter Summary ---
Author Organization [employer] Address [address] [place] [address] Care Team Providers Care Lot Worker Name Role Phone Thalia Claudio MD Primary Care Provider [phone] Reason for Visit * Reason Comments Med Refill Encounter Details Date Type Department Care Team ([facility] st Contact Info) Description 09/03/2024 Refill [facility] CHC MED & PEDS [address] [place], [place] [phone] Thalia Claudio MD [address] [place] [address] Low back pain at multiple sites; Anxiety [...] 12/29/2024 9:00 AM EDT Office Visit [facility] OPTOMETRY [address] [place] [address] Odell, Melody, OD [address] [place] [address] documented as of this encounter Visit Diagnoses Diagnosis Low back pain at multiple sites Anxiety Anxiety state, unspecified documented in this encounter Care Teams Lot Worker Relationship Specialty Start Date End Date Thalia Claudio MD [address] [place] [address] PCP - General Family Medicine 03/13/22 documented as of this encounter
--- OUTSIDE RECORDS SUMMARY | 2024-09-29 14:17 | XMS_ITS | Encounter Summary ---
Author Organization [employer] Address [address] [place] [address] Care Team Providers Care Adult Literacy Teacher Name Role Phone Thalia Claudio MD Primary Care Provider [phone] Reason for Visit * Reason Comments Med Refill Encounter Details Date Type Department Care Team ([facility] st Contact Info) Description 09/29/2024 Refill [facility] [address] [place], [place] [id number] Thalia Claudio MD [address] [place] [address] Gastroesophageal reflux disease without esophagitis Social History Tobacco Use Types Packs/Day Years [...] EDT Office Visit [facility] [address] [place] [address] Odell, Melody, OD [address] [place] [address] documented as of this encounter Visit Diagnoses Diagnosis Gastroesophageal reflux disease without esophagitis Esophageal reflux documented in this encounter Care Teams Adult Literacy Teacher Relationship Specialty Start Date End Date Thalia Claudio MD [address] [place], [place] [id number] PCP - General Family Medicine 03/13/22 documented as of this encounter
== END 2024-09-28 12:15 | disposition home or self-care (01) ==
LOC: HO.HOSX 12:14
PROVIDERS: Visit Provider Physician Assistant
DX: M17.11 Unilateral primary osteoarthritis, right knee (principal); E11.9 Type 2 diabetes mellitus without complications
CPT/HCPCS: 20610; 99212; J1010; J2003

== ENCOUNTER 2025-01-12 08:34 | Outpatient (AMB) | payer MEDICAID, SELFPAY ==
--- NOTE | 2025-01-12 08:37 | A.OFFVIS_ITS ---
Vital Signs 01/12/25 08:41 Height 5 ft 6 in Weight 241 lb 10.026 oz BMI 39.0 BP 134/80 Blood Pressure Location Lt brachial Position Sitting Pulse 76 Pulse Source Pulse Oximeter Pulse Oximetry (%) 98 Oxygen Delivery Method Room Air Intake Visit Reasons: OA Intake Note: Patient presents for OA follow up. Clockmaker Apprentice Required: Yes Clockmaker Apprentice Language: Ramp Attendant Services: Clockmaker Apprentice Present Clockmaker Apprentice Name: Darci [id number] Information Interpreted: non-clinical & clinical Allergies lisinopril Allergy (Verified 01/12/25 08:40) Swelling SEASONAL ALLERGIES Allergy (Mild, Uncoded 01/08/24 07:51) SNEEZING Medication List - Last Reconciled 01/12/25 by Faith Heredia MD ammonium lactate 12% appl topical BID buspirone 10 mg PO TID dulaglutide (Trulicity) mg subcut QWEEK ferrous gluconate 324 mg PO QAM gabapentin 600 mg PO TID hydrochlorothiazide 25 mg PO QAM irbesartan 75 mg PO QAM lancets (TRUEplus Lancets) As directed levothyroxine 100 mcg PO DAILY linaclotide (Linzess) 145 mcg PO QAM loratadine 10 mg PO DAILY meclizine 25 mg PO TID PRN metronidazole 500 mg PO TID 10 days nicotine (polacrilex) 2 mg PO Q2H PRN omeprazole 20 mg PO BID rosuvastatin 10 mg PO BEDTIME sennosides (senna) 25.8 mg (3 x 8.6 mg) PO BEDTIME sertraline 50 mg PO DAILY simethicone 125 mg PO QID PRN tramadol 50 mg PO QID trazodone 100 mg PO BEDTIME HPI Comments Details: Patient is a 59 y.o. female with depression, DM, HTN, GERD, HLD, hypothyroidism, and polyarticular OA here today for follow up Interval History: Patient last seen 07/08/[address] Mcclain. At that time she was following up for her polyarticular OA specifically her knees. She was complaining of bilateral knee pain R>L taking tramadol 50mg 3-4 times per day. Saw ortho 09/2024 and received steroid injection of her right knee. This helped a little No conversation about replacement Today patient is requesting XRs of her left foot and ankle due to pain for the past 3 months. No antecedent trauma Rheumatologic History: Knee OA - Insurance denied gel injections Current Rheumatology Medication(s): Tramadol 50mg 3-4 times a day PFSH Medical History Iron deficiency anemia Splenomegaly Normal colonoscopy Menorrhagia Hepatitis C Primary osteoarthritis of right knee Primary osteoarthritis of left knee Abnormal uterine bleeding Uterine fibroid Encounter to discuss test results Encounter for annual routine gynecological examination Encounter for medication monitoring Well woman exam Constipation Rhinitis Obesity Hypothyroidism Type 2 diabetes mellitus HTN (hypertension) GERD (gastroesophageal reflux disease) Surgical History Hx of tubal ligation Hx of colonoscopy Family History Mother Diabetes High blood pressure Father Alzheimer disease Social History Household Members: Spouse Housing: House Alcohol intake: never Patient Tobacco Use Status: Current someday Tobacco user Cigarettes Per Day: 3 service: No Current occupational status: disabled Sexual orientation: Straight/Heterosexual Gender identity: Female Female Reproductive History Menstrual Age of Menarche: 11 Review of Systems Const Details: Review of Systems Constitutional: Denies fever, chills, weight loss ENT: Denies vision changes, eye pain or eye redness, dental caries, dry mouth GI: Denies nausea, vomiting, diarrhea, abdominal pain, change in BM Pulm: Denies SOB, CALVIN, hemoptysis, wheezing Cards: Denies chest pain, palpitations Skin: Denies Raynaud's, rash, nail changes, photosensitivity, ESCAPE WHEEL TOOTH CUTTER: Denies headaches, weakness, paresthesias, recurrent falls MSK: as per HPI All other systems reviewed and are unremarkable except noted above Physical Exam Vital Signs: BMI result Body Mass Index 39.0 Vital signs reviewed Physical Examination CONSTITUITIONAL Patient alert and cooperative. Well appearing and in no apparent painful distress Obese Examined in chair HEENT Conjunctiva and sclera clear. No lymphadenopathy. MSK Hands * Right Hand: Able to make a fist. No swelling or tenderness to palpation of these joints. No deformities noted. * Left Hand: Able to make a fist. No swelling or tenderness to palpation of these joints. No deformities noted. Wrists * Right Wrist: Full ROM. 70 degrees of wrist flexion, 80 degrees of wrist extension. No swelling or TTP * Left Wrist: Full ROM. 70 degrees of wrist flexion, 80 degrees of wrist extension. No swelling or TTP Elbows * Right Elbow: Full ROM. No swelling or TTP. * Left Elbow: Full ROM. No swelling or TTP. * TTP of the lateral epicondyles bilaterally Shoulders * Right shoulder: Full ROM. No swelling noted. No TTP of the AC joint, subacromial bursa or posterior shoulder * Left shoulder: Full ROM. No swelling noted. No TTP of the AC joint, subacromial bursa or posterior shoulder Knees * Right knee: Decreased ROM to extension and flexion. No swelling noted. TTP of the joint line and TTP pes anserine bursa * Left knee: Full ROM. No swelling noted. TTP of the joint line and TTP pes anserine bursa Ankles * Right ankle: Good ankle dorsiflexion and plantar flexion. No swelling. No TTP of the ankle joint * Left ankle: Good ankle dorsiflexion and plantar flexion. No swelling. No TTP of the ankle joint Feet * Right foot: Negative squeeze test * Left foot: Negative squeeze test SKIN No rashes Results Reviewed Results Reviewed: XR Bilateral Knees 06/2023 FINDINGS: RIGHT KNEE: Bony mineralization is normal. There is marked asymmetric narrowing of the medial joint space compartment. The lateral joint space compartment is well-maintained. There is a mild varus configuration. There is mild to moderate narrowing of the patellofemoral compartment, with medial articular surface irregularity. There is mild tricompartment peripheral osteophyte formation. No fracture, dislocation or significant joint effusion is seen. There is no foreign body. LEFT KNEE: Bony mineralization is normal. There is mild asymmetric narrowing of the medial joint space compartment. The lateral joint space compartment is well-maintained. There is mild narrowing of the patellofemoral compartment. There is mild tricompartment peripheral osteophyte formation. No fracture, dislocation or significant joint effusion is seen. There is no foreign body. IMPRESSION: 1. There is tricompartment osteoarthritic change of the right knee, most pronounced of the medial joint space compartment, where it is marked. There is a secondary mild varus configuration. 2. There is tricompartment osteoarthritic change of the left knee, most pronounced in the medial and patellofemoral compartments, where it is mild. 3. No fracture, dislocation or significant joint effusion is seen bilaterally. Assessment & Plan Assessment & Plan (1) Osteoarthritis of knees, bilateral: Code(s): M17.0 - Bilateral primary osteoarthritis of knee Category: Medical Qualifiers: Osteoarthritis type: primary Qualified Code(s): M17.0 - Bilateral primary osteoarthritis of knee Plan: #Bilateral knee OA Patient is a 59 y.o. female with polyarticular OA especially affecting her knees. Recently got steroid injections from ortho with mild improvement in her pain. Exam of the knees with TTP of the joint line and pes anserine bursa bilaterally. Recommended stretches which I printed for her in congolese. Plan - Topical diclofenac 1% qid - Stretches for pes anserine bursitis and lateral epicondylitis - XRs for left foot and ankle at patient's request - RTC 1 year or sooner (2) Lateral epicondylitis of both elbows: Code(s): M77.11 - Lateral epicondylitis, right elbow; M77.12 - Lateral epicondylitis, left elbow Plan: #Bilateral epicodylitis Patient with TTP of bilateral epicondyles, consistent with bilateral epicondylitis Discussed the importance of stretching with patient Plan - Printed stretches Plan I spent 30 minutes reviewing the record and labs, taking a history, examining the patient, discussing the treatment plan, explaining exercises and answering questions, ordering diagnostic work up and documenting in the medical record Orders: Orders PT Evaluation and Treatment Today M17.0 - Bilateral primary osteoarthritis of knee XR ankle LT min 3V Today M25.572 - Pain in left ankle and joints of left foot XR foot LT min 3V Today M25.572 - Pain in left ankle and joints of left foot Medications: New diclofenac sodium 1% (Arthritis Pain (diclofenac)) Apply to bilateral knees 4 grams topical QID 100 grams 5RF M17.0 - Bilateral primary osteoarthritis of knee Refilled tramadol 50 mg PO QID 120 tabs 5RF M17.0 - Bilateral primary osteoarthritis of knee Discontinued metronidazole Discontinued Reason: Patient no longer taking 500 mg PO TID 10 days 30 tabs 0RF K63.8212 - Small intestinal bacterial overgrowth, hydrogen sulfide-subtype Coding Level of Care Code Est Pt Level 4 (28896) Diagnoses Primary osteoarthritis of both knees M17.0 Osteoarthritis type: primary Lateral epicondylitis of both elbows M77.11; M77.12
[2025-01-12 08:41] VITALS: BP 134/80; PULSE 76; O2SAT 98; BMI 39.0
== END 2025-01-12 09:12 | disposition home or self-care (01) ==
LOC: HO.RHE 08:34
PROVIDERS: PCP General Practice; Visit Provider Student in an Organized Health Care Education/Training Program
DX: M17.0 Bilateral primary osteoarthritis of knee (principal); M77.11 Lateral epicondylitis, right elbow; M77.12 Lateral epicondylitis, left elbow
CPT/HCPCS: 99214

== ENCOUNTER → 2025-01-12 08:34 | Outpatient (BNVA) | payer MEDICAID, SELFPAY | PROVIDERS: PCP General Practice; Visit Provider Student in an Organized Health Care Education/Training Program | DX: M17.0 Bilateral primary osteoarthritis of knee (principal); M25.572 Pain in left ankle and joints of left foot; M77.11 Lateral epicondylitis, right elbow; M77.12 Lateral epicondylitis, left elbow | CPT/HCPCS: 99212 ==

== ENCOUNTER 2025-01-13 08:39 | Outpatient (REF) | payer MEDICAID, SELFPAY ==
--- NOTE | ~2025-01-13 | XR_ITS ---
EXAMINATION: XR FOOT 3 OR MORE VIEWS LEFT, XR ANKLE 3 OR MORE VIEWS LEFT HISTORY: M25.572 - Pain in left ankle and joints of left foot COMPARISON: Comparison is made with the prior examination of the left foot dated 12/03/2018. FINDINGS: Six views of the left foot and ankle are submitted. Osseous mineralization is normal. There is no fracture or dislocation. The joint spaces are preserved. There is a plantar calcaneal spur. The soft tissues are unremarkable. XR/XR foot LT min 3V IMPRESSION: Plantar calcaneal spur. Otherwise unremarkable examination of the left foot and ankle. Electronically signed by: José Miguel Onael MD 01/13/2025 09:19 AM EDT
--- NOTE | ~2025-01-13 | XR_ITS ---
EXAMINATION: XR FOOT 3 OR MORE VIEWS LEFT, XR ANKLE 3 OR MORE VIEWS LEFT HISTORY: M25.572 - Pain in left ankle and joints of left foot COMPARISON: Comparison is made with the prior examination of the left foot dated 12/03/2018. FINDINGS: Six views of the left foot and ankle are submitted. Osseous mineralization is normal. There is no fracture or dislocation. The joint spaces are preserved. There is a plantar calcaneal spur. The soft tissues are unremarkable. XR/XR ankle LT min 3V IMPRESSION: Plantar calcaneal spur. Otherwise unremarkable examination of the left foot and ankle. Electronically signed by: José Miguel Oneal MD 01/13/2025 09:19 AM EDT
--- OUTSIDE RECORDS SUMMARY | 2025-01-13 09:09 | XMS_ITS | Clinical Summary ---
Author Organization [facility] Facility Address [address] [place] [address], [place] [address] Care Team Providers Care Media Liaison Officer Name Role Phone Natalie Bean Primary Care [...] and Trulicity Gentle exercise encouraged Re-refer to [facility] vision care Cont statin F/u in 3 months Cirrhosis of liver 05/19/2017 Overview (09/17/2022): Last Assessment & Plan: Overdue for screening for HCC Weight loss advised for tx of NAFLD Depressive disorder 08/28/2015 Constipation 08/28/2015 Allergic rhinitis 08/28/2015 Immunizations Immunization Administration Dates Next Due Influenza LAIV (Nasal) [...] - 19+ 3-dose series) 1986 Pneumococcal Vaccine: 50+ Ye ars (2 of 2 - PCV) 09/19/2012 09/20/2011 Colorectal Cancer Screening: Annual FOBT 2016 Colorectal Cancer Screening: Colonoscopy 2016 Colorectal Cancer Screening: Sigmoidoscopy 2016 Diabetes: Ophthalmology Exam 03/18/2022 Diabetes: Pedal Pulse Checked 03/18/2022 Diabetes: Sensory Foot Exam 03/18/2022 Diabetes: Visual Foot Exam 03/18/2022 Diabetes: Hemoglobin A1C 09/26/2022 06/28/2022 Influenza Vaccine (Season Ended) 2025 09/15/2018, 05/19/2017, 04/24/2012 Pneumococcal Vaccine: Peds ( 0 to 5 Years) and At-Risk Patients (6 to 49 Years) Discontinued 09/20/2011 Insurance Medicaid [place] Care Teams Media Liaison Officer Relationship Specialty Start Date End Date Natalie Bean PCP - General Family Medicine 11/22/21
== END 2025-01-13 08:40 | disposition home or self-care (01) ==
LOC: HO.XRAY 08:39
PROVIDERS: PCP General Practice; Visit Provider Student in an Organized Health Care Education/Training Program
DX: M25.572 Pain in left ankle and joints of left foot (principal)
CPT/HCPCS: 73610; 73630

== ENCOUNTER → 2025-01-13 08:45 | Outpatient (BNV) | payer MEDICAID, SELFPAY | PROVIDERS: PCP General Practice; Visit Provider Radiology Diagnostic Radiology | DX: M77.32 Calcaneal spur, left foot (principal) | CPT/HCPCS: 73610; 73630 ==

== ENCOUNTER 2025-03-02 10:09 | Outpatient (AMB) | payer MEDICAID, SELFPAY ==
--- NOTE | 2025-03-02 10:16 | MHC.OFFVIS ---
Vital Signs 03/02/25 10:37 Height 5 ft 6 in Weight 235 lb 14.314 oz BMI 38.1 BP 148/76 H Blood Pressure Location Rt radial Position Sitting Pulse 77 Intake Visit Reasons: 6 months f/u [facility] PT N/S on 01/04/25 Intake Note: Patient in office today in follow up of [facility]. CC: Patient reports doing well and denies having any GI symptoms today. Generator Assembler Required: Yes Accompanied by: Self / Same As Patient Allergies lisinopril Allergy (Verified 03/02/25 11:00) Swelling SEASONAL ALLERGIES Allergy (Mild, Uncoded 01/08/24 07:51) SNEEZING HPI HPI 6 months f/u [facility] PT N/S on 01/04/25: Details: Assessment & Plan (1) Small intestinal bacterial overgrowth (SIBO), hydrogen sulfide subtype: Code(s): K63.8212 - Small intestinal bacterial overgrowth, hydrogen sulfide-subtype Category: Medical (2) Liver lesion, left lobe: Comment: On US performed at [facility]; pt declines MRI r/t claustrophobia Code(s): K76.9 - Liver disease, unspecified Category: Medical (3) GERD (gastroesophageal reflux disease): Code(s): K21.9 - Gastro-esophageal reflux disease without esophagitis Category: Medical Plan Danish #Karriira Live She did not do the CT as she was fearful of claustrophobia, but I explain that this is not the closed tube. She agrees she will call and get this study scheduled so that we can monitor her liver. Linzess 145mcg, and the simethicone. she is moving her bowels well, but she says she wants a colonoscopy cleanse, like when you have a colonoscopy, she says she is having an odor along with bloating and gas, so a cleanse is not really a solution for htis. It also happens when she eats garlic. Educated I will give her a trial flagyl for SIBO. She was educated not to drink any alcohol with this so she says she will started after the holiday. She was educated to take a probiotic supplement as well. ROV 6 mos. Medications: New metronidazole 500 mg PO TID 30 tabs 0RF 10 days K63.8212 - Small intestinal bacterial overgrowth, hydrogen sulfide-subtype Refilled omeprazole 20 mg PO BID 60 caps 6RF K21.9 - Gastro-esophageal reflux disease without esophagitis simethicone 125 mg PO QID PRN 90 tabs 6RF gas sennosides (senna) 25.8 mg (3 x 8.6 mg) PO BEDTIME 90 tabs 6RF for constipation linaclotide (Linzess) 145 mcg PO QAM 30 caps 6RF K59.00 - Constipation, unspecified TODAY'S VISIT MARSHALLESE # Vivi and KACIE west The flagyl relieved the bloating. Educated that sx may return and we will re treat. She continues on her omeprazole 20 mg twice a day, Linzess 145 micro g daily, senna and Colace daily and simethicone. ROV 3 mos. [facility] Medical History Iron deficiency anemia Splenomegaly Normal colonoscopy Menorrhagia Hepatitis C Primary osteoarthritis of right knee Primary osteoarthritis of left knee Abnormal uterine bleeding Uterine fibroid Encounter to discuss test results Encounter for annual routine gynecological examination Encounter for medication monitoring Well woman exam Constipation Rhinitis Obesity Hypothyroidism Type 2 diabetes mellitus HTN (hypertension) GERD (gastroesophageal reflux disease) Surgical History Hx of tubal ligation Hx of colonoscopy Family History Mother Diabetes High blood pressure Father Alzheimer disease Social History Household Members: Spouse Housing: House Alcohol intake: never Patient Tobacco Use Status: Current someday Tobacco user Cigarettes Per Day: 3 service: No Current occupational status: disabled Sexual orientation: Straight/Heterosexual Gender identity: Female Female Reproductive History Menstrual Age of Menarche: 11 Review of Systems Const Denies fatigue, Denies fever(s), Denies night sweats, Denies poor appetite and Denies weight loss ENT Reports Normal hearing present, Denies dental pain, Denies dysphagia, Denies hearing loss, Denies mouth pain, Denies odynophagia, Denies throat swelling, Denies tongue swelling and Reports other (Dentition adequate) Card Reports no additional complaints Resp Reports no additional complaints GI Details: Denies abdominal pain, Denies melena, Reports bloating, Denies hematochezia, Reports constipation, Denies GI cramping, Denies dysphagia, Denies excessive flatus, Denies early satiety, Reports heartburn, Denies diarrhea, Denies nausea, Denies odynophagia, Denies vomiting and Denies hematemesis Skin/Breast Denies pruritus, Denies lesions, Denies rash and Denies jaundice Neuro Reports Normal hearing present and Denies Abnormal speech present Endo Denies fatigue Aller/Immun Denies throat swelling and Denies tongue swelling Physical Exam Vital Signs: Last Vital Signs Pulse 77 03/02/25 10:37 BP 148/76 H 03/02/25 10:37 BMI result Body Mass Index 38.1 Const General: cooperative, no acute distress, well developed and well groomed Nutritional Appearance: well nourished and obese Orientation/consciousness: oriented to person, oriented to place and oriented to time Limitations: language barrier HEENT Head: Yes normocephalic and Yes atraumatic Eyes General: appearance normal, both eyes and all related structures Pupils: Equal, round and reactive pupils present Neck Neck: Yes normal visual inspection and Yes no lymphadenopathy Thyroid: Thyroid normal Resp Effort & Inspection: normal respiratory effort and able to speak in complete sentences Auscultation: clear to auscultation bilaterally Cardio Rate: regular rate Rhythm: regular rhythm Heart sounds: Normal, physiologic split S2 sound present Peripheral pulses: radial pulses present and posterior tibial pulses present GI Inspection: No distended, Yes Abdominal panniculus present and Yes obesity Palpation (GI): Soft to palpation, nontender, no guarding, not rigid and No hepatosplenomegaly present Percussion: Yes normal to percussion Auscultation: normal bowel sounds Rectal Exam - Female: deferred Skin General skin exam: no rashes or lesions noted, turgor normal, skin not dry, no jaundice, No spider nevi and no striae Rashes: no rashes Nails: normal Neuro General: oriented to person, oriented to place and oriented to time Cranial nerves: Yes Equal, round and reactive pupils present and Yes Normal hearing present Speech: No Abnormal speech present Extrem General: Yes normal to inspection, No clubbing, No cyanosis and No edema Psych Appearance: grossly normal and well kempt Mental Status: mental status grossly normal Speech and movement: Normal speech and movement present Affect: normal affect Attitude: cooperative Thought process: Normal thought process present and not confabulating Thought content: Normal thought content present Insight: Fair insight present (Psych) Judgement: Fair judgement present (Psych) Assessment & Plan Assessment & Plan (1) Small intestinal bacterial overgrowth (SIBO), hydrogen sulfide subtype: Code(s): K63.8212 - Small intestinal bacterial overgrowth, hydrogen sulfide-subtype Category: Medical (2) Constipation: Code(s): K59.00 - Constipation, unspecified Category: Medical (3) GERD (gastroesophageal reflux disease): Code(s): K21.9 - Gastro-esophageal reflux disease without esophagitis Category: Medical Plan MARSHALLESE # Vivi and KACIE live The flagyl relieved the bloating. Educated that sx may return and we will re treat. She continues on her omeprazole 20 mg twice a day, Linzess 145 micro g daily, senna and Colace daily and simethicone. ROV 3 mos. Coding Level of Care Code Est Pt Level 3 (61462) Diagnoses Small intestinal bacterial overgrowth (SIBO), hydrogen sulfide subtype K63.8212 Constipation K59.00 GERD (gastroesophageal reflux disease) K21.9
[2025-03-02 10:37] VITALS: BP 148/76; PULSE 77; BMI 38.1
--- OUTSIDE RECORDS SUMMARY | 2025-03-02 10:49 | XMS_ITS | Clinical Summary ---
Author Organization [facility] Facility Address [address] [place] [address], [place] [address] Care Team Providers Care Warehouse Insulation Worker Name Role Phone Natalie Bean Primary Care [...] and Trulicity Gentle exercise encouraged Re-refer to [facility] vision care Cont statin F/u in [...] Hemoglobin A1C 09/26/2022 06/28/2022 Influenza Vaccine (#1) 2025 9, 05/19/2017, 04/24/2012 Pneumococcal Vaccine: Peds ( 0 to 5 Years) and At-Risk Patients (6 to 49 Years) Discontinued 09/20/2011 Insurance Medicaid [place] Care Teams Warehouse Insulation Worker Relationship Specialty Start Date End Date Natalie Bean PCP - General Family Medicine 11/22/21
--- OUTSIDE RECORDS SUMMARY | 2025-03-02 10:49 | XMS_ITS | Encounter Summary ---
Author Organization [employer] Address [address] [facility] [address] [place] [address] Care Team Providers Care Fig Washer Name Role Phone Thalia Claudio MD Primary Care Provider [phone] Reason for Visit * Reason Onset Date Comments Med Refill 01/08/2024 Encounter Details Date Type Department Care Team ([facility] Contact Info) Description 01/08/2024 Telephone [facility] [address] [place], [place] [phone] Thalia Claudio MD [address] [place], [place] [phone] Med Refill Social History Tobacco Use Types [...] t he electric, gas, oil or water [employer] threatened to shut off services in your [...] 2 MG gum To be sent to: [facility] documented in this encounter Plan of Treatment Not on file documented as of this encounter Visit Diagnoses Not on filedocumented in this encounter Care Teams Fig Washer Relationship Specialty Start Date End Date Thalia Claudio MD [address] [place] [address] PCP - General Family Medicine 03/13/22 documented as of this encounter
== END 2025-03-02 12:40 | disposition home or self-care (01) ==
LOC: HO.HGI 10:09
PROVIDERS: PCP General Practice; Visit Provider Nurse Practitioner
DX: K63.82 Intestinal microbial overgrowth (principal); K59.00 Constipation, unspecified; K21.9 Gastro-esophageal reflux disease without esophagitis
CPT/HCPCS: 99213

== ENCOUNTER → 2025-03-02 10:09 | Outpatient (BNVA) | payer MEDICAID, SELFPAY | PROVIDERS: PCP General Practice; Visit Provider Nurse Practitioner | DX: K21.9 Gastro-esophageal reflux disease without esophagitis (principal); K63.82 Intestinal microbial overgrowth; K59.00 Constipation, unspecified | CPT/HCPCS: 99212 ==

== ENCOUNTER 2025-03-15 10:55 | Outpatient (REF) | payer MEDICAID, SELFPAY ==
--- OUTSIDE RECORDS SUMMARY | 2025-03-15 11:48 | XMS_ITS | Encounter Summary ---
Author Organization [employer] Address [address] [facility] [address] [place] [address] Care Team Providers Care Banking Teacher Name Role Phone Thalia Claudio MD Primary Care Provider [phone] Encounter Details Date Type Department Care Team ([facility] st Contact Info) Description 10/18/2024 Orders Only [facility] [address] [place] [address] Thalia Claudio MD [address] [place] [address] Social History Tobacco Use Types Packs/Day Years Used Date Smoking Tobacco: Every Day Cigarettes Passive Smoke Exposure: Current Smokeless Tobacco: Never Alcohol Use Standard Drinks/Week Comments Never 0 (1 standard drink = 0.6 oz pur e alcohol) Housing Stability Answer Date Recorded What is your housing situation today? I have liborioluci fitch 09/29/[address] you [...] the past 12 months, has t he [employer], oil or water company threatened to shut [...] as of this encounter Plan of Treatment Not on file documented as of this encounter Visit Diagnoses Not on filedocumented in this encounter Care Teams Banking Teacher Relationship Specialty Start Date End Date Thalia Claudio MD [address] [place] [id number] PCP - General Family Medicine 03/13/22 documented as of this encounter
--- OUTSIDE RECORDS SUMMARY | 2025-03-15 11:48 | XMS_ITS | Encounter Summary ---
Author Organization [employer] Address [address] [place] [address] 7t [place] [address] Care Team Providers Care Finger Buffs Assembler Name Role Phone Thalia Claudio MD Primary Care Provider [phone] Reason for Visit * Reason Comments Med Refill Encounter Details Date Type Department Care Team ([facility] st Contact Info) Description 03/04/[address] [facility] MEDICINE [address] [place], [place] [phone] Thalia Claudio MD 230 [place], [place] [phone] Social History Tobacco Use Types Packs/Day Years [...] on filedocumented in this encounter Care Teams Finger Buffs Assembler Relationship Specialty Start Date End Date Thalia Claudio MD [address] [place] [phone] PCP - General Family Medicine 03/13/22 documented as of this encounter
--- OUTSIDE RECORDS SUMMARY | 2025-03-15 11:48 | XMS_ITS | Clinical Summary ---
Author Organization [facility] Address [address] [place] [address], [place] [address] Care Team Providers Care Mine Safety Manager Name Role Phone Natalie Bean Primary Care Provider [phone] Allergies Active Allergy Reactions Criticality Noted Date [...] and Trulicity Gentle exercise encouraged Re-refer to [facility] vision care Cont statin F/u in [...] to 49 Years) Discontinued 09/20/2011 [place] Care Teams Mine Safety Manager Relationship Specialty Start Date End Date Natalie Bean PCP - General Family Medicine 11/22/21
--- OUTSIDE RECORDS SUMMARY | 2025-03-15 11:48 | XMS_ITS | Encounter Summary ---
Author Organization [employer] Address [address] 7t [place] [address] Care Team Providers Care Manufacturing Plant Technician Name Role Phone Thalia Claudio MD Primary Care Provider [phone] Reason for Visit * Reason Comments Med Refill Encounter Details Date Type Department Care Team ([facility] st Contact Info) Description 08/25/2024 Refill [facility] MED & PEDS [address] [place], [place] [phone] Thalia Claudio MD 230 [place] [address] Low back pain at multiple sites Social [...] sites documented in this encounter Care Teams Manufacturing Plant Technician Relationship Specialty Start Date End Date Thalia Claudio MD 230 [place] [address] PCP - General Family Medicine 03/13/22 documented as of this encounter
--- OUTSIDE RECORDS SUMMARY | 2025-03-15 11:48 | XMS_ITS | Encounter Summary ---
Author Organization [employer] Address [address] [place] [address] 7t [place] [address] Care Team Providers Care Battery Plate Assembler Name Role Phone Thalia Claudio MD Primary Care Provider [phone] Reason for Visit * Reason Comments Med Refill Encounter Details Date Type Department Care Team ([facility] st Contact Info) Description 03/07/2023 Refill [facility] MEDICINE 230 [place], [place] [phone] Thalia Claudio MD 230 [place], [place] [phone] Social History Tobacco Use Types Packs/Day Years [...] on filedocumented in this encounter Care Teams Battery Plate Assembler Relationship Specialty Start Date End Date Thalia Claudio MD [address] [place] [address] [phone] PCP - General Family Medicine 03/13/22 documented as of this encounter
--- OUTSIDE RECORDS SUMMARY | 2025-03-15 11:48 | XMS_ITS | Encounter Summary ---
Author Organization [employer] Address [address] [place] [address] 7t [place] [address] Care Team Providers Care Comparison Shopper Name Role Phone Thalia Claudio MD Primary Care Provider [phone] Reason for Visit * Reason Comments Med Refill Encounter Details Date Type Department Care Team ([facility] st Contact Info) Description 02/27/2023 Refill [facility] MEDICINE 230 [place], [place] [phone] Thalia Claudio MD 230 [place], [place] [phone] Social History Tobacco Use Types Packs/Day Years [...] on filedocumented in this encounter Care Teams Comparison Shopper Relationship Specialty Start Date End Date Thalia Claudio MD [address] [place] [id number] PCP - General Family Medicine 03/13/22 documented as of this encounter
--- OUTSIDE RECORDS SUMMARY | 2025-03-15 11:48 | XMS_ITS | Encounter Summary ---
Author Organization [employer] Address [address] [facility] 7t [place] [address] Care Team Providers Care Ink Blender Name Role Phone Thalia Claudio MD Primary Care Provider [phone] Encounter Details Date Type Department Care Team ([facility] st Contact Info) Description 03/26/2023 Orders Only [facility] MEDICINE [address] [place] [address] ProviderCindy MD Social History Tobacco Use Types [...] on file documented as of this encounter Procedures Procedure Name Priority Date/Time Associated Diagnosis Comments SLIDE REVIEW Routine 02/25/2024 10:30 AM EDT HEPATITIS C VIRAL RNA, QUANTITATIVE, REAL-TIME PCR Routine 02/25/2024 10:30 AM EDT HM COLONOSCOPY Routine 09/24/2016 documented in this encounter Results * Hepatitis C Viral RNA, Quantitative, Real-Time PCR (02/25/2024 10:30 AM EDT) Hepatitis C Viral Load <15 NOT DETECTED NOT DETECTED IU/mL [facility] HCV Log PCR <1.18 NOT DETECTED NOT DETECTED Log IU/mL [facility] Comment:For additional infor silvano, please refer tohttp://education.[employer]/faq/JRI66f0(This link is being provided for informational/educational purposes only.)THIS TEST WAS PERFORMED AT:[facility] [place] [phone] MONTIEL MD 02/25/2024 10:3 0 AM EDT 02/26/2024 9:19 AM EDT Thalia Claudio MD LAB BLOOD ORDERABLES Final Res ult Performing Organization Address [facility] Co de Phone Number [facility] [address] [place] [phone] * Slide Review (02/25/2024 10:30 AM EDT) Slide Review VERIFIED [facility] 02/25/2024 10:3 0 AM EDT 02/25/2024 11:10 AM EDT Thalia Claudio MD LAB BLOOD ORDERABLES Final Res ult Performing Organization Address [facility] de Phone Number [facility] [address] [place] [phone] * Colonoscopy (09/24/2016) Historical Provider HEALTH MAINTENANCE Final Result documented in this encounter Visit Diagnoses Not on filedocumented in this encounter Care Teams Ink Blender Relationship Specialty Start Date End Date Thalia Claudio MD [address] [place] [phone] PCP - General Family Medicine 03/13/22 documented as of this encounter
--- OUTSIDE RECORDS SUMMARY | 2025-03-15 11:48 | XMS_ITS | Encounter Summary ---
Author Organization [employer] Address [address] [place] [address] [address]t [place] [address] Care Team Providers Care Director Targeted Marketing Name Role Phone Thalia Claudio MD Primary Care Provider [phone] Reason for Visit * Reason Comments Med Refill Encounter Details Date Type Department Care Team ([facility] st Contact Info) Description 03/06/2023 Refill [facility] MEDICINE [address] [place], [place] [phone] Thalia Claudio MD 230 [place], [place] [phone] Social History Tobacco Use Types Packs/Day Years [...] on filedocumented in this encounter Care Teams Director Targeted Marketing Relationship Specialty Start Date End Date Thalia Claudio MD [address] [place] [address] [phone] PCP - General Family Medicine 03/13/22 documented as of this encounter
--- OUTSIDE RECORDS SUMMARY | 2025-03-15 11:48 | XMS_ITS | Encounter Summary ---
Author Organization [employer] Address [address] [place] [address] 7t [place] [address] Care Team Providers Care Servomechanism Designer Name Role Phone Thalia Claudio MD Primary Care Provider [phone] Reason for Visit * Reason Comments Med Refill Encounter Details Date Type Department Care Team ([facility] st Contact Info) Description 03/06/2023 Refill [facility] MEDICINE [address] [place], [place] [phone] Thalia Claudio MD 230 [place], [place] [phone] Social History Tobacco Use Types Packs/Day Years [...] on filedocumented in this encounter Care Teams Servomechanism Designer Relationship Specialty Start Date End Date Thalia Claudio MD [address] [place] [address] [phone] PCP - General Family Medicine 03/13/22 documented as of this encounter
--- OUTSIDE RECORDS SUMMARY | 2025-03-15 11:48 | XMS_ITS | Encounter Summary ---
Author Organization [employer] Address [address] [facility] 7t [place] [address] Care Team Providers Care Lifts And Cranes Inspector Name Role Phone Thalia Claudio MD Primary Care Provider [phone] Reason for Visit * Reason Onset Date Comments Med Refill 01/08/2024 Encounter Details Date Type Department Care Team ([facility] Contact Info) Description 01/08/2024 Telephone [facility] MEDICINE 230 [place], [place] [phone] Thalia Claudio MD [address] [place], [place] [phone] Med Refill Social History Tobacco Use Types [...] t he electric, gas, oil or water [employer] threatened to shut off services in your [...] 2 MG gum To be sent to: [facility] documented in this encounter Plan of Treatment Not on file documented as of this encounter Visit Diagnoses Not on filedocumented in this encounter Care Teams Lifts And Cranes Inspector Relationship Specialty Start Date End Date Thalia Claudio MD [address] [place] [phone] PCP - General Family Medicine 03/13/22 documented as of this encounter
--- OUTSIDE RECORDS SUMMARY | 2025-03-15 11:48 | XMS_ITS | Clinical Summary ---
Author Organization [employer] Address [address] [facility] 7[address] [place] [address] Care Team Providers Care Account Manager Trainee Name Role Phone Thalia Claudio MD Primary Care Provider [phone] Allergies Active Allergy Reactions Criticality Noted Date Comments Lisinopril Angioedema,Swelling 03/09/2018 Medications simethicone (Mylicon) 125 MG chewable tablet chew one tablet by mouth four times daily as needed for gas 2021 Active TRUEplus Lancets 33G misc 1 each by Subdermal route in the morning, at noon, and at bedtime. 2021 Active senna (Senokot) 8.6 MG tablet [...] EVERY MORNING 90 tablet 3 2023 Active ferrous gluconate (Fergon) 324 [...] times daily. 10 mL 3 2024 Active omeprazole (PriLOSEC) [address] capsule [...] EVERY MORNING 90 tablet 3 2024 Active fluticasone (Flonase) 50 MCG/ACT nasal spray INSTILL 1-2 SPRAYS IN EACH NOSTRIL ONCE DAILY 48 g 3 2024 Active busPIRone (Buspar) 10 MG tabletIndications:Anxi ety TAKE 1 TABLET BY MOUTH THREE TIMES DAILY IN THE MORNING, EVENING, AND BEDTIME 90 tablet 3 2024 Active gabapentin (Neurontin) 600 MG tabletIndications:Low back pain at multiple sites TAKE 1 TABLET BY MOUTH THREE TIMES DAILY IN THE MORNING, EVENING, AND BEDTIME 90 tablet 3 2024 Active traMADol (Ultram) 50 MG tablet Take 1 tablet by mouth every 6 (six) hours. 2024 Active Ozempic, 1 MG/DOSE, 4 MG/3ML solution pen-injector INJECT 1 MG SUBCUTANEOUSLY ONCE A WEEK 3 mL 11 2024 Active nicotine polacrilex (Nicorette) 2 MG gum CHEW 1 PIECE IN MOUTH EVERY 2 HOURS NEEDED DIRECTED 110 each 3 2024 Active nicotine polacrilex (Nicorette) 2 MG gum CHEW 1 PIECE OF GUM EVERY 2 HOURS NEEDED DIRECTED 110 each 3 02/16 Discontinued Active Problems Problem Noted Date Diagnosed [...] and Trulicity Gentle exercise encouraged Re-refer to [facility] vision care Cont statin F/u [...] 1.5mg weekly Gentle exercise encouraged Re-refer to [facility] vision care Cont statin Check lipids today Podiatry referral for flat feet Assessment & Plan (10/07/2023 12:40 PM EDT): Omcrease Trulicity to 1.5mg weekly Gentle exercise encouraged Re-refer to [facility] vision care Cont statin Check lipids today F/u in 3 months Assessment & Plan (12/23/2022 1:39 PM EDT): Stop Metformin and increase Trulicity to 1.5mg weekly Gentle exercise encouraged Re-refer to [facility] vision care Cont statin Check lipids today F/u in 3 months Assessment & Plan (06/30/2022 7:13 AM EST): Continue Metforming and Trulicity Gentle exercise encouraged Re-refer to [facility] vision care Cont statin F/u in 3 months Encounters Date Type Department Care Team Description 02/15/2025 Refill [facility] CHC MED & PEDS [address] [place], [place] [phone] Thalia Claudio MD 02/08/2025 Outside Procedure [facility] OPTOMETRY [address] [place] [address] Kahlil Bainn, OD Presbyopia (Primary Dx) 02/04/2025 10:45 AM EDT Office Visit [facility] OPTOMETRY [address] [place], [place] [phone] Kahlil Bainn, OD Regular astigmatism of both eyes (Primary Dx) 01/18/2025 Telephone [facility] MEDICINE [address] [place], [place] [phone] Thalia Claudio MD Durable Medical Equipment (DME Order: Liners, Bed Pads) 01/17/2025 Refill [facility] MEDICINE [address] [place] [address] Thalia Claudio MD 01/16/2025 Refill [facility] CHC MED & PEDS [address] [place] [address] Thalia Claudio MD 01/13/2025 Orders Only [facility] External Provider, [facility] 12/30/2024 Refill [facility] MED & PEDS [address] [place] [address] Thalia Claudio MD Anxiety; Low back pain at multiple sites 12/29/2024 9:00 AM EDT Office Visit [facility] OPTOMETRY [address] [place] [address] Odell, Melody, OD Diabetes type 2, no ocular involvement (CMS/HCC) (Primary Dx); Congenital hypertrophy of retinal pigment epithelium; Meibomian gland disease of both eyes, unspecified eyelid; Age-related nuclear cataract of both eyes; 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; Presbyopia 12/29/2024 Travel from Last 3 Months Immunizations Immunization Administration Dates Next Due Influenza injectable quadriv [...] 78 08/20/2024 9:16 AM EST Temperature 36.4 C (97.6 F) 08/20/2024 9:16 AM EST Respiratory Rate 20 08/20/2024 9:16 AM EST Oxygen Saturation 99% 07/17/2024 9:01 AM EST Inhaled Oxygen Concentration - - Weight 116 kg (255 lb 9.6 oz) 08/20/2024 9:16 AM EST Height 167.6 cm (5' 6 ) 08/20/2024 9:16 AM EST Body Mass Index 41.25 08/20/2024 9:16 AM EST Plan of Treatment Health Maintenance Due Date Last Done Comments CT Colonography 1967 FIT DNA/Cologuard 1967 FIT 1967 FOBT 1967 Sigmoidoscopy 1965 Disability Screening 1965 Hepatitis B Vaccines (1 of 3 - 19+ 3-dose series) 1986 Pap Smear 1988 Depression Screening 06/28/2023 06/28/2022, 06/28/20 22 COVID-19 Vaccine ( season) 2024 07/22/2023, 04/23/2022, 04/23/2022, Additional history exists Diabetes: Hemoglobin A1C 02/17/2025 025, 02/25/2024, 10/07/2023, Additional history exists Diabetes: Foot Exam 02/24/2025 02/25/2024, 06/28/2022, 06/28/2022, Additional history exists Diabetes: Urine Protein Screening 02/24/2025 02/25/2024, 12/23/2022, 09/13/2022, Additional history exists Lipid Panel 02/24/2025 02/25/2024, 0611/2022, 08/01/2021 Influenza Vaccine (#1) 2025 9, 05/19/2017, 04/24/2012, Additional history exists SDOH Screening 08/11/2025 08/11/2024 Alcohol/Substance Use Screening 08/20/2025 08/20/2024 Tobacco Screening 01/10/2026 01/10/2025 Mammogram 03/09/2026 03/09/2024, 12/20, 09/23/2018, Additional history exists Cervical Cancer Screening 05/30/2026 HPV/Cotest 05/30/2026 05/30/2021, 05/30/2021 Eye Exam 12/29/2026 12/29/2024, 12/19, 12/29/2024, Additional history exists DTaP/Tdap/Td Vaccines (3 - Td or Tdap) [...] patient's age to complete this topic Meningococcal B Vaccine Aged Out No l onger eligible based on patient's age to complete [...] Procedure Name Priority Date/Time Associated Diagnosis Comments XR FOOT 3+ VIEWS LEFT Routine 01/13/2025 8:45 AM EDT XR ANKLE 3+ VIEWS LEFT Routine 8:45 AM EDT FUNDUS PHOTOS - OU - BOTH EYES Routine 12/29/2024 9:00 AM EDT Congenital hypertrophy of retinal pigment epithelium POCT GLYCATED HEMOGLOBIN, TOTAL Routine 08/20/2024 9:17 AM EST Type 2 diabetes mellitus without complication, with long-term current use of insulin ([facility]/HCC) BI MAMMOGRAM SCREENING TOMOSYNTHESIS BILATERAL Routine 03/09/2024 11:15 AM EDT HEPATITIS C AB W/REFL TO HCV RNA, QN, PCR Routine 02/25/2024 10:30 AM EDT Type 2 diabetes mellitus without complication, with long-term current use of insulin (CMS/HCC) HIV 1/2 ANTIGEN/ANTIBODY, FOURTH GENERATION W/RFL Routine 02/25/2024 10:30 AM EDT Type 2 diabetes mellitus without complication, with long-term current use of insulin (CMS/[facility]) ALBUMIN, RANDOM URINE W/CREATININE Routine 02/25/2024 10:30 AM EDT Type 2 diabetes mellitus without complication, with long-term current use of insulin (CMS/[facility]) LIPID PANEL, STANDARD Routine 02/25/2024 10:30 AM EDT Type 2 diabetes mellitus without complication, with long-term current use of insulin ([facility]) ZZZ HISTORICAL HPV E6/E7 RFLX MONI 16 18/45 Routine 05/30/2021 11:09 AM EST HM COLONOSCOPY Routine 09/24/2016 from Last 3 Months or Most Recently Relevant to Health Maintenance Results * XR Foot 3+ Views Left (01/13/2025 8:45 AM EDT) Anatomical Region Laterality Modality Lower Extremities, Foot Left Radiogra phic Imaging 01/13/2025 8:45 AM EDT Narrative 01/13/2025 9:22 AM EDT [place] [address] XRay Report Signed Patient: Camila Dumont MR#: [id number] 401 : 1965 Acct:[id number] Age/Sex: 59 / F ADM Date: 01/13/25 Loc: [facility] Attending Dr: Faith Heredia MD Ordering Physician: Faith Heredia MD Date of Service: 01/13/25 Procedure(s): XR foot LT min 3V Accession Number(s): [id number] cc: Faith Heredia MD; Thalia Claudio EXAMINATION: XR FOOT 3 OR MORE VIEWS LEFT, XR ANKLE 3 OR MORE VIEWS LEFT HISTORY: M25.572 - Pain in left ankle and joints of left foot COMPARISON: Comparison is made with the prior examination of the left foot dated 12/03/2018. FINDINGS: Six views of the left foot and ankle are submitted. Osseous mineralization is normal. There is no fracture or dislocation. The joint spaces are preserved. There is a plantar calcaneal spur. The soft tissues are unremarkable. XR/XR foot LT min 3V IMPRESSION: Plantar calcaneal spur. Otherwise unremarkable examination of the left foot and ankle. Electronically signed by: José Miguel Oneal MD 01/13/2025 09:19 AM EDT RP Dictated By: José Miguel Oneal MD Signed By: <Electronically signed by José Miguel Oneal MD in OV> 01/13/25918 DD/ 4 TD/TT: 01/13/25 09 Food Safety Officer: Procedure Note Donotuseinterpreter, Image - 01/13/2025 [place] [address] XRay Report Signed Patient: Derrick Dumont#: [id number] 401 : 1965Acct:[id number] Age/Sex: 59 / FADM Date: 01/13/25 Loc: [facility] Attending Dr: Faith Heredia MD Ordering Physician: Faith Heredia MD Date of Service: 01/13/25 Procedure(s): XR foot LT min 3V Accession Number(s): [id number] cc: Faith Heredia MD; Thalia Claudio EXAMINATION: XR FOOT 3 OR MORE VIEWS LEFT, XR ANKLE 3 OR MORE VIEWS LEFT HISTORY: M25.572 - Pain in left ankle and joints of left foot COMPARISON: Comparison is made with the prior examination of the left foot dated 12/03/2018. FINDINGS: Six views of the left foot and ankle are submitted. Osseous mineralization is normal. There is no fracture or dislocation. The joint spaces are preserved. There is a plantar calcaneal spur. The soft tissues are unremarkable. XR/XR foot LT min 3V IMPRESSION: Plantar calcaneal spur. Otherwise unremarkable examination of the left foot and ankle. Electronically signed by: José Miguel Oneal MD 01/13/2025 09:19 AM EDT RP Dictated By: José Miguel Oneal MD Signed By: <Electronically signed by José Miguel Oneal MD in OV> 01/13/25918 DD/ 4 TD/TT: 01/13/25 0900 Food Safety Officer: us [facility] External Provider IMG XR PROCEDURES Final Result * XR Ankle 3+ Views Left (01/13/2025 8:45 AM EDT) Anatomical Region Laterality Modality Lower Extremities, Ankle Left Radiogr aphic Imaging 01/13/2025 8:45 AM EDT Narrative 01/13/2025 9:22 AM EDT [address] [address] XRay Report Signed Patient: Camila Dumont MR#: [id number] 401 : 1965 Acct:[id number] Age/Sex: 59 / F ADM Date: 01/13/25 Loc: HO.TAURUS Attending Dr: Faith Heredia MD Ordering Physician: Faith Heredia MD Date of Service: 01/13/25 Procedure(s): XR ankle LT min 3V Accession Number(s): [id number] cc: Faith Heredia MD; Thalia Claudio EXAMINATION: XR FOOT 3 OR MORE VIEWS LEFT, XR ANKLE 3 OR MORE VIEWS LEFT HISTORY: M25.572 - Pain in left ankle and joints of left foot COMPARISON: Comparison is made with the prior examination of the left foot dated 12/03/2018. FINDINGS: Six views of the left foot and ankle are submitted. Osseous mineralization is normal. There is no fracture or dislocation. The joint spaces are preserved. There is a plantar calcaneal spur. The soft tissues are unremarkable. XR/XR ankle LT min 3V IMPRESSION: Plantar calcaneal spur. Otherwise unremarkable examination of the left foot and ankle. Electronically signed by: José Miguel Oneal MD 01/13/2025 09:19 AM EDT RP Dictated By: José Miguel Oneal MD Signed By: <Electronically signed by José Miguel Oneal MD in OV> 01/13/25918 DD/ 4 TD/TT: 01/13/25899 Food Safety Officer: Procedure Note Veroter, Image - 01/13/[address] [address] XRay Report Signed Patient: Derrick Dumont#: [id number] 401 : 1965Acct:[id number] Age/Sex: 59 / FADM Date: 01/13/25 Loc: HO.XRAY Attending Dr: Faith Heredia MD Ordering Physician: Faith Heredia MD Date of Service: 01/13/25 Procedure(s): XR ankle LT min 3V Accession Number(s): [id number] cc: Faith Heredia MD; Thalia Claudio EXAMINATION: XR FOOT 3 OR MORE VIEWS LEFT, XR ANKLE 3 OR MORE VIEWS LEFT HISTORY: M25.572 - Pain in left ankle and joints of left foot COMPARISON: Comparison is made with the prior examination of the left foot dated 12/03/2018. FINDINGS: Six views of the left foot and ankle are submitted. Osseous mineralization is normal. There is no fracture or dislocation. The joint spaces are preserved. There is a plantar calcaneal spur. The soft tissues are unremarkable. XR/XR ankle LT min 3V IMPRESSION: Plantar calcaneal spur. Otherwise unremarkable examination of the left foot and ankle. Electronically signed by: José Miguel Oneal MD 01/13/2025 09:19 AM EDT Dictated By: José Miguel Oneal MD Signed By: <Electronically signed by José Miguel Oneal MD in OV> 01/13/25918 DD/ 4 TD/TT: 01/13/25899 Food Safety Officer: [facility] External Provider IMG XR PROCEDURES Final Result * Fundus Photos - OU - Both Eyes (12/29/2024 9:00 AM EDT) Narrative Melody Bain, OD - 01/10/2025 12:27 PM EDT Images from the original result were not included. Right Eye Progression has no prior data. Disc findings include normal observations. Macula findings include normal observations. Vessel findings include normal observations. 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 Left Eye Progression has no prior data. Disc findings include normal observations. Macula findings include normal observations. Vessel findings include normal observations. Periphery findings include normal observations. 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 Will monitor at her next exam. Melody Bain OD OPHTH PHOTOGRAPHY Final Resul t * POCT HGB A1C (08/20/2024 9:17 AM EST) Hemoglobin A1C 5.8 4.0 - 6.0 % QC Media Lot # [id number] Lot# Expiration Date Blood 08/20/2024 9:17 AM EST Thalia Claudio MD POINT OF CARE TEST ENTER/EDIT ORDERABLES Final Result * BI Mammogram Screening Tomosynthesis Bilateral (03/09/2024 11:15 AM EDT) Anatomical Region Laterality Modality Breast Bilateral Mammography 03/09/2024 11:1 5 AM EDT Narrative 04/07/2024 10:04 AM EDT [facility] [address] [place] [address] Mammography Report Signed Patient: Camila Dumont MR#: [id number] 401 : 1965 Acct:[id number] Age/Sex: 58 / F ADM Date: 03/09/24 Loc: HO.MAMMO Attending Dr: Thalia Claudio MD Ordering Physician: Thalia Claudio Results: 1Negative Date of Service: 03/09/24 Follow Up: 1 Year From Orig ina Mammogram Procedure(s): MM tomosynthesis screening BI Accession Number(s): [id number] cc: Thalia Claudio EXAMINATION: MM SCREENING DIGITAL [...] 04/07/24 1002 DD/ 1115 TD/TT: 03/09/24 1115 Food Safety Officer: Procedure Note Donotuseinterpreter, Image - 04/07/2024 [facility] [address] [place] [address] Mammography Report Signed Patient: Derrick Dumont#: [id number] 401 : 1965Acct:[id number] Age/Sex: 58 / FADM Date: 03/09/24 Loc: SARAH Attending Dr: Thalia Claudio MD Ordering Physician: Allison Claudioults: 1Negative Date of Service: 03/09/24Follow Up: 1 Year From Orig inal Mammogram Procedure(s): MM tomosynthesis screening BI Accession Number(s): [id number] cc: Thalia Claudio EXAMINATION: MM SCREENING DIGITAL [...] 04/07/24 1002 DD/ 1115 TD/TT: 03/09/24 1115 Food Safety Officer: us Thalia Claudio MD IMG BI PROCEDURES Final Result * (ABNORMAL) Albumin, Random Urine W/Creatinine (02/25/2024 10:30 AM EDT) Creatinine, Urine 138.37 mg/dL [facility] Microalbumin Urine 68.0 mg/L [facility] Microalbum Creatinine Ratio Ur 49.1(H) <30 ug/mg cr [facility] Comment:Albumin/Creatinine R atio Reference Ranges: Normal: < 30 ug/mg creatinine Microalbuminuria: 30 - 300 ug/mg creatinineClinical Albuminuria: > 300 ug/mg creatinine Urine (Urine, Random) 02/25/2024 10:30 AM EDT 02/25/2024 11:24 AM EDT us Thalia Claudio MD LAB URINE ORDERABLES Final Res ult [facility] [address] [place] [phone] * (ABNORMAL) Hepatitis C Antibody with Reflex to HCV, RNA, Quantitative, Real- Time PCR (02/25/2024 10:30 AM EDT) Hepatitis C Antibody Reactive( A) Nonreactive [facility] Comment:Presumptive evidence of antibodies to HCV. Blood Venous blood specimen / Unknown 02/25/2024 10:30 AM EDT 02/25/2024 11:10 AM EDT us Thalia Claudio MD LAB BLOOD ORDERABLES Final Res ult Performing Organization Address [facility]/State/ZIP Co de Phone Number [facility] [address] [place] [phone] * HIV-1/2 Antigen and Antibodies, Fourth Generation, with Reflexes (02/25/2024 10:30 AM EDT) Pathologist [facility] HIV AB/AG Nonreactive Nonreactive [facility] Comment:HIV-1 p24 Ag and/or HIV-1/HIV-2 Ab not detected.A test result that is nonreactive does not exclude thepossibility of exposure to or infection with HIV-1 and/orHIV-2. Nonreactive results in this assay for individualswith prior exposure to HIV-1 and/or HIV-2 may be due toantigen and antibody levels that are below the limit ofdetection of this assay.The [employer] HIV Ag/Ab Combo assay result andsupplemental assay results should be interpreted inconjunction with the patient's clinical presentation,history and other laboratory results. If the results areinconsistent with clinical evidence, additional testing issuggested to confirm the result. Blood Venous blood specimen / Unknown 02/25/2024 10:30 AM EDT 02/25/2024 11:10 AM EDT us Thalia Claudio MD LAB BLOOD ORDERABLES Final Res ult Performing Organization Address [facility]/State/ZIP Co de Phone Number [facility] [address] [place] [phone] * (ABNORMAL) Lipid Panel, Standard (02/25/2024 10:30 AM EDT) Triglycerides 358(H) <150 mg/dL [facility] Comment:Desirable Triglyceri de: less than 150 mg/dLBorderline High Triglyceride 150-199 mg/dLHigh Triglyceride: 200-499 mg/dLVery High Triglyceride: greater than or equal to 5OO mg/dL Cholesterol 165 <200 mg/dL [facility] Comment:Desirable Cholestero l: less than 200 mg/dLBorderline High Cholesterol: 200-239 mg/dLHigh Cholesterol: greater than 239 mg/dL LDL Cholesterol Calculated 64 <100 mg/dL [facility] Comment:Desirable LDL: less than 100 mg/dLNear Optimal/Above Optimal LDL: 110- 129 mg/dLBorderline High LDL: 130-159 mg/dLHigh LDL: 160-189 mg/dLVery High LDL: greater than or equal to 190 mg/dL HDL Cholesterol 30(L) >40 mg/dL [facility] Comment:Desirable HDL: great er than 40 mg/dL Note: This HDL assay may give artificially low results in patients with liver disease. Blood Venous blood specimen / Unknown 02/25/2024 10:30 AM EDT 02/25/2024 11:10 AM EDT us Thalia Claudio MD LAB BLOOD ORDERABLES Final Res ult [facility] [address] [place] [phone] * HPV E6/E7 RFLX MONI 16 18/45 (05/30/2021 11:09 AM EST) HPV mRNA E6/E7 rflx Not Detected Not Detected [facility] Comment: Methodology: Accounts Payable Manager-Mediated Amplification This assay detects E6/E7 viral messenger RNA (mRNA) from 14 high-risk HPV types (16,18,31,33,35,39,45,51,52,56,58,59,66,68). The analytical performance characteristics of this assay have been determined by [employer]. The modifications have not been cleared or approved by the FDA. This assay has been validated pursuant to the CLIA regulations and is used for clinical purposes. For additional information, please refer to http://education.[employer]/faq/IPO500c6 (This link if provided for information/ educational purposes only.) THIS TEST WAS PERFORMED AT: [email or web address] [address] [place] [address] FLOOR,[place] [phone] JONNY MONTIEL MD 05/30/2021 11:0 9 AM EST [place] HISTORICAL/NON ORDERABLE LABS Fi nal Result [facility] [address] [place] [address] * Hm Colonoscopy (09/24/2016) Historical Provider HEALTH MAINTENANCE Final Result from Last 3 Months or Most Recently Relevant to Health Maintenance [facility] Care Teams Account Manager Trainee Relationship Specialty Start Date End Date Thalia Claudio MD [address] [place] [address] PCP - General Family Medicine 03/13/22
--- OUTSIDE RECORDS SUMMARY | 2025-03-15 11:48 | XMS_ITS | Encounter Summary ---
Author Organization [employer] Address [address] [place] [address] Care Team Providers Care Journeyman Operator Assistant Name Role Phone Thalia Claudio MD Primary Care Provider [phone] Reason for Visit * Reason Comments Med Refill Encounter Details Date Type Department Care Team ([facility] st Contact Info) Description 01/16/2025 Refill [facility] CHC MED & PEDS [address] [place], [place] [phone] Thalia Claudio MD [address] [place] [address] Social History Tobacco Use Types Packs/Day Years [...] on filedocumented in this encounter Care Teams Journeyman Operator Assistant Relationship Specialty Start Date End Date Thalia Claudio MD [address] [place] [address] PCP - General Family Medicine 03/13/22 documented as of this encounter
== END 2025-03-15 10:56 | disposition home or self-care (01) ==
LOC: HO.MAMMO 10:55
PROVIDERS: PCP General Practice; Visit Provider General Practice
DX: Z12.31 Encounter for screening mammogram for malignant neoplasm of breast (principal)
CPT/HCPCS: 77063; 77067

== ENCOUNTER → 2025-03-15 11:15 | Outpatient (BNV) | payer MEDICAID, SELFPAY | PROVIDERS: PCP General Practice; Visit Provider Radiology Body Imaging | DX: Z12.31 Encounter for screening mammogram for malignant neoplasm of breast (principal) | CPT/HCPCS: 77063; 77067 ==

== ENCOUNTER 2025-06-02 09:53 | Outpatient (REF) | payer MEDICAID, SELFPAY ==
[2025-06-02 12:09] LABS: MANUAL DIFF FLAG NO
[2025-06-02 12:22] LABS: Hematocrit 38.5 % (37.0-47.0); Hemoglobin 12.7 g/dl (12.0-16.0); Imm Gran Abs Auto 0.01 X10*3/uL (0.00-0.03); Imm Gran Pct Auto 0.2 % (0.0-0.4); Lymphocytes Absolute Auto 1.2 X10*3/uL (1.2-4.9); Mean Corpuscular HGB Conc 33.0 g/dl (31.0-35.0); Mean Corpuscular Hemoglobin 27.7 pg (27.0-33.0); Mean Corpuscular Volume 83.9 fL (80.0-98.0); NRBC Abs Auto 0.000 X10*3/uL (0.0-0.012); NRBC Pct Auto 0.0 /100WBC (0.0-0.2); Platelet Count 130 X10*3/uL (160-400); Red Blood Count 4.59 X10*6/uL (4.20-5.50); White Blood Count 5.5 X10*3/uL (4.8-10.8)
[2025-06-02 12:53] LABS: Alanine Aminotransferase 22 U/L (0-31); Albumin Level 4.8 g/dL (3.5-5.0); Alkaline Phosphatase 91 U/L (39-117); Anion Gap 11 (12-20); Aspartate Amino Transferase 36 U/L (5-31); Blood Urea Nitrogen 20 mg/dL (9-16); Calcium 9.9 mg/dL (8.4-10.2); Carbon Dioxide 31 mmol/L (22-29); Chloride 104 mmol/L (96-108); Cholesterol 114 mg/dL (<200); Estimated Glomerular Filt Rate > 60; HDL Cholesterol 30 mg/dL (>40); Potassium 3.9 mmol/L (3.3-5.1); Sodium 142 mmol/L (135-145); Total Protein 7.8 g/dL (6.5-8.0); Triglycerides 181 mg/dL (<150)
[2025-06-02 13:48] LABS: Microalbum/Creatinine Ratio Ur 9.9 ug/mg cr (<30)
--- OUTSIDE RECORDS SUMMARY | 2025-06-02 15:04 | XMS_ITS | Clinical Summary ---
Author Organization [facility] Address [address] [place] [address], [place] [address] Care Team Providers Care Weir Fisher Name Role Phone Natalie Bean Primary Care Provider [phone] Allergies Active Allergy Reactions Criticality Noted Date [...] and Trulicity Gentle exercise encouraged Re-refer to [facility] vision care Cont statin F/u in [...] to 49 Years) Discontinued 09/20/2011 [place] Care Teams Weir Fisher Relationship Specialty Start Date End Date Natalie Bean PCP - General Family Medicine 11/22/21
== END 2025-06-02 09:54 | disposition home or self-care (01) ==
LOC: HO.LAB 09:53
PROVIDERS: Absent Provider General Practice; PCP General Practice; Visit Provider Nurse Practitioner
DX: K80.20 Calculus of gallbladder without cholecystitis without obstruction (principal); E11.9 Type 2 diabetes mellitus without complications; Z79.899 Other long term (current) drug therapy
CPT/HCPCS: 36415; 80053; 80061; 82043; 82570; 83036; 85025; 99212

== ENCOUNTER 2025-06-02 09:53 | Outpatient (AMB) | payer MEDICAID, SELFPAY ==
--- OUTSIDE RECORDS SUMMARY | 2025-05-30 14:00 | XMS_ITS | Encounter Summary ---
Author Organization [employer] Address [address] [place] [address] 7 [place] [address] Care Team Providers Care Sports Book Writer Name Role Phone Thalia Claudio MD Primary Care Provider [phone] Reason for Referral * Consultation (Routine) - Authorized Specialty Diagnoses / Procedures Referred By Contmadeline t Referred To Contact Orthopaedic Surgery Diagnoses Primary osteoarthritis of right knee Thalia Claudio MD [address] [place] [id number] Phone: tel: fax: [address] Phone: tel: fax: Referral ID Status Reason Start Date Expiration Date Visits Requested Visits Authorized [id number] Authorized Specialty Services Required 05/30/2026 6 6 Reason for Visit * Reason Comments Follow-up DM Encounter Details Date Type Department Care Team (Latest Contact Info) Description 05/30/2025 2:00 PM EST Office Visit [facility] [address] [place], [place] [phone] Thalia Claudio MD [address] [place], [place] [phone] Type 2 diabetes mellitus without complication, without long-term current use of insulin (HCC) (Primary Dx); Cirrhosis of liver without ascites, unspecified hepatic cirrhosis type (HCC); Dyslipidemia with low high density lipoprotein (HDL) cholesterol with hypertriglyceridemia due to type 2 diabetes mellitus (HCC); Essential (primary) hypertension; Class 3 severe obesity with serious comorbidity and body mass index (BMI) of 40.0 to 44.9 in adult, unspecified obesity type (HCC); Smoker; Primary osteoarthritis of right knee Social History Tobacco Use Types Packs/Day Years Used Date Smoking Tobacco: Every Day Cigarettes Passive Smoke Exposure: Current Smokeless Tobacco: Never Alcohol Use Standard Drinks/Week Comments Never 0 (1 standard drink = 0.6 oz pur e alcohol) Depression Answer Date Recorded Patient Health Questionnaire-9 Score 11 05/30/2025 Patient Health Questionnaire-9 Score 11 05/30/2025 Last PHQ-9: Questionnaire Data Not on file 1 07/30/2024 Housing Stability Answer Date Recorded What is [...] Date Recorded Patient Health Questionnaire-2 Score 2 05/30/2025 Internet Access Answer Date Recorded Internet Access Q1 Yes 03/19/2024 Internet Access Q2 Not on file 03/19/2024 Comments Unknown Sex and Gender Information Value Date Recorded Sex Assigned at Female 05/20/2022 10:16 AM EDT Legal Sex Female 10:16 AM EDT Gender Identity Female 05/20/2022 10:16 AM EDT Sexual Orientation Straight 05/20/2022 10 :16 AM EDT documented as of this encounter Last Filed Vital Signs Vital Sign Reading Time Taken Comments Blood Pressure 118/60 05/30/2025 1:41 PM EST Pulse 83 05/30/2025 1:41 PM EST Temperature 36.2 C (97.2 F) 05/30/2025 1:41 PM EST Respiratory Rate 20 05/30/2025 1:41 PM EST Oxygen Saturation 98% 05/30/2025 1:41 PM EST Inhaled Oxygen Concentration - - Weight 102 kg (225 lb 3.2 oz) 05/30/2025 1:41 PM EST Height 167.6 cm (5' 6 ) 05/30/2025 1:41 PM EST Body Mass Index 36.35 05/30/2025 1:41 PM EST documented in this encounter Functional Status * Over the past 2 weeks, how often have you been bothered by any of the following problems? Question Answer Date of Assessment Author Patient Health Questionnaire -2 Score 2 05/30/2025 2:45 PM EST Micaela Arzate MA * Little interest or pleasure in doing things Answer Date of Assessment Author Several days 05/30/2025 2:45 PM EST Micaela Arzate MA * Feeling down, depressed, or hopeless Answer Date of Assessment Author Several days 05/30/2025 2:45 PM EST Micaela Arzate MA * Trouble falling or staying asleep, or sleeping too much Answer Date of Assessment Author Nearly every day 05/30/2025 2:45 PM EST Micaela Arzate MA * Feeling tired or having little energy Answer Date of Assessment Author Several days 05/30/2025 2:45 PM EST Micaela Arzate MA * Poor appetite or overeating Answer Date of Assessment Author Nearly every day 05/30/2025 2:45 PM EST Micaela Arzate MA * Feeling bad about yourself - or that you are a failure or have let yourself or your family down Answer Date of Assessment Author Several days 05/30/2025 2:45 PM EST Micaela Arzate MA * Trouble concentrating on things, such as reading the newspaper or watching television Answer Date of Assessment Author Several days 05/30/2025 2:45 PM EST Micaela Arzate MA * Moving or speaking so slowly that other people could have noticed? Or the opposite - being so fidgety or restless that you have been moving around a lot more than usual. Answer Date of Assessment Author Not at all 05/30/2025 2:45 PM Micaela Howell MA * Thoughts that you would be better off or hurting yourself in some way Answer Date of Assessment Author Not at all 05/30/2025 2:45 PM Micaela Howell MA * Patient Health Questionnaire-9 Score Answer Date of Assessment Author 11 05/30/2025 2:45 PM Micaela Howell MA * How difficult have these problems made it for you to do your work, take care of things at home, or get along with other people? Answer Date of Assessment Author Somewhat difficult 05/30/2025 2:45 PM Micaela Phan MA documented as of this encounter Progress Notes * Thalia Claudio MD - 05/30/2025 2:00 PM EST SUBJECTIVE: Camila Dumont is a 60 y.o. female who presents for chronic disease management. Denies recent illness, ER visit, or hospitalization. Acute Concerns: Needs surgical referral for removal of excess skin when she is at her goal weight of 190 pounds Chronic Conditions and Plans: Diabetes Type 2 A1c 5.5 Currently taking Ozempic 1mg weekly and metformin 500 mg daily. Referral to [facility] eye care for TRISTIN Podiatry referral placed 02/2024 On Crestor 10mg On ARB and ASA HTN On hydrochlorothiazide, Irbesartan 130s/80s at home, per pt Not at goal here today Hypothyroidism Synthroid 100mcg daily Depression Zoloft 50mg, Trazodone 50mg nightly, Buspar 10mg TID Back pain: stable On Tramadol 2-3 times daily from Rheum R knee OA 12/[address] Mcclain, synvisc PA started, Tramadol 2-3 times daily 09/28/24 R knee injection with steroid 01/13/[address] novoa for ankle pain Requests injections of knee synvisc Current smoker: cutting down with gum Microcytic Iron-deficiency anemia: Taking iron supplementation daily Lab Results Component Value Date HGB 12.4 02/25/2024 HGB 11.3 (A) 10/07/2023 HGB 8.9 (L) 12/23/2022 HGB 8.4 (A) 12/23/2022 HGB 10.6 (L) 09/19/2022 HGB 13.3 08/01/2021 Abnormal Uterine Bleeding s/p hysterectomy 01/2024 at [facility] Has healed well, no chronic pain 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 The visualized pancreatic head and body are normal in appearance. The remainder of the pancreas is obscured from visualization by the overlying bowel gas. ABDOMINAL AORTA: The proximal and mid segments are normal in caliber. The distal segment is largelyobscured by overlapping bowel gas. INFERIOR VENA CAVA: Visualized portions are normal. LIVER: There is hepatomegaly, with a longitudinal span of 21.0 cm. The hepatic contour is lobulated. There is diffuse increased liver parenchymal echogenicity. No focal hepatic lesion. There is no intrahepatic biliary duct dilatation seen. GALLBLADDER: Multiple shadowing, mobile gallstones are present. No evidence of gallbladder wall thickening or pericholecystic fluid. COMMON BILE DUCT: Top normal in caliber, measuring 0.8 cm in diameter. RIGHT KIDNEY: Multiple simple cysts are seen, the largest at the upper pole, measuring 7.6 cm in maximal diameter. No hydronephrosis or renal calculi. The kidney measures 15.9 cm in maximum dimension. LEFT KIDNEY: Multiple cysts are seen, the largest at the interpolar aspect. Measuring 6.0 x 4.506 20 cm, with a fine septation. This shows no mural nodularity or associated color Doppler flow. At thelower pole, a 5 mm nonobstructing calculus is seen, with twinkle artifact. No hydronephrosis. The kidney measures 15.0 cm in maximum dimension. SPLEEN: No focal finding. The spleen measures 20.1 cm in maximum dimension. IMPRESSION: 1. There is increase in hepatic echotexture and surface nodularity, consistent with the provided history of cirrhosis. 2. There is hepatosplenomegaly. 3. Findings are again consistent with polycystic kidney disease. A dominant, 6.8 cm in maximal diameter mildly complex cyst at the interpolar left kidney shows a mildly complex appearance, with fine septation. 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 Female stress incontinence 09/15/2018 Thrombocytopenia (CMS/HCC) 06/16/2018 Dyslipidemia with low high density lipoprotein (HDL) cholesterol with hypertriglyceridemia due to type 2 diabetes mellitus (HCC) 10/15/2017 Cirrhosis of liver (CMS/HCC) (HCC) 05/19/2017 Hepatitis B antibody positive 05/19/2017 Allergic rhinitis 08/28/2015 Constipation 08/28/2015 Depressive disorder 08/28/2015 Essential (primary) hypertension 08/28/2015 Gastroesophageal reflux disease 08/28/2015 Hypothyroidism 08/28/2015 Obesity 08/28/2015 Smoker 08/28/2015 Type 2 diabetes mellitus without complication 08/28/2015 Surgical History[1] Social History Social History Narrative Not on file Review of Systems Constitutional: Negative. Respiratory: Negative. Cardiovascular: Negative. Musculoskeletal: Positive for arthralgias. OBJECTIVE: Vitals: 05/30/25 1341 BP: 118/60 BP Location: Left arm Patient Position: Sitting BP Cuff Size: Large adult Pulse: 83 Resp: 20 Temp: 97.2 ??F (36.2 ??C) TempSrc: Oral SpO2: 98% Weight: 225 lb 3.2 oz (102 kg) Height: 5' 6 (1.676 m) Physical Exam Vitals reviewed. Constitutional: Appearance: Normal appearance. HENT: Head: Normocephalic and atraumatic. Cardiovascular: Rate and Rhythm: Normal rate and regular rhythm. Pulses: Dorsalis pedis pulses are 2+ on the right side and 2+ on the left side. Posterior tibial pulses are 2+ on the right side and 2+ on the left side. Heart sounds: Normal heart sounds. Pulmonary: Effort: Pulmonary effort is normal. Breath sounds: Normal breath sounds. Musculoskeletal: Right foot: Normal range of motion. No deformity. Left foot: Normal range of motion. No deformity. Feet: Right foot: Protective Sensation: 6 sites tested. 6 sites sensed. Skin integrity: Skin integrity normal. Toenail Condition: Right toenails are normal. Left foot: Protective Sensation: 6 sites tested. 6 sites sensed. Skin integrity: Skin integrity normal. Toenail Condition: Left toenails are normal. Skin: General: Skin is warm and dry. Neurological: General: No focal deficit present. Mental Status: She is alert and oriented to person, place, and time. Psychiatric: Mood and Affect: Mood normal. Behavior: Behavior normal. ASSESSMENT/PLAN Assessment & Plan Cirrhosis of liver without ascites, unspecified hepatic cirrhosis type (HCC): - Cirrhosis of liver without ascites, unspecified hepatic cirrhosis type. - Ordered laboratory tests to monitor liver function. Dyslipidemia with low high density lipoprotein (HDL) cholesterol with hypertriglyceridemia due to type 2 diabetes mellitus (HCC): - Dyslipidemia with low HDL cholesterol and hypertriglyceridemia due to type 2 diabetes mellitus. - Ordered laboratory tests to monitor cholesterol and lipid profile. Essential (primary) hypertension: - Essential (primary) hypertension. - Ordered laboratory tests to monitor kidney function and blood pressure. Class 3 severe obesity with serious comorbidity and body mass index (BMI) of 40.0 to 44.9 in adult,unspecified obesity type (HCC): - Class 3 severe obesity with serious comorbidity and BMI of 40.0 to 44.9. - Advised to maintain weight at goal prior to referral for plastic surgery for excess skin removal.Referral to plastic surgery to be placed once weight is stable at target. Encouraged home exercise as tolerated. Smoker: - Smoker. Type 2 diabetes mellitus without complication, without long-term current use of insulin (HCC): - Type 2 diabetes mellitus without complication, well controlled (A1c 5.5). - Ordered laboratory tests to monitor urine for protein, liver and kidney function, and cholesterol. Continue current management. Menopausal symptoms (hot flashes, insomnia): - Menopausal symptoms including hot flashes and insomnia, likely related to final menopause transition. - Prescribed Paxil at a small dose to be taken at nighttime for management of hot flashes and insomnia. Joint pain in knees: - Joint pain in knees. - Offered referral to orthopedics for evaluation and possible injection therapy. Prescription - Paroxetine (Paxil), small dose, nightly Problem List Items Addressed This Visit Cirrhosis of liver (CMS/HCC) (HCC) Dyslipidemia with low high density lipoprotein (HDL) cholesterol with hypertriglyceridemia due to type 2 diabetes mellitus (HCC) Essential (primary) hypertension Obesity Smoker Other Visit Diagnoses Type 2 diabetes mellitus without complication, without long-term current use of insulin (HCC) - Primary Relevant Orders Lipid Panel, Standard Hemoglobin A1c Albumin, Random Urine W/Creatinine POCT Glucose (Completed) POCT Hgb A1c (Completed) Primary osteoarthritis of right knee Relevant Medications Diclofenac Sodium 1 % gel Other Relevant Orders Referral to Orthopaedic Surgery Follow Up: 4-6 months or sooner prn Allergies[2] Current Medications[3] [place] Islander Translation: Provided by [facility] staff member MIRANDA Hinojosa This note was drafted using Ambient (AI) technology. The patient/patient's guardian has been informed and has consented to the use of this technology: Yes [1] History reviewed. No pertinent surgical history. [2] Allergies Allergen Reactions Lisinopril Angioedema and Swelling [3] Current Outpatient Medications: Diclofenac Sodium 1 % gel, APPLY 4 GRAMS TOPICALLY TO KNEES FOUR TIMES DAILY DIRECTED, Disp: , Rfl: Acetaminophen Extra Strength 500 MG tablet, Take 2 tablets by mouth every 8 (eight) hours., Disp: ,Rfl: busPIRone (Buspar) 10 MG tablet, TAKE 1 TABLET BY MOUTH THREE TIMES DAILY IN THE MORNING, EVENING, AND BEDTIME, Disp: 90 tablet, Rfl: 3 fluticasone (Flonase) 50 MCG/ACT nasal spray, INSTILL 1-2 SPRAYS IN EACH NOSTRIL ONCE DAILY, Disp: 48 g, Rfl: 3 gabapentin (Neurontin) 600 MG tablet, TAKE 1 TABLET BY MOUTH THREE TIMES DAILY IN THE MORNING, EVENING, AND BEDTIME, Disp: 90 tablet, Rfl: 3 glucose blood test strip, Test blood sugar twice daily, Disp: 100 each, Rfl: 11 hydroCHLOROthiazide (HYDRODiuril) 25 MG tablet, TAKE 1 TABLET BY MOUTH EVERY MORNING, Disp: 90 tablet, Rfl: 3 irbesartan (Avapro) 75 MG tablet, TAKE 1 TABLET BY MOUTH EVERY MORNING, Disp: 90 tablet, Rfl: 3 levothyroxine (Synthroid, Levoxyl) 100 MCG tablet, TAKE 1 TABLET BY MOUTH EVERY MORNING, Disp: 90 tablet, Rfl: 3 Linzess 145 MCG capsule, Take 145 mcg by mouth in the morning., Disp: , Rfl: loratadine (Claritin) 10 MG tablet, TAKE 1 TABLET BY MOUTH EVERY MORNING, Disp: 90 tablet, Rfl: 3 nicotine polacrilex (Nicorette) 2 MG gum, CHEW 1 PIECE IN MOUTH EVERY 2 HOURS NEEDED DIRECTED, Disp: 110 each, Rfl: 3 omeprazole (PriLOSEC) [address] capsule, Take 1 capsule by mouth 2 times daily., Disp: , Rfl: Ozempic, 1 MG/DOSE, 4 MG/3ML solution pen-injector, INJECT 1 MG SUBCUTANEOUSLY ONCE A WEEK, Disp: 3mL, Rfl: 11 PARoxetine (Paxil) 10 MG tablet, Take 1 tablet (10 mg) by mouth in the evening. For hot flashes, Disp: 90 tablet, Rfl: 3 rosuvastatin (Crestor) 10 MG tablet, TAKE 1 TABLET BY MOUTH AT BEDTIME, Disp: 90 tablet, Rfl: 3 senna (Senokot) 8.6 MG tablet, TAKE 2 TABLETS BY MOUTH AT BEDTIME NEEDED FOR CONSTIPATION, Disp:180 tablet, Rfl: 0 sertraline (Zoloft) 50 MG tablet, TAKE 1 TABLET BY MOUTH EVERY MORNING, Disp: 90 tablet, Rfl: 3 simethicone (Mylicon) 125 MG chewable tablet, chew one tablet by mouth four times daily as needed for gas, Disp: , Rfl: traMADol (Ultram) 50 MG tablet, Take 1 tablet by mouth every 6 (six) hours., Disp: , Rfl: traZODone (Desyrel) 50 MG tablet, TAKE 1 TABLET BY MOUTH AT BEDTIME, Disp: 90 tablet, Rfl: 3 TRUEplus Lancets 33G misc, 1 each by Subdermal route in the morning, at noon, and at bedtime., Disp: , Rfl: documented in this encounter Plan of Treatment Scheduled Orders Name Type Priority Associated Diagnoses Orde r Schedule Lipid Panel, Standard Lab Routine Type 2 diabetes mellitus without complication, without long-term current use of insulin (HCC) Expected: 05/30/2025 (Approximate), Expires: 05/30/2026 Hemoglobin A1c Lab Routine Type 2 diabetes mellitus without complication, without long-term current use of insulin (HCC) Expected: 05/30/2025 (Approximate), Expires: 05/30/2026 Albumin, Random Urine W/Creatinine Lab Routine Type 2 diabetes mellitus without complication, without long-term current use of insulin (HCC) Expected: 05/30/2025 (Approximate), Expires: 05/30/2026 Scheduled Referrals Name Type Priority Associated Diagnoses Orde r Schedule Referral to Orthopaedic Surgery Outpatient Referral Routine Primary osteoarthritis of right knee Expected: 05/30/2025 (Approximate), Expires: 05/30/2026 documented as of this encounter Procedures Procedure Name Priority Date/Time Associated Diagnosis Comments POCT GLYCATED HEMOGLOBIN, TOTAL Routine 05/30/2025 1:49 PM EST Type 2 diabetes mellitus without complication, without long-term current use of insulin (HCC) POCT GLUCOSE Routine 05/30/2025 1:40 PM EST Type 2 diabetes mellitus without complication, without long-term current use of insulin (HCC) documented in this encounter Results * POCT Hgb A1c (05/30/2025 1:49 PM EST) Hemoglobin A1C 5.5 4.0 - 5.7 % QC Media Lot # [id number] Lot# Expiration Date 52,327 Blood 05/30/2025 1:49 PM EST Result [facility] us Thalia Claudio MD POINT OF CARE TEST ENTER/EDIT ORDERABLES Final Result * POCT Glucose (05/30/2025 1:40 PM EST) Glucose Blood, POC 154 60 - 200 mg/dL QC Media Lot # [id number] Lot# Expiration Date 31,126 Blood Capillary blood specimen / Unknown 05/30/2025 1:40 PM EST us Thalia Claudio MD POINT OF CARE TEST ENTER/EDIT ORDERABLES Final Result documented in this encounter Visit Diagnoses Diagnosis Type 2 diabetes mellitus without complication, without long-term current use of insulin (HCC)- Primary Cirrhosis of liver without ascites, unspecified hepatic cirrhosis type (HCC) Dyslipidemia with low high density lipoprotein (HDL) cholesterol with hypertriglyceridemia due to type 2 diabetes mellitus (HCC) Essential (primary) hypertension Unspecified essential hypertension Class 3 severe obesity with serious comorbidity and body mass index (BMI) of 40.0 to 44.9 in adult, unspecified obesity type (HCC) Smoker Tobacco use disorder Primary osteoarthritis of right knee documented in this encounter Additional Health Concerns Assessment Noted Time PHQ-9 Depression Total Score: 11 025 2:45 PM EST documented as of this encounter Care Teams Sports Book Writer Relationship Specialty Start Date End Date Thalia Claudio MD [address] [place] [id number] PCP - General Family Medicine 03/13/22 documented as of this encounter
--- NOTE | 2025-06-02 10:57 | MHC.OFFVIS ---
Vital Signs 06/02/25 10:59 Height 5 ft 6 in Weight 223 lb BMI 36.0 BP 102/59 L Blood Pressure Location Lt brachial Position Sitting Pulse 86 Intake Visit Reasons: 3 mos FUV. Intake Note: Camila presents to in office follow up of SIBO. CC: Patient c/o abdominal discomfort and abdominal burning sensation. Patient states that sometimes he can see undigested in her stools. Substation Technician Required: Yes Accompanied by: Self / Same As Patient Allergies lisinopril Allergy (Verified 06/02/25 11:04) Swelling SEASONAL ALLERGIES Allergy (Mild, Uncoded 01/08/24 07:51) SNEEZING HPI HPI 3 mos FUV.: Details: Assessment & Plan (1) Small intestinal bacterial overgrowth (SIBO), hydrogen sulfide subtype: Code(s): K63.8212 - Small intestinal bacterial overgrowth, hydrogen sulfide-subtype Category: Medical (2) Constipation: Code(s): K59.00 - Constipation, unspecified Category: Medical (3) GERD (gastroesophageal reflux disease): Code(s): K21.9 - Gastro-esophageal reflux disease without esophagitis Category: Medical Plan SOMALI # Vivi and KACIE live The flagyl relieved the bloating. Educated that sx may return and we will re treat. She continues on her omeprazole 20 mg twice a day, Linzess 145 micro g daily, senna and Colace daily and simethicone. ROV 3 mos. TODAY'S VISIT [place] # [facility] Medical History Iron deficiency anemia Splenomegaly Normal colonoscopy Menorrhagia Hepatitis C Primary osteoarthritis of right knee Primary osteoarthritis of left knee Abnormal uterine bleeding Uterine fibroid Encounter to discuss test results Encounter for annual routine gynecological examination Encounter for medication monitoring Well woman exam Constipation Rhinitis Obesity Hypothyroidism Type 2 diabetes mellitus HTN (hypertension) GERD (gastroesophageal reflux disease) Surgical History Hx of tubal ligation Hx of colonoscopy Family History Mother Diabetes High blood pressure Father Alzheimer disease Social History Household Members: Spouse Housing: House Alcohol intake: never Patient Tobacco Use Status: Current someday Tobacco user Cigarettes Per Day: 3 service: No Current occupational status: disabled Sexual orientation: Straight/Heterosexual Gender identity: Female Female Reproductive History Menstrual Age of Menarche: 11 Review of Systems Const Denies fatigue, Denies fever(s), Denies night sweats, Denies poor appetite and Denies weight loss ENT Reports Normal hearing present, Denies dental pain, Denies dysphagia, Denies hearing loss, Denies mouth pain, Denies odynophagia, Denies throat swelling, Denies tongue swelling and Reports other (Dentition adequate) Card Reports no additional complaints Resp Reports no additional complaints GI Details: Denies abdominal pain, Denies melena, Reports bloating, Denies hematochezia, Reports constipation, Denies GI cramping, Denies dysphagia, Denies excessive flatus, Denies early satiety, Reports dyspepsia, Reports heartburn, Denies diarrhea, Denies nausea, Denies odynophagia, Denies vomiting and Denies hematemesis Skin/Breast Denies pruritus, Denies lesions, Denies rash and Denies jaundice Neuro Reports Normal hearing present and Denies Abnormal speech present Endo Denies fatigue Aller/Immun Denies throat swelling and Denies tongue swelling Physical Exam Vital Signs: Last Vital Signs Pulse 86 06/02/25 10:59 BP 102/59 L 06/02/25 10:59 BMI result Body Mass Index 36.0 Const General: cooperative, no acute distress, well developed and well groomed Nutritional Appearance: well nourished and obese Orientation/consciousness: oriented to person, oriented to place and oriented to time Limitations: language barrier HEENT Head: Yes normocephalic and Yes atraumatic Eyes General: appearance normal, both eyes and all related structures Pupils: Equal, round and reactive pupils present Neck Neck: Yes normal visual inspection and Yes no lymphadenopathy Thyroid: Thyroid normal Resp Effort & Inspection: normal respiratory effort and able to speak in complete sentences Auscultation: clear to auscultation bilaterally Cardio Rate: regular rate Rhythm: regular rhythm Heart sounds: Normal, physiologic split S2 sound present Peripheral pulses: radial pulses present and posterior tibial pulses present GI Inspection: No distended, Yes Abdominal panniculus present and Yes obesity Palpation (GI): Soft to palpation, nontender, no guarding, not rigid and No hepatosplenomegaly present Percussion: Yes normal to percussion Auscultation: normal bowel sounds Rectal Exam - Female: deferred Skin General skin exam: no rashes or lesions noted, turgor normal, skin not dry, no jaundice, No spider nevi and no striae Rashes: no rashes Nails: normal Neuro General: oriented to person, oriented to place and oriented to time Cranial nerves: Yes Equal, round and reactive pupils present and Yes Normal hearing present Speech: No Abnormal speech present Extrem General: Yes normal to inspection, No clubbing, No cyanosis and No edema Psych Appearance: grossly normal and well kempt Mental Status: mental status grossly normal Speech and movement: Normal speech and movement present Affect: normal affect Attitude: cooperative Thought process: Normal thought process present and not confabulating Thought content: Normal thought content present Insight: Good insight present (Psych) Judgement: Good judgement present (Psych) Assessment & Plan Assessment & Plan (1) Gallstones: Code(s): K80.20 - Calculus of gallbladder without cholecystitis without obstruction Category: Medical Plan [place] #[employer] She continues on her omeprazole 20 mg twice a day, Linzess 145 micro g daily, senna and Colace daily and simethicone. she is generally satisfied with her GI regimen, but does report occasional feeling of dyspepsia and pain/ burning sensation in the epigastrium of the stomach. She is uncertain what foods might set it off. She does have a history of gallstones seen several years ago and I suggest that she avoid fatty foods and we will get a repeat ultrasound to see if this has progressed and maybe the cause of her intermittent problem. I let her know that the only real treatment for this is to avoid high fat foods and/or consider cholecystectomy. However it is not always a good idea to shabazz into cholecystectomy if she is not having severe pain bloating etc.. She is quite agreeable to getting the ultrasound. Return office visit after ultrasound Orders: Orders Comprehensive Met. Panel Today K80.20 - Calculus of gallbladder without cholecystitis without obstruction Complete Blood Count Auto Diff Today K80.20 - Calculus of gallbladder without cholecystitis without obstruction US abdomen complete Today K80.20 - Calculus of gallbladder without cholecystitis without obstruction Medications: Refilled linaclotide (Linzess) 145 mcg PO QAM 30 caps 6RF K59.00 - Constipation, unspecified omeprazole 20 mg PO BID 60 caps 6RF K21.9 - Gastro-esophageal reflux disease without esophagitis sennosides (senna) 25.8 mg (3 x 8.6 mg) PO BEDTIME 90 tabs 6RF for constipation simethicone 125 mg PO QID PRN 90 tabs 6RF gas Coding Level of Care Code Est Pt Level 3 (12107) Diagnoses Gallstones K80.20
[2025-06-02 10:59] VITALS: BP 102/59; PULSE 86; BMI 36.0
--- OUTSIDE RECORDS SUMMARY | 2025-06-02 11:41 | XMS_ITS | Encounter Summary ---
Author Organization [employer] Address [address] [facility] 7t [place] [address] Care Team Providers Care Eyelet Row Marker Name Role Phone Thalia Claudio MD Primary Care Provider [phone] Reason for Visit * Reason Onset Date Comments Med Refill 01/08/2024 Encounter Details Date Type Department Care Team ([facility] Contact Info) Description 01/08/2024 Telephone [facility] MED[facility]INE [address] [place], [place] [phone] Thalia Claudio MD [address] [place], [place] [phone] Med Refill Social History Tobacco Use Types [...] t he electric, gas, oil or water [facility] threatened to shut off services in your [...] 2 MG gum To be sent to: [facility] documented in this encounter Plan of Treatment Not on file documented as of this encounter Visit Diagnoses Not on filedocumented in this encounter Care Teams Eyelet Row Marker Relationship Specialty Start Date End Date Thalia Claudio MD [address] [place] [address] PCP - General Family Medicine 03/13/22 documented as of this encounter
--- OUTSIDE RECORDS SUMMARY | 2025-06-02 11:41 | XMS_ITS | Encounter Summary ---
Author Organization [employer] Address [address] [facility] 7t [place] [address] Care Team Providers Care Banquet Director Name Role Phone Thalia Claudio MD Primary Care Provider [phone] Encounter Details Date Type Department Care Team (Latest Contact Info) Description 05/30/2025 Travel Social History Tobacco Use Types Packs/Day Years [...] AM EDT documented as of this encounter Functional Status * Over the past 2 weeks, how often have you been bothered by any of the following problems? Question Answer Date of Assessment Author Patient Health Questionnaire -2 Score 2 05/30/2025 2:45 PM Micaela Howell MA * Little interest or pleasure in doing things Answer Date of Assessment Author Several days 05/30/2025 2:45 PM Micaela Howell MA * Feeling down, depressed, or hopeless Answer Date of Assessment Author Several days 05/30/2025 2:45 PM Micaela Howell MA * Trouble falling or staying asleep, or sleeping too much Answer Date of Assessment Author Nearly every day 05/30/2025 2:45 PM Micaela Howell MA * Feeling tired or having little energy Answer Date of Assessment Author Several days 05/30/2025 2:45 PM Micaela Howell MA * Poor appetite or overeating Answer Date of Assessment Author Nearly every day 05/30/2025 2:45 PM Micaela Howell MA * Feeling bad about yourself - or that you are a failure or have let yourself or your family down Answer Date of Assessment Author Several days 05/30/2025 2:45 PM Micaela Howell MA * Trouble concentrating on things, such as reading the newspaper or watching television Answer Date of Assessment Author Several days 05/30/2025 2:45 PM Micaela Howell MA * Moving or speaking so slowly [...] Phan MA documented as of this encounter Plan of Treatment Not on file documented as of this encounter Visit Diagnoses Not on filedocumented in this encounter Additional Health Concerns Assessment Noted Time PHQ-9 Depression Total Score: 025 2:45 PM EST documented as of this encounter Care Teams Banquet Director Relationship Specialty Start Date End Date Thalia Claudio MD [address] [place] [address] [place] [phone] PCP - General Family Medicine 03/13/22 documented as of this encounter
--- OUTSIDE RECORDS SUMMARY | 2025-06-02 11:41 | XMS_ITS | Encounter Summary ---
Author Organization [employer] Address [address] [facility] 7t [place] [address] Care Team Providers Care Singing Waiter Or Waitress Name Role Phone Thalia Claudio MD Primary Care Provider [phone] Encounter Details Date Type Department Care Team ([facility] st Contact Info) Description 03/26/2023 Orders Only [facility] MEDICINE [address] [place] [address] ProviderCindy MD Social History Tobacco Use Types [...] Load <15 NOT DETECTED NOT DETECTED IU/mL [facility] HCV Log PCR <1.18 NOT DETECTED NOT DETECTED Log IU/mL [facility] Comment:For additional infor islvano, please refer tohttp://education.[employer]/faq/KKF37i5(This link is being provided for informational/educational purposes only.)THIS TEST WAS PERFORMED AT:[facility] [place] [id number] MONTIEL MD 02/25/2024 10:3 0 AM EDT 02/26/2024 9:19 AM EDT Thalia Claudio MD LAB BLOOD ORDERABLES Final Res ult Performing Organization Address [facility] Co de Phone Number [facility] [address] [place] [phone] * Slide Review (02/25/2024 10:30 AM EDT) Slide Review VERIFIED [facility] 02/25/2024 10:3 0 AM EDT 02/25/2024 11:10 AM EDT Thalia Claudio MD LAB BLOOD ORDERABLES Final Res ult Performing Organization Address [facility] de Phone Number [facility] [address] [place] [address] [phone] * Colonoscopy (09/24/2016) Historical Provider HEALTH MAINTENANCE Final Result documented in this encounter Visit Diagnoses Not on filedocumented in this encounter Care Teams Singing Waiter Or Waitress Relationship Specialty Start Date End Date Thalia Claudio MD [address] [place] [phone] PCP - General Family Medicine 03/13/22 documented as of this encounter
--- OUTSIDE RECORDS SUMMARY | 2025-06-02 11:41 | XMS_ITS | Encounter Summary ---
Author Organization [employer] Address [address] [facility] 7t [place] [address] Care Team Providers Care Business Analytics Manager Name Role Phone Thalia Claudio MD Primary Care Provider [phone] Reason for Visit * Reason Comments Med Refill Encounter Details Date Type Department Care Team ([facility] st Contact Info) Description 05/23/2025 Refill [facility] MEDICINE [address] [place] [address] Thalia Claudio MD [address] [place], [place] [phone] Essential (primary) hypertension Social History Tobacco Use Types Packs/Day Years [...] as of this encounter Visit Diagnoses Diagnosis Essential (primary) hypertension Unspecified essential hypertension documented in this encounter Care Teams Business Analytics Manager Relationship Specialty Start Date End Date Thalia Claudio MD [address] [place] [address] PCP - General Family Medicine 03/13/22 documented as of this encounter
--- OUTSIDE RECORDS SUMMARY | 2025-06-02 11:41 | XMS_ITS | Encounter Summary ---
Author Organization [email or web address] Address [address] 7t [place] [address] Care Team Providers Care Skilled Nursing Professional Name Role Phone Thalia Claudio MD Primary Care Provider Reason for Visit * Reason Comments Med Refill Encounter Details Date Type Department Care Team ([facility] st Contact Info) Description 01/16/2025 Refill [facility] PEDS [address] [place], [place] [phone] Thalia Claudio MD [address] [place] [address] Social History Tobacco Use Types Packs/Day Years [...] on filedocumented in this encounter Care Teams Skilled Nursing Professional Relationship Specialty Start Date End Date Thalia Claudio MD [address] [place] [address] PCP - General Family Medicine 03/13/22 documented as of this encounter
--- OUTSIDE RECORDS SUMMARY | 2025-06-02 11:41 | XMS_ITS | Encounter Summary ---
Author Organization [employer] Address [address] [address] 7[address] [place] [address] Care Team Providers Care City Distribution Clerk Name Role Phone Thalia Claudio MD Primary Care Provider [phone] Reason for Visit * Reason Comments Med Refill Encounter Details Date Type Department Care Team ([facility] st Contact Info) Description 08/25/2024 Refill [facility] MED & PEDS [address] [place], [place] [phone] Thalia Claudio MD [address] [place] [address] Low back pain at multiple sites Social [...] sites documented in this encounter Care Teams City Distribution Clerk Relationship Specialty Start Date End Date Thalia Claudio MD [address] [place] [address] PCP - General Family Medicine 03/13/22 documented as of this encounter
--- OUTSIDE RECORDS SUMMARY | 2025-06-02 11:42 | XMS_ITS | Encounter Summary ---
Author Organization [employer] Address [address] [place] [address] 7t [place] [address] Care Team Providers Care Food Trades Assistants Name Role Phone Thalia Claudio MD Primary Care Provider [phone] Reason for Visit * Reason Comments Med Refill Encounter Details Date Type Department Care Team ([facility] st Contact Info) Description 03/06/2023 Refill [facility] MEDICINE [address] [place], [place] [phone] Thalia Claudio MD [address] [place], [place] [phone] Social History Tobacco Use Types Packs/Day Years [...] on filedocumented in this encounter Care Teams Food Trades Assistants Relationship Specialty Start Date End Date Thalia Claudio MD [address] [place] [phone] PCP - General Family Medicine 03/13/22 documented as of this encounter
--- OUTSIDE RECORDS SUMMARY | 2025-06-02 11:42 | XMS_ITS | Encounter Summary ---
Author Organization [employer] Address [address] [place] [address] 7t [place] [address] Care Team Providers Care Inclusion Intern Name Role Phone Thalia Claudio MD Primary Care Provider [phone] Reason for Visit * Reason Comments Med Refill Encounter Details Date Type Department Care Team ([facility] st Contact Info) Description 03/04/2023 Refill [facility] MEDICINE [address] [place], [place] [phone] Thalia Claudio MD [address] [place], [place] [phone] Social History Tobacco Use Types Packs/Day Years [...] on filedocumented in this encounter Care Teams Inclusion Intern Relationship Specialty Start Date End Date Thalia Claudio MD [address] [place] [address] PCP - General Family Medicine 03/13/22 documented as of this encounter
--- OUTSIDE RECORDS SUMMARY | 2025-06-02 11:42 | XMS_ITS | Encounter Summary ---
Author Organization [employer] Address [address] [place] [address] 7t [place] [address] Care Team Providers Care Mainspring Winder And Oiler Name Role Phone Thalia Claudio MD Primary Care Provider Reason for Visit * Reason Comments Med Refill Encounter Details Date Type Department Care Team ([facility] st Contact Info) Description 03/06/2023 Refill [facility] MEDICINE [address] [place], [place] [phone] Thalia Claudio MD [address] [place], [place] [phone] Social History Tobacco Use Types Packs/Day Years [...] on filedocumented in this encounter Care Teams Mainspring Winder And Oiler Relationship Specialty Start Date End Date Thalia Claudio MD [address] [place] [address] PCP - General Family Medicine 03/13/22 documented as of this encounter
--- OUTSIDE RECORDS SUMMARY | 2025-06-02 11:42 | XMS_ITS | Encounter Summary ---
Author Organization [employer] Address [address] [place] [address] 7t [place] [address] Care Team Providers Care Information And Referral Director Name Role Phone Thalia Claudio MD Primary Care Provider [phone] Reason for Visit * Reason Comments Med Refill Encounter Details Date Type Department Care Team ([facility] st Contact Info) Description 02/27/2023 Refill [facility] MEDICINE [address] [place], [place] [phone] Thalia Claudio MD [address] [place], [place] [phone] Social History Tobacco Use Types Packs/Day Years [...] on filedocumented in this encounter Care Teams Information And Referral Director Relationship Specialty Start Date End Date Thalia Claudio MD [address] [place] [phone] PCP - General Family Medicine 03/13/22 documented as of this encounter
--- OUTSIDE RECORDS SUMMARY | 2025-06-02 11:42 | XMS_ITS | Encounter Summary ---
Author Organization [employer] Address [address] [place] [address] [address]t [place] [address] Care Team Providers Care Adult Services Librarian Name Role Phone Thalia Claudio MD Primary Care Provider [phone] Reason for Visit * Reason Comments Med Refill Encounter Details Date Type Department Care Team ([facility] st Contact Info) Description 03/07/2023 Refill [facility] MEDICINE [address] [place], [place] [phone] Thalia Claudio MD [address] [place], [place] [phone] Social History Tobacco Use Types Packs/Day Years [...] on filedocumented in this encounter Care Teams Adult Services Librarian Relationship Specialty Start Date End Date Thalia Claudio MD [address] [place] [phone] PCP - General Family Medicine 03/13/22 documented as of this encounter
--- OUTSIDE RECORDS SUMMARY | 2025-06-02 11:42 | XMS_ITS | Clinical Summary ---
Author Organization [employer] Address [address] [facility] [address] [place] [address] Care Team Providers Care Hat Band Attacher Name Role Phone Thalia Claudio MD Primary Care Provider [phone] Allergies Active Allergy Reactions Criticality Noted Date [...] mouth every 8 (eight) hours. 2023 Active omeprazole (PriLOSEC) [address] capsule Take 1 capsule by mouth 2 times daily. 2023 Active glucose blood test strip Test blood sugar twice daily 100 each 11 08/25 Active rosuvastatin (Crestor) 10 MG tabletIndications:Dysl ipidemia with low high density lipoprotein (HDL) cholesterol with hypertriglyceridemia due to type 2 diabetes mellitus (HCC) TAKE 1 TABLET BY MOUTH AT BEDTIME [...] ONCE DAILY 48 g 3 2024 Active traMADol (Ultram) 50 MG tablet Take 1 tablet by mouth every 6 (six) hours. 2024 Active Ozempic, 1 MG/DOSE, 4 MG/3ML solution pen-injector INJECT 1 MG SUBCUTANEOUSLY ONCE A WEEK 3 mL 11 2024 Active nicotine polacrilex (Nicorette) 2 MG gum CHEW 1 PIECE IN MOUTH EVERY 2 HOURS NEEDED DIRECTED 110 each 3 2024 Active traZODone (Desyrel) 50 MG tablet TAKE 1 TABLET BY MOUTH AT BEDTIME 90 tablet 3 2024 Active busPIRone (Buspar) 10 MG tabletIndications:Anxi ety TAKE 1 TABLET BY MOUTH THREE TIMES DAILY IN THE MORNING, EVENING, AND BEDTIME 90 tablet 3 2024 Active gabapentin (Neurontin) 600 MG tabletIndications:Low back pain at multiple sites TAKE 1 TABLET BY MOUTH THREE TIMES DAILY IN THE MORNING, EVENING, AND BEDTIME 90 tablet 3 2024 Active loratadine (Claritin) 10 MG tablet TAKE 1 TABLET BY MOUTH EVERY MORNING 90 tablet 3 2024 Active hydroCHLOROthiazide (HYDRODiuril) 25 MG tabletIndications:Esse ntial (primary) hypertension TAKE 1 TABLET BY MOUTH EVERY MORNING 90 tablet 3 2024 Active Diclofenac Sodium 1 % gel APPLY 4 GRAMS TOPICALLY TO KNEES FOUR TIMES DAILY DIRECTED 2024 Active PARoxetine (Paxil) 10 MG tablet Take 1 tablet (10 mg) by mouth in the evening. For hot flashes 90 tablet 3 05/30 Active clotrimazole (Lotrimin) 1 % cream APPLY TOPICALLY TO AFFECTED AREA(S) AND SURROUNDING AREA(S) OF SKIN EVERY TWELVE HOURS (IN THE MORNING AND IN THE EVENING) 45 g 3 05/30 Discontinued( Therapy completed) hydrocortisone 2.5 % cream MIX WITH CERAVE AND APPLY A PEA SIZED AMOUNT TO SKIN TWICE DAILY FOR 1 WEEK 20 g 11 05/30 Discontinued( Therapy completed) hydroCHLOROthiazide (HYDRODiuril) 25 MG tabletIndications:Esse ntial (primary) hypertension TAKE 1 TABLET BY MOUTH EVERY MORNING 90 tablet 3 05/23 Discontinued( Reorder (will not trigger notification to Pharmacy)) ferrous gluconate (Fergon) 324 (38 Fe) MG tablet TAKE 1 TABLET BY MOUTH EVERY MORNING WITH BREAKFAST 90 tablet 05/30 Discontinued( Therapy completed) meclizine (Antivert) 25 MG tablet Take 1 tablet (25 mg) by mouth if needed in the morning, at noon, and at bedtime for dizziness. 30 tablet 3 05/30 Discontinued( Therapy completed) Ketotifen Fumarate 0.035 % solution Administer 1 drop into both eyes 2 times daily. 10 mL 3 05/30 Discontinued( Therapy completed) pantoprazole (ProtoNix) 40 MG EC tabletIndications:Greg roesophageal reflux disease without esophagitis TAKE 1 TABLET BY MOUTH EVERY MORNING 90 tablet 3 05/30 Discontinued( Therapy completed) Active Problems Problem Noted Date Diagnosed Date [...] hypertriglyceridemia due to type 2 diabetes mellitus 10/15/2017 Assessment & Plan (06/30/2022 7:11 AM EST): Continue Metforming and Trulicity Gentle exercise encouraged Re-refer to [facility] vision care Cont statin F/u in 3 months Cirrhosis of liver (CMS/HCC) 05/19/2017 Assessment & Plan (10/07/2023 12:40 PM [...] 1.5mg weekly Gentle exercise encouraged Re-refer to [facility] vision care Cont statin Check lipids today Podiatry referral for flat feet Assessment & Plan (10/07/2023 12:40 PM EDT): Omcrease Trulicity to 1.5mg weekly Gentle exercise encouraged Re-refer to [facility] vision care Cont statin Check lipids today F/u in 3 months Assessment & Plan (12/23/2022 1:39 PM EDT): Stop Metformin and increase Trulicity to 1.5mg weekly Gentle exercise encouraged Re-refer to [facility] vision care Cont statin Check lipids today F/u in 3 months Assessment & Plan (06/30/2022 7:13 AM EST): Continue Metforming and Trulicity Gentle exercise encouraged Re-refer to [facility] vision care Cont statin F/u in 3 months Encounters Date Type Department Care Team Description 05/30/2025 2:00 PM EST Office Visit [facility] [address] [place] [id number] Thalia Claudio MD Type 2 diabetes mellitus without complication, without [...] (HCC); Smoker; Primary osteoarthritis of right knee 05/30/2025 Travel 05/23/2025 Refill [facility] [address] [place] [address] Thalia Claudio MD Essential (primary) hypertension 05/23/2025 Refill [facility] [address] [place] [address] Thalia Claudio MD Essential (primary) hypertension 04/24/2025 Refill [facility] [address] [place] [address] Thalia Claudio MD 04/21/2025 Refill [facility] [address] [place] [address] Thalia Claudio MD Anxiety; Low back pain at multiple sites 03/23/2025 Refill [facility] [address] [place] [address] Thalia Claudio MD 03/15/2025 Orders Only [facility] [address] [place] [address] Thalia Claudio MD from Last 3 Months Immunizations Immunization Administration [...] the past 12 months, has t he [employer], gas, oil or water company threatened to [...] Mass Index 36.35 05/30/2025 1:41 PM EST Plan of Treatment Health Maintenance Due Date Last Done Comments CT Colonography 1967 FIT DNA/Cologuard 1967 FIT 1967 FOBT 1965 Sigmoidoscopy 1967 Hepatitis B Vaccines (1 of 3 - 19+ 3-dose series) 1986 Pap Smear 1988 RSV Patients and Patients Aged 60 years or older (1 - Risk 50-74 years 1-dose series) 2017 Diabetes: Urine Protein Screening 02/24/2025 02/25/2024, 12/23/2022, 09/13/2022, Additional history exists Lipid Panel 02/24/2025 02/25/2024, 06/0 11/2022, 08/01/2021 COVID-19 Vaccine ( season) 2025 07/22/2023, 04/23/2022, 04/23/2022, Additional history exists Influenza Vaccine (#1) 2025 9, 05/19/2017, 04/24/2012, Additional history exists SDOH Screening 08/11/2025 08/11/2024 Alcohol/Substance Use Screening 08/20/2025 08/20/2024 Depression Monitoring 11/27/2025 05/30/2025, 025 Diabetes: Hemoglobin A1C 11/27/2025 025, 08/20/2024, 02/25/2024, Additional history exists Mammogram 03/15/2026 03/15/2025, 02/19, 01/08/2022, Additional history exists Cervical Cancer Screening 05/30/2026 Diabetes: Foot Exam 05/30/2026 05/30/2025, 05/30/2025, 05/30/2025, Additional history exists Disability Screening 05/30/2026 05/30/2025 HPV/Cotest 05/30/2026 05/30/2021, 05/30/2021 Tobacco Screening 05/30/2026 05/30/2025 Eye Exam 12/29/2026 12/29/2024, 12/19, 12/29/2024, Additional history exists DTaP/Tdap/Td Vaccines (3 - Td or Tdap) 02/23/2032 02/22/2022, 09/20/2011, 02/06/2006, Additional history exists Colonoscopy 09/24/2032 09/24/2016 Colorectal Cancer Screening 09/24/2032 Zoster Vaccines Completed 11/08/2021, 10/20, 08/31/2021, Additional [...] without long-term current use of insulin (HCC) BI MAMMOGRAM SCREENING TOMOSYNTHESIS BILATERAL Routine 03/15/2025 11:10 AM EDT HEPATITIS C AB W/REFL TO [...] Relevant to Health Maintenance Results * POCT Hgb A1c (05/30/2025 1:49 PM EST) Hemoglobin A1C 5.5 4.0 - 5.7 % QC Media Lot # [id number] Lot# Expiration Date [id number] Blood 05/30/2025 1:49 PM EST Thalia Claudio MD POINT OF CARE TEST ENTER/EDIT ORDERABLES Final Result * POCT Glucose (05/30/2025 1:40 PM EST) Glucose Blood, POC 154 60 - 200 mg/dL QC Media Lot # [id number] Lot# Expiration Date Blood Capillary blood specimen / Unknown 05/30/2025 1:40 PM EST Thalia Claudio MD POINT OF CARE TEST ENTER/EDIT ORDERABLES Final Result * BI Mammogram Screening Tomosynthesis Bilateral (03/15/2025 11:10 AM EDT) Anatomical Region Laterality Modality Breast Bilateral Mammography 03/15/2025 11:1 0 AM EDT Narrative 03/19/2025 10:52 AM EDT [facility] [address] [place] [address] Mammography Report Signed Patient: Camila Dumont MR#: [id number] : 1965 Acct:[id number] Age/Sex: 59 / F ADM Date: 03/15/25 Loc: MAMMO Attending Dr: Thalia Claudio MD Ordering Physician: Thalia Claudio Results: 1Negative Date of Service: 03/15/25 Follow Up: 1 Year From Orig ina Mammogram Procedure(s): MM tomosynthesis screening BI Accession Number(s): [id number] cc: Thalia Claudio EXAMINATION: MM SCREENING DIGITAL BREAST TOMOSYNTHESIS, BILATERAL CLINICAL INFORMATION: Screening. Asymptomatic. COMPARISON: Comparison made to multiple prior, most recent March 09, 2024, and most remote December 26, 2020. TECHNIQUE: Digital breast tomosynthesis is performed in both the craniocaudal and mediolateral oblique views along with computer-aided detection (CAD). Additional views were taken if needed. FINDINGS: BREAST COMPOSITION: There are scattered areas of fibroglandular density (ACR BI-RADS breast composition Category b). BILATERAL BREASTS: No significant masses, suspicious calcifications or other abnormalities are seen in either breast. MM/MM tomosynthesis screening BI IMPRESSION: BILATERAL BREASTS: Negative, no mammographic evidence of malignancy. Normal interval follow-up is recommended in 12 months. ASSESSMENT: BI-RADS 1 - Negative RECOMMENDATION: Routine annual mammography screening. FOLLOW-UP: 1 year F/U This examination should not preclude the clinical evaluation of a suspicious palpable abnormality. This patient's information was entered into a reminder system with a target due date for their next mammogram. 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 [address] Mammography Report Signed Patient: Derrick Dumont#: [id number] : 1965Acct:[id number] Age/Sex: 59 / FADM Date: 03/15/25 Loc: HO.MAMMO Attending Dr: Thalia Claudio MD Ordering Physician: Allison Claudioults: 1Negative Date of Service: 03/15/25Follow Up: 1 Year From Orig ina Mammogram Procedure(s): MM tomosynthesis screening BI Accession Number(s): [id number] cc: Thalia Claudio EXAMINATION: MM SCREENING DIGITAL BREAST TOMOSYNTHESIS, BILATERAL CLINICAL INFORMATION: Screening. Asymptomatic. COMPARISON: Comparison made to multiple prior, most recent March 09, 2024, and most remote December 26, 2020. TECHNIQUE: Digital breast tomosynthesis is performed in both the craniocaudal and mediolateral oblique views along with computer-aided detection (CAD). Additional views were taken if needed. FINDINGS: BREAST COMPOSITION: There are scattered areas of fibroglandular density (ACR BI-RADS breast composition Category b). BILATERAL BREASTS: No significant masses, suspicious calcifications or other abnormalities are seen in either breast. MM/MM tomosynthesis screening BI IMPRESSION: BILATERAL BREASTS: Negative, no mammographic evidence of malignancy. Normal interval follow-up is recommended in 12 months. ASSESSMENT: BI-RADS 1 - Negative RECOMMENDATION: Routine annual mammography screening. FOLLOW-UP: 1 year F/U This examination should not preclude the clinical evaluation of a suspicious palpable abnormality. This patient's information was entered into a reminder system with a target due date for their next mammogram. Electronically signed by: Mackenzie Gross MD 03/19/2025 10:49 AM EDT RP Workstation: [facility] [employer] Dictated By: Mackenzie Gross MD Signed By: <Electronically signed by Mackenzie Gross MD in OV> 03/19/25 1049 DD/ 1110 TD/TT: 03/15/25 1135 [employer]al Rail Installer: Thalia Claudio MD IMG BI PROCEDURES Final Result * (ABNORMAL) Albumin, Random Urine W/Creatinine (02/25/2024 10:30 AM EDT) Creatinine, Urine 138.37 mg/dL [facility] Microalbumin Urine 68.0 mg/L [facility] Microalbum Creatinine Ratio Ur 49.1(H) <30 ug/mg cr [facility] Comment:Albumin/Creatinine R atio Reference Ranges: Normal: < 30 ug/mg creatinine Microalbuminuria: 30 - 300 ug/mg creatinineClinical Albuminuria: > 300 ug/mg creatinine Urine (Urine, Random) 02/25/2024 10:30 AM EDT 02/25/2024 11:24 AM EDT Thalia Claudio MD LAB URINE ORDERABLES Final Res ult [facility] [address] [place] [phone] * (ABNORMAL) Hepatitis C Antibody with Reflex to HCV, RNA, Quantitative, Real- Time PCR (02/25/2024 10:30 AM EDT) Hepatitis C Antibody Reactive( A) Nonreactive [facility] Comment:Presumptive evidence of antibodies to HCV. Blood Venous blood specimen / Unknown 02/25/2024 10:30 AM EDT 02/25/2024 11:10 AM EDT us Thalia Claudio MD LAB BLOOD ORDERABLES Final Res ult Performing Organization Address [facility] Co de Phone Number [facility] [address] [place] [address] [phone] * HIV-1/2 Antigen and Antibodies, Fourth Generation, with Reflexes (02/25/2024 10:30 AM EDT) HIV AB/AG Nonreactive Nonreactive [facility] Comment:HIV-1 p24 Ag and/or HIV-1/HIV-2 Ab not detected.A test result that is nonreactive does not exclude thepossibility of exposure to or infection with HIV-1 and/orHIV-2. Nonreactive results in this assay for individualswith prior exposure to HIV-1 and/or HIV-2 may be due toantigen and antibody levels that are below the limit ofdetection of this assay.The [employer] HIV Ag/Ab Combo assay result andsupplemental assay results should be interpreted inconjunction with the patient's clinical presentation,history and other laboratory results. If the results areinconsistent with clinical evidence, additional testing issuggested to confirm the result. Blood Venous blood specimen / Unknown 02/25/2024 10:30 AM EDT 02/25/2024 11:10 AM EDT us Thalia Claudio MD LAB BLOOD ORDERABLES Final Res ult Performing Organization Address [facility]/ZIP Co de Phone Number [facility] [address] [place] [address] [phone] * (ABNORMAL) Lipid Panel, Standard (02/25/2024 10:30 AM EDT) Triglycerides 358(H) <150 mg/dL [facility] Comment:Desirable Triglyceri de: less than 150 mg/dLBorderline High Triglyceride 150-199 mg/dLHigh Triglyceride: 200-499 mg/dLVery High Triglyceride: greater than or equal to 5OO mg/dL Cholesterol 165 <200 mg/dL [facility] Comment:Desirable Cholestero l: less than 200 mg/dLBorderline High Cholesterol: 200-239 mg/dLHigh Cholesterol: greater than 239 mg/dL LDL Cholesterol Calculated 64 <100 mg/dL [facility] Comment:Desirable LDL: less than 100 mg/dLNear Optimal/Above Optimal LDL: 110- 129 mg/dLBorderline High LDL: 130-159 mg/dLHigh LDL: 160-189 mg/dLVery High LDL: greater than or equal to 190 mg/dL HDL Cholesterol 30(L) >40 mg/dL [facility] Comment:Desirable HDL: great er than 40 mg/dL Note: This HDL assay may give artificially low results in patients with liver disease. Blood Venous blood specimen / Unknown 02/25/2024 10:30 AM EDT 02/25/2024 11:10 AM EDT us Thalia Claudio MD LAB BLOOD ORDERABLES Final Res ult [facility] [address] [place] [phone] * HPV E6/E7 RFLX MONI 16 18/45 (05/30/2021 11:09 AM EST) HPV mRNA E6/E7 rflx Not Detected Not Detected [facility] Comment: Methodology: Manager Stylist-Mediated Amplification This assay detects E6/E7 viral messenger RNA (mRNA) from 14 high-risk HPV types (16,18,31,33,35,39,45,51,52,56,58,59,66,68). The analytical performance characteristics of this assay have been determined by [employer]. The modifications have not been cleared or approved by the FDA. This assay has been validated pursuant to the CLIA regulations and is used for clinical purposes. For additional information, please refer to http://education.[employer]/faq/FZD489s4 (This link if provided for information/ educational purposes only.) THIS TEST WAS PERFORMED AT: [facility] [address] [place] [address],[place] [address] JONNY MONTIEL MD 05/30/2021 11:0 9 AM EST [place] HISTORICAL/NON ORDERABLE LABS Fi nal Result [facility] [address] * Hm Colonoscopy (09/24/2016) Historical Provider HEALTH MAINTENANCE Final Result from Last 3 Months or Most Recently Relevant to Health Maintenance Insurance [employer] Care Teams Hat Band Attacher Relationship Specialty Start Date End Date Thalia Claudio MD [address] [place] [address] PCP - General Family Medicine 03/13/22
--- OUTSIDE RECORDS SUMMARY | 2025-06-02 11:42 | XMS_ITS | Encounter Summary ---
Author Organization [employer] Address [address] [facility] 7[address] [place] [address] Care Team Providers Care Dishwashing Machine Operator Name Role Phone Thalia Claudio MD Primary Care Provider [phone] Encounter Details Date Type Department Care Team ([facility] st Contact Info) Description 10/18/2024 Orders Only [facility] [address] [place] [address] Thalia Claudio MD [address] [place] [address] Social History Tobacco Use Types Packs/Day Years [...] the past 12 months, has t he [employer], oil or water company threatened to shut [...] on filedocumented in this encounter Care Teams Dishwashing Machine Operator Relationship Specialty Start Date End Date Thalia Claudio MD [address] [place] [phone] PCP - General Family Medicine 03/13/22 documented as of this encounter
== END 2025-06-02 14:01 | disposition home or self-care (01) ==
LOC: HO.HGI 09:54
PROVIDERS: PCP General Practice; Visit Provider Nurse Practitioner
DX: K80.20 Calculus of gallbladder without cholecystitis without obstruction (principal)
CPT/HCPCS: 99213